=== PATIENT | female | born 1945 | race African-American/Black ===

== ENCOUNTER 2016-06-11 10:50 | Emergency (ER) | payer MEDICARE, OTHER ==
[~2016-06-11] VITALS: Ht 167.6 cm; Wt 80.0 kg
[~2016-06-11 10:50] MED LIST: AMLO2.5T78 PO; BENA1TAB12 PO; CIPR500T4 PO; HYDR-1049 PO; HYDR-902 PO; LEVO25TA59 PO; OMEP20CA16 PO; ONDA4TAB14 PO; TRAM100T8 PO
[2016-06-11 10:54] VITALS: Ht 167.6 cm; Wt 80.0 kg
[2016-06-11] MEDS ORDERED: FAMOTIDINE 20 MG INJ IV STA (11:05)
[2016-06-11] MEDS ORDERED: SOD CHLORIDE 0.9% 1,000 ML IV STA (11:05)
[2016-06-11] MEDS ORDERED: ONDANSETRON 4 MG INJ IV STA (11:05)
--- NOTE | 2016-06-11 11:09 | ERA ---
ER Documentation Chief Complaint Date/Time DATE: 06/11/16 TIME: 11:07 Chief Complaint FLANK PAIN WITH FLU LIKE SYMPTOMS HPI Patient is a 70-year-old female who presents with gradual onset, constant, moderate, dull upper abdominal pain since last night. Pain is in the epigastrium and radiates to the bilateral flanks. Patient reports having 5 episodes of chocolate colored emesis last night and 2 episodes of brown soft stool this morning. Patient denies fever, dark stools, dysuria, chest pain, dyspnea, cough. ROS All systems reviewed and are negative except as per history of present illness. Medications Home Meds Active Scripts Ondansetron Hcl* (Zofran*) 4 Mg Tablet, 4 MG PO Q8 Y for NAUSEA, #14 TAB Prov:REVA DAVIS MD 06/11/16 Dicyclomine Hcl* (Bentyl*) 10 Mg Capsule, 10 MG PO QID Y for PAIN, #10 CAP Prov:REVA DAVIS MD 06/11/16 Famotidine* (Pepcid*) 20 Mg Tablet, 20 MG PO BID for 7 Days, TAB Prov:REVA DAVIS MD 06/11/16 Ondansetron (Ondansetron Odt) 4 Mg Tab.rapdis, 4 MG PO Q6H Y for NAUSEA AND/OR VOMITING, #10 TAB Prov:MAURICE CAMERON 11/09/15 Hydrocodone/Acetaminophen (Bath 10-325 Tablet) 1 Each Tablet, 1 TAB PO Q6H Y for PAIN, #20 TAB Prov:MAURICE CAMERON 11/09/15 Ciprofloxacin Hcl* (Ciprofloxacin Hcl*) 500 Mg Tablet, 500 MG PO BID for 5 Days , TAB Prov:MAURICE CAMERON 11/09/15 Reported Medications Tramadol Hcl* (Ultram* ER) 100 Mg Tab.sr.24h, 100 MG PO Y 12/10/12 Hydrocodone/Ibuprofen (Vicoprofen 200-7.5 MG) 1 Each Tablet, 1 EACH PO 12/10/12 Omeprazole* (Omeprazole*) 20 Mg Capsule.dr, 20 MG PO DAILY 12/10/12 Levothyroxine Sodium* (Synthroid*) 25 Mcg Tablet, 25 MCG PO DAILY 12/10/12 Amlodipine Besylate* (Amlodipine Besylate*) 2.5 Mg Tablet, 2.5 MG PO DAILY 12/10/12 Benazepril-Hydrochlorothiazide (Benazepril-Hydrochlorothiazide) 1 Each Tablet, 1 EACH PO DAILY 12/10/12 Allergies Allergies: Coded Allergies: No Known Drug Allergies (Verified Allergy, 12/10/12) PMhx/Soc Past medical history: Diabetes, hypertension Past surgical history: Cholecystectomy, back, right knee. Social history: Smokes cigarettes, no alcohol or illicit drugs. History of Surgery: Yes (Cholecystectomy,Lumbar Spine Surg) Anesthesia Reaction: No Hx Neurological Disorder: No Hx Respiratory Disorders: Yes (COPD) Hx Cardiac Disorders: Yes (HTN) Hx Psychiatric Problems: No Hx Miscellaneous Medical Probl: Yes (Hep A&C;Hypothyroidism,GERD) Hx Alcohol Use: No Hx Substance Use: No Hx Tobacco Use: Yes Smoking Status: Current some day smoker FmHx Family History: No coronary disease, No diabetes Physical Exam Vitals Vital Signs Date Time Temp Pulse Resp B/P Pulse Ox O2 Delivery O2 Flow Rate FiO2 06/11/16 13:49 99.0 75 18 109/71 97 Room Air 06/11/16 11:08 101.6 06/11/16 10:54 99.3 93 18 135/72 100 Physical Exam Const: Alert, no acute distress Head: Atraumatic Eyes: Normal Conjunctiva, no pallor, no icterus ENT: Normal External Ears, Nose and Mouth. Mucous membranes moist Neck: Full range of motion..~ No meningismus. Resp: Clear to auscultation bilaterally, trace right basilar rales Cardio: Regular rate and rhythm, no murmurs Abd: Soft, nondistended, epigastric tenderness, no guarding or rebound Skin: No petechiae or rashes Back: No midline or flank tenderness Ext: No cyanosis, or edema Neur: Awake and alert, cranial nerves II through XII intact bilaterally, strength and sensation intact in 4 extremities. Psych: Normal Mood and Affect Result Diagram: 06/11/16 1130 06/11/16 1130 Results 24 hrs Laboratory Tests Test 06/11/16 11:30 06/11/16 12:16 White Blood Count 5.410^3/ul Red Blood Count 4.9110^6/ul Hemoglobin 13.4g/dl Hematocrit 39.8% Mean Corpuscular Volume 81.1fl Mean Corpuscular Hemoglobin 27.3pg Mean Corpuscular Hemoglobin Concent 33.7g/dl Red Cell Distribution Width 13.2% Platelet Count 23913^3/UL Mean Platelet Volume 11.2fl Neutrophils % 51.2% Lymphocytes % 40.0% Monocytes % 6.9% Eosinophils % 1.1% Basophils % 0.2% Nucleated Red Blood Cells % 0.0/100WBC Neutrophils # 2.710^3/ul Lymphocytes # 2.110^3/ul Monocytes # 0.410^3/ul Eosinophils # 0.110^3/ul Basophils # 0.010^3/ul Nucleated Red Blood Cells # 0.010^3/ul Sodium Level 140mmol/L Potassium Level 3.4mmol/L Chloride Level 104mmol/L Carbon Dioxide Level 26mmol/L Anion Gap 13 Blood Urea Nitrogen 12mg/dl Creatinine 0.48mg/dl Glucose Level 145mg/dl Lactic Acid Level 1.1mmol/L Calcium Level 9.3mg/dl Total Bilirubin 0.5mg/dl Direct Bilirubin 0.00mg/dl Indirect Bilirubin 0.5mg/dl Aspartate Amino Transf (AST/SGOT) 20IU/L Alanine Aminotransferase (ALT/SGPT) 29IU/L Alkaline Phosphatase 86IU/L Troponin I < 0.012ng/ml Total Protein 6.5g/dl Albumin 3.4g/dl Globulin 3.10g/dl Albumin/Globulin Ratio 1.09 Lipase 93U/L Urine Color LT. YELLOW Urine Clarity CLEAR Urine pH 5.5 Urine Specific Gates 1.020 Urine Ketones NEGATIVE Urine Nitrite NEGATIVE Urine Bilirubin NEGATIVE Urine Urobilinogen 0.2 E.U./ Urine Leukocyte Esterase TRACE Urine Microscopic RBC 0-2/HPF Urine Microscopic WBC 2-5/HPF Urine Epithelial Cells FEW Urine Bacteria MODERATE Urine Hemoglobin TRACE Urine Glucose NEGATIVE% Urine Total Protein NEGATIVE Current Medications Medications (Trade) Dose Ordered Sig/Nguyen Route PRN Reason Start Time Stop Time Status Last Admin Dose Admin Sodium Chloride (NS) 1,000 ml @ 1,000 mls/hr Q1H STAT IV 06/11/16 11:05 06/11/16 12:04 DC 06/11/16 11:40 Ondansetron HCl (Zofran Inj) 4 mg ONCE STAT IV 06/11/16 11:05 06/11/16 11:07 DC 06/11/16 11:39 Famotidine (Pepcid Iv) 20 mg ONCE STAT IV 06/11/16 11:05 06/11/16 11:07 DC 06/11/16 11:39 Acetaminophen (Tylenol Tab) 650 mg ONCE ONCE PO 06/11/16 11:30 06/11/16 11:31 DC 06/11/16 11:39 Iohexol 150 ml 150 ml STK-MED ONCE .ROUTE 06/11/16 12:24 06/11/16 12:25 DC Sodium Chloride (NS) 100 ml @ ud STK-MED ONCE .ROUTE 06/11/16 12:24 06/11/16 12:25 DC Procedures/MDM EKG read by me: Time 1224, rate 72 Rhythm: Normal sinus Adams: Normal Intervals: Normal ST-T waves: no ischemic changes Ectopy: No Q-waves: No Impression: No evidence of ischemia or arrhythmia MDM: Patient is a 70-year-old female who presents with 1 day of upper abdominal pain associated with vomiting, diarrhea and fever. Symptoms are suggestive of gastroenteritis. However, given the patient's abdominal tenderness on exam, CT scan was performed to exclude intra-abdominal infectious process. Patient's exam is not peritoneal, and on reassessment the patient states that pain is improved. There is no evidence of pneumonia on chest x-ray or UTI on UA. Patient was signed out to Dr. Roberts at shift change pending results of CT scan. If the patient's CT scan does not show acute pathology, I believe the patient can be discharged home with symptomatic treatment for acute gastroenteritis. There is no evidence of dehydration. Departure Diagnosis: Primary Impression: Gastroenteritis Condition: REVA Estrada MD Jun 11, 2016 11:09
[2016-06-11] MEDS ORDERED: ACETAMINOPHEN 325 MG TAB PO ONE (11:30)
[2016-06-11 11:36] LABS: ADD SCAN DIFF NO
--- NOTE | 2016-06-11 11:37 | RADRPT ---
PROCEDURE: XR Chest. CLINICAL INDICATION: The pain TECHNIQUE: Anterior chest x-ray. COMPARISON: None. FINDINGS: The lungs are clear. No pleural effusion identified. There is no evidence of pneumothorax. The cardiomediastinal silhouette is unremarkable. The soft tissues are normal. Osseous structures demonstrate mild degenerative change of bilateral shoulder joints. No free air under the hemidiaphragms. IMPRESSION: 1. No acute disease is seen in the chest. RPTAT: QQ .Hung Arriaza MD, Date Time Electronically viewed and signed by .Hung Arriaza MD, on 06/11/2016 11:37 .M/
[2016-06-11 11:39] LABS: BASOPHILS % 0.2 % (0.0-2.0); EOSINOPHILS # 0.1 10^3/ul (0.0-0.5); EOSINOPHILS % 1.1 % (0.0-7.0); HEMATOCRIT 39.8 % (37.0-47.0); HEMOGLOBIN 13.4 g/dl (12.0-16.0); LYMPHOCYTES # 2.1 10^3/ul (0.8-2.9); MEAN CORPUSCULAR HEMOGLOBIN 27.3 pg (29.0-33.0); MEAN CORPUSCULAR HGB CONC 33.7 g/dl (32.0-37.0); MEAN CORPUSCULAR VOLUME 81.1 fl (82.0-101.0); MEAN PLATELET VOLUME 11.2 fl (7.4-10.4); MONOCYTE # 0.4 10^3/ul (0.3-0.9); MONOCYTES % 6.9 % (0.0-11.0); NEUTROPHIL # 2.7 10^3/ul (1.6-7.5); NEUTROPHILS % 51.2 % (39.0-77.0); PLATELET COUNT 188 10^3/UL (140-415); RED BLOOD COUNT 4.91 10^6/ul (4.20-5.40); RED CELL DISTRIBUTION WIDTH 13.2 % (11.5-14.5); WHITE BLOOD COUNT 5.4 10^3/ul (4.8-10.8)
[2016-06-11 11:47] LABS: ALBUMIN 3.4 g/dl (3.3-4.9)
[2016-06-11 11:48] LABS: CHLORIDE 104 mmol/L (97-110); POTASSIUM 3.4 mmol/L (3.5-5.1); SODIUM 140 mmol/L (135-144)
[2016-06-11 11:50] LABS: ANION GAP 13 (8-16); ASPARTATE AMINO TRANSFERASE 20 IU/L (15-46); BILIRUBIN,INDIRECT 0.5 mg/dl (0-1.1); BILIRUBIN,TOTAL 0.5 mg/dl (0.2-1.3); CARBON DIOXIDE 26 mmol/L (21-31); CREATININE 0.48 mg/dl (0.44-1.00)
[2016-06-11 11:51] LABS: ALANINE AMINOTRANSFERASE 29 IU/L (13-69); ALBUMIN/GLOBULIN RATIO 1.09; ALKALINE PHOSPHATASE 86 IU/L (42-121); BLOOD UREA NITROGEN 12 mg/dl (7-20); CALCIUM 9.3 mg/dl (8.4-10.2); GLUCOSE 145 mg/dl (70-220); TOTAL PROTEIN 6.5 g/dl (6.1-8.1)
[2016-06-11 12:06] LABS: TROPONIN-I < 0.012 ng/ml (0.00-0.12)
[2016-06-11] MEDS ORDERED: SOD CHLORIDE 0.9% 100 ML ONE (12:24)
[2016-06-11] MEDS ORDERED: IOHEXOL 300MG/ML 150 ML BTL ONE (12:24)
[2016-06-11 13:01] LABS: URINE COLOR LT. YELLOW (YELLOW)
[2016-06-11 13:02] LABS: ADD UMIC YES; URINE BILIRUBIN (Dip) NEGATIVE (NEGATIVE); URINE BLOOD (Dip) TRACE (NEGATIVE); URINE GLUCOSE (Dip) NEGATIVE (NEGATIVE); URINE KETONES (Dip) NEGATIVE (NEGATIVE); URINE LEUKOCYTE ESTERASE (Dip) TRACE (NEGATIVE); URINE NITRITE (Dip) NEGATIVE (NEGATIVE); URINE TOTAL PROTEIN (Dip) NEGATIVE (NEGATIVE); URINE UROBILINOGEN (Dip) 0.2 E.U./ (0.1-1.0)
[2016-06-11 13:04] LABS: BACTERIA,URINE MODERATE; URINE RBCS 0-2 /HPF (0)
[2016-06-11 13:49] VITALS: TEMP 99
[2016-06-11] MEDS ORDERED: FAMO-18 PO (15:12)
[2016-06-11] MEDS ORDERED: DICY10CA60 PO (15:12)
[2016-06-11] MEDS ORDERED: ONDA4TAB8 PO (15:12)
--- NOTE | 2016-06-11 15:27 | RADRPT ---
PROCEDURE: CT Abdomen and Pelvis with contrast. CLINICAL INDICATION: Abdominal pain, left flank pain, fever TECHNIQUE: CT scan of the abdomen and pelvis with and without contrast was performed on a multidet adolfo high-resolution CT scanner. The patient was scanned following the uncomplicated intravenous a dministration of 100 cc of Omnipaque 300. Coronal and sagittal reformatted images were obtained fro m the axial source images. Images were reviewed on a high-resolution PACS workstation. The followin g dose reduction techniques were used: Automated exposure control, adjustment of the mA and/or kV ac cording to patient size and use of iterative reconstruction technique. The total exam CTDI equals 22 .5 mGy and the total exam DLP equals 1309 mGy-cm. COMPARISON: None. FINDINGS: CT abdomen: There is mild bibasilar atelectasis. The heart size is normal. No pericardial effusion identified. The liver demonstrates normal size and density. No liver mass identified. The gallbladder is surgically absent. There is no intrahepatic or extrahepatic biliary dilatation. The spleen is normal in size. No focal splenic abnormality identified. No gross abnormality of the stomach is identified. The pancreas is unremarkable. The adrenal glands appear normal. The kidneys are unremarkable. There is no evidence of renal mass, renal calculi or hydronephrosis. The aorta is of normal caliber. Aortic vascular calcifications are present. No adenopathy identified. Crescentic low density focus in the second portion of duodenum is likely free material within the ravi men of the duodenum. The bowel and mesentery are otherwise unremarkable. CT pelvis: There is demonstrates nodular contour as well as a few small calcifications within the uterus, sugge sting fibroid uterus. Urinary bladder is mostly decompressed grossly unremarkable. The pelvic sidewalls and inguinal regions are clear. The sigmoid colon and rectum are remarkable for moderate sigmoid diverticulosis. No adenopathy, free fluid or inflammatory change identified. The osseous structures are remarkable for advanced degenerative spondylosis of the spine. There is posterior fusion device at L4/L5 with satisfactory position and without evidence of hardwar e failure. No osteolytic or osteoblastic lesion is detected. IMPRESSION: 1. Moderate diverticulosis of the sigmoid colon, without inflammatory change to suggest diverticuli tis. 2. No mass, lymphadenopathy, renal calculi or focal acute inflammatory process is identified. 3. Moderate atherosclerotic calcification of the aorta. 4. 1.5 cm fat containing umbilical hernia. 5. Fibroid uterus. RPTAT: QQ .Hung Arriaza MD, MD Date Time Electronically viewed and signed by .Hung Arriaza MD, MD on 06/11/2016 15:27 ./
--- NOTE | 2016-06-11 15:34 | EN ---
Date/Time of Note Date/Time of Note DATE: 06/11/16 TIME: 15:[address] scan resulted and shows no acute pathology in the abdomen. On reassessment the patient states that she is feeling better. She has no dysuria or CVA tenderness, and UA shows only 2-5 WBCs but does have bacteria. Urine was sent for culture. I have very low suspicion for UTI given epigastric location of pain, and vomiting and diarrhea in combination, which is suggestive gastroenteritis. I have advised the patient carefully on return precautions and bland diet. The patient was noted by her nurse to be hypoxic previously, but oxygen was turned off and the patient currently has normal O2 sat. The patient never complained of shortness of breath, and it is unclear whether patient truly had hypoxia. Patient will be discharged home with comfort medications and return precautions. REVA DAVIS MD Jun 11, 2016 15:34
[2016-06-11 15:49] VITALS: BP 119/87; PULSE 78; RESP 18
== END 2016-06-11 16:13 | disposition home or self-care (01) ==
LOC: E/R 10:50
DX: K52.9 Noninfective gastroenteritis and colitis, unspecified (principal); R11.10 Vomiting, unspecified; I10 Essential (primary) hypertension; E11.9 Type 2 diabetes mellitus without complications; J44.9 Chronic obstructive pulmonary disease, unspecified; E03.9 Hypothyroidism, unspecified; F17.210 Nicotine dependence, cigarettes, uncomplicated
CPT/HCPCS: 36415; 71010; 74177; 80053; 81001; 83605; 83690; 84484; 85025; 87040; 87086; 93005; 96361; 96374; 96375; 99285; J2405; J7030; Q9967; 81003

== ENCOUNTER 2016-09-02 23:37 | Emergency (ER) | payer MEDICARE, OTHER ==
[~2016-09-02] VITALS: Ht 177.8 cm; Wt 108.0 kg
[~2016-09-02 23:37] MED LIST changes: +DICY10CA60 PO; +FAMO-96 PO; +ONDA4TAB8 PO
[2016-09-02 23:40] VITALS: Ht 177.8 cm; Wt 108.0 kg
--- NOTE | 2016-09-03 01:57 | ERD ---
ER Documentation Chief Complaint Date/Time DATE: 09/03/16 TIME: 01:54 Chief Complaint c/o right arm insect bite x 5 days. (+) pus and redness. HPI This pleasant 71-year-old female presents to emergency department today for evaluation of painful red hot right forearm. Patient reports that 4 days ago she was bit by insect, states that it was pruritic, and she had been scratching it. Patient states that now the bite is worsening, red , hot and painful DM, HTN ROS All systems reviewed and are negative except as per history of present illness. Medications Home Meds Active Scripts Ondansetron Hcl* (Zofran*) 4 Mg Tablet, 4 MG PO Q8 Y for NAUSEA, #14 TAB Prov:REVA DAVIS MD 06/11/16 Dicyclomine Hcl* (Bentyl*) 10 Mg Capsule, 10 MG PO QID Y for PAIN, #10 CAP Prov:REVA DAVIS MD 06/11/16 Famotidine* (Pepcid*) 20 Mg Tablet, 20 MG PO BID for 7 Days, TAB Prov:REVA DAVIS MD 06/11/16 Ondansetron (Ondansetron Odt) 4 Mg Tab.rapdis, 4 MG PO Q6H Y for NAUSEA AND/OR VOMITING, #10 TAB Prov:MAURICE CAMERON 11/09/15 Hydrocodone/Acetaminophen (Jeddo 10-325 Tablet) 1 Each Tablet, 1 TAB PO Q6H Y for PAIN, #20 TAB Prov:MAURICE CAMERON 11/09/15 Ciprofloxacin Hcl* (Ciprofloxacin Hcl*) 500 Mg Tablet, 500 MG PO BID for 5 Days , TAB Prov:MAURICE CAMERON 11/09/15 Reported Medications Tramadol Hcl* (Ultram* ER) 100 Mg Tab.sr.24h, 100 MG PO Y 12/10/12 Hydrocodone/Ibuprofen (Vicoprofen 200-7.5 MG) 1 Each Tablet, 1 EACH PO 12/10/12 Omeprazole* (Omeprazole*) 20 Mg Capsule.dr, 20 MG PO DAILY 12/10/12 Levothyroxine Sodium* (Synthroid*) 25 Mcg Tablet, 25 MCG PO DAILY 12/10/12 Amlodipine Besylate* (Amlodipine Besylate*) 2.5 Mg Tablet, 2.5 MG PO DAILY 12/10/12 Benazepril-Hydrochlorothiazide (Benazepril-Hydrochlorothiazide) 1 Each Tablet, 1 EACH PO DAILY 12/10/12 Allergies Allergies: Coded Allergies: No Known Drug Allergies (Verified Allergy, 12/10/12) PMhx/Soc History of Surgery: Yes (Cholecystectomy,Lumbar Spine Surg, knee) Anesthesia Reaction: No Hx Neurological Disorder: No Hx Respiratory Disorders: Yes (COPD) Hx Cardiac Disorders: Yes (HTN) Hx Psychiatric Problems: No Hx Miscellaneous Medical Probl: Yes (Hep A&C;Hypothyroidism,GERD, dm) Hx Alcohol Use: No Hx Substance Use: No Hx Tobacco Use: Yes Smoking Status: Never smoker Physical Exam Vitals Vital Signs Date Time Temp Pulse Resp B/P Pulse Ox O2 Delivery O2 Flow Rate FiO2 09/02/16 23:40 98.4 81 18 135/63 98 Vitals stable, triage notes reviewed Physical Exam Const: Well-appearing, well-nourished, well-hydrated no acute Head: Atraumatic Eyes: Normal Conjunctiva, PERRLA, EOMI ENT: Normal External Ears, Nose and Mouth. Mucous membranes moist Neck: Full range of motion..~ No meningismus. Resp: Respirations even and unlabored, no respiratory distress Cardio: Abd: Skin: Outer aspect of right forearm proximal to elbow presents with red hot erythemic plaque with surrounding erythema nonfluctuating erythema is hypersensitive, no discharge when investigated manually expressed with light palpation Back: Ext: No cyanosis, or edema Neur: Awake and alert Psych: Normal Mood and Affect Results 24 hrs Current Medications Medications (Trade) Dose Ordered Sig/Nguyen Route PRN Reason Start Time Stop Time Status Last Admin Dose Admin Acetaminophen/ Hydrocodone Bitart (Jeddo (5/325)) 1 tab ONCE ONCE PO 09/03/16 02:00 09/03/16 02:01 DC 09/03/16 02:12 Ceftriaxone Sodium (Rocephin) 1 gm ONCE ONCE IM 09/03/16 02:00 09/03/16 02:01 DC 09/03/16 02:11 Lidocaine (Xylocaine 1% (Mdv) 20 ml) 20 ml ONCE ONCE SC 09/03/16 02:30 09/03/16 02:31 DC 09/03/16 02:11 Procedures/MDM This 71-year-old female presents to emergency department today for evaluation of an infected insect bite on her right elbow. Patient reports that originally the area was paretic and she had been scratching it. Symptoms have developed over the last several days with worsening of redness warmth and pain. Low suspicion for Kt Yoel syndrome, abscess, or otitis. Patient receives 1 g of Rocephin while in emergency department, one Jeddo for pain. Plan to discharge patient home with Bactrim, Keflex, and ibuprofen. Instructed to take full course of antibiotics, return to emergency department for worsening of symptoms, increased redness, warmth, fever, nausea, vomiting. Follow-up with primary care physician after antibiotic course is complete. I feel the patient is stable for discharge at this time. I have discussed results, examination findings, the treatment plan with the patient and family present prior to discharge. Indications for emergent reevaluation, side effects of medication were also discussed. All questions were answered. Patient verbalizes understanding and agrees with plan of care. Departure Diagnosis: Primary Impression: Infected bite wound Condition: Good Patient Instructions: Insect Sting/Bite, Infected Additional Instructions: Thank you for for coming to [facility] for your care today. Please ask your nurse or provider if you have questions about your care today and do not leave until all your questions have been answered. Please use any medications given as directed and follow-up with your doctor (or the doctor you were referred to) in the next 2-3 days. If you do not have a primary care doctor you may follow up at the [facility] [place] (listed below). You may also use motrin and tylenol as needed for fever and/or pain unless instructed otherwise by your provider or nurse. Indications for more urgent follow-up have been discussed, but you may return to the Emergency Department at ANY time for any worrisome or worsening symptoms. If you have abdominal pain, please know that no test or exam you received is perfect and you should follow up within 8 hours for continued pain. If you had any imaging studies today, such as an X-Ray or CT Scan, these studies will be reviewed later by a radiologist. You will be called if there are important findings that were not identified today, so make sure the contact information you provided at registration is correct. If you received any narcotic pain control medicine today, such as Vicodin, Morphine or Dilaudid, your coordination and judgment may be affected for a number of hours. Please do not drive or operate heavy machinery, and you may want someone to assist you at home. If you were given a prescription for narcotic medication, be aware that it is very addictive- use sparingly and only if necessary. CLEM OLIVA Sep 03, 2016 01:57
[2016-09-03] MEDS ORDERED: CEFTRIAXONE 1 GM INJ IM ONE (02:00)
[2016-09-03] MEDS ORDERED: HYDROCODONE/APAP (5/325) TAB PO ONE (02:00)
[2016-09-03] MEDS ORDERED: LIDOCAINE 1% (MDV) 20 ML INJ SC ONE (02:30)
[2016-09-03] MEDS ORDERED: CEPH-443 PO (03:10)
[2016-09-03] MEDS ORDERED: IBUP400T22 PO (03:11)
[2016-09-03] MEDS ORDERED: SULF1TAB31 PO (03:11)
== END 2016-09-03 03:27 | disposition home or self-care (01) ==
LOC: FTE 23:37
DX: S50.861A Insect bite (nonvenomous) of right forearm, initial encounter (principal); J44.9 Chronic obstructive pulmonary disease, unspecified; I10 Essential (primary) hypertension; E03.9 Hypothyroidism, unspecified; E11.9 Type 2 diabetes mellitus without complications; W57.XXXA Bitten or stung by nonvenomous insect and other nonvenomous arthropods, initial encounter; Y92.9 Unspecified place or not applicable; Z87.891 Personal history of nicotine dependence
CPT/HCPCS: 96372; 99284; J0696

== ENCOUNTER 2016-11-10 20:50 | Emergency (ER) | payer MEDICARE, OTHER ==
[~2016-11-10] VITALS: Ht 162.6 cm; Wt 75.0 kg
[~2016-11-10 20:50] MED LIST changes: +CEPH-443 PO; +IBUP400T22 PO; +SULF1TAB31 PO
[2016-11-10 20:52] VITALS: Ht 162.6 cm; Wt 75.0 kg
[2016-11-10] MEDS ORDERED: SOD CHLORIDE 0.9% 1,000 ML IV STA (21:57)
[2016-11-10] MEDS ORDERED: morphine 2 MG INJ IV STA (21:57)
[2016-11-10] MEDS ORDERED: ONDANSETRON 4 MG INJ IV STA (21:57)
[2016-11-10 22:34] LABS: BASOPHIL # 0.1 10^3/ul (0.0-0.1); BASOPHILS % 0.5 % (0.0-2.0); EOSINOPHILS # 0.2 10^3/ul (0.0-0.5); EOSINOPHILS % 1.8 % (0.0-7.0); HEMATOCRIT 47.4 % (37.0-47.0); HEMOGLOBIN 15.5 g/dl (12.0-16.0); LYMPHOCYTES # 4.8 10^3/ul (0.8-2.9); MEAN CORPUSCULAR HEMOGLOBIN 26.5 pg (29.0-33.0); MEAN CORPUSCULAR HGB CONC 32.7 g/dl (32.0-37.0); MEAN CORPUSCULAR VOLUME 80.9 fl (82.0-101.0); MEAN PLATELET VOLUME 10.7 fl (7.4-10.4); MONOCYTE # 0.7 10^3/ul (0.3-0.9); NEUTROPHIL # 5.6 10^3/ul (1.6-7.5); NEUTROPHILS % 48.7 % (39.0-77.0); PLATELET COUNT 340 10^3/UL (140-415); RED BLOOD COUNT 5.86 10^6/ul (4.20-5.40); RED CELL DISTRIBUTION WIDTH 13.6 % (11.5-14.5); WHITE BLOOD COUNT 11.4 10^3/ul (4.8-10.8)
[2016-11-10 22:41] LABS: ADD UMIC NO; UR ASCORBIC ACID NEGATIVE (NEGATIVE); UR BILIRUBIN (Dip) NEGATIVE (NEGATIVE); UR BLOOD (Dip) NEGATIVE (NEGATIVE); UR CLARITY CLEAR (CLEAR); UR COLOR YELLOW (YELLOW); UR GLUCOSE (Dip) NEGATIVE (NEGATIVE); UR KETONES (Dip) NEGATIVE (NEGATIVE); UR LEUKOCYTE ESTERASE (Dip) NEGATIVE Leu/ul (NEGATIVE); UR NITRITE (Dip) NEGATIVE (NEGATIVE); UR SPECIFIC GRAVITY (Dip) 1.018 (1.003-1.030); UR TOTAL PROTEIN (Dip) NEGATIVE (NEGATIVE); UR UROBILINOGEN (Dip) NEGATIVE (NEGATIVE)
[2016-11-10 22:52] LABS: ALANINE AMINOTRANSFERASE 31 IU/L (13-69); ALBUMIN 4.2 g/dl (3.3-4.9); ALBUMIN/GLOBULIN RATIO 1.27; ALKALINE PHOSPHATASE 134 IU/L (42-121); ANION GAP 13 (8-16); ASPARTATE AMINO TRANSFERASE 20 IU/L (15-46); BILIRUBIN,INDIRECT 0.2 mg/dl (0-1.1); BILIRUBIN,TOTAL 0.2 mg/dl (0.2-1.3); BLOOD UREA NITROGEN 16 mg/dl (7-20); CARBON DIOXIDE 30 mmol/L (21-31); CHLORIDE 102 mmol/L (97-110); CREATININE 0.61 mg/dl (0.44-1.00); GLUCOSE 163 mg/dl (70-220); POTASSIUM 4.3 mmol/L (3.5-5.1); SODIUM 141 mmol/L (135-144); TOTAL PROTEIN 7.5 g/dl (6.1-8.1)
[2016-11-10] MEDS ORDERED: LIDOCAINE/MYLANTA 40 ML BTL PO ONE (23:00)
[2016-11-10 23:21] LABS: TROPONIN-I < 0.012 ng/ml (0.00-0.12)
--- NOTE | 2016-11-11 00:33 | RADRPT ---
PROCEDURE: XR Chest. CLINICAL INDICATION: Chest pain. TECHNIQUE: Single frontal view. COMPARISON: 06/11/2016. FINDINGS: The lungs are clear. The heart size is normal. There is no pleural effusion or pneumothorax. There are degenerative changes of both shoulders. IMPRESSION: 1. Degenerative changes of both shoulders. 2. Otherwise normal chest x-ray. RPTAT: QQ .Henry Guajardo MD, MD Date Time Electronically viewed and signed by .Henry Guajardo MD, MD on 11/11/2016 00:32 .R/
[2016-11-11] MEDS ORDERED: RANI150T9 PO (01:26)
[2016-11-11] MEDS ORDERED: KETOROLAC 15 MG INJ IV ONE (01:30)
[2016-11-11] MEDS ORDERED: NAPR-685 PO (01:33)
[2016-11-11] MEDS ORDERED: HYDR-906 PO (01:33)
--- NOTE | 2016-11-11 01:38 | ERD ---
ER Documentation Chief Complaint Date/Time DATE: 11/11/16 TIME: 01:33 Chief Complaint bib ambulance epigastric pain x 1 day HPI This 71-year-old female comes in complaining of epigastric pain that began earlier today. The pain is right at the bottom of her sternum, is not associated with shortness of breath or nausea, and is reproducible to palpation when she touches her lower sternum. It is described as a sharp pain. Denies any history of cardiac problems. ROS All systems reviewed and are negative except as per history of present illness. Medications Home Meds Active Scripts Naproxen* (Naproxen*) 375 Mg Tablet, 375 MG PO BID Y for PAIN, #14 TAB Prov:STEPHEN BASILIO DO 11/11/16 Hydrocodone/Acetaminophen (Brigantine 5-325 Tablet) 1 Each Tablet, 1 EACH PO Q6, #10 TAB Prov:STEPHEN BASILIO DO 11/11/16 Ranitidine Hcl* (Zantac*) 150 Mg Tablet, 150 MG PO BID Y for EPIGASTRIC PAIN, # 30 TAB Prov:STEPHEN BASILIO DO 11/11/16 Ibuprofen* (Motrin*) 400 Mg Tab, 400 MG PO Q6, #30 TAB Prov:PJ,CLEM 09/03/16 Sulfamethoxazole/Trimethoprim* (Bactrim Ds* Tablet) 1 Each Tablet, 1 TAB PO BID for 7 Days, #14 TAB Prov:PJ,CLEM 09/03/16 Cephalexin* (Keflex*) 500 Mg Capsule, 500 MG PO QID for 10 Days, CAP Prov:PJ,CLEM 09/03/16 Ondansetron Hcl* (Zofran*) 4 Mg Tablet, 4 MG PO Q8 Y for NAUSEA, #14 TAB Prov:REVA DAVIS MD 06/11/16 Dicyclomine Hcl* (Bentyl*) 10 Mg Capsule, 10 MG PO QID Y for PAIN, #10 CAP Prov:REVA DAVIS MD 06/11/16 Famotidine* (Pepcid*) 20 Mg Tablet, 20 MG PO BID for 7 Days, TAB Prov:REVA DAVIS MD 06/11/16 Ondansetron (Ondansetron Odt) 4 Mg Tab.rapdis, 4 MG PO Q6H Y for NAUSEA AND/OR VOMITING, #10 TAB Prov:MAURICE CAMERON. 11/09/15 Hydrocodone/Acetaminophen (Brigantine 10-325 Tablet) 1 Each Tablet, 1 TAB PO Q6H Y for PAIN, #20 TAB Prov:MAURICE CAMERON. 11/09/15 Ciprofloxacin Hcl* (Ciprofloxacin Hcl*) 500 Mg Tablet, 500 MG PO BID for 5 Days , TAB Prov:MAURICE CAMERON. 11/09/15 Reported Medications Tramadol Hcl* (Ultram* ER) 100 Mg Tab.sr.24h, 100 MG PO Y 12/10/12 Hydrocodone/Ibuprofen (Vicoprofen 200-7.5 MG) 1 Each Tablet, 1 EACH PO 12/10/12 Omeprazole* (Omeprazole*) 20 Mg Capsule.dr, 20 MG PO DAILY 12/10/12 Levothyroxine Sodium* (Synthroid*) 25 Mcg Tablet, 25 MCG PO DAILY 12/10/12 Amlodipine Besylate* (Amlodipine Besylate*) 2.5 Mg Tablet, 2.5 MG PO DAILY 12/10/12 Benazepril-Hydrochlorothiazide (Benazepril-Hydrochlorothiazide) 1 Each Tablet, 1 EACH PO DAILY 12/10/12 Allergies Allergies: Coded Allergies: No Known Drug Allergies (Verified Allergy, 12/10/12) PMhx/Soc History of Surgery: Yes (Cholecystectomy,Lumbar Spine Surg, knee) Anesthesia Reaction: No Hx Neurological Disorder: No Hx Respiratory Disorders: Yes (COPD) Hx Cardiac Disorders: Yes (HTN) Hx Psychiatric Problems: No Hx Miscellaneous Medical Probl: Yes (Hep A&C;Hypothyroidism,GERD, dm) Hx Alcohol Use: No Hx Substance Use: No Hx Tobacco Use: Yes Smoking Status: Smoker,current status unk Physical Exam Vitals Vital Signs Date Time Temp Pulse Resp B/P Pulse Ox O2 Delivery O2 Flow Rate FiO2 11/10/16 22:32 80 20 137/76 100 11/10/16 20:52 98.2 82 20 138/76 100 Physical Exam Const: [] No distress Head: Atraumatic Eyes: Normal Conjunctiva ENT: Normal External Ears, Nose and Mouth. Neck: Full range of motion..~ No meningismus. Resp: Clear to auscultation bilaterally Cardio: Regular rate and rhythm, no murmurs Abd: Soft, non tender, non distended. Normal bowel sounds Skin: No petechiae or rashes Back: No midline or flank tenderness Ext: No cyanosis, or edema, distal pulses intact upper extremities, reproducible exquisite tenderness to xiphoid process. Neur: Awake and alert oriented 3, no focal deficits Psych: Normal Mood and Affect Result Diagram: 11/10/16222111/10/162221 Results 24 hrs Laboratory Tests Test 11/10/16 22:15 11/10/16 22:22 Urine Color YELLOW Urine Clarity CLEAR Urine pH 5.0 Urine Specific [place] 1.018 Urine Ketones NEGATIVEmg/dL Urine Nitrite NEGATIVEmg/dL Urine Bilirubin NEGATIVEmg/dL Urine Urobilinogen NEGATIVEmg/dL Urine Leukocyte Esterase NEGATIVELeu/ul Urine Hemoglobin NEGATIVEmg/dL Urine Glucose NEGATIVEmg/dL Urine Total Protein NEGATIVEmg/dl White Blood Count 11.410^3/ul Red Blood Count 5.8610^6/ul Hemoglobin 15.5g/dl Hematocrit 47.4% Mean Corpuscular Volume 80.9fl Mean Corpuscular Hemoglobin 26.5pg Mean Corpuscular Hemoglobin Concent 32.7g/dl Red Cell Distribution Width 13.6% Platelet Count 74651^3/UL Mean Platelet Volume 10.7fl Neutrophils % 48.7% Lymphocytes % 42.0% Monocytes % 6.0% Eosinophils % 1.8% Basophils % 0.5% Nucleated Red Blood Cells % 0.0/100WBC Neutrophils # 5.610^3/ul Lymphocytes # 4.810^3/ul Monocytes # 0.710^3/ul Eosinophils # 0.210^3/ul Basophils # 0.110^3/ul Nucleated Red Blood Cells # 0.010^3/ul Sodium Level 141mmol/L Potassium Level 4.3mmol/L Chloride Level 102mmol/L Carbon Dioxide Level 30mmol/L Anion Gap 13 Blood Urea Nitrogen 16mg/dl Creatinine 0.61mg/dl Glucose Level 163mg/dl Lactic Acid Level 2.2mmol/L Calcium Level 10.0mg/dl Total Bilirubin 0.2mg/dl Direct Bilirubin 0.00mg/dl Indirect Bilirubin 0.2mg/dl Aspartate Amino Transf (AST/SGOT) 20IU/L Alanine Aminotransferase (ALT/SGPT) 31IU/L Alkaline Phosphatase 134IU/L Troponin I < 0.012ng/ml Total Protein 7.5g/dl Albumin 4.2g/dl Globulin 3.30g/dl Albumin/Globulin Ratio 1.27 Lipase 118U/L Current Medications Medications (Trade) Dose Ordered Sig/Nguyen Route PRN Reason Start Time Stop Time Status Last Admin Dose Admin Sodium Chloride (NS) 1,000 ml @ 1,000 mls/hr Q1H STAT IV 11/10/16 21:57 11/10/16 22:56 DC 11/10/16 22:31 Morphine Sulfate (morphine) 2 mg ONCE STAT IV 11/10/16 21:57 11/10/16 22:00 DC 11/10/16 22:31 Ondansetron HCl (Zofran Inj) 4 mg ONCE STAT IV 11/10/16 21:57 11/10/16 22:00 DC 11/10/16 22:31 Miscellaneous Medication (Gi Cocktail (2)) 40 ml ONCE ONCE PO 11/10/16 23:00 11/10/16 23:01 DC 11/10/16 22:49 Ketorolac Tromethamine (Toradol) 15 mg ONCE ONCE IV 11/11/16 01:30 11/11/16 01:32 DC Procedures/MDM Patient has epigastric pain which may be musculoskeletal. Complete cardiac workup was performed with no signs of ischemia and normal EKG. Because the patient's age and mild hypertension in the ER is a risk factor I did offer her admission for further cardiac testing. She declined this and stated that she wanted to go home. She had been given an aspirin as well as a GI cocktail which did decrease her pain somewhat. She was given Toradol her pain was decreased much more. Will not make her sign out AGAINST MEDICAL ADVICE that she has a negative workup but I do advise her to follow-up with her primary care doctor and obtain echocardiogram within the next week. Return precautions also given. I am discharging with Zantac, Brigantine and naproxen. Departure Diagnosis: Primary Impression: Chest pain Additional Impression: Leukocytosis, unspecified Condition: Stable Patient Instructions: Epigastric Pain (Uncertain Cause) Additional Instructions: Call your primary care doctor TOMORROW for an appointment during the next 2-3 days. Request an echocardiogram from your doctor in the next week. See the doctor sooner or return here if your condition worsens before your appointment time. STEPHEN BASILIO DO Nov 11, 2016 01:38
[2016-11-11 02:00] VITALS: BP 137/59; PULSE 67; RESP 18
[2016-11-11] MEDS ORDERED: GLIP5TAB13 PO (02:08)
[2016-11-11] MEDS ORDERED: FURO40TA4 PO (02:08)
[2016-11-11] MEDS ORDERED: PROP10DR2 BOTH EYES (02:08)
[2016-11-11] MEDS ORDERED: ASPI-535 PO (02:08)
== END 2016-11-11 02:00 | disposition home or self-care (01) ==
LOC: E/R 20:50
DX: D72.829 Elevated white blood cell count, unspecified (principal); R07.9 Chest pain, unspecified; J44.9 Chronic obstructive pulmonary disease, unspecified; I10 Essential (primary) hypertension; E03.9 Hypothyroidism, unspecified; E11.9 Type 2 diabetes mellitus without complications; Z87.891 Personal history of nicotine dependence
CPT/HCPCS: 36415; 71010; 80053; 81003; 83605; 83690; 84484; 85025; 93005; 96374; 96375; 99285; J1885; J2270; J2405; J7030

== ENCOUNTER 2017-01-08 01:58 | Emergency (ER) | payer MEDICARE, OTHER ==
[~2017-01-08] VITALS: Ht 167.6 cm; Wt 97.7 kg
[~2017-01-08 01:58] MED LIST changes: +ASPI-535 PO; -CEPH-443 PO; -CIPR500T4 PO; +FURO40TA4 PO; +GLIP5TAB13 PO; -HYDR-902 PO; +HYDR-906 PO; +NAPR-685 PO; +PROP10DR2 BOTH EYES; +RANI150T9 PO
[2017-01-08 02:00] VITALS: Ht 167.6 cm; Wt 97.7 kg
[2017-01-08] MEDS ORDERED: HYDROCODONE/APAP (5/325) TAB PO ONE (02:30)
--- NOTE | 2017-01-08 02:37 | ERD ---
ER Documentation Chief Complaint Chief Complaint sp ground ground level, back pain HPI 71-year-old female presents here to emergency department for complaints of lower back pain right shoulder pain after falling off a chair today. Patient landed on the lower back and right shoulder. Patient describes the pain as throbbing pain, 6/10 scale, not better or worse with anything. Patient did not take her medications to help with symptoms. Patient denies any numbness or tingling. Patient denies any deformity. Patient denies any incontinence. Patient did not hit the head during the injury. ROS All systems reviewed and are negative except as per history of present illness. Medications Home Meds Active Scripts Naproxen* (Naproxen*) 375 Mg Tablet, 375 MG PO BID Y for PAIN, #14 TAB Prov:STEPHEN BASILIO DO 11/11/16 Hydrocodone/Acetaminophen ([place] 5-325 Tablet) 1 Each Tablet, 1 EACH PO Q6, #10 TAB Prov:STEPHEN BASILIO DO 11/11/16 Ranitidine Hcl* (Zantac*) 150 Mg Tablet, 150 MG PO BID Y for EPIGASTRIC PAIN, # 30 TAB Prov:PRAFULSTEPHEN DO 11/11/16 Ibuprofen* (Motrin*) 400 Mg Tab, 400 MG PO Q6, #30 TAB Prov:PJ,CLME 09/03/16 Sulfamethoxazole/Trimethoprim* (Bactrim Ds* Tablet) 1 Each Tablet, 1 TAB PO BID for 7 Days, #14 TAB Prov:PJ,CLEM 09/03/16 Ondansetron Hcl* (Zofran*) 4 Mg Tablet, 4 MG PO Q8 Y for NAUSEA, #14 TAB Prov:REVA DAVIS MD 06/11/16 Dicyclomine Hcl* (Bentyl*) 10 Mg Capsule, 10 MG PO QID Y for PAIN, #10 CAP Prov:REVA DAVIS MD 06/11/16 Famotidine* (Pepcid*) 20 Mg Tablet, 20 MG PO BID for 7 Days, TAB Prov:REVA DAVIS MD 06/11/16 Ondansetron (Ondansetron Odt) 4 Mg Tab.rapdis, 4 MG PO Q6H Y for NAUSEA AND/OR VOMITING, #10 TAB Prov:MAURICE CAMERON 11/09/15 Reported Medications Propylene Glycol/Peg 400 (SYSTANE GEL EYE DROPS) 10 Ml Drops.gel, 1 DROP BOTH EYES QID Y for EYE IRRITATION, #1 BOTTLE 11/11/16 Aspirin Ec (Aspir 81) 81 Mg Tablet.dr, 81 MG PO DAILY, #30 TAB 11/11/16 Glipizide* (Glipizide*) 5 Mg Tablet, 5 MG PO DAILY, TAB 11/11/16 Furosemide* (Furosemide*) 40 Mg Tablet, 40 MG PO DAILY, TAB 11/11/16 Tramadol Hcl* (Ultram* ER) 100 Mg Tab.sr.24h, 100 MG PO Y 12/10/12 Hydrocodone/Ibuprofen (Vicoprofen 200-7.5 MG) 1 Each Tablet, 1 EACH PO 12/10/12 Omeprazole* (Omeprazole*) 20 Mg Capsule.dr, 20 MG PO DAILY 12/10/12 Levothyroxine Sodium* (Synthroid*) 25 Mcg Tablet, 25 MCG PO DAILY 12/10/12 Amlodipine Besylate* (Amlodipine Besylate*) 2.5 Mg Tablet, 2.5 MG PO DAILY 12/10/12 Benazepril-Hydrochlorothiazide (Benazepril-Hydrochlorothiazide) 1 Each Tablet, 1 EACH PO DAILY 12/10/12 Allergies Allergies: Coded Allergies: No Known Drug Allergies (Unverified Allergy, Unknown, 11/11/16) PMhx/Soc History of Surgery: Yes (Cholecystectomy,Lumbar Spine Surg, knee) Anesthesia Reaction: No Hx Neurological Disorder: No Hx Respiratory Disorders: Yes (COPD) Hx Cardiac Disorders: Yes (HTN) Hx Psychiatric Problems: No Hx Miscellaneous Medical Probl: Yes (Hep A&C;Hypothyroidism,GERD, dm) Hx Alcohol Use: Yes (SOCIALLY) Hx Substance Use: No Hx Tobacco Use: Yes Smoking Status: Current every day smoker FmHx Family History: No coronary disease, No diabetes, No other Physical Exam Vitals Vital Signs Date Time Temp Pulse Resp B/P Pulse Ox O2 Delivery O2 Flow Rate FiO2 01/08/17 02:00 96.8 94 20 169/85 99 Physical Exam GENERAL: The patient is well developed and appropriate for usual state of health, in no apparent distress. CHEST: Clear to auscultation bilaterally. There are no rales, wheezes or rhonchi. HEART: Regular rate and rhythm. No murmurs, clicks, rubs or gallops. No S3 or S4. ABDOMEN: Soft, nontender and nondistended. Good bowel sounds. No rebound or guarding. No gross peritonitis. No gross organomegaly or masses. No Sanchez sign or McBurney point tenderness. BACK: No midline or flank tenderness. Tenderness on palpation of the paraspinal aspect of the lumbar spine, tenderness on the tailbone area. EXTREMITIES: Able to do full range of motion of the right shoulder without any restriction. Equal pulses bilaterally. There is no peripheral clubbing, cyanosis or edema. No focal swelling or erythema. Full range of motion. Grossly neurovascularly intact. NEURO: Alert and oriented. Cranial nerves 2-12 intact. Motor strength in all 4 extremities with 5/5 strength. Sensation grossly intact. Normal speech and gait. SKIN: There is no apparent rash or petechia. The skin is warm and dry. HEMATOLOGIC AND LYMPHATIC: There is no evidence of excessive bruising or lymphedema. No gross cervical, axillary, or inguinal lymphadenopathy. Results 24 hrs Current Medications Medications (Trade) Dose Ordered Sig/Nguyen Route PRN Reason Start Time Stop Time Status Last Admin Dose Admin Acetaminophen/ Hydrocodone Bitart ([place] (5/325)) 1 tab ONCE ONCE PO 01/08/17 02:30 01/08/17 02:31 DC 01/08/17 02:40 Ketorolac Tromethamine (Toradol) 60 mg ONCE STAT IM 01/08/17 03:28 01/08/17 03:29 DC 01/08/17 03:36 Patient was given medication for pain here in emergency department, after treatment, patient verbalized feeling much better. Patient's pain is improved. PROCEDURE: XR right shoulder. CLINICAL INDICATION: Right shoulder pain TECHNIQUE: AP Internal and external rotation, and transscapular views of the right shoulder were performed. COMPARISON: None. FINDINGS: There are severe degenerative changes involving the acromiohumeral and acromioclavicular articulations with joint space narrowing, subchondral sclerosis and osteophytes. There is normal osseous mineralization and alignment. No acute fracture or dislocation is identified. The soft tissues are unremarkable. IMPRESSION: Osteoarthritis and findings suggesting rotator cuff tendinopathy. Physician Harinder Date Time Electronically viewed and signed by Physician Harinder on 01/08/2017 03: 15 CS/ CC: JOBY MILLER NP PROCEDURE: CT Lumbar Spine without contrast. CLINICAL INDICATION: Back pain. TECHNIQUE: CT scan of the lumbar spine was performed on a multi-detector high -resolution CT scanner. Contiguous axial images were obtained without intravenous contrast. Coronal and sagittal reformatted images were also obtained. Images were reviewed on the PACS workstation. DICOM images are available. One or more of the following dose reduction techniques were used: - Automated exposure control. - Adjustment of the mA and/or kV according to patient size. - Use of iterative reconstruction technique. Exam CTD/vol = 38.44 mGy. Total exam DLP = 1473.56 mGy-cm. COMPARISON: None. FINDINGS: The patient is status post interbody fusion at L4-L5 with posterior stabilization with bilateral rods and pedicle screws. Lumbar vertebral body heights and alignment are within normal limits. There is no acute fracture or subluxation. At T12-L1, the disk height is within normal limits. There is no central canal or neural foraminal stenosis. At L1-L2, the disk height is within normal limits. There is no central canal or neural foraminal stenosis. At L2-L3, the disk height is within normal limits. There is a mild diffuse disc bulge which combined with moderate bilateral facet and ligamentum flavum hypertrophy results in moderate central canal stenosis. There is moderate bilateral neural foraminal stenosis. At L3-L4, there is mild loss of disc height and air vacuum phenomenon present. There is a mild diffuse disc osteophyte complex which combined with moderate bilateral facet and ligamentum flavum hypertrophy results in severe central canal stenosis. There is severe bilateral neural foraminal stenosis. At L4-L5, there is interbody fusion at this level. There is moderate bilateral facet hypertrophy resulting in moderate central canal stenosis. There is severe bilateral neural foraminal stenosis At L5-S1, there is severe loss of disc height and air vacuum phenomenon. There is a mild diffuse disc osteophyte complex resulting in mild central canal stenosis. There is severe bilateral neural foraminal stenosis. There are moderate anterior marginal osteophytes at this level There is no paraspinal mass or collection. There are atherosclerotic calcifications of the abdominal aorta. There is colonic diverticulosis. There are small uterine fibroids. IMPRESSION: No acute fracture or subluxation. Status post interbody fusion at L4-L5 with posterior stabilization with bilateral rods and pedicle screws. Multilevel discogenic and facet disease as described. There is multilevel central canal and neural foraminal stenosis at L2-L3 through L5-S1. Aortic atherosclerosis. Colonic diverticulosis. Uterine fibroids. .Carlos Mcclain MD, MD Date Time Electronically viewed and signed by .Carlos Mcclain MD, on 01/08/2017 03:28 .T/ CC: JOBY MILLER ROOM CLERK Procedures/MDM Medical Decision Making: Patient's pain is most likely consistent with a back contusion, right shoulder contusion, also there is a degenerative disc disease and right shoulder arthritis, rotator cuff injury thats making it worse.. There is no suspicion for neurovascular compromise. Patient has intact sensation and circulation of the affected extremity and distal extremities. No incontinence, no suspicion for cauda equina syndrome, no saddle anesthesia, no symptoms of any acute bacterial infection, no symptoms of any perirectal abscesses, pilonidal cyst.There is low suspicion for septic arthritis. Patient does not have any fever. No symptoms of any aortic dissection or aortic aneurysm. Radiology exam not indicated at this time. Disposition: Home. Patient is given prescription for ibuprofen for mild to moderate pain, [place] for severe pain, Flexeril for muscle spasm. Patient was advised to avoid heavy lifting , apply warm compresses on affected area. Patient was advised that if symptoms are worse, numbness, tingling, high fever, unable to move joint, worsening symptoms, to return to emergency department immediately. Otherwise, patient is advised to follow up with the primary care doctor in 5-7 days for reevaluation of symptoms. Disclaimer: Inadvertent spelling and grammatical errors are likely due to EHR/ dictation software use and do not reflect on the overall quality of patient care. Also, please note that the electronic time recorded on this note does not necessarily reflect the actual time of the patient encounter. Departure Diagnosis: Primary Impression: Back contusion Encounter type: initial encounter Laterality: unspecified laterality Qualified Code: S20.229A - Contusion of back, unspecified laterality, initial encounter Additional Impression: Shoulder contusion Encounter type: initial encounter Laterality: right Qualified Code: S40.011A - Contusion of right shoulder, initial encounter Condition: Stable Patient Instructions: Back Pain (Acute Or Chronic), Shoulder Contusion Additional Instructions: Patient is given prescription for ibuprofen for mild to moderate pain, [place] for severe pain, Flexeril for muscle spasm. Patient was advised to avoid heavy lifting , apply warm compresses on affected area. Patient was advised that if symptoms are worse, numbness, tingling, high fever, unable to move joint, worsening symptoms, to return to emergency department immediately. Otherwise, patient is advised to follow up with the primary care doctor in 5-7 days for reevaluation of symptoms. JOBY MILLER NP Jan 08, 2017 02:37
--- NOTE | 2017-01-08 03:16 | RADRPT ---
PROCEDURE: XR right shoulder. CLINICAL INDICATION: Right shoulder pain TECHNIQUE: AP Internal and external rotation, and transscapular views of the right shoulder were p erformed. COMPARISON: None. FINDINGS: There are severe degenerative changes involving the acromiohumeral and acromioclavicular articulatio ns with joint space narrowing, subchondral sclerosis and osteophytes. There is normal osseous mineralization and alignment. No acute fracture or dislocation is identified . The soft tissues are unremarkable. IMPRESSION: Osteoarthritis and findings suggesting rotator cuff tendinopathy. Physician Harinder Date Time Electronically viewed and signed by Physician Harinder on 01/08/2017 03:15 CS/
[2017-01-08] MEDS ORDERED: KETOROLAC 60 MG INJ IM STA (03:28)
--- NOTE | 2017-01-08 03:28 | RADRPT ---
PROCEDURE: CT Lumbar Spine without contrast. CLINICAL INDICATION: Back pain. TECHNIQUE: CT scan of the lumbar [facility] Contiguous axial images were obtained without intravenous contrast. Coronal and sagittal refor matted images were also obtained. Images were reviewed on the PACS workstation. DICOM images are av ailable. One or more of the following dose reduction techniques were used: - Automated exposure control. - Adjustment of the mA and/or kV according to patient size. - Use of iterative reconstruction technique. Exam CTD/vol = 38.44 mGy. Total exam DLP = 1473.56 mGy-cm. COMPARISON: None. FINDINGS: The patient is status post interbody fusion at L4-L5 with posterior stabilization with bilateral ralph s and pedicle screws. Lumbar vertebral body heights and alignment are within normal limits. There i s no acute fracture or subluxation. At T12-L1, the disk height is within normal limits. There is no central canal or neural foraminal s tenosis. At L1-L2, the disk height is within normal limits. There is no central canal or neural foraminal st enosis. At L2-L3, the disk height is within normal limits. There is a mild diffuse disc bulge which combine d with moderate bilateral facet and ligamentum flavum hypertrophy results in moderate central canal stenosis. There is moderate bilateral neural foraminal stenosis. At L3-L4, there is mild loss of disc height and air vacuum phenomenon present. There is a mild diffu se disc osteophyte complex which combined with moderate bilateral facet and ligamentum flavum hypert rophy results in severe central canal stenosis. There is severe bilateral neural foraminal stenosis . At L4-L5, there is interbody fusion at this level. There is moderate bilateral facet hypertrophy re sulting in moderate central canal stenosis. There is severe bilateral neural foraminal stenosis At L5-S1, there is severe loss of disc height and air vacuum phenomenon. There is a mild diffuse dis c osteophyte complex resulting in mild central canal stenosis. There is severe bilateral neural fora rogelio stenosis. There are moderate anterior marginal osteophytes at this level There is no paraspinal mass or collection. There are atherosclerotic calcifications of the abdominal aorta. There is colonic diverticulosis. There are small uterine fibroids. IMPRESSION: No acute fracture or subluxation. Status post interbody fusion at L4-L5 with posterior stabilization with bilateral rods and pedicle s crews. Multilevel discogenic and facet disease as described. There is multilevel central canal and neural f oraminal stenosis at L2-L3 through L5-S1. Aortic atherosclerosis. Colonic diverticulosis. Uterine fibroids. .Carlos Mcclain MD, Date Time Electronically viewed and signed by .Carlos Mcclain MD, on 01/08/2017 03:28 .T/
[2017-01-08] MEDS ORDERED: CYCL-319 PO (03:43)
[2017-01-08] MEDS ORDERED: HYDR-902 PO (03:43)
[2017-01-08] MEDS ORDERED: IBUP-1542 PO (03:43)
[2017-01-08 04:10] VITALS: BP 133/86; PULSE 73; RESP 18; TEMP 98.1
== END 2017-01-08 04:11 | disposition home or self-care (01) ==
LOC: FTE 01:58
DX: S20.229A Contusion of unspecified back wall of thorax, initial encounter (principal); S40.011A Contusion of right shoulder, initial encounter; J44.9 Chronic obstructive pulmonary disease, unspecified; I10 Essential (primary) hypertension; E03.9 Hypothyroidism, unspecified; E11.9 Type 2 diabetes mellitus without complications; F17.210 Nicotine dependence, cigarettes, uncomplicated; W07.XXXA Fall from chair, initial encounter; Y92.9 Unspecified place or not applicable; Z79.82 Long term (current) use of aspirin; Z79.84 Long term (current) use of oral hypoglycemic drugs
CPT/HCPCS: 72131; 73030; 96372; 99285; J1885

== ENCOUNTER 2017-01-25 09:04 | Emergency (ER) | payer MEDICARE, OTHER ==
[~2017-01-25] VITALS: Ht 175.3 cm; Wt 105.0 kg
[~2017-01-25 09:04] MED LIST changes: +CYCL-319 PO; +HYDR-902 PO; +IBUP-1542 PO
[2017-01-25 09:11] VITALS: Ht 175.3 cm; Wt 105.0 kg
[2017-01-25] MEDS ORDERED: SOD CHLORIDE 0.9% 1,000 ML IV STA (09:29)
[2017-01-25 10:20] LABS: BASOPHILS % 0.3 % (0.0-2.0); EOSINOPHILS # 0.3 10^3/ul (0.0-0.5); EOSINOPHILS % 3.1 % (0.0-7.0); HEMATOCRIT 41.4 % (37.0-47.0); HEMOGLOBIN 13.9 g/dl (12.0-16.0); LYMPHOCYTES # 4.9 10^3/ul (0.8-2.9); LYMPHOCYTES % 55.9 % (15.0-51.0); MEAN CORPUSCULAR HEMOGLOBIN 26.7 pg (29.0-33.0); MEAN CORPUSCULAR HGB CONC 33.6 g/dl (32.0-37.0); MEAN CORPUSCULAR VOLUME 79.6 fl (82.0-101.0); MEAN PLATELET VOLUME 10.9 fl (7.4-10.4); MONOCYTE # 0.6 10^3/ul (0.3-0.9); MONOCYTES % 6.6 % (0.0-11.0); NEUTROPHIL # 2.9 10^3/ul (1.6-7.5); NEUTROPHILS % 33.3 % (39.0-77.0); PLATELET COUNT 251 10^3/UL (140-415); WHITE BLOOD COUNT 8.7 10^3/ul (4.8-10.8)
[2017-01-25 10:22] LABS: ADD UMIC YES; UR ASCORBIC ACID NEGATIVE (NEGATIVE); UR BACTERIA FEW /HPF (NONE SEEN); UR BILIRUBIN (Dip) NEGATIVE (NEGATIVE); UR BLOOD (Dip) NEGATIVE (NEGATIVE); UR CLARITY CLEAR (CLEAR); UR COLOR YELLOW (YELLOW); UR GLUCOSE (Dip) NEGATIVE (NEGATIVE); UR KETONES (Dip) NEGATIVE (NEGATIVE); UR LEUKOCYTE ESTERASE (Dip) TRACE Leu/ul (NEGATIVE); UR NITRITE (Dip) NEGATIVE (NEGATIVE); UR RBC 1 /HPF (0-5); UR SPECIFIC GRAVITY (Dip) 1.017 (1.003-1.030); UR SQUAMOUS EPITHELIAL CELL FEW /HPF (FEW); UR TOTAL PROTEIN (Dip) NEGATIVE (NEGATIVE); UR UROBILINOGEN (Dip) NEGATIVE (NEGATIVE)
[2017-01-25 10:37] LABS: ALBUMIN 3.6 g/dl (3.3-4.9); ALBUMIN/GLOBULIN RATIO 1.24; BILIRUBIN,INDIRECT 0.1 mg/dl (0-1.1); BILIRUBIN,TOTAL 0.1 mg/dl (0.2-1.3); CALCIUM 9.6 mg/dl (8.4-10.2); CREATININE 0.53 mg/dl (0.44-1.00); POTASSIUM 3.7 mmol/L (3.5-5.1); TOTAL PROTEIN 6.5 g/dl (6.1-8.1)
[2017-01-25] MEDS ORDERED: CIPR500T4 PO (10:52)
[2017-01-25] MEDS ORDERED: LOPE2CAP PO (10:52)
[2017-01-25] MEDS ORDERED: ALBUTEROL 0.083% (NEB) 2.5 MG/3 ML AMP HHN STA (10:53)
--- NOTE | 2017-01-25 10:56 | ERD ---
ER Documentation Chief Complaint Chief Complaint 2 weeks with diarrhea and not improving also sob and CWO when coughing HPI 71-year-old female comes to the emergency department with multiple complaints. She states that for the last 2 weeks, she has had nonbloody diarrhea with no nausea vomiting or abdominal pain. She also has a cough. She denies any significant sputum production or hemoptysis. She denies fevers chills or weight loss. She has been able to tolerate oral intake. She reports no shortness of breath ROS All systems reviewed and are negative except as per history of present illness. Medications Home Meds Active Scripts Loperamide Hcl* (Imodium*) 2 Mg Capsule, 2 MG PO .AFTER EA LOOSE BM Y for DIARRHEA, #10 TAB Prov:JIMMY ENGLE 01/25/17 Ciprofloxacin Hcl* (Ciprofloxacin Hcl*) 500 Mg Tablet, 500 MG PO BID for 7 Days , TAB Prov:JIMMY ENGLE 01/25/17 Cyclobenzaprine Hcl* (Cyclobenzaprine Hcl*) 10 Mg Tablet, 10 MG PO TID, #15 TAB Prov:JOBY MILLER NP 01/08/17 Hydrocodone/Acetaminophen ([place] 10-325 Tablet) 1 Each Tablet, 1 TAB PO Q6H Y for SEVERE PAIN LEVEL 7-10, #7 TAB Prov:JOBY MILLER NP 01/08/17 Ibuprofen* (Motrin*) 600 Mg Tab, 600 MG PO Q6H Y for PAIN AND OR ELEVATED TEMP, #30 TAB Prov:JOBY MILLER NP 01/08/17 Naproxen* (Naproxen*) 375 Mg Tablet, 375 MG PO BID Y for PAIN, #14 TAB Prov:STEPHEN BASILIO DO 11/11/16 Hydrocodone/Acetaminophen ([place] 5-325 Tablet) 1 Each Tablet, 1 EACH PO Q6, #10 TAB Prov:STEPHEN BASILIO DO 11/11/16 Ranitidine Hcl* (Zantac*) 150 Mg Tablet, 150 MG PO BID Y for EPIGASTRIC PAIN, # 30 TAB Prov:STEPHEN BASILIO DO 11/11/16 Ibuprofen* (Motrin*) 400 Mg Tab, 400 MG PO Q6, #30 TAB Prov:CLEM OLIVA 09/03/16 Sulfamethoxazole/Trimethoprim* (Bactrim Ds* Tablet) 1 Each Tablet, 1 TAB PO BID for 7 Days, #14 TAB Prov:PJGADIELCLEM 09/03/16 Ondansetron Hcl* (Zofran*) 4 Mg Tablet, 4 MG PO Q8 Y for NAUSEA, #14 TAB Prov:REVA DAVIS MD 06/11/16 Dicyclomine Hcl* (Bentyl*) 10 Mg Capsule, 10 MG PO QID Y for PAIN, #10 CAP Prov:REVA DAVIS MD 06/11/16 Famotidine* (Pepcid*) 20 Mg Tablet, 20 MG PO BID for 7 Days, TAB Prov:REVA DAVIS MD 06/11/16 Ondansetron (Ondansetron Odt) 4 Mg Tab.rapdis, 4 MG PO Q6H Y for NAUSEA AND/OR VOMITING, #10 TAB Prov:MAURICE CAMERON 11/09/15 Reported Medications Propylene Glycol/Peg 400 (SYSTANE GEL EYE DROPS) 10 Ml Drops.gel, 1 DROP BOTH EYES QID Y for EYE IRRITATION, #1 BOTTLE 11/11/16 Aspirin Ec (Aspir 81) 81 Mg Tablet.dr, 81 MG PO DAILY, #30 TAB 11/11/16 Glipizide* (Glipizide*) 5 Mg Tablet, 5 MG PO DAILY, TAB 11/11/16 Furosemide* (Furosemide*) 40 Mg Tablet, 40 MG PO DAILY, TAB 11/11/16 Tramadol Hcl* (Ultram* ER) 100 Mg Tab.sr.24h, 100 MG PO Y 12/10/12 Hydrocodone/Ibuprofen (Vicoprofen 200-7.5 MG) 1 Each Tablet, 1 EACH PO 12/10/12 Omeprazole* (Omeprazole*) 20 Mg Capsule.dr, 20 MG PO DAILY 12/10/12 Levothyroxine Sodium* (Synthroid*) 25 Mcg Tablet, 25 MCG PO DAILY 12/10/12 Amlodipine Besylate* (Amlodipine Besylate*) 2.5 Mg Tablet, 2.5 MG PO DAILY 12/10/12 Benazepril-Hydrochlorothiazide (Benazepril-Hydrochlorothiazide) 1 Each Tablet, 1 EACH PO DAILY 12/10/12 Allergies Allergies: Coded Allergies: No Known Drug Allergies (Unverified Allergy, Unknown, 11/11/16) PMhx/Soc History of Surgery: Yes (Cholecystectomy,Lumbar Spine Surg, knee) Anesthesia Reaction: No Hx Neurological Disorder: No Hx Respiratory Disorders: Yes (COPD) Hx Cardiac Disorders: Yes (HTN) Hx Psychiatric Problems: No Hx Miscellaneous Medical Probl: Yes (Hep A&C;Hypothyroidism,GERD, dm) Hx Alcohol Use: Yes (SOCIALLY) Hx Substance Use: No Hx Tobacco Use: Yes Smoking Status: Current every day smoker FmHx Noncontributory for chief complaint Physical Exam Vitals Vital Signs Date Time Temp Pulse Resp B/P Pulse Ox O2 Delivery O2 Flow Rate FiO2 01/25/17 09:11 98.0 77 18 188/86 97 Physical Exam GENERAL: The patient is well developed and appropriate for usual state of health in no apparent distress HEENT: Pupils equal, round, and reactive to light. EOMI. There is no scleral icterus. NECK: C-spine is soft and supple, there is no meningismus. There is no cervical lymphadenopathy. LUNGS: Clear to auscultation bilaterally. There are no rales, wheezes or rhonchi. HEART: Regular rate and rhythm, no murmurs, clicks, rubs or gallops. ABDOMEN: Soft, non-tender, non-distended. There are bowel sounds in all four quadrants. No rebound or guarding. EXTREMITIES: There is no peripheral cyanosis or edema. No focal swelling or erythema. NEURO: The patient moves all four extremities with 5/5 strength. Cranial nerves II - XII are intact. Normal gait. Alert and oriented SKIN: There is no apparent rash or petechiae. HEME/LYMPHATIC: There is no evidence of excessive bruising or lymphedema. PSYCHIATRIC: The patient does not appear anxious or depressed. Result Diagram: 01/25/1745 01/25/17 0945 Results 24 hrs Laboratory Tests Test 01/25/17 09:45 White Blood Count 8.710^3/ul Red Blood Count 5.2010^6/ul Hemoglobin 13.9g/dl Hematocrit 41.4% Mean Corpuscular Volume 79.6fl Mean Corpuscular Hemoglobin 26.7pg Mean Corpuscular Hemoglobin Concent 33.6g/dl Red Cell Distribution Width 14.0% Platelet Count 66305^3/UL Mean Platelet Volume 10.9fl Neutrophils % 33.3% Lymphocytes % 55.9% Monocytes % 6.6% Eosinophils % 3.1% Basophils % 0.3% Nucleated Red Blood Cells % 0.0/100WBC Neutrophils # 2.910^3/ul Lymphocytes # 4.910^3/ul Monocytes # 0.610^3/ul Eosinophils # 0.310^3/ul Basophils # 0.010^3/ul Nucleated Red Blood Cells # 0.010^3/ul Urine Color YELLOW Urine Clarity CLEAR Urine pH 6.0 Urine Specific [place] 1.017 Urine Ketones NEGATIVEmg/dL Urine Nitrite NEGATIVEmg/dL Urine Bilirubin NEGATIVEmg/dL Urine Urobilinogen NEGATIVEmg/dL Urine Leukocyte Esterase TRACELeu/ul Urine Microscopic RBC 1/HPF Urine Microscopic WBC 2/HPF Urine Squamous Epithelial Cells FEW/HPF Urine Bacteria FEW/HPF Urine Hemoglobin NEGATIVEmg/dL Urine Glucose NEGATIVEmg/dL Urine Total Protein NEGATIVEmg/dl Sodium Level 145mmol/L Potassium Level 3.7mmol/L Chloride Level 106mmol/L Carbon Dioxide Level 28mmol/L Anion Gap 15 Blood Urea Nitrogen 8mg/dl Creatinine 0.53mg/dl Glucose Level 163mg/dl Calcium Level 9.6mg/dl Total Bilirubin 0.1mg/dl Direct Bilirubin 0.00mg/dl Indirect Bilirubin 0.1mg/dl Aspartate Amino Transf (AST/SGOT) 22IU/L Alanine Aminotransferase (ALT/SGPT) 31IU/L Alkaline Phosphatase 128IU/L Total Protein 6.5g/dl Albumin 3.6g/dl Globulin 2.90g/dl Albumin/Globulin Ratio 1.24 Lipase 295U/L Current Medications Medications (Trade) Dose Ordered Sig/Nguyen Route PRN Reason Start Time Stop Time Status Last Admin Dose Admin Sodium Chloride (NS) 1,000 ml @ 1,000 mls/hr Q1H STAT IV 01/25/17 09:29 01/25/17 10:28 DC 01/25/17 10:13 Procedures/MDM Patient was taken to a room, seen and evaluated. Comfort measures were initiated. Diagnostic tests were ordered and reviewed. RADIOLOGY: reviewed with the radiologist REEVALUATION: Patient remained nontoxic in appearance MEDICAL DECISION MAKIN-year-old presents to the emergency department with a number of nonspecific symptoms. At this time, I see no evidence of severe pneumonia, no evidence of sepsis, no evidence of severe dehydration based on her electrolytes and clinical picture. Overall, after supportive care, I feel the patient is appropriate for outpatient care. Departure Diagnosis: Primary Impression: Diarrhea Additional Impression: Bronchitis Condition: Stable Patient Instructions: Treating Diarrhea, Bronchitis With Wheezing (Adult) Additional Instructions: See your doctor for follow-up as discussed. Take a copy of your test results, if appropriate, to this follow-up visit. See your doctor or return here if your symptoms do not improve as expected. At any time, please return to the emergency department for any change or worsening in her symptoms. JIMMY ENGLE Jan 25, 2017 10:56
[2017-01-25 12:45] VITALS: BP 159/69; PULSE 87; RESP 18; TEMP 98.5
[2017-01-25] MEDS ORDERED: IBUPROFEN 200 MG TAB PO ONE (13:00)
--- NOTE | 2017-01-25 16:51 | RADRPT ---
PROCEDURE: XR Chest. CLINICAL INDICATION: Dyspnea. TECHNIQUE: XR CHEST AP PORTABLE COMPARISON: None available. FINDINGS: The lungs are clear. No focal opacification is seen. No pneumothorax or pleural effusion is seen. Aortic arch atherosclerotic calcifications are present. Otherwise, the cardiomediastinal silhouett e is unremarkable. The osseous structures are grossly unremarkable. IMPRESSION: No evidence of acute cardiopulmonary disease. RPTAT: JJ .Maurice Chatman MD, MD Date Time Electronically viewed and signed by .Maurice Chatman MD, MD on 01/25/2017 10:17 .A/
== END 2017-01-25 13:09 | disposition home or self-care (01) ==
LOC: E/R 09:04
DX: R19.7 Diarrhea, unspecified (principal); J40 Bronchitis, not specified as acute or chronic; J44.9 Chronic obstructive pulmonary disease, unspecified; E11.9 Type 2 diabetes mellitus without complications; I10 Essential (primary) hypertension; F17.210 Nicotine dependence, cigarettes, uncomplicated; Z79.82 Long term (current) use of aspirin
CPT/HCPCS: 36415; 71010; 80053; 81001; 83690; 85025; 94640; 99284; J7030

== ENCOUNTER 2017-03-22 23:48 | Inpatient (IN) | END 2017-03-25 17:40 | disposition home or self-care (01) | DRG 638 ==

== ENCOUNTER 2017-12-25 02:36 | Observation (INO) | END 2017-12-27 12:10 | disposition home or self-care (01) ==

== ENCOUNTER 2018-02-18 16:24 | Inpatient (IN) | payer MEDICARE, OTHER ==
[~2018-02-18] VITALS: Ht 167.6 cm; Wt 115.0 kg
[~2018-02-18 16:24] MED LIST changes: +ADV25050 INH; +ALBU8.5H8 INH; -AMLO2.5T78 PO; -ASPI-535 PO; +ASPI-817 PO; -BENA1TAB12 PO; +BENA40TA56 PO; +BROVANA INH; -CYCL-319 PO; +CYCL10TA7 PO; -DICY10CA60 PO; -FAMO-96 PO; -FURO40TA4 PO; -GLIP5TAB13 PO; -HYDR-1049 PO; -HYDR-902 PO; -HYDR-906 PO; -IBUP-1542 PO; -IBUP400T22 PO; +LEVO-86 PO; -LEVO25TA59 PO; +LINA5TAB PO; +METF500T PO; +MONT10TA24 PO; -NAPR-685 PO; +NEBU-107 MC; -OMEP20CA16 PO; -ONDA4TAB14 PO; -ONDA4TAB8 PO; +PRED20TA PO; -PROP10DR2 BOTH EYES; +RANI150T5 PO; -RANI150T9 PO; -SULF1TAB31 PO; -TRAM100T8 PO
[2018-02-18 16:26] VITALS: Ht 167.6 cm; Wt 115.0 kg
[2018-02-18] MEDS ORDERED: ASPIRIN 325 MG TAB PO STA (20:32)
[2018-02-18] MEDS ORDERED: ONDANSETRON 4 MG INJ IV STA (20:32)
[2018-02-18] MEDS ORDERED: HYDROmorphONE 1 MG/ML SYG IV STA (20:32)
[2018-02-18] MEDS ORDERED: NITROGLYCERIN 2% 1 GM OINT PKT TD STA (20:32)
--- NOTE | 2018-02-18 20:38 | ERD ---
ER Documentation Chief Complaint Chief Complaint Complains of left bilateral pain HPI This is 72-year-old female with a history of hypertension, diabetes who is here because of an episode of chest pain today. The patient says her first symptoms was her right arm went numb and then she developed some left-sided chest pain and then a central chest pressure and then her left arm went numb, she became diaphoretic and clammy but was not short of breath no nausea or vomiting palpitations or syncope. She said the pain was severe and lasted about 5 minutes. She says currently she has a mild ache in her arms but no chest pain. No prior history of cardiac disease ROS All systems reviewed and are negative except as per history of present illness. Medications Home Meds Reported Medications Insulin Detemir (Levemir Flextouch) 100 Unit/1 Ml Insuln.pen, 30 UNIT SQ QHS, EA 02/18/18 Insulin Aspart* (Novolog Insulin Pen*) 100 Unit/Ml Soln, 20 UNIT SC WITH BR EAKFAST, EA 02/18/18 Amlodipine Besylate* (Norvasc*) 5 Mg Tablet, 5 MG PO DAILY, TAB 02/18/18 Salmeterol Xinaf/Fluticasone* (Advair*) 250-50 Diskus Inhaler, 1 INH INHALATION BID, #1 INHALER 02/18/18 Ranitidine Hcl* (Ranitidine Hcl*) 150 Mg Tablet, 150 MG PO Q24H, #60 TAB 02/18/18 Linagliptin (TRADJENTA) 5 Mg Tablet, 5 MG PO DAILY, TAB 02/18/18 Levothyroxine Sodium* (Levothyroxine Sodium*) 88 Mcg Tablet, 88 MCG PO BEFORE BREAKFAST, #30 TAB 02/18/18 Cyclobenzaprine Hcl* (Cyclobenzaprine Hcl*) 10 Mg Tablet, 10 MG PO TID, #90 TAB 02/18/18 Benazepril Hcl* (Benazepril Hcl*) 20 Mg Tablet, 20 MG PO DAILY, #30 TAB 02/18/18 Aspirin* (Aspirin* EC) 81 Mg Tablet.dr, 81 MG PO DAILY, TAB 02/18/18 Albuterol Sulfate* (Proair HFA*) 8.5 Gm Hfa.aer.ad, 2 PUFF INH Q4H PRN for WHEEZING AND SOB, #1 INHALER 02/18/18 Discontinued Reported Medications Aspirin* (Aspirin* EC) 81 Mg Tablet.dr, 81 MG PO DAILY, TAB 03/22/17 Cyclobenzaprine Hcl* (Cyclobenzaprine Hcl*) 10 Mg Tablet, 10 MG PO TID, #90 TAB 03/22/17 Ranitidine Hcl* (Ranitidine Hcl*) 150 Mg Tablet, 150 MG PO Q24 PRN for NEEDED, #60 TAB 03/22/17 Discontinued Scripts Nebulizer (Soothe Neb) 1 Each Each, EACH , #1 Prov:REVA WHITEHEAD MD 12/27/17 Prednisone* (Prednisone*) 20 Mg Tab, 40 MG PO DAILY for 2 Days, #2 TAB Prov:REVA WHITEHEAD MD 12/27/17 Arformoterol Tartrate* (Brovana* Neb) 2 Ml Nebu, 2 ML INH Q12H RESP THERAPY PRN for SHORTNESS OF BREATH for 28 Days, #1 BOX Prov:REVA WHITEHEAD MD 12/27/17 Albuterol Sulfate* (Proair HFA*) 8.5 Gm Hfa.aer.ad, 2 PUFF INH Q6H PRN for WHEEZING AND SOB, #1 INHALER 5 Refills Prov:REVA WHITEHEAD MD 12/27/17 Salmeterol Xinaf/Fluticasone* (Advair*) 250-50 Diskus Inhaler, 1 INH INH BID, #1 INHALER 5 Refills Prov:REVA WHITEHEAD MD 12/27/17 Benazepril Hcl* (Benazepril Hcl*) 40 Mg Tablet, 40 MG PO DAILY, #30 TAB Prov:CLINTON CHANDLER NP 03/25/17 Montelukast Sodium* (Montelukast Sodium*) 10 Mg Tablet, 10 MG PO HS, #30 TAB Prov:CLINTON CHANDLER NP 03/25/17 Levothyroxine Sodium (Levothroid) 100 Mcg Tablet, 100 MCG PO DAILY@06, #30 TAB Prov:CLINTON CHANDLER NP 03/25/17 Linagliptin (TRADJENTA) 5 Mg Tablet, 5 MG PO DAILY, #30 TAB Prov:CLINTON CHANDLER NP 03/25/17 Metformin Hcl (Glucophage) 500 Mg Tablet, 500 MG PO BID WITH MEALS, #60 TAB Prov:CLINTON CHANDLER NP 03/25/17 Allergies Allergies: Coded Allergies: No Known Drug Allergies (Unverified Allergy, Unknown, 02/18/18) PMhx/Soc History of Surgery: Yes (CHOLECYSTECTOMY;BILATERAL KNEES SURGERIES;LUMBAR SURGERY;) Anesthesia Reaction: No Hx Neurological Disorder: No Hx Respiratory Disorders: Yes (COPD;) Hx Cardiac Disorders: Yes (HTN;) Hx Psychiatric Problems: No Hx Miscellaneous Medical Probl: No Hx Alcohol Use: No (OCCASIONALLY;) Hx Substance Use: No Hx Tobacco Use: Yes (3 CIGARRETTES DAILY;) FmHx Family History: coronary disease Physical Exam Vitals Vital Signs Date Temp Pulse Resp B/P (MAP) Pulse Ox O2 O2 Flow FiO2 Time Delivery Rate 02/18/18 95 20 108/70 99 Room Air 21:22 (83) 02/18/18 97.2 102 20 141/102 96 Room Air 19:12 (115) 02/18/18 97.2 101 20 162/77 95 16:26 (105) Physical Exam Const: Well-developed, well-nourished Head: Atraumatic, normocephalic Eyes: Normal Conjunctiva, PERRLA, EOMI, normal sclera, no nystagmus ENT: Normal External Ears, Nose and Mouth, moist mucus membranes. Neck: Full range of motion. No meningismus, no lymphadenopathy. Resp: Clear to auscultation bilaterally, no wheezing, rhonchi, rales Cardio: Regular rate and rhythm, no murmurs, S1 S2 present Abd: Soft, non tender x 4, non distended. Normal bowel sounds, no guarding or rebound, no pulsitile abdominal masses or bruits Skin: No petechiae or rashes, no ecchymosis , no maculopapular rash Back: No midline or flank tenderness Ext: No cyanosis, or edema, FROM x 4, normal inspection, neurovascularly intact x 4 Neur: Awake and alert, STR 5/5 x 4, sensation intact x 4, no focal findings, cerebellum intact Psych: Normal Mood and Affect Result Diagram: 02/18/182139 Results 24 hrs Laboratory Tests Test 02/18/18 21:40 White Blood Count 6.5 10^3/ul Red Blood Count 4.80 10^6/ul Hemoglobin 11.6 g/dl Hematocrit 36.9 % Mean Corpuscular Volume 76.9 fl Mean Corpuscular Hemoglobin 24.2 pg Mean Corpuscular Hemoglobin Concent 31.4 g/dl Red Cell Distribution Width 15.5 % Platelet Count 260 10^3/UL Mean Platelet Volume 11.2 fl Immature Granulocytes % 0.300 % Neutrophils % 44.7 % Lymphocytes % 41.9 % Monocytes % 7.7 % Eosinophils % 4.9 % Basophils % 0.5 % Nucleated Red Blood Cells % 0.0 /100WBC Immature Granulocytes # 0.020 10^3/ul Neutrophils # 2.9 10^3/ul Lymphocytes # 2.7 10^3/ul Monocytes # 0.5 10^3/ul Eosinophils # 0.3 10^3/ul Basophils # 0.0 10^3/ul Nucleated Red Blood Cells # 0.0 10^3/ul Prothrombin Time 12.2 Sec Prothrombin Time Ratio 1.0 INR International Normalized Ratio 0.89 Activated Partial Thromboplast Time 29.0 Sec Current Medications Medications Dose Sig/Nguyen Start Time Status Last (Trade) Ordered Route PRN Stop Time Admin Dose Reason Admin Aspirin 325 mg ONCE STAT 02/18/18 DC 02/18/18 (Aspirin) PO 20:32 02/18/18 20:58 20:33 1 inch ONCE STAT 02/18/18 DC 02/18/18 Nitroglycerin TD 20:32 02/18/18 20:58 20:33 (Nitroglyceri n 2% Oint) 1 mg ONCE STAT 02/18/18 DC 02/18/18 Hydromorphone IV 20:32 02/18/18 21:50 HCl 20:33 (Dilaudid) Ondansetron 4 mg ONCE STAT 02/18/18 DC 02/18/18 HCl (Zofran IV 20:32 02/18/18 21:49 Inj) 20:33 Procedures/MDM EKG: Rate/Rhythm: Sinus tachycardia QRS, ST, QT: NORMAL MA, QRS, QT] Impression: Sinus tachycardia Patient: JENNIE GOODWIN : 1945 Age: 72 Sex: F MR #: [id number] DOS: 02/18/182031 Ordering MD: NAOMI GANT DO Location: E/R Room/Bed: PROCEDURE: XR Chest. CLINICAL INDICATION: Chest pain TECHNIQUE: Single portable view of the chest was obtained COMPARISON: CR CHEST 06/11/2016 FINDINGS: The trachea is midline. The cardiac silhouette is enlarged and pulmonary vascularity are within normal limits. The lungs are clear. The costophrenic angles are sharp. IMPRESSION: 1. Cardiomegaly. No evidence of acute cardiopulmonary disease. RPTAT: AAPP Physician Myla Date Time Electronically viewed and signed by Rob Colon Physician on 02/18/2018 22:11 JL/ CC: NAOMI GANT DO [id number] Cardiac Admit MDM: Patient's symptoms are concerning for cardiac cause will require inpatient workup and continuous monitoring. Further w/u for ischemia, arrhythmia, PE or dissection will be deferred to the inpatient team. Departure Diagnosis: Primary Impression: Chest pain Chest pain type: unspecified Qualified Codes: R07.9 - Chest pain, unspeci fied Condition: Stable NAOMI GANT DO Feb 18, 2018 20:38
[2018-02-18] MEDS ORDERED: ALBU8.5H8 INH (20:54)
[2018-02-18] MEDS ORDERED: CYCL10TA7 PO (20:55)
[2018-02-18] MEDS ORDERED: BENA20TA4 PO (20:55)
[2018-02-18] MEDS ORDERED: ASPI-817 PO (20:55)
[2018-02-18] MEDS ORDERED: LEVO88TA3 PO (20:56)
[2018-02-18] MEDS ORDERED: LINA5TAB PO (20:56)
[2018-02-18] MEDS ORDERED: RANI150T5 PO (20:57)
[2018-02-18] MEDS ORDERED: AMLO5TAB4 PO (20:57)
[2018-02-18] MEDS ORDERED: ADV25050 INHALATION (20:57)
[2018-02-18] MEDS ORDERED: NOVO3I SC (20:58)
[2018-02-18] MEDS ORDERED: INSU100I27 SQ (20:59)
[2018-02-18] MEDS ORDERED: ACETAMINOPHEN 325 MG TAB PO PRN ×2 (22:30→23:00)
[2018-02-18] MEDS ORDERED: ONDANSETRON 4 MG INJ IV PRN ×2 (22:30→23:00)
--- NOTE | 2018-02-18 22:40 | HP ---
Date/Time of Note Date/Time of Note DATE: 02/18/18 TIME: 22:40 Assessment/Plan VTE Prophylaxis Pharmacological prophylaxis: heparin Assessment/Plan Hospital Course This is a 72-year-old female being admitted to the telemetry floor for: 1. Chest pain: Rule out ACS versus musculoskeletal. Will trend cardiac enzymes x3, the first that was negative. EKG was nonischemic. Echo from 12/2017 shows EF of 55% with diastolic dysnfunction. Consider cardiology consultation if indicated. PRN nitro #2 neck pain radiating to the bilateral arms: Suspect muscle strain versus nerve impingement, carpal tunnel is also in the differential. Patient does have bilateral tenderness of the trapezius muscles on palpation. She also has tenderness along the cervical spine. At the current time will obtain 2 view x- ray of the cervical spine however patient likely will need advanced imaging with CT and possibly MRI given her symptoms. Tunnel is also in the differential as she does have bilateral numbness and tingling of the hands however given the involvement of the neck and back muscles I am more inclined to rule out first spinal pathology. Unable to properly assess for carpal tunnel given the patient's pain in her neck and back muscles. I will put her on Toradol as need ed as well as give her a dose of Flexeril nightly. #3 COPD: Continue home inhalers #4 hypothyroidism: We will check a TSH level., Continue levothyroxine #5 hypertension: Resume patient's home blood pressure medications of benazepril #6 morbid obesity: We will check hemoglobin A 1C, lipid panel, TSH #7 DVT GI prophylaxis: Lovenox, H2 taina Further treatment strategy will be implemented as per the clinical course Result Diagram: 02/18/18213902/18/18 2140 Results 24hrs Laboratory Tests Test 02/18/18 21:40 White Blood Count 6.5 # Red Blood Count 4.80 Hemoglobin 11.6 L Hematocrit 36.9 L Mean Corpuscular Volume 76.9 L Mean Corpuscular Hemoglobin 24.2 L Mean Corpuscular Hemoglobin Concent 31.4 L Red Cell Distribution Width 15.5 H Platelet Count 260 Mean Platelet Volume 11.2 H Immature Granulocytes % 0.300 Neutrophils % 44.7 Lymphocytes % 41.9 Monocytes % 7.7 Eosinophils % 4.9 Basophils % 0.5 Nucleated Red Blood Cells % 0.0 Immature Granulocytes # 0.020 Neutrophils # 2.9 Lymphocytes # 2.7 Monocytes # 0.5 Eosinophils # 0.3 Basophils # 0.0 Nucleated Red Blood Cells # 0.0 Prothrombin Time 12.2 Prothrombin Time Ratio 1.0 INR International Normalized Ratio 0.89 Activated Partial Thromboplast Time 29.0 Sodium Level 140 Potassium Level 4.9 Chloride Level 103 Carbon Dioxide Level 30 Anion Gap 7 Blood Urea Nitrogen 12 Creatinine 0.55 Est Glomerular Filtrat Rate mL/min > 60 Glucose Level 299 H Calcium Level 9.5 Total Bilirubin 0.0 L Direct Bilirubin 0.00 Indirect Bilirubin 0.0 Aspartate Amino Transf (AST/SGOT) 29 Alanine Aminotransferase (ALT/SGPT) 15 Alkaline Phosphatase 96 Troponin I < 0.012 Total Protein 6.4 Albumin 3.3 Globulin 3.10 Albumin/Globulin Ratio 1.06 HPI/ROS Admit Date/Time Admit Date/Time Hx of Present Illness Chief complaint: Bilateral arm pain and back pain an episode of chest pain This is 72-year-old female with a history of hypertension, diabetes who is here because of an episode of chest pain today. The patient says her first symptoms was her right arm went numb and then she developed some left-sided chest pain and then a central chest pressure and then her left arm went numb, she became diaphoretic and clammy but was not short of breath no nausea or vomiting palpitations or syncope. She said the pain was severe and lasted about 5 minut es. Reports that she has been having back pain as well as arm pain for the past month but got worse last night. She says currently she has a mild ache in her arms but no chest pain. Allergies: NKDA Medications: See ASHLEY ROS Const: As per HPI Eyes : No pain discharge or redness or change in visual acuity ENT: No pain, sore throat, congestion, congestion, dysphagia or discharge Respiratory: No shortness of breath, cough, sputum, wheezing, or pleuritic pain Cardiovascular: As per HPI GI : no change in appetite, abdominal pain, nausea, vomiting, diarrhea, constipation, or change in the color his stool Genitourinary: No dysuria, hematuria, flank pain , discharge or CVA tenderness Musculoskeletal: As per HPI Skin: No rash, bruising or hives Neuro: As per HPI Endocrine: No polyuria, polydipsia, temperature intolerance Psych: No hallucination, depression, anxiety or suicidal ideation PMH/Family/Social Past Medical History Diabetes mellitus, hypertension, hypothyroidism, COPD Medications Current Medications Ondansetron HCl (Zofran Inj) 4 mg ER BRIDGE PRN IV NAUSEA AND/OR VOMITING; Start 02/18/18 at 22:30; Stop 02/19/18 at 22:29 Acetaminophen (Tylenol Tab) 650 mg ER BRIDGE PRN PO MILD PAIN(1-3)OR ELEVATED TEMP; Start 02/18/18 at 22:30; Stop 02/19/18 at 22:29 Coded Allergies: No Known Drug Allergies (Unverified Allergy, Unknown, 02/18/18) Past Surgical History Left knee surgery, lower back surgery, right knee surgery Past Surgical Hx: other Family History Significant Family History: no pertinent family hx Social History Alcohol Use: none Smoking Status: Current every day smoker Drug Use: none Exam/Review of Systems Vital Signs Vitals Vital Signs Date Temp Pulse Resp B/P (MAP) Pulse Ox O2 O2 Flow FiO2 Time Delivery Rate 02/18/18 95 20 108/70 99 Room Air 21:22 (83) 02/18/18 97.2 19:12 Exam Exam General: Patient currently lying in bed, complaining of pain in her upper back, bilateral arms HEENT: Atraumatic, normocephalic. The pupils are equal, round and reactive. Extraocular motor are intact Neck: Supple with full range of motion. No rigidity or meningismus, tenderness palpation along the cervical spine as well as bilateral trapezius muscles Chest: Nontender Lungs: Clear to auscultation bilaterally no crackles rales or wheezing Heart: Normal S1-S2, Regular rhythm and rate. Abdomen: Soft , nontender, nondistended , bowel sounds are present. No guarding no rebound tenderness , No masses or organomegaly. 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 Lower limits of normal systolic function. Normal left ventricular cavity size. Left ventricle not well visualized. Moderate concentric left ventricular hypertrophy. Ejection fraction is visually estimated at 55 %. Tissue Doppler/Mitral Doppler indices are consistent with impaired relaxation (Stage I diastolic dysfunction). These segments of the LV are hypokinetic inferior apex segment. 2. Normal appearance of the mitral valve. Mild mitral annular calcification. Trace mitral regurgitation. 3. No significant aortic stenosis or insufficiency. Aortic cusps appear mildly calcified. 4. Normal appearance of the tricuspid valve. Unable to obtain RVSP due to minimal presence of tricuspid regurgitation. Electronically Signed By: Marcial Raya 25-Dec-2017 16:22:24 -0800 Patient Name: JENNIE GOODWIN Study Date: 25-Dec-2017 [id number] Dictated By: EKG: Rate/Rhythm: Sinus tachycardia QRS, ST, QT: NORMAL HI, QRS, QT] Impression: Sinus tachycardia PROCEDURE: XR Chest. CLINICAL INDICATION: Chest pain TECHNIQUE: Single portable view of the chest was obtained COMPARISON: CR CHEST 06/11/2016 FINDINGS: The trachea is midline. The cardiac silhouette is enlarged and pulmonary vascularity are within normal limits. The lungs are clear. The costophrenic angles are sharp. IMPRESSION: 1. Cardiomegaly. No evidence of acute cardiopulmonary disease. RPTAT: AAPP Physician Myla Date Time Electronically viewed and signed by Physician Myla on 02/18/2018 22:11 JL/ CC: NAOMI GANT DO [id number] ANUP BAKER Feb 18, 2018 22:40
[2018-02-18] MEDS: HEPARIN 5,000 UNIT/1 ML VIAL SC SCH (23:00)
[2018-02-18] MEDS ORDERED: BISACODYL (EC) 5 MG TAB PO PRN (23:00)
[2018-02-18] MEDS ORDERED: NITROGLYCERIN (SL) 0.4 MG TAB SL PRN (23:00)
[2018-02-18] MEDS ORDERED: NACL 0.9% 3 ML SYG IV SCH (23:00)
[2018-02-18] MEDS ORDERED: DOCUSATE SODIUM 100 MG CAP PO PRN (23:00)
[2018-02-19] VITALS (11 sets, daily range): BP systolic 124–159; BP diastolic 58–75; PULSE 79–95; RESP 18–20
[2018-02-19] MEDS: KETOROLAC 15 MG INJ IV PRN ×4 (00:14→22:36)
[2018-02-19] MEDS: RANITIDINE 150 MG TAB PO SCH ×2 (00:49→22:36)
[2018-02-19] MEDS ORDERED: GLUCOSE GEL 15 GRAM TUBE PO PRN ×2 (02:30)
[2018-02-19] MEDS ORDERED: GLUCAGON 1 MG INJ IM PRN (02:30)
[2018-02-19] MEDS ORDERED: GLUCOSE GEL 15 GRAM TUBE BUCCAL PRN (02:30)
[2018-02-19] MEDS ORDERED: DEXTROSE 50% 50 ML SYRINGE IV PRN ×2 (02:30)
[2018-02-19] MEDS: ACCU-CHEK XX SCH (02:31)
[2018-02-19] MEDS: morphine SULFATE/PF (2 MG/2 ML) SYG IV PRN ×2 (02:33→10:16)
[2018-02-19] MEDS: LEVOTHYROXINE 88 MCG TAB PO SCH (06:19)
[2018-02-19] MEDS: HEPARIN 5,000 UNIT/1 ML VIAL SC SCH ×3 (06:29→22:45)
[2018-02-19] MEDS: LIDOCAINE 5% PATCH TD SCH (08:19)
[2018-02-19] MEDS: BENAZEPRIL 20 MG TAB PO SCH (08:19)
[2018-02-19] MEDS: FLUTICASONE/VILANTEROL 100-25 INH SCH (08:19)
[2018-02-19] MEDS: AMLODIPINE 5 MG TAB PO SCH (08:20)
[2018-02-19] MEDS: ASPIRIN (EC) 81 MG TAB PO SCH (08:20)
[2018-02-19] MEDS: INSULIN ASPART [NOVOLOG] 3 ML PEN SC SCH ×5 (08:25→20:31)
[2018-02-19] MEDS ORDERED: CYCLOBENZAPRINE 10 MG TAB PO SCH ×2 (09:00→21:00)
[2018-02-19] MEDS ORDERED: morphine SULFATE/PF (2 MG/2 ML) SYG IV PRN (12:30)
--- NOTE | 2018-02-19 13:04 | PN ---
Date/Time of Note Date/Time of Note DATE: 02/19/18 TIME: 12:56 Assessment/Plan VTE Prophylaxis Risk score (from Ns)>0 risk: 3 SCD applied (from Ns): Yes Pharmacological prophylaxis: LMWH Lines/Catheters IV Catheter Type (from Nrsg): Saline Lock Assessment/Plan Assessment/Plan 1. Left upper back pain, muscular, soma, pain control 2. No chest pain, no further cardiac work up needed 3. COPD: stable, Continue home inhalers 4. Hypothyroidism: Continue levothyroxine 5. Hypertension, controlled 6. Morbid obesity 7. DVT GI prophylaxis: Lovenox, H2 taina Result Diagram: 02/19/18 0327 02/19/18 0327 Results 24hrs Laboratory Tests Test 02/18/18 21:40 02/19/18 01:54 02/19/18 03:27 02/19/18 08:09 White Blood Count 6.5 # 6.0 Red Blood Count 4.80 4.55 Hemoglobin 11.6 L 11.1 L Hematocrit 36.9 L 35.1 L Mean Corpuscular Volume 76.9 L 77.1 L Mean Corpuscular 24.2 L 24.4 L Hemoglobin Mean Corpuscular 31.4 L 31.6 L Hemoglobin Concent Red Cell Distribution 15.5 H 15.3 H Width Platelet Count 260 232 Mean Platelet Volume 11.2 H 10.9 H Immature Granulocytes % 0.300 0.200 Neutrophils % 44.7 31.9 L Lymphocytes % 41.9 52.5 H Monocytes % 7.7 10.2 Eosinophils % 4.9 4.7 Basophils % 0.5 0.5 Nucleated Red Blood 0.0 0.0 Cells % Immature Granulocytes # 0.020 0.010 Neutrophils # 2.9 1.9 Lymphocytes # 2.7 3.1 H Monocytes # 0.5 0.6 Eosinophils # 0.3 0.3 Basophils # 0.0 0.0 Nucleated Red Blood 0.0 0.0 Cells # Prothrombin Time 12.2 Prothrombin Time Ratio 1.0 INR International 0.89 Normalized Ratio Activated 29.0 Partial Thromboplast Time Sodium Level 140 143 Potassium Level 4.9 4.6 Chloride Level 103 103 Carbon Dioxide Level 30 32 H Anion Gap 7 8 Blood Urea Nitrogen 12 14 Creatinine 0.55 0.60 Est Glomerular Filtrat > 60 > 60 Rate mL/min Glucose Level 299 H 267 H Calcium Level 9.5 9.6 Total Bilirubin 0.0 L 0.0 L Direct Bilirubin 0.00 0.00 Indirect Bilirubin 0.0 0.0 Aspartate Amino 29 21 Transf (AST/SGOT) Alanine 15 18 Aminotransferase (ALT/SG PT) Alkaline Phosphatase 96 110 Troponin I < 0.012 < 0.012 Total Protein 6.4 5.8 L Albumin 3.3 3.1 L Globulin 3.10 2.70 Albumin/Globulin Ratio 1.06 1.14 Bedside Glucose 262 H 238 H Hemoglobin A1c 8.2 H Magnesium Level 1.5 L Iron Level 25 L Total Iron Binding 320 Capacity Percent Iron Saturation 8 L Ferritin 18.4 Creatine Kinase 51 Creatine Kinase Index 0.7 Creatinine Kinase MB 0.34 (Mass) Triglycerides Level 103 Cholesterol Level 141 LDL Cholesterol, 83 Calculated HDL Cholesterol 37 Cholesterol/HDL Ratio 3.8 Thyroid Stimulating < 0.015 L Hormone (TSH) Test 02/19/18 10:43 02/19/18 11:30 Creatine Kinase 53 Creatine Kinase Index 0.8 Creatinine Kinase MB 0.43 (Mass) Troponin I < 0.012 Bedside Glucose 112 Subjective 24 Hr Interval Summary Free Text/Dictation left upper back pain, worse on movement. no frontal chest pain. Exam/Review of Systems Vital Signs Vitals Vital Signs Date Temp Pulse Resp B/P (MAP) Pulse Ox O2 O2 Flow FiO2 Time Delivery Rate 02/19/18 97.7 84 18 144/65 94 Room Air 11:54 (91) Intake and Output 02/18/18 02/18/18 02/19/18 1515:00 23:00 07:00 IntakeIntake Total 500 ml BalanceBalance 500 ml Exam Constitutional: alert, oriented, well developed Psych: no complaints, nl mood/affect Head: normocephalic, atraumatic Eyes: nl conjunctiva, EOMI, nl lids, nl sclera, PERRL ENMT: nl external ears & nose, nl lips & teeth, nl nasal mucosa & septum Neck: supple, non-tender Respiratory: clear to auscultation, normal air movement; No congested cough, No crackles/rales, No diminished breath sounds, No intercostal retraction, No labored breathing, No respirations, No tactile fremitus, No wheezing, No other Cardiovascular: regular rate and rhythm, nl pulses; No bruits, No diastolic murmur, No edema, No gallop, No irregular rhythm, No jugular venous distention (JVD), No murmurs/extra sounds, No rub, No systolic murmur, No S3, No S4, No other Gastrointestinal: soft, nl liver, spleen, non-tender Musculoskeletal: other (left upper back pain with tenderness, no skin lesions) Extremities: normal pulses; No calf tenderness, No cyanosis, No clubbing, No edema, No pitting pedal edema, No palpable cord, No tenderness, No other 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, nl mental status, nl speech, nl strength Medications Medications Current Medications Ondansetron HCl (Zofran Inj) 4 mg ER BRIDGE PRN IV NAUSEA AND/OR VOMITING; Start 02/18/18 at 22:30; Stop 02/19/18 at 22:29 Acetaminophen (Tylenol Tab) 650 mg ER BRIDGE PRN PO MILD PAIN(1-3)OR ELEVATED TEMP; Start 02/18/18 at 22:30; Stop 02/19/18 at 22:29 Amlodipine Besylate (Norvasc) 5 mg DAILY PO Last administered on 02/19/18at 08:20; Admin Dose 5 MG; Start 02/19/18 at 09:00 Aspirin (Halfprin) 81 mg DAILY PO Last administered on 02/19/18at 08:20; Admin Dose 81 MG; Start 02/19/18 at 09:00 Benazepril HCl (Lotensin) 20 mg DAILY PO Last administered on 02/19/18at 08:19; Admin Dose 20 MG; Start 02/19/18 at 09:00 Cyclobenzaprine HCl (Flexeril) 10 mg TID PO Last administered on 02/19/18at 10:16; Admin Dose 10 MG; Start 02/19/18 at 09:00 Insulin Aspart (Novolog Insulin Pen) 20 unit WITH BREAKFAST SC Last administered on 02/19/18at 08:25; Admin Dose 20 UNIT; Start 02/19/18 at 08:00 Insulin Detemir (Levemir) 30 units QHS SC ; Start 02/19/18 at 21:00 Levothyroxine Sodium (Synthroid) 88 mcg BEFORE BREAKFAST PO Last administered on 02/19/18at 06:19; Admin Dose 88 MCG; Start 02/19/18 at 07:00 Ranitidine HCl (Zantac) 150 mg Q24H PO ; Start 02/18/18 at 23:00 Fluticasone/ Vilanterol (Breo Ellipta 100-25 Mcg Inh) 1 inh DAILY INH Last administered on 02/19/18at 08:19; Admin Dose 1 INH; Start 02/19/18 at 09:00 IV Flush (NS 3 ml) 3 ml PER PROTOCOL IV ; Start 02/18/18 at 23:00 Ondansetron HCl (Zofran Inj) 4 mg Q6H PRN IV NAUSEA AND/OR VOMITING; Start 02/18/18 at 23:00 Nitroglycerin (Nitroglycerin (Sl Tab) 0.4 Mg) 1 tab Q5M PRN SL CHEST PAIN; Start 02/18/18 at 23:00 Acetaminophen (Tylenol Tab) 650 mg Q6H PRN PO PAIN LEVEL 1-3 OR FEVER; Start 02/18/18 at 23:00 Docusate Sodium (Colace) 100 mg Q12H PRN PO CONSTIPATION; Start 02/18/18 at 23:00 Bisacodyl (Dulcolax) 5 mg DAILY PRN PO CONSTIPATION; Start 02/18/18 at 23:00 Heparin Sodium (Porcine) (Heparin (5000 Units/1ml)) 5,000 unit Q8 SC Last administered on 02/19/18at 06:29; Admin Dose 5,000 UNIT; Start 02/18/18 at 23:00 Lidocaine (Lidoderm) 1 patch DAILY TD Last administered on 02/19/18at 08:19; Admin Dose 1 PATCH; Start 02/19/18 at 09:00 Diagnostic Test (Pha) (Accu-Chek) 1 ea 02 XX Last administered on 02/19/18at 02:31; Admin Dose 1 EA; Start 02/19/18 at 02:00 Insulin Aspart (Novolog Insulin Pen) NOVOLOG *MILD* ALGORITHM WITH MEALS BEDTIME SC Last administered on 02/19/18 08:25; Admin Dose 3 UNIT; Start 02/19/18 at 08:00 Ketorolac Tromethamine (Toradol) 15 mg Q6H PRN IV PAIN Last administered on 02/19/18at 11:26; Admin Dose 15 MG; Start 02/19/18 at 00:00; Stop 02/19/18 at 23:59 Miscellaneous Information 1 ea NOTE XX ; Start 02/19/18 at 02:30 Glucose (Glutose) 15 gm Q15M PRN PO DECREASED GLUCOSE; Start 02/19/18 at 02:30 Glucose (Glutose) 22.5 gm Q15M PRN PO DECREASED GLUCOSE; Start 02/19/18 at 02:30 Dextrose (D50w Syringe) 25 ml Q15M PRN IV DECREASED GLUCOSE; Start 02/19/18 at 02:30 Dextrose (D50w Syringe) 50 ml Q15M PRN IV DECREASED GLUCOSE; Start 02/19/18 at 02:30 Glucagon (Glucagen) 1 mg Q15M PRN IM DECREASED GLUCOSE; Start 02/19/18 at 02:30 Glucose (Glutose) 15 gm Q15M PRN BUCCAL DECREASED GLUCOSE; Start 02/19/18 at 02:30 Morphine Sulfate (morphine SULFATE (PF)) 2 mg Q4 PRN IV SEVERE PAIN LEVEL 7-10; Start 02/19/18 at 12:30 MARITZA MARIE MD Feb 19, 2018 13:04
[2018-02-19] MEDS ORDERED: HYDROCODONE/APAP (5/325) TAB PO PRN (13:30)
[2018-02-19] MEDS: CARISOPRODOL 350 MG TAB PO SCH ×2 (15:40→20:22)
[2018-02-19] MEDS: HYDROmorphONE 2 MG TAB PO PRN (17:36)
[2018-02-19] MEDS: INSULIN DETEMIR [LEVEMIR] (100 UNITS/ML) SYG SC SCH (20:30)
[2018-02-20] VITALS (9 sets, daily range): BP systolic 145–171; BP diastolic 67–105; PULSE 80–103; RESP 18–20
[2018-02-20] MEDS: HYDROmorphONE 2 MG TAB PO PRN ×5 (01:22→20:39)
[2018-02-20] MEDS: ACCU-CHEK XX SCH (02:11)
[2018-02-20] MEDS ORDERED: hydrALAzine 20 MG INJ ONE (06:23)
[2018-02-20] MEDS: LEVOTHYROXINE 88 MCG TAB PO SCH (06:26)
[2018-02-20] MEDS ORDERED: hydrALAzine 20 MG INJ IV PRN (06:30)
[2018-02-20] MEDS: HEPARIN 5,000 UNIT/1 ML VIAL SC SCH ×3 (06:32→23:31)
[2018-02-20] MEDS: INSULIN ASPART [NOVOLOG] 3 ML PEN SC SCH ×5 (08:00→20:46)
[2018-02-20] MEDS: AMLODIPINE 5 MG TAB PO SCH (08:07)
[2018-02-20] MEDS: CARISOPRODOL 350 MG TAB PO SCH ×3 (08:07→20:39)
[2018-02-20] MEDS: ASPIRIN (EC) 81 MG TAB PO SCH (08:07)
[2018-02-20] MEDS: BENAZEPRIL 20 MG TAB PO SCH (08:08)
[2018-02-20] MEDS: FLUTICASONE/VILANTEROL 100-25 INH SCH (08:08)
[2018-02-20] MEDS: LIDOCAINE 5% PATCH TD SCH (09:00)
--- NOTE | 2018-02-20 16:00 | PN ---
Date/Time of Note Date/Time of Note DATE: 02/20/18 TIME: 15:42 Assessment/Plan VTE Prophylaxis Risk score (from Nsg)>0 risk: 3 SCD applied (from Nsg): Yes Pharmacological prophylaxis: LMWH Lines/Catheters IV Catheter Type (from Nrsg): Saline Lock Assessment/Plan Assessment/Plan 1. Cervical disc disease with radiculopathy, neurosurgical consultation 2. Left upper back pain, muscular, soma, pain control, improving 3. COPD: stable, Continue home inhalers 4. Hypothyroidism: Continue levothyroxine 5. Hypertension, controlled 6. Morbid obesity 7. DVT GI prophylaxis: Lovenox, H2 taina Result Diagram: 02/19/1832602/19/18326 Results 24hrs Laboratory Tests Test 02/19/18 17:34 02/19/18 20:19 02/20/18 01:29 02/20/18 07:53 Bedside Glucose 308 H 195 283 H 96 Test 02/20/18 11:11 Bedside Glucose 148 Subjective 24 Hr Interval Summary Free Text/Dictation both shoulder and lateral upper extremity pain. left upper back pain is much less Exam/Review of Systems Vital Signs Vitals Vital Signs Date Temp Pulse Resp B/P (MAP) Pulse Ox O2 O2 Flow FiO2 Time Delivery Rate 02/20/18 103 12:35 02/20/18 98.2 18 165/76 93 Room Air 11:44 (105) Intake and Output 02/19/18 02/19/18 02/20/18 1515:00 23:00 07:00 IntakeIntake Total 600 ml 550 ml BalanceBalance 600 ml 550 ml Exam Constitutional: alert, oriented, well developed, obese Psych: no complaints, nl mood/affect Head: normocephalic, atraumatic Eyes: nl conjunctiva, EOMI, nl lids ENMT: nl external ears & nose, nl lips & teeth, nl nasal mucosa & septum Neck: supple, non-tender Respiratory: clear to auscultation, normal air movement; No congested cough, No crackles/rales, No diminished breath sounds, No intercostal retraction, No labored breathing, No respirations, No tactile fremitus, No wheezing, No other Cardiovascular: regular rate and rhythm, nl pulses; No bruits, No diastolic murmur, No edema, No gallop, No irregular rhythm, No jugular venous distention (JVD), No murmurs/extra sounds, No rub, No systolic murmur, No S3, No S4, No other Gastrointestinal: soft, nl liver, spleen, non-tender Musculoskeletal: nl extremities to inspection Extremities: normal pulses; No calf tenderness, No cyanosis, No clubbing, No edema, No pitting pedal edema, No palpable cord, No tenderness, No other 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, nl mental status, nl speech, nl strength Medications Medications Current Medications Amlodipine Besylate (Norvasc) 5 mg DAILY PO Last administered on 02/20/18 08:07; Admin Dose 5 MG; Start 02/19/18 at 09:00 Aspirin (Halfprin) 81 mg DAILY PO Last administered on 02/20/18 08:07; Admin Dose 81 MG; Start 02/19/18 at 09:00 Benazepril HCl (Lotensin) 20 mg DAILY PO Last administered on 02/20/18 08:08; Admin Dose 20 MG; Start 02/19/18 at 09:00 Insulin Aspart (Novolog Insulin Pen) 20 unit WITH BREAKFAST SC Last administered on 02/19/18 08:25; Admin Dose 20 UNIT; Start 02/19/18 at 08:00 Insulin Detemir (Levemir) 30 units QHS SC Last administered on 02/19/18 20:30; Admin Dose 30 UNITS; Start 02/19/18 at 21:00 Levothyroxine Sodium (Synthroid) 88 mcg BEFORE BREAKFAST PO Last administered on 02/20/18 06:26; Admin Dose 88 MCG; Start 02/19/18 at 07:00 Ranitidine HCl (Zantac) 150 mg Q24H PO Last administered on 02/19/18 22:36; Admin Dose 150 MG; Start 02/18/18 at 23:00 Fluticasone/ Vilanterol (Breo Ellipta 100-25 Mcg Inh) 1 inh DAILY INH Last administered on 02/20/18 08:08; Admin Dose 1 INH; Start 02/19/18 at 09:00 IV Flush (NS 3 ml) 3 ml PER PROTOCOL IV ; Start 02/18/18 at 23:00 Ondansetron HCl (Zofran Inj) 4 mg Q6H PRN IV NAUSEA AND/OR VOMITING; Start 02/18/18 at 23:00 Nitroglycerin (Nitroglycerin (Sl Tab) 0.4 Mg) 1 tab Q5M PRN SL CHEST PAIN; Start 02/18/18 at 23:00 Acetaminophen (Tylenol Tab) 650 mg Q6H PRN PO PAIN LEVEL 1-3 OR FEVER; Start 02/18/18 at 23:00 Docusate Sodium (Colace) 100 mg Q12H PRN PO CONSTIPATION; Start 02/18/18 at 23:00 Bisacodyl (Dulcolax) 5 mg DAILY PRN PO CONSTIPATION; Start 02/18/18 at 23:00 Heparin Sodium (Porcine) (Heparin (5000 Units/1ml)) 5,000 unit Q8 SC Last administered on 02/20/18at 14:12; Admin Dose 5,000 UNIT; Start 02/18/18 at 23:00 Lidocaine (Lidoderm) 1 patch DAILY TD Last administered on 02/20/18at 09:00; Admin Dose 1 PATCH; Start 02/19/18 at 09:00 Diagnostic Test (Pha) (Accu-Chek) 1 ea 02 XX Last administered on 02/20/18at 02:11; Admin Dose 1 EA; Start 02/19/18 at 02:00 Insulin Aspart (Novolog Insulin Pen) NOVOLOG *MILD* ALGORITHM WITH MEALS BEDTIME SC Last administered on 02/20/18at 12:02; Admin Dose 1 UNIT; Start 02/19/18 at 08:00 Miscellaneous Information 1 ea NOTE XX ; Start 02/19/18 at 02:30 Glucose (Glutose) 15 gm Q15M PRN PO DECREASED GLUCOSE; Start 02/19/18 at 02:30 Glucose (Glutose) 22.5 gm Q15M PRN PO DECREASED GLUCOSE; Start 02/19/18 at 02:30 Dextrose (D50w Syringe) 25 ml Q15M PRN IV DECREASED GLUCOSE; Start 02/19/18 at 02:30 Dextrose (D50w Syringe) 50 ml Q15M PRN IV DECREASED GLUCOSE; Start 02/19/18 at 02:30 Glucagon (Glucagen) 1 mg Q15M PRN IM DECREASED GLUCOSE; Start 02/19/18 at 02:30 Glucose (Glutose) 15 gm Q15M PRN BUCCAL DECREASED GLUCOSE; Start 02/19/18 at 02:30 Acetaminophen/ Hydrocodone Bitart ([place] (5/325)) 1 tab Q4H PRN PO MODERATE PAIN LEVEL 4-6; Start 02/19/18 at 13:30 Carisoprodol (Soma) 350 mg TID PO Last administered on 02/20/18at 14:05; Admin Dose 350 MG; Start 02/19/18 at 14:00 Hydromorphone HCl (Dilaudid) 5 mg Q3H PRN PO SEVERE PAIN LEVEL 7-10 Last administered on 02/20/18at 11:57; Admin Dose 5 MG; Start 02/19/18 at 13:30 Hydralazine HCl (Apresoline) 10 mg Q4H PRN IV ELEVATED BLOOD PRESSURE Last administered on 02/20/18at 06:57; Admin Dose 10 MG; Start 02/20/18 at 06:30 Magnesium Sulfate 50 ml @ 25 mls/hr ONCE ONCE IVPB ; Start 02/20/18 at 16:30; Stop 02/20/18 at 18:29 MARITZA MARIE MD Feb 20, 2018 15:59
[2018-02-20] MEDS ORDERED: MAGNESIUM SULFATE 2 GM/50 ML 50 ML IVPB ONE (16:30)
[2018-02-20] MEDS: INSULIN DETEMIR [LEVEMIR] (100 UNITS/ML) SYG SC SCH (20:51)
[2018-02-20] MEDS: RANITIDINE 150 MG TAB PO SCH (23:27)
[2018-02-21] VITALS: BP 159/78; PULSE 108; PULSE 95; RESP 20
[2018-02-21] MEDS: ACCU-CHEK XX SCH (02:00)
[2018-02-21] MEDS: HYDROmorphONE 2 MG TAB PO PRN ×2 (02:29→08:11)
[2018-02-21 04:00] VITALS: BP 175/80; PULSE 82; PULSE 87; RESP 20
[2018-02-21] MEDS: LEVOTHYROXINE 88 MCG TAB PO SCH (06:27)
[2018-02-21] MEDS: HEPARIN 5,000 UNIT/1 ML VIAL SC SCH (06:32)
[2018-02-21] MEDS: INSULIN ASPART [NOVOLOG] 3 ML PEN SC SCH ×3 (07:54→12:14)
[2018-02-21 07:55] VITALS: BP 178/91; PULSE 80; RESP 18
[2018-02-21] MEDS: ASPIRIN (EC) 81 MG TAB PO SCH (08:09)
[2018-02-21] MEDS: AMLODIPINE 5 MG TAB PO SCH (08:09)
[2018-02-21] MEDS: BENAZEPRIL 20 MG TAB PO SCH (08:09)
[2018-02-21] MEDS: CARISOPRODOL 350 MG TAB PO SCH ×2 (08:09→13:00)
[2018-02-21] MEDS: LIDOCAINE 5% PATCH TD SCH (08:10)
[2018-02-21] MEDS: FLUTICASONE/VILANTEROL 100-25 INH SCH (08:11)
[2018-02-21 09:31] VITALS: PULSE 83
--- NOTE | 2018-02-21 09:46 | CONS ---
Date/Time of Note Date/Time of Note DATE: 02/21/18 TIME: 09:39 Assessment/Plan Assessment/Plan Assessment/Plan Ms. Scherer is a 72 year old female with several potential sources of pain. I am concerned that her spinal pathology is causing pain on the right, but it is difficult to pinpoint a specific level given her diffuse symptoms and her imaging. She may also have entrapment at the right carpal tunnel and the left ul sherlyn nerve (at the elbow) by exam findings. Her thoracic pain is likely caused by thoracic pathology. Given her good functional status, this workup can be continued as an outpatient and she may be discharged today. I would recommend the following be obtained as an outpatient: 1) MRI of cervical and thoracic spine 2) Continue physical therapy, but include cervical spine exercises 3) I will follow-up with her in clinic when the MRI is complete - she may benefit from an EMG/NCS exam at that time Thank you for this consultation. I look forward to seeing Ms. Scherer in my clinic in the near future Result Diagram: 02/19/18 0327 02/19/18 0327 Results 24hrs Laboratory Tests Test 02/20/18 11:11 02/20/18 17:10 02/20/18 20:46 02/21/18 02:23 Bedside Glucose 148 194 173 90 Test 02/21/18 07:38 Bedside Glucose 126 Consultation Date/Type/Reason Admit Date/Time Date of Consultation: Feb 21, 2018 Type of Consult Neurosurgery Reason for Consultation Neck pain, right arm pain, bilateral hand pain, bilateral thoracic radicular pain Requesting Provider: MARITZA MARIE MD Hx of Present Illness Ms. Scherer is a 72 year old female with a history of prior lumbar degenerative changes s/p fusion who has had over 1 month of neck pain and predominantly right arm diffuse pain that includes pain specifically in the right middle finger. She has also had less severe pain in the left 4th and 5th digits for a longer period of time. She has headache in the back of her head consistent with tension headache. She was admitted for bilateral lateral chest pain that appears consi stent with an approximately T6 pathology. This is largely under control. She denies any specific numbness or weakness in the upper extremities or any lower extremity symptoms. She had a right knee surgery 3 months ago and is seeing physical therapy. She takes ASA for general heart health. She notes neck and arm pain, and low back pain. She denies numbness, weakness, or balance difficulty. Past Medical History Medications Current Medications Amlodipine Besylate (Norvasc) 5 mg DAILY PO Last administered on 02/21/18 08:09; Admin Dose 5 MG; Start 02/19/18 at 09:00 Aspirin (Halfprin) 81 mg DAILY PO Last administered on 02/21/18 08:09; Admin Dose 81 MG; Start 02/19/18 at 09:00 Benazepril HCl (Lotensin) 20 mg DAILY PO Last administered on 02/21/18 08:09; Admin Dose 20 MG; Start 02/19/18 at 09:00 Insulin Aspart (Novolog Insulin Pen) 20 unit WITH BREAKFAST SC Last administered on 02/19/18 08:25; Admin Dose 20 UNIT; Start 02/19/18 at 08:00 Insulin Detemir (Levemir) 30 units QHS SC Last administered on 02/20/18 20:51; Admin Dose 30 UNITS; Start 02/19/18 at 21:00 Levothyroxine Sodium (Synthroid) 88 mcg BEFORE BREAKFAST PO Last administered on 02/21/18 06:27; Admin Dose 88 MCG; Start 02/19/18 at 07:00 Ranitidine HCl (Zantac) 150 mg Q24H PO Last administered on 02/20/18 23:27; Admin Dose 150 MG; Start 02/18/18 at 23:00 Fluticasone/ Vilanterol (Breo Ellipta 100-25 Mcg Inh) 1 inh DAILY INH Last administered on 02/21/18 08:11; Admin Dose 1 INH; Start 02/19/18 at 09:00 IV Flush (NS 3 ml) 3 ml PER PROTOCOL IV ; Start 02/18/18 at 23:00 Ondansetron HCl (Zofran Inj) 4 mg Q6H PRN IV NAUSEA AND/OR VOMITING Last administered on 02/21/18 04:31; Admin Dose 4 MG; Start 02/18/18 at 23:00 Nitroglycerin (Nitroglycerin (Sl Tab) 0.4 Mg) 1 tab Q5M PRN SL CHEST PAIN; Start 02/18/18 at 23:00 Acetaminophen (Tylenol Tab) 650 mg Q6H PRN PO PAIN LEVEL 1-3 OR FEVER; Start 02/18/18 at 23:00 Docusate Sodium (Colace) 100 mg Q12H PRN PO CONSTIPATION; Start 02/18/18 at 23:00 Bisacodyl (Dulcolax) 5 mg DAILY PRN PO CONSTIPATION; Start 02/18/18 at 23:00 Heparin Sodium (Porcine) (Heparin (5000 Units/1ml)) 5,000 unit Q8 SC Last administered on 02/21/18at 06:32; Admin Dose 5,000 UNIT; Start 02/18/18 at 23:00 Lidocaine (Lidoderm) 1 patch DAILY TD Last administered on 02/21/18at 08:10; Admin Dose 1 PATCH; Start 02/19/18 at 09:00 Diagnostic Test (Pha) (Accu-Chek) 1 ea 02 XX Last administered on 02/20/18at 02:11; Admin Dose 1 EA; Start 02/19/18 at 02:00 Insulin Aspart (Novolog Insulin Pen) NOVOLOG *MILD* ALGORITHM WITH MEALS BEDTIME SC Last administered on 02/20/18at 17:14; Admin Dose 2 UNIT; Start 02/19/18 at 08:00 Miscellaneous Information 1 ea NOTE XX ; Start 02/19/18 at 02:30 Glucose (Glutose) 15 gm Q15M PRN PO DECREASED GLUCOSE; Start 02/19/18 at 02:30 Glucose (Glutose) 22.5 gm Q15M PRN PO DECREASED GLUCOSE; Start 02/19/18 at 02:30 Dextrose (D50w Syringe) 25 ml Q15M PRN IV DECREASED GLUCOSE; Start 02/19/18 at 02:30 Dextrose (D50w Syringe) 50 ml Q15M PRN IV DECREASED GLUCOSE; Start 02/19/18 at 02:30 Glucagon (Glucagen) 1 mg Q15M PRN IM DECREASED GLUCOSE; Start 02/19/18 at 02:30 Glucose (Glutose) 15 gm Q15M PRN BUCCAL DECREASED GLUCOSE; Start 02/19/18 at 02:30 Acetaminophen/ Hydrocodone Bitart ([place] (5/325)) 1 tab Q4H PRN PO MODERATE PAIN LEVEL 4-6 Last administered on 02/21/18at 04:31; Admin Dose 1 TAB; Start 02/19/18 at 13:30 Carisoprodol (Soma) 350 mg TID PO Last administered on 02/21/18 08:09; Admin Dose 350 MG; Start 02/19/18 at 14:00 Hydromorphone HCl (Dilaudid) 5 mg Q3H PRN PO SEVERE PAIN LEVEL 7-10 Last administered on 02/21/18at 08:11; Admin Dose 5 MG; Start 02/19/18 at 13:30 Hydralazine HCl (Apresoline) 10 mg Q4H PRN IV ELEVATED BLOOD PRESSURE Last administered on 02/20/18at 06:57; Admin Dose 10 MG; Start 02/20/18 at 06:30 Allergies: Coded Allergies: No Known Drug Allergies (Unverified Allergy, Unknown, 02/18/18) Past Surgical History Past Surgical Hx: other Social History Alcohol Use: none Smoking Status: Current every day smoker Drug Use: none Exam/Review of Systems Vital Signs Vitals Vital Signs Date Temp Pulse Resp B/P (MAP) Pulse Ox O2 O2 Flow FiO2 Time Delivery Rate 02/21/18 98.1 80 18 178/91 93 Room Air 07:55 (120) Intake and Output 02/20/18 02/20/18 02/21/18 1515:00 23:00 07:00 IntakeIntake Total 750 ml 500 ml BalanceBalance 750 ml 500 ml Exam Ms. Scherer is full strength in the upper extremities. She has a positive Spurling sign on the right. She has no numbness or Filipe's sign. She has a Tinnel's sign at the left elbow (ulnar) and right carpal tunnel (median). She has no clonus. Medications Medications Current Medications Amlodipine Besylate (Norvasc) 5 mg DAILY PO Last administered on 02/21/18 08:09; Admin Dose 5 MG; Start 02/19/18 at 09:00 Aspirin (Halfprin) 81 mg DAILY PO Last administered on 02/21/18 08:09; Admin Dose 81 MG; Start 02/19/18 at 09:00 Benazepril HCl (Lotensin) 20 mg DAILY PO Last administered on 02/21/18 08:09; Admin Dose 20 MG; Start 02/19/18 at 09:00 Insulin Aspart (Novolog Insulin Pen) 20 unit WITH BREAKFAST SC Last administered on 02/19/18at 08:25; Admin Dose 20 UNIT; Start 02/19/18 at 08:00 Insulin Detemir (Levemir) 30 units QHS SC Last administered on 02/20/18 20:51; Admin Dose 30 UNITS; Start 02/19/18 at 21:00 Levothyroxine Sodium (Synthroid) 88 mcg BEFORE BREAKFAST PO Last administered on 02/21/18 06:27; Admin Dose 88 MCG; Start 02/19/18 at 07:00 Ranitidine HCl (Zantac) 150 mg Q24H PO Last administered on 02/20/18 23:27; A dmin Dose 150 MG; Start 02/18/18 at 23:00 Fluticasone/ Vilanterol (Breo Ellipta 100-25 Mcg Inh) 1 inh DAILY INH Last administered on 02/21/18 08:11; Admin Dose 1 INH; Start 02/19/18 at 09:00 IV Flush (NS 3 ml) 3 ml PER PROTOCOL IV ; Start 02/18/18 at 23:00 Ondansetron HCl (Zofran Inj) 4 mg Q6H PRN IV NAUSEA AND/OR VOMITING Last administered on 02/21/18 04:31; Admin Dose 4 MG; Start 02/18/18 at 23:00 Nitroglycerin (Nitroglycerin (Sl Tab) 0.4 Mg) 1 tab Q5M PRN SL CHEST PAIN; Start 02/18/18 at 23:00 Acetaminophen (Tylenol Tab) 650 mg Q6H PRN PO PAIN LEVEL 1-3 OR FEVER; Start 02/18/18 at 23:00 Docusate Sodium (Colace) 100 mg Q12H PRN PO CONSTIPATION; Start 02/18/18 at 23:00 Bisacodyl (Dulcolax) 5 mg DAILY PRN PO CONSTIPATION; Start 02/18/18 at 23:00 Heparin Sodium (Porcine) (Heparin (5000 Units/1ml)) 5,000 unit Q8 SC Last administered on 02/21/18 06:32; Admin Dose 5,000 UNIT; Start 02/18/18 at 23:00 Lidocaine (Lidoderm) 1 patch DAILY TD Last administered on 02/21/18 08:10; Admin Dose 1 PATCH; Start 02/19/18 at 09:00 Diagnostic Test (Pha) (Accu-Chek) 1 ea 02 XX Last administered on 1/9/19at 02:11; Admin Dose 1 EA; Start 02/19/18 at 02:00 Insulin Aspart (Novolog Insulin Pen) NOVOLOG *MILD* ALGORITHM WITH MEALS BEDTIME SC Last administered on 02/20/18at 17:14; Admin Dose 2 UNIT; Start 02/19/18 at 08:00 Miscellaneous Information 1 ea NOTE XX ; Start 02/19/18 at 02:30 Glucose (Glutose) 15 gm Q15M PRN PO DECREASED GLUCOSE; Start 02/19/18 at 02:30 Glucose (Glutose) 22.5 gm Q15M PRN PO DECREASED GLUCOSE; Start 02/19/18 at 02:30 Dextrose (D50w Syringe) 25 ml Q15M PRN IV DECREASED GLUCOSE; Start 02/19/18 at 02:30 Dextrose (D50w Syringe) 50 ml Q15M PRN IV DECREASED GLUCOSE; Start 02/19/18 at 02:30 Glucagon (Glucagen) 1 mg Q15M PRN IM DECREASED GLUCOSE; Start 02/19/18 at 02:30 Glucose (Glutose) 15 gm Q15M PRN BUCCAL DECREASED GLUCOSE; Start 02/19/18 at 02:30 Acetaminophen/ Hydrocodone Bitart ([place] (5/325)) 1 tab Q4H PRN PO MODERATE PAIN LEVEL 4-6 Last administered on 02/21/18at 04:31; Admin Dose 1 TAB; Start 02/19/18 at 13:30 Carisoprodol (Soma) 350 mg TID PO Last administered on 02/21/18at 08:09; Admin Dose 350 MG; Start 02/19/18 at 14:00 Hydromorphone HCl (Dilaudid) 5 mg Q3H PRN PO SEVERE PAIN LEVEL 7-10 Last administered on 02/21/18at 08:11; Admin Dose 5 MG; Start 02/19/18 at 13:30 Hydralazine HCl (Apresoline) 10 mg Q4H PRN IV ELEVATED BLOOD PRESSURE Last administered on 02/20/18at 06:57; Admin Dose 10 MG; Start 02/20/18 at 06:30 SID GRANT MD Feb 21, 2018 09:46
[2018-02-21 11:55] VITALS: BP 141/76; PULSE 94; RESP 18
[2018-02-21] MEDS ORDERED: ASC500 PO (12:04)
[2018-02-21] MEDS ORDERED: LIDO700A45 TD (12:04)
[2018-02-21] MEDS ORDERED: FER325 PO (12:04)
[2018-02-21] MEDS ORDERED: DOCU-216 PO (12:04)
[2018-02-21] MEDS ORDERED: NOVO3I SC (12:04)
[2018-02-21 12:55] VITALS: PULSE 85
[2018-02-21] MEDS ORDERED: SOD FERRIC GLUC COMPLX 125 MG in SOD CHLORIDE 0.9% 100 ML IVPB ONE (13:00)
--- NOTE | 2018-02-21 15:56 | PDOCDIS ---
Discharge Instructions CONDITION [id number] Patient Condition: [id number] Stable BRIANNE LUONG Feb 21, 2018 15:56
--- NOTE | 2018-02-21 16:58 | DS ---
DATE OF ADMISSION: 02/20/2018 DATE OF DISCHARGE: 02/21/2018 PRESENTING COMPLAINT: Bilateral arm pain and back pain as well as an episode of chest pain. ADMISSION DIAGNOSES: 1. Chest pain, rule out acute coronary syndrome. 2. Neck pain radiation to bilateral arms. 3. Chronic obstructive pulmonary disease. 4. Hypothyroidism. 5. Hypertension. 6. Morbid obesity. CONSULTS ON THE CASE: Warren Grant MD, for neurosurgery. HOSPITAL INTERVENTIONS: Please see hospital course. HOSPITAL COURSE: Full details are available in the chart for review. In summary, this patient was a dmitted for chest pain workup to telemetry floor. She ruled out with 3 negative cardiac enzymes and was determined that no further workup was required. The patient is still complaining of chest pain a nd has been complaining of left upper back pain worse on movement. Based on that, a CT scan of her c ervical spine was ordered as well as cervical spine x-rays. CT showed cervical spondylosis and degen erative enthesopathy more pronounced at C5 to C6, mild central canal stenosis at C5 to C6 and C6 to C 7, 4 mm right paracentral disk extrusion at C2 to C3 without significant central canal stenosis, mult ilevel foraminal narrowing and left thyroid nodule or mass. Based on the CT findings and concern for radiculopathy, neurosurgical consultation was obtained and as of today, the patient was in the neuro surgeon whose final recommendations were that patient will require outpatient MRI of the cervical and thoracic spine, continued physical therapy with cervical spine exercises. The plan is that after yuriy silveira has had the MRI, she may benefit from EMG/NCS exam. At time of my review, I offered the patient to do the MRI inpatient prior to being discharged, but the patient refused, requesting instead to go [facility] and have MRI done outpatient. I also discussed with her the presence of thyroid nodules, for whi ch the patient did not want to further delay her discharge and opted instead to follow up outpatient with her primary care doctor for continued workup. At this time, the patient is stable and anxious f or discharge. Due to her hypochromasia and microcytosis, iron levels were checked and patient was fo und to be iron deficient. She also had a hemoglobin A1c of 8.2 and her insulin regimen was adjusted. At this time, she is doing well and she will follow up with her primary care doctor for continued m anagement of her diabetes. She will follow up with neurosurgery for her radiculopathy and primary ca re doctor for continued workup of thyroid nodule. FINAL DIAGNOSES: 1. Chest pain. Acute coronary syndrome has been ruled out. No further cardiac workup at this time. 2. Cervical disk disease with radiculopathy, status post neurosurgical review for outpatient further workup. 3. Left thyroid nodule, question of chronic. The patient has history of hypothyroidism, on levothyr oxine: The patient has opted for further workup outpatient. 4. Hypertension with good control. 5. Diabetes type 2 with suboptimal home control. Hemoglobin A1c is 8.2 with excellent in-house cont rol. 6. Morbid obesity. 7. History of chronic obstructive pulmonary disease, stable without evidence of exacerbation. 8. Chronic back pain, likely secondary to #2. Continue on home Soma and lidocaine patch and pain ma nagement with good control. DISPOSITION: To home. ACTIVITIES: As tolerated. FOLLOWUP: With the neurosurgeon as well as the primary care doctor. DISCHARGE MEDICATIONS: For complete list of her discharge medications, please review the patient's m edication list. DISCHARGE CONDITION: Stable. DIET: Recommended diet is ADA diet. Time spent on discharge planning has been more than 1 hour. Dictated By: BRIANNE LUONG MD BA/NTS Conf#: [id number] DID#: [id number] CC: ANUP BAKER MD; WARREN GRANT MD; MARITZA MARIE MD;*EndCC*
[2018-03-19] MEDS ORDERED: ATOR40TA68 PO (11:27)
== END 2018-02-21 13:10 | disposition home or self-care (01) | DRG 313 ==
LOC: E/R 16:24 → 6WM 22:29 → OBSVTOIN 02-20 20:47
PROVIDERS: ADMIT Family Medicine; ATTEND Internal Medicine
DX: R07.9 Chest pain, unspecified (principal); Z68.41 Body mass index [BMI] 40.0-44.9, adult; M50.00 Cervical disc disorder with myelopathy, unspecified cervical region; J44.9 Chronic obstructive pulmonary disease, unspecified; E03.9 Hypothyroidism, unspecified; I10 Essential (primary) hypertension; E66.01 Morbid (severe) obesity due to excess calories; M50.10 Cervical disc disorder with radiculopathy, unspecified cervical region; E11.9 Type 2 diabetes mellitus without complications
CPT/HCPCS: 36415; 71045; 72040; 72125; 80053; 80061; 82550; 82553; 82728; 82962; 83036; 83540; 83735; 84443; 84484; 85025; 85610; 85730; 93005; 96374; 96375; 97162; G0378; J0360; J1170; J1644; J1815; J1885; J2274; J2405; J2916; J3475

== ENCOUNTER 2018-04-24 22:51 | Emergency (ER) | payer MEDICARE, OTHER ==
[~2018-04-24] VITALS: Ht 172.7 cm; Wt 106.8 kg
[~2018-04-24 22:51] MED LIST changes: -ADV25050 INH; +ADV25050 INHALATION; +AMLO5TAB4 PO; +ASC500 PO; +ATOR40TA68 PO; +BENA20TA4 PO; -BENA40TA56 PO; -BROVANA INH; +DOCU-216 PO; +FER325 PO; +INSU100I27 SQ; -LEVO-86 PO; +LEVO88TA3 PO; +LIDO700A45 TD; -METF500T PO; -MONT10TA24 PO; -NEBU-107 MC; +NOVO3I SC; -PRED20TA PO
[2018-04-24 23:04] VITALS: Ht 172.7 cm; Wt 106.8 kg
[2018-04-25] MEDS ORDERED: morphine 4 MG/ML VIAL IV STA (00:44)
[2018-04-25] MEDS ORDERED: ONDANSETRON 4 MG INJ IV STA (00:44)
[2018-04-25] MEDS ORDERED: SOD CHLORIDE 0.9% 500 ML IV STA (00:44)
[2018-04-25] MEDS ORDERED: HYDROmorphONE 0.5 MG/0.5 ML SYG IV STA (02:33)
[2018-04-25] MEDS ORDERED: CEFTRIAXONE 1 GM/50 ML (PMX) 50 ML IVPB ONE (03:00)
[2018-04-25] MEDS ORDERED: TRAM50TA2 PO (03:06)
[2018-04-25] MEDS ORDERED: SULF1TAB31 PO (03:06)
--- NOTE | 2018-04-25 03:10 | ERD ---
ER Documentation Chief Complaint Chief Complaint abdominal pain/back pain x 1 day HPI This is a 9-year-old female comes in with points of lower abdominal pain and lower back pain for the past day. She denies any fevers chills nausea or vomiting. Pain is mild to moderate in intensity with no other radiations. Patient denies urinary urgency or frequency. Denies any other current issues ROS All systems reviewed and are negative except as per history of present illness. Medications Home Meds Active Scripts Tramadol HCl (Tramadol HCl) 50 Mg Tablet, 50 MG PO Q4 PRN for PAIN, #20 TAB Prov:MAURICE CAMERON. 04/25/18 Sulfamethoxazole/Trimethoprim* (Bactrim Ds* Tablet) 1 Each Tablet, 1 TAB PO BID, #14 TAB Prov:MAURICE CAMERON. 04/25/18 Atorvastatin* (Atorvastatin*) 40 Mg Tablet, 40 MG PO QHS, #30 TAB Prov:CLINTON CHANDLER NP 03/19/18 Ascorbic Acid (Vitamin C) 500 Mg Tab, 500 MG PO DAILY, #30 TAB 2 Refills Prov:BRIANNE LUONG. 02/21/18 Ferrous Sulfate* (Ferrous Sulfate*) 325 Mg Tabec, 325 MG PO DAILY for 30 Days, #30 TAB 2 Refills Prov:BRIANNE LUONG. 02/21/18 Lidocaine (Lidocaine) 1 Each Adh..patch, 1 PATCH TD DAILY, #30 PATCH Prov:AGMARY GodinezTOMY Mahmood 02/21/18 Docusate Sodium (Dok) 100 Mg Capsule, 100 MG PO Q12H, #60 CAP 2 Refills Prov:AGBRIANNE 02/21/18 Insulin Aspart* (Novolog Insulin Pen*) 100 Unit/Ml Soln, 10 UNIT SC WITH BREAKFAST for 30 Days, #9 VIAL 2 Refills Prov:AGMARY GodinezTOMY Mahmood 02/21/18 Reported Medications Insulin Detemir (Levemir Flextouch) 100 Unit/1 Ml Insuln.pen, 30 UNIT SQ QHS, EA 02/18/18 Amlodipine Besylate* (Norvasc*) 5 Mg Tablet, 5 MG PO DAILY, TAB 02/18/18 Salmeterol Xinaf/Fluticasone* (Advair*) 250-50 Diskus Inhaler, 1 INH INHALATION BID, #1 INHALER 02/18/18 Ranitidine Hcl* (Ranitidine Hcl*) 150 Mg Tablet, 150 MG PO Q24H, #60 TAB 02/18/18 Linagliptin (TRADJENTA) 5 Mg Tablet, 5 MG PO DAILY, TAB 02/18/18 Levothyroxine Sodium* (Levothyroxine Sodium*) 88 Mcg Tablet, 88 MCG PO BEFORE BREAKFAST, #30 TAB 02/18/18 Cyclobenzaprine Hcl* (Cyclobenzaprine Hcl*) 10 Mg Tablet, 10 MG PO TID, #90 TAB 02/18/18 Benazepril Hcl* (Benazepril Hcl*) 20 Mg Tablet, 20 MG PO DAILY, #30 TAB 02/18/18 Aspirin* (Aspirin* EC) 81 Mg Tablet.dr, 81 MG PO DAILY, TAB 02/18/18 Albuterol Sulfate* (Proair HFA*) 8.5 Gm Hfa.aer.ad, 2 PUFF INH Q4H PRN for WHEEZING AND SOB, #1 INHALER 02/18/18 Allergies Allergies: Coded Allergies: No Known Drug Allergies (Unverified Allergy, Unknown, 02/18/18) PMhx/Soc History of Surgery: Yes (cholecystecomy, lumbar L5-L6, bilateral knee) Anesthesia Reaction: No Hx Neurological Disorder: Yes (neuropathy) Hx Respiratory Disorders: Yes (COPD, CHF) Hx Cardiac Disorders: Yes (HTN) Hx Psychiatric Problems: No Hx Miscellaneous Medical Probl: Yes (HTN, DM, COPD, hypothyroidism, obesity ) Hx Alcohol Use: No Hx Substance Use: No Hx Tobacco Use: Yes (2 CIGARETTES A DAY) Smoking Status: Current every day smoker Physical Exam Vitals Vital Signs Date Temp Pulse Resp B/P (MAP) Pulse Ox O2 O2 Flow FiO2 Time Delivery Rate 04/25/18 76 17 140/76 100 Room Air 02:59 (97) 04/25/18 98.0 75 18 135/77 96 Room Air 00:45 (96) 04/24/18 98.3 91 18 150/72 96 23:04 (98) Physical Exam Const: No acute distress Head: Atraumatic Eyes: Normal Conjunctiva ENT: Normal External Ears, Nose and Mouth. Neck: Full range of motion. No meningismus. Resp: Clear to auscultation bilaterally Cardio: Regular rate and rhythm, no murmurs Abd: Soft, non tender, non distended. Normal bowel sounds Skin: No petechiae or rashes Back: No midline or flank tenderness Ext: No cyanosis, or edema Neur: Awake and alert Psych: Normal Mood and Affect Result Diagram: 04/25/182 04/25/18 0112 Results 24 hrs Laboratory Tests Test 04/25/18 01:12 White Blood Count 8.5 10^3/ul Red Blood Count 5.27 10^6/ul Hemoglobin 13.3 g/dl Hematocrit 41.3 % Mean Corpuscular Volume 78.4 fl Mean Corpuscular Hemoglobin 25.2 pg Mean Corpuscular Hemoglobin Concent 32.2 g/dl Red Cell Distribution Width 16.2 % Platelet Count 277 10^3/UL Mean Platelet Volume 10.9 fl Immature Granulocytes % 0.400 % Neutrophils % 45.2 % Lymphocytes % 45.4 % Monocytes % 6.1 % Eosinophils % 2.5 % Basophils % 0.4 % Nucleated Red Blood Cells % 0.0 /100WBC Immature Granulocytes # 0.030 10^3/ul Neutrophils # 3.9 10^3/ul Lymphocytes # 3.9 10^3/ul Monocytes # 0.5 10^3/ul Eosinophils # 0.2 10^3/ul Basophils # 0.0 10^3/ul Nucleated Red Blood Cells # 0.0 10^3/ul Urine Color YELLOW Urine Clarity CLOUDY Urine pH 5.0 Urine Specific [place] 1.022 Urine Ketones NEGATIVE mg/dL Urine Nitrite NEGATIVE mg/dL Urine Bilirubin NEGATIVE mg/dL Urine Urobilinogen 1+ mg/dL Urine Leukocyte Esterase 1+ Brijesh/ul Urine Microscopic RBC 3 /HPF Urine Microscopic WBC 10 /HPF Urine Squamous Epithelial Cells MANY /HPF Urine Bacteria FEW /HPF Urine Mucus FEW /HPF Urine Hemoglobin NEGATIVE mg/dL Urine Glucose 3+ mg/dL Urine Total Protein NEGATIVE mg/dl Sodium Level 141 mmol/L Potassium Level 3.8 mmol/L Chloride Level 103 mmol/L Carbon Dioxide Level 26 mmol/L Anion Gap 12 Blood Urea Nitrogen 13 mg/dl Creatinine 0.52 mg/dl Est Glomerular Filtrat Rate mL/min > 60 mL/min Glucose Level 302 mg/dl Calcium Level 10.0 mg/dl Total Bilirubin 0.2 mg/dl Direct Bilirubin 0.00 mg/dl Indirect Bilirubin 0.2 mg/dl Aspartate Amino Transf (AST/SGOT) 22 IU/L Alanine Aminotransferase (ALT/SGPT) 20 IU/L Alkaline Phosphatase 137 IU/L Troponin I < 0.012 ng/ml Total Protein 6.6 g/dl Albumin 3.7 g/dl Globulin 2.90 g/dl Albumin/Globulin Ratio 1.27 Lipase 110 U/L Current Medications Medications Dose Sig/Nguyen Start Time Status Last (Trade) Ordered Route PRN Stop Time Admin Dose Reason Admin Sodium 500 ml @ Q1H STAT 04/25/18 DC 04/25/18 Chloride 500 mls/hr IV 00:44 01:37 04/25/18 01:43 Morphine 4 mg ONCE STAT 04/25/18 DC 04/25/18 Sulfate IV 00:44 01:37 (morphine) 04/25/18 00:45 Ondansetron 4 mg ONCE STAT 04/25/18 DC 04/25/18 HCl (Zofran IV 00:44 01:37 Inj) 04/25/18 00:45 1 mg ONCE STAT 04/25/18 DC 04/25/18 Hydromorphone IV 02:33 02:44 HCl 04/25/18 02:34 (Dilaudid) Ceftriaxone 50 ml @ ONCE ONCE 04/25/18 04/25/18 Sodium 100 mls/hr IVPB 03:00 02:45 04/25/18 03:29 Procedures/MDM Emergency department course: Patient seen and evaluated triage was placed in bed from the evaluation. Dimension is accentuated given pain medications. Given a dose of Rocephin. Serial examinations here in the department are stable. Pain resolved. Diagnostic data: EKG: Rate/Rhythm: [Normal Sinus Rhythm] QRS, ST, T-waves: [No changes consistent w/ acute ischemia] Impression: [No evidence of ischemia or arrhythmia] Chest X-ray 1V Interpreted by me: Soft Tissue: No acute abnormalities Bones: No acute abnormalities Mediastinum/Cardiac Silhouette/Lungs: [No acute abnormalities] Medical decision making: This very pleasant 9-year-old female complains of abdominal pain in the suprapubic area. Patient has evidence of UTI. Treated with Rocephin here in the ER. Will be discharged home with Bactrim and tramadol. Has been advised to follow-up in 8 hours for serial abdominal exams. Return earlier for worsening symptoms. Otherwise follow-up with PCP. Patient's gastrointestinal symptoms have stabilized while in the department. No evidence of severe dehydration, sepsis, or surgical abdomen. Extensive discussion with family and patient that occult disease cannot be ruled out. 8 hour recheck for repeat abdominal exam is planned. Departure Diagnosis: Primary Impression: Abdominal pain Abdominal location: unspecified location Qualified Codes: R10.9 - Unspecified abdominal pain Condition: Stable Patient Instructions: Abdominal Pain, Understanding Urinary Tract Infections (UTIs) MAURICE CAMERON Apr 25, 2018 03:10
[2018-04-25 03:17] VITALS: BP 132/62; PULSE 82; RESP 17
== END 2018-04-25 03:19 | disposition home or self-care (01) ==
LOC: E/R 22:51
DX: R10.30 Lower abdominal pain, unspecified (principal); J44.9 Chronic obstructive pulmonary disease, unspecified; I50.9 Heart failure, unspecified; I10 Essential (primary) hypertension; E11.9 Type 2 diabetes mellitus without complications; E03.9 Hypothyroidism, unspecified; E66.9 Obesity, unspecified; F17.210 Nicotine dependence, cigarettes, uncomplicated; Z79.4 Long term (current) use of insulin; Z79.82 Long term (current) use of aspirin
CPT/HCPCS: 36415; 71045; 74176; 80053; 81001; 83690; 84484; 85025; 96374; 96375; 99285; J0696; J1170; J2270; J2405; J7040

== ENCOUNTER 2018-05-06 21:34 | Inpatient (IN) | payer MEDICARE, OTHER ==
[~2018-05-06] VITALS: Ht 172.7 cm; Wt 107.6 kg
[~2018-05-06 21:34] MED LIST changes: +SULF1TAB31 PO; +TRAM50TA2 PO
[2018-05-07] MEDS ORDERED: HYDROmorphONE 1 MG/ML SYG IV STA (00:41)
[2018-05-07] MEDS ORDERED: ONDANSETRON 4 MG INJ IV STA (00:41)
[2018-05-07] MEDS ORDERED: SOD CHLORIDE 0.9% 1,000 ML IV STA (00:41)
[2018-05-07] MEDS ORDERED: ALPR2TAB PO (03:48)
[2018-05-07] MEDS ORDERED: HYDR-3980 PO (03:48)
[2018-05-07] MEDS ORDERED: LEVO100T8 PO (03:48)
[2018-05-07] MEDS ORDERED: ONDA8TAB83 PO (03:48)
[2018-05-07] MEDS ORDERED: OMEP40CA6 PO (03:48)
[2018-05-07] MEDS ORDERED: VARE1TAB20 PO (03:48)
[2018-05-07] MEDS ORDERED: GLIP5TAB13 PO (03:48)
[2018-05-07] MEDS ORDERED: NOVO3I SC (03:57)
[2018-05-07] MEDS ORDERED: HYDROmorphONE 0.5 MG/0.5 ML SYG IV STA (04:06)
[2018-05-07] MEDS ORDERED: DEXTROSE 5%-0.45% NACL 1,000 ML IV SCH (05:06)
--- NOTE | 2018-05-07 05:10 | ERD ---
ER Documentation Chief Complaint Chief Complaint C/O AP, VOMITING, DIARRHEA, BODY ACHES X'S 1 DAY HPI This is a very pleasant 9-year-old female with complaints of epigastric and left lower quadrant abdominal pain accompanied with 2-3 episodes of diarrhea and body aches for the past day. There was no blood noted in the diarrhea. Pain is mild to moderate in intensity with no exacerbating or alleviating factors. Denies any sick contacts. Denies any chest pain or shortness of breath. Last meal was tonight. She immediately had a flareup of the pain after eating. No other current complaints. ROS All systems reviewed and are negative except as per history of present illness. Medications Home Meds Active Scripts Tramadol HCl (Tramadol HCl) 50 Mg Tablet, 50 MG PO Q4 PRN for PAIN, #20 TAB Prov:MAURICE CAMERON 04/25/18 Atorvastatin* (Atorvastatin*) 40 Mg Tablet, 40 MG PO QHS, #30 TAB Prov:CLINTON CHANDLER NP 03/19/18 Ascorbic Acid (Vitamin C) 500 Mg Tab, 500 MG PO DAILY, #30 TAB 2 Refills Prov:BRIANNE LUONG 02/21/18 Ferrous Sulfate* (Ferrous Sulfate*) 325 Mg Tabec, 325 MG PO DAILY for 30 Days, # 30 TAB 2 Refills Prov:BRIANNE LUONG 02/21/18 Docusate Sodium (Dok) 100 Mg Capsule, 100 MG PO Q12H, #60 CAP 2 Refills Prov:BRIANNE LUONG. 02/21/18 Reported Medications Insulin Aspart* (Novolog Insulin Pen*) 100 Unit/Ml Soln, 1 UNIT SC WITH BREAKFAST DINNE for 20u QAM; 30u QPM, EA 05/07/18 Omeprazole* (Omeprazole*) 40 Mg Capsule.dr, 40 MG PO DAILY for 60 Days, #60 05/07/18 Alprazolam* (Xanax*) 2 Mg Tablet, 2 MG PO Q8H PRN for ANXIETY, TAB 05/07/18 Ondansetron Hcl* (Ondansetron Hcl*) 8 Mg Tablet, 8 MG PO DAILY for NV 05/07/18 Glipizide* (Glipizide*) 5 Mg Tablet, 5 MG PO BID for 45 Days, #90 05/07/18 Hydrocodone/Acetaminophen ([place] 10-325 Tablet) 1 Each Tablet, 1 EACH PO DAILY, TAB 05/07/18 Varenicline Tartrate (Chantix) 1 Mg Tablet, 1 MG PO DAILY for 77 Days, #77 05/07/18 Levothyroxine Sodium* (Levothyroxine Sodium*) 100 Mcg Tablet, 100 MCG PO BEFORE BREAKFAST, #30 TAB 05/07/18 Amlodipine Besylate* (Norvasc*) 5 Mg Tablet, 5 MG PO DAILY, TAB 02/18/18 Ranitidine Hcl* (Ranitidine Hcl*) 150 Mg Tablet, 150 MG PO Q24H, #60 TAB 02/18/18 Cyclobenzaprine Hcl* (Cyclobenzaprine Hcl*) 10 Mg Tablet, 10 MG PO TID, #90 TAB 02/18/18 Benazepril Hcl* (Benazepril Hcl*) 20 Mg Tablet, 20 MG PO DAILY, #30 TAB 02/18/18 Aspirin* (Aspirin* EC) 81 Mg Tablet.dr, 81 MG PO DAILY, TAB 02/18/18 Albuterol Sulfate* (Proair HFA*) 8.5 Gm Hfa.aer.ad, 2 PUFF INH Q4H PRN for WHEEZING AND SOB, #1 INHALER 02/18/18 Discontinued Reported Medications Insulin Detemir (Levemir Flextouch) 100 Unit/1 Ml Insuln.pen, 30 UNIT SQ QHS, EA 02/18/18 Salmeterol Xinaf/Fluticasone* (Advair*) 250-50 Diskus Inhaler, 1 INH INHALATION BID, #1 INHALER 02/18/18 Linagliptin (TRADJENTA) 5 Mg Tablet, 5 MG PO DAILY, TAB 02/18/18 Levothyroxine Sodium* (Levothyroxine Sodium*) 88 Mcg Tablet, 88 MCG PO BEFORE BREAKFAST, #30 TAB 02/18/18 Discontinued Scripts Sulfamethoxazole/Trimethoprim* (Bactrim Ds* Tablet) 1 Each Tablet, 1 TAB PO BID, #14 TAB Prov:MAURICE CAMERON 04/25/18 Lidocaine (Lidocaine) 1 Each Adh..patch, 1 PATCH TD DAILY, #30 PATCH Prov:BRIANNE LUONG 02/21/18 Insulin Aspart* (Novolog Insulin Pen*) 100 Unit/Ml Soln, 10 UNIT SC WITH BREAKFAST for 30 Days, #9 VIAL 2 Refills Prov:BRIANNE LUONG 02/21/18 Allergies Allergies: Uncoded Allergies: ALMONDS (Allergy, Unknown, SOB, 05/07/18) THROAT CLOSES PMhx/Soc History of Surgery: Yes (cholecystecomy, lumbar L5-L6, bilateral knee) Anesthesia Reaction: No Hx Neurological Disorder: Yes (neuropathy) Hx Respiratory Disorders: Yes (COPD, CHF) Hx Cardiac Disorders: Yes (HTN) Hx Psychiatric Problems: No Hx Miscellaneous Medical Probl: Yes (HTN, DM, COPD, hypothyroidism, obesity ) Hx Alcohol Use: No Hx Substance Use: No Hx Tobacco Use: Yes (2 CIGARETTES A DAY) Smoking Status: Current every day smoker Physical Exam Vitals Vital Signs Date Temp Pulse Resp B/P (MAP) Pulse Ox O2 O2 Flow FiO2 Time Delivery Rate 05/07/18 75 22 153/78 95 Room Air 02:32 (103) 05/06/18 97.4 97 18 168/82 95 21:40 (110) Physical Exam Const: No acute distress Head: Atraumatic Eyes: Normal Conjunctiva ENT: Normal External Ears, Nose and Mouth. Neck: Full range of motion. No meningismus. Resp: Clear to auscultation bilaterally Cardio: Regular rate and rhythm, no murmurs Abd: Soft, non tender, non distended. Normal bowel sounds Skin: No petechiae or rashes Back: No midline or flank tenderness Ext: No cyanosis, or edema Neur: Awake and alert Psych: Normal Mood and Affect Result Diagram: 05/07/18 0100 05/07/18 0100 Results 24 hrs Laboratory Tests Test 05/06/18 23:46 05/07/18 01:00 Bedside Glucose 118 mg/dL White Blood Count 11.0 10^3/ul Red Blood Count 5.72 10^6/ul Hemoglobin 14.6 g/dl Hematocrit 45.2 % Mean Corpuscular Volume 79.0 fl Mean Corpuscular Hemoglobin 25.5 pg Mean Corpuscular Hemoglobin Concent 32.3 g/dl Red Cell Distribution Width 15.9 % Platelet Count 259 10^3/UL Mean Platelet Volume 11.1 fl Immature Granulocytes % 0.500 % Neutrophils % 50.3 % Lymphocytes % 41.7 % Monocytes % 5.0 % Eosinophils % 2.0 % Basophils % 0.5 % Nucleated Red Blood Cells % 0.0 /100WBC Immature Granulocytes # 0.060 10^3/ul Neutrophils # 5.5 10^3/ul Lymphocytes # 4.6 10^3/ul Monocytes # 0.6 10^3/ul Eosinophils # 0.2 10^3/ul Basophils # 0.1 10^3/ul Nucleated Red Blood Cells # 0.0 10^3/ul Urine Color YELLOW Urine Clarity SLIGHTLY CLOUDY Urine pH 5.0 Urine Specific [place] 1.019 Urine Ketones NEGATIVE mg/dL Urine Nitrite NEGATIVE mg/dL Urine Bilirubin NEGATIVE mg/dL Urine Urobilinogen NEGATIVE mg/dL Urine Leukocyte Esterase NEGATIVE Brijesh/ul Urine Microscopic RBC 2 /HPF Urine Microscopic WBC 5 /HPF Urine Squamous Epithelial Cells FEW /HPF Urine Bacteria FEW /HPF Urine Hemoglobin NEGATIVE mg/dL Urine Glucose NEGATIVE mg/dL Urine Total Protein NEGATIVE mg/dl Sodium Level 138 mmol/L Potassium Level 4.0 mmol/L Chloride Level 96 mmol/L Carbon Dioxide Level 29 mmol/L Anion Gap 13 Blood Urea Nitrogen 11 mg/dl Creatinine 0.54 mg/dl Est Glomerular Filtrat Rate mL/min > 60 mL/min Glucose Level 166 mg/dl Calcium Level 10.8 mg/dl Total Bilirubin 0.2 mg/dl Direct Bilirubin 0.00 mg/dl Indirect Bilirubin 0.2 mg/dl Aspartate Amino Transf (AST/SGOT) 26 IU/L Alanine Aminotransferase (ALT/SGPT) 23 IU/L Alkaline Phosphatase 132 IU/L Total Protein 7.3 g/dl Albumin 4.1 g/dl Globulin 3.20 g/dl Albumin/Globulin Ratio 1.28 Lipase 122 U/L Current Medications Medications Dose Sig/Nguyen Start Time Status Last (Trade) Ordered Route PRN Stop Time Admin Dose Reason Admin Sodium 1,000 ml @ Q1H STAT 05/07/18 DC 05/07/18 Chloride 1,000 mls/hr IV 00:41 01:11 05/07/18 01:40 1 mg ONCE STAT 05/07/18 DC 05/07/18 Hydromorphone IV 00:41 01:11 HCl 05/07/18 00:43 (Dilaudid) Ondansetron 4 mg ONCE STAT 05/07/18 DC 05/07/18 HCl (Zofran IV 00:41 01:11 Inj) 05/07/18 00:43 1 mg ONCE STAT 05/07/18 DC 05/07/18 Hydromorphone IV 04:06 04:28 HCl 05/07/18 04:07 (Dilaudid) Piperacillin 100 ml @ ONCE ONCE 05/07/18 Sod/ 200 mls/hr IVPB 05:30 Tazobactam 05/07/18 05:59 Sod 100 ml @ ONCE ONCE 05/07/18 Metronidazole 100 mls/hr IVPB 05:30 05/07/18 06:29 Procedures/MDM Emergency department course: Patient seen and evaluated triage was placed in bed from evaluation of blood work done. Start antibiotics. A stat chest x-ray. A stat CT scan. Diagnostic data Chest X-ray 1V Interpreted by me: Soft Tissue: No acute abnormalities Bones: No acute abnormalities Mediastinum/Cardiac Silhouette/Lungs: [No acute abnormalities] Medical decision m[age]-year-old female with evidence of acute diverticulitis. Ureter continued. Despite optimal pain control therapy here in the emergency department, I feel the patient is to be admitted for further evaluation and management. Patient will be admitted to the hospitalist group. Departure Diagnosis: Primary Impression: Diverticulitis Condition: Serious MAURICE CAMERON May 07, 2018 05:10
[2018-05-07] MEDS ORDERED: ALBUTEROL/IPRATROPIUM (NEB) 3 ML AMP HHN PRN (05:30)
[2018-05-07] MEDS ORDERED: metroNIDAZOLE 500 MG/NS (PMX) 100 ML IVPB ONE (05:30)
[2018-05-07] MEDS ORDERED: PIPER-TAZO 3.375 GM IV (PMX) 100 ML IVPB ONE (05:30)
[2018-05-07] MEDS ORDERED: NACL 0.9% 3 ML SYG IV SCH (05:30)
[2018-05-07] MEDS: PIPER-TAZO 3.375 GM IV (PMX) 100 ML IVPB SCH ×3 (05:31→17:19)
[2018-05-07 07:55] VITALS: BP 127/60; PULSE 94; RESP 16
[2018-05-07 07:59] VITALS: Ht 172.7 cm; Wt 107.6 kg
[2018-05-07] MEDS: FAMOTIDINE 20 MG INJ IV SCH ×2 (08:12→20:51)
[2018-05-07] MEDS: morphine 2 MG INJ IV PRN ×4 (08:12→21:36)
--- NOTE | 2018-05-07 09:40 | HP ---
Date/Time of Note Date/Time of Note DATE: 05/07/18 TIME: 09:28 Assessment/Plan VTE Prophylaxis Risk score (from Ns)>0 risk: 3 SCD applied (from Nsg): Yes Pharmacological prophylaxis: heparin Lines/Catheters IV Catheter Type (from Nrs): Saline Lock Assessment/Plan Assessment/Plan 72-year-old female with a history of hypertension, diabetes, dyslipidemia, hypothyroidism, TIA, COPD presents with abdominal pain and loose stool, likely secondary to acute diverticulitis PLAN -will keep n.p.o. for now with IV fluid. Patient actually asking to eat saying abdominal pain is getting better - IV antibiotic - C. difficile and stool culture - resume home medications with adjustment as needed when no longer n.p.o. Result Diagram: 05/07/18 0100 05/07/18 0100 Results 24hrs Laboratory Tests Test 05/06/18 23:46 05/07/18 01:00 05/07/18 06:51 Bedside Glucose 118 235 H White Blood Count 11.0 #H Red Blood Count 5.72 H Hemoglobin 14.6 Hematocrit 45.2 Mean Corpuscular Volume 79.0 L Mean Corpuscular Hemoglobin 25.5 L Mean Corpuscular 32.3 Hemoglobin Concent Red Cell Distribution Width 15.9 H Platelet Count 259 Mean Platelet Volume 11.1 H Immature Granulocytes % 0.500 H Neutrophils % 50.3 Lymphocytes % 41.7 Monocytes % 5.0 Eosinophils % 2.0 Basophils % 0.5 Nucleated Red Blood Cells % 0.0 Immature Granulocytes # 0.060 H Neutrophils # 5.5 Lymphocytes # 4.6 H Monocytes # 0.6 Eosinophils # 0.2 Basophils # 0.1 Nucleated Red Blood Cells # 0.0 Urine Color YELLOW Urine Clarity SLIGHTLY CLOUDY A Urine pH 5.0 Urine Specific [place] 1.019 Urine Ketones NEGATIVE Urine Nitrite NEGATIVE Urine Bilirubin NEGATIVE Urine Urobilinogen NEGATIVE Urine Leukocyte Esterase NEGATIVE Urine Microscopic RBC 2 Urine Microscopic WBC 5 Urine Squamous FEW Epithelial Cells Urine Bacteria FEW A Urine Hemoglobin NEGATIVE Urine Glucose NEGATIVE Urine Total Protein NEGATIVE Sodium Level 138 Potassium Level 4.0 Chloride Level 96 L Carbon Dioxide Level 29 Anion Gap 13 Blood Urea Nitrogen 11 Creatinine 0.54 Est Glomerular Filtrat > 60 Rate mL/min Glucose Level 166 Calcium Level 10.8 H Total Bilirubin 0.2 Direct Bilirubin 0.00 Indirect Bilirubin 0.2 Aspartate Amino 26 Transf (AST/SGOT) Alanine 23 Aminotransferase (ALT/SGPT) Alkaline Phosphatase 132 H Total Protein 7.3 Albumin 4.1 Globulin 3.20 Albumin/Globulin Ratio 1.28 Lipase 122 HPI/ROS Admit Date/Time Admit Date/Time May 07, 2018 at 05:03 Hx of Present Illness This is a 72-year-old female with a history of hypertension, diabetes, dyslipidemia, hypothyroidism, TIA COPD who presented to the ER complaining of abdominal pain. Pain is diffuse but somehow worse on the left side. She also reported some loose stool. When she presented to the ER, CTabdomen/pelvis shows finding suggestive of mild acute diverticulitis involving the distal descending colon without abscess PMH/Family/Social Past Medical History Medical History: other (see hpi) Medications Current Medications Dextrose/Sodium Chloride 1,000 ml @ 100 mls/hr Q10H IV Last administered on 05/07/18at 06:43; Admin Dose 100 MLS/HR; Start 05/07/18 at 05:06 IV Flush (NS 3 ml) 3 ml PER PROTOCOL IV ; Start 05/07/18 at 05:30 Ondansetron HCl (Zofran Inj) 4 mg Q6H PRN IV NAUSEA/VOMITING; Start 05/07/18 at 05:30 Morphine Sulfate (morphine) 2 mg Q4H PRN IV .SEVERE PAIN 7-10 Last administered on 05/07/18at 08:12; Admin Dose 2 MG; Start 05/07/18 at 05:30 Famotidine (Pepcid Iv) 20 mg Q12 IV Last administered on 05/07/18at 08:12; Admin Dose 20 MG; Start 05/07/18 at 09:00 Albuterol/ Ipratropium (Duoneb) 3 ml Q2H RESP THERAPY PRN HHN SHORTNESS OF BREATH; Start 05/07/18 at 05:30 Piperacillin Sod/ Tazobactam Sod 100 ml @ 200 mls/hr Q6 IVPB ; Start 05/07/18 at 05:31 Uncoded Allergies: ALMONDS (Allergy, Unknown, SOB, 05/07/18) THROAT CLOSES Past Surgical History Past Surgical Hx: other Family History Significant Family History: no pertinent family hx Social History Alcohol Use: other Smoking Status: Current some day smoker Drug Use: other Exam/Review of Systems Vital Signs Vitals Vital Signs Date Temp Pulse Resp B/P (MAP) Pulse Ox O2 O2 Flow FiO2 Time Delivery Rate 05/07/18 98.4 94 16 127/60 94 07:55 (82) 05/07/18 Room Air 06:31 Intake and Output 05/06/18 05/06/18 05/07/18 1515:00 23:00 07:00 IntakeIntake Total 100 ml BalanceBalance 100 ml Exam Exam Exam Constitutional: other (no acute distress) Eyes: EOMI, PERRL Neck: supple Respiratory: normal air movement Cardiovascular: nl pulses Gastrointestinal: soft Extremities: normal pulses MAURICE STEEN MD May 07, 2018 09:38
[2018-05-07] MEDS: SOD CHLORIDE 0.45% 1,000 ML IV SCH (11:33)
[2018-05-07] MEDS: INSULIN ASPART [NOVOLOG] 3 ML PEN SC SCH ×3 (11:59→20:26)
[2018-05-07] MEDS ORDERED: DEXTROSE 50% 50 ML SYRINGE IV PRN ×2 (12:00)
[2018-05-07] MEDS ORDERED: GLUCOSE GEL 15 GRAM TUBE BUCCAL PRN (12:00)
[2018-05-07] MEDS ORDERED: GLUCOSE GEL 15 GRAM TUBE PO PRN ×2 (12:00)
[2018-05-07] MEDS ORDERED: GLUCAGON 1 MG INJ IM PRN (12:00)
--- NOTE | 2018-05-07 13:47 | PN ---
Date/Time of Note Date/Time of Note DATE: 05/07/18 TIME: 13:36 Assessment/Plan VTE Prophylaxis Risk score (from Ns)>0 risk: 3 SCD applied (from Ns): Yes Pharmacological prophylaxis: heparin Lines/Catheters IV Catheter Type (from [facility]): Peripheral IV Urinary Cath still in place: No Assessment/Plan Assessment/Plan 1. Acute descending colon diverticulitis, clear liquid diet, IVF, antibiotics 2. DM, insulin with ISS 3. HTN, controlled 4. COPD, stable 5. Hypothyroidism, on synthroid 6. h/o TIA Result Diagram: 05/07/189905/07/1899 Results 24hrs Laboratory Tests Test 05/06/18 23:46 05/07/18 01:00 05/07/18 06:51 05/07/18 11:15 Bedside Glucose 118 235 H 226 H White Blood Count 11.0 #H Red Blood Count 5.72 H Hemoglobin 14.6 Hematocrit 45.2 Mean Corpuscular 79.0 L Volume Mean Corpuscular 25.5 L Hemoglobin Mean Corpuscular 32.3 Hemoglobin Concen t Red Cell 15.9 H Distribution Width Platelet Count 259 Mean Platelet 11.1 H Volume Immature 0.500 H Granulocytes % Neutrophils % 50.3 Lymphocytes % 41.7 Monocytes % 5.0 Eosinophils % 2.0 Basophils % 0.5 Nucleated Red 0.0 Blood Cells % Immature 0.060 H Granulocytes # Neutrophils # 5.5 Lymphocytes # 4.6 H Monocytes # 0.6 Eosinophils # 0.2 Basophils # 0.1 Nucleated Red 0.0 Blood Cells # Urine Color YELLOW Urine Clarity SLIGHTLY CLOUDY A Urine pH 5.0 Urine Specific 1.019 [place] Urine Ketones NEGATIVE Urine Nitrite NEGATIVE Urine Bilirubin NEGATIVE Urine NEGATIVE Urobilinogen Urine Leukocyte NEGATIVE Esterase Urine Microscopic 2 RBC Urine Microscopic 5 WBC Urine Squamous FEW Epithelial Cells Urine Bacteria FEW A Urine Hemoglobin NEGATIVE Urine Glucose NEGATIVE Urine Total NEGATIVE Protein Sodium Level 138 Potassium Level 4.0 Chloride Level 96 L Carbon Dioxide 29 Level Anion Gap 13 Blood Urea 11 Nitrogen Creatinine 0.54 Est Glomerular > 60 Filtrat Rate mL/min Glucose Level 166 Calcium Level 10.8 H Total Bilirubin 0.2 Direct Bilirubin 0.00 Indirect 0.2 Bilirubin Aspartate Amino 26 Transf (AST/SGOT) Alanine 23 Aminotransferase (ALT/SGPT) Alkaline 132 H Phosphatase Total Protein 7.3 Albumin 4.1 Globulin 3.20 Albumin/Globulin 1.28 Ratio Lipase 122 Test 05/07/18 11:57 Bedside Glucose 224 H Subjective 24 Hr Interval Summary Free Text/Dictation lower abdominal pain, 9/10. no vomiting Exam/Review of Systems Exam Vitals Vital Signs Date Temp Pulse Resp B/P (MAP) Pulse Ox O2 O2 Flow FiO2 Time Delivery Rate 05/07/18 98.4 94 16 127/60 94 07:55 (82) 05/07/18 Room Air 06:31 Intake and Output 05/06/18 05/06/18 05/07/18 1515:00 23:00 07:00 IntakeIntake Total 100 ml BalanceBalance 100 ml Constitutional: alert, oriented, well developed Head: normocephalic, atraumatic Eyes: nl conjunctiva, EOMI, nl lids ENMT: nl external ears & nose, nl lips & teeth, nl nasal mucosa & septum Neck: supple, non-tender Respiratory: clear to auscultation, normal air movement; No congested cough, No crackles/rales, No diminished breath sounds, No intercostal retraction, No labored breathing, No respirations, No tactile fremitus, No wheezing, No other Cardiovascular: regular rate and rhythm, nl pulses; No bruits, No diastolic murmur, No edema, No gallop, No irregular rhythm, No jugular venous distention (JVD), No murmurs/extra sounds, No rub, No systolic murmur, No S3, No S4, No other Gastrointestinal: soft, nl liver, spleen, other (lower abdominal tenderness) Musculoskeletal: nl extremities to inspection Extremities: normal pulses; No calf tenderness, No cyanosis, No clubbing, No edema, No pitting pedal edema, No palpable cord, No tenderness, No other 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, nl mental status, nl speech, nl strength Skin: nl turgor Results Results 24hrs Laboratory Tests Test 05/06/18 23:46 05/07/18 01:00 05/07/18 06:51 05/07/18 11:15 Bedside Glucose 118 235 H 226 H White Blood Count 11.0 #H Red Blood Count 5.72 H Hemoglobin 14.6 Hematocrit 45.2 Mean Corpuscular 79.0 L Volume Mean Corpuscular 25.5 L Hemoglobin Mean Corpuscular 32.3 Hemoglobin Concen t Red Cell 15.9 H Distribution Width Platelet Count 259 Mean Platelet 11.1 H Volume Immature 0.500 H Granulocytes % Neutrophils % 50.3 Lymphocytes % 41.7 Monocytes % 5.0 Eosinophils % 2.0 Basophils % 0.5 Nucleated Red 0.0 Blood Cells % Immature 0.060 H Granulocytes # Neutrophils # 5.5 Lymphocytes # 4.6 H Monocytes # 0.6 Eosinophils # 0.2 Basophils # 0.1 Nucleated Red 0.0 Blood Cells # Urine Color YELLOW Urine Clarity SLIGHTLY CLOUDY A Urine pH 5.0 Urine Specific 1.019 [place] Urine Ketones NEGATIVE Urine Nitrite NEGATIVE Urine Bilirubin NEGATIVE Urine NEGATIVE Urobilinogen Urine Leukocyte NEGATIVE Esterase Urine Microscopic 2 RBC Urine Microscopic 5 WBC Urine Squamous FEW Epithelial Cells Urine Bacteria FEW A Urine Hemoglobin NEGATIVE Urine Glucose NEGATIVE Urine Total NEGATIVE Protein Sodium Level 138 Potassium Level 4.0 Chloride Level 96 L Carbon Dioxide 29 Level Anion Gap 13 Blood Urea 11 Nitrogen Creatinine 0.54 Est Glomerular > 60 Filtrat Rate mL/min Glucose Level 166 Calcium Level 10.8 H Total Bilirubin 0.2 Direct Bilirubin 0.00 Indirect 0.2 Bilirubin Aspartate Amino 26 Transf (AST/SGOT) Alanine 23 Aminotransferase (ALT/SGPT) Alkaline 132 H Phosphatase Total Protein 7.3 Albumin 4.1 Globulin 3.20 Albumin/Globulin 1.28 Ratio Lipase 122 Test 05/07/18 11:57 Bedside Glucose 224 H Medications Medication Current Medications IV Flush (NS 3 ml) 3 ml PER PROTOCOL IV ; Start 05/07/18 at 05:30 Ondansetron HCl (Zofran Inj) 4 mg Q6H PRN IV NAUSEA/VOMITING; Start 05/07/18 at 05:30 Morphine Sulfate (morphine) 2 mg Q4H PRN IV .SEVERE PAIN 7-10 Last administered on 05/07/18at 12:13; Admin Dose 2 MG; Start 05/07/18 at 05:30 Famotidine (Pepcid Iv) 20 mg Q12 IV Last administered on 05/07/18at 08:12; Admin Dose 20 MG; Start 05/07/18 at 09:00 Albuterol/ Ipratropium (Duoneb) 3 ml Q2H RESP THERAPY PRN HHN SHORTNESS OF BREATH; Start 05/07/18 at 05:30 Piperacillin Sod/ Tazobactam Sod 100 ml @ 200 mls/hr Q6 IVPB Last administered on 05/07/18at 11:32; Admin Dose 200 MLS/HR; Start 05/07/18 at 05:31 Insulin Aspart (Novolog Insulin Pen) NOVOLOG *MILD* ALGORI... Q4H SC Last administered on 05/07/18at 11:59; Admin Dose 3 UNIT; Start 05/07/18 at 12:00 Sodium Chloride 1,000 ml @ 100 mls/hr Q10H IV Last administered on 05/07/18at 11:33; Admin Dose 100 MLS/HR; Start 05/07/18 at 11:30 Miscellaneous Information 1 ea NOTE XX ; Start 05/07/18 at 12:00 Glucose (Glutose) 15 gm Q15M PRN PO DECREASED GLUCOSE; Start 05/07/18 at 12:00 Glucose (Glutose) 22.5 gm Q15M PRN PO DECREASED GLUCOSE; Start 05/07/18 at 12:00 Dextrose (D50w Syringe) 25 ml Q15M PRN IV DECREASED GLUCOSE; Start 05/07/18 at 12:00 Dextrose (D50w Syringe) 50 ml Q15M PRN IV DECREASED GLUCOSE; Start 05/07/18 at 12:00 Glucagon (Glucagen) 1 mg Q15M PRN IM DECREASED GLUCOSE; Start 05/07/18 at 12:00 Glucose (Glutose) 15 gm Q15M PRN BUCCAL DECREASED GLUCOSE; Start 05/07/18 at 12:00 MARITZA MARIE MD May 07, 2018 13:46
[2018-05-07 14:29] VITALS: BP 129/63; PULSE 65; RESP 18
[2018-05-07 19:39] VITALS: BP 163/74; PULSE 75; RESP 18
[2018-05-07] MEDS: HEPARIN 5,000 UNIT/1 ML VIAL SC SCH (20:57)
[2018-05-07] MEDS ORDERED: Insulin NOVOLOG SS MILD Algorithm (SS with meals and bedtime) SC SCH (22:06)
[2018-05-08] MEDS: PIPER-TAZO 3.375 GM IV (PMX) 100 ML IVPB SCH ×4 (00:04→17:59)
[2018-05-08] MEDS: morphine 2 MG INJ IV PRN ×2 (01:43→05:49)
[2018-05-08] MEDS: ACCUCHECK AT 2AM (Patients on SS coverage) XX SCH (02:00)
[2018-05-08 02:01] VITALS: BP 142/65; PULSE 80; RESP 18
[2018-05-08] MEDS: SOD CHLORIDE 0.45% 1,000 ML IV SCH ×3 (05:21→17:24)
[2018-05-08] MEDS: LEVOTHYROXINE 100 MCG TAB PO SCH (05:21)
[2018-05-08] MEDS: Insulin NOVOLOG SS MILD Algorithm (SS with meals and bedtime) SC SCH ×4 (07:30→21:40)
[2018-05-08] MEDS ORDERED: INSULIN ASPART [NOVOLOG] 3 ML PEN SC SCH (08:00)
[2018-05-08 08:17] VITALS: BP 186/82; PULSE 66; RESP 16
[2018-05-08] MEDS: INSULIN GLARGINE [LANTus] (100 UNITS/ML) SYG SC SCH (08:33)
[2018-05-08] MEDS: HEPARIN 5,000 UNIT/1 ML VIAL SC SCH ×2 (08:34→20:49)
[2018-05-08] MEDS: FAMOTIDINE 20 MG INJ IV SCH ×2 (08:34→20:47)
[2018-05-08] MEDS ORDERED: MAGNESIUM SULFATE 4 GM/100 ML 100 ML IVPB ONE (09:30)
[2018-05-08] MEDS: HYDROmorphONE 1 MG/ML SYG IV PRN ×4 (09:43→20:48)
[2018-05-08] MEDS: BENAZEPRIL 20 MG TAB PO SCH (10:42)
--- NOTE | 2018-05-08 14:16 | PN ---
Date/Time of Note Date/Time of Note DATE: 05/08/18 TIME: 14:14 Assessment/Plan VTE Prophylaxis Risk score (from Ns)>0 risk: 3 SCD applied (from Ns): Yes Pharmacological prophylaxis: heparin Lines/Catheters IV Catheter Type (from Nrsg): Peripheral IV Urinary Cath still in place: No Assessment/Plan Assessment/Plan 1. Acute descending colon diverticulitis, advance diet, IVF, antibiotics 2. DM, insulin with ISS 3. HTN, controlled 4. COPD, stable 5. Hypothyroidism, on synthroid 6. h/o TIA 7. DVT prophylaxis: heparin Result Diagram: 05/08/184 05/08/18 0444 Results 24hrs Laboratory Tests Test 05/07/18 16:14 05/07/18 20:19 05/08/18 02:15 05/08/18 04:44 Bedside Glucose 170 201 314 H White Blood Count 5.3 # Red Blood Count 4.66 Hemoglobin 11.9 L Hematocrit 36.6 L Mean Corpuscular 78.5 L Volume Mean Corpuscular 25.5 L Hemoglobin Mean Corpuscular 32.5 Hemoglobin Concent Red Cell 15.8 H Distribution Width Platelet Count 204 # Mean Platelet Volume 10.8 H Immature 0.200 Granulocytes % Neutrophils % 24.3 L Lymphocytes % 62.5 H Monocytes % 8.3 Eosinophils % 4.3 Basophils % 0.4 Nucleated Red Blood 0.0 Cells % Immature 0.010 Granulocytes # Neutrophils # 1.3 L Lymphocytes # 3.3 H Monocytes # 0.4 Eosinophils # 0.2 Basophils # 0.0 Nucleated Red Blood 0.0 Cells # Sodium Level 142 Potassium Level 4.0 Chloride Level 104 Carbon Dioxide Level 29 Anion Gap 9 Blood Urea Nitrogen 7 Creatinine 0.47 Est Glomerular > 60 Filtrat Rate mL/min Glucose Level 200 Calcium Level 9.5 Phosphorus Level 2.9 Magnesium Level 1.4 L Total Bilirubin 0.2 Direct Bilirubin 0.00 Indirect Bilirubin 0.2 Aspartate Amino 20 Transf (AST/SGOT) Alanine 20 Aminotransferase (AL T/SGPT) Alkaline Phosphatase 89 Total Protein 5.6 #L Albumin 3.1 #L Globulin 2.50 Albumin/Globulin 1.24 Ratio Test 05/08/18 07:59 05/08/18 12:10 Bedside Glucose 134 174 Subjective 24 Hr Interval Summary Free Text/Dictation less abdominal pain, tolerates diet Exam/Review of Systems Exam Vitals Vital Signs Date Temp Pulse Resp B/P (MAP) Pulse Ox O2 O2 Flow FiO2 Time Delivery Rate 05/08/18 97.5 66 16 186/82 94 08:17 (116) 05/07/18 Room Air 06:31 Intake and Output 05/07/18 05/07/18 05/08/18 1515:00 23:00 07:00 IntakeIntake Total 600 ml 1600 ml 700 ml BalanceBalance 600 ml 1600 ml 700 ml Constitutional: alert, oriented, well developed, obese Head: normocephalic, atraumatic Eyes: nl conjunctiva, EOMI, nl lids, PERRL ENMT: nl external ears & nose, nl lips & teeth, nl nasal mucosa & septum Neck: supple, non-tender Respiratory: clear to auscultation, normal air movement; No congested cough, No crackles/rales, No diminished breath sounds, No intercostal retraction, No labored breathing, No respirations, No tactile fremitus, No wheezing, No other Cardiovascular: regular rate and rhythm, nl pulses; No bruits, No diastolic murmur, No edema, No gallop, No irregular rhythm, No jugular venous distention (JVD), No murmurs/extra sounds, No rub, No systolic murmur, No S3, No S4, No other Gastrointestinal: soft, nl liver, spleen, other (lower abdominal tenderness) Extremities: normal pulses; No calf tenderness, No cyanosis, No clubbing, No edema, No pitting pedal edema, No palpable cord, No tenderness, No other 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, nl mental status, nl speech, nl strength Results Results 24hrs Laboratory Tests Test 05/07/18 16:14 05/07/18 20:19 05/08/18 02:15 05/08/18 04:44 Bedside Glucose 170 201 314 H White Blood Count 5.3 # Red Blood Count 4.66 Hemoglobin 11.9 L Hematocrit 36.6 L Mean Corpuscular 78.5 L Volume Mean Corpuscular 25.5 L Hemoglobin Mean Corpuscular 32.5 Hemoglobin Concent Red Cell 15.8 H Distribution Width Platelet Count 204 # Mean Platelet Volume 10.8 H Immature 0.200 Granulocytes % Neutrophils % 24.3 L Lymphocytes % 62.5 H Monocytes % 8.3 Eosinophils % 4.3 Basophils % 0.4 Nucleated Red Blood 0.0 Cells % Immature 0.010 Granulocytes # Neutrophils # 1.3 L Lymphocytes # 3.3 H Monocytes # 0.4 Eosinophils # 0.2 Basophils # 0.0 Nucleated Red Blood 0.0 Cells # Sodium Level 142 Potassium Level 4.0 Chloride Level 104 Carbon Dioxide Level 29 Anion Gap 9 Blood Urea Nitrogen 7 Creatinine 0.47 Est Glomerular > 60 Filtrat Rate mL/min Glucose Level 200 Calcium Level 9.5 Phosphorus Level 2.9 Magnesium Level 1.4 L Total Bilirubin 0.2 Direct Bilirubin 0.00 Indirect Bilirubin 0.2 Aspartate Amino 20 Transf (AST/SGOT) Alanine 20 Aminotransferase (AL T/SGPT) Alkaline Phosphatase 89 Total Protein 5.6 #L Albumin 3.1 #L Globulin 2.50 Albumin/Globulin 1.24 Ratio Test 05/08/18 07:59 05/08/18 12:10 Bedside Glucose 134 174 Medications Medication Current Medications IV Flush (NS 3 ml) 3 ml PER PROTOCOL IV ; Start 05/07/18 at 05:30 Ondansetron HCl (Zofran Inj) 4 mg Q6H PRN IV NAUSEA/VOMITING; Start 05/07/18 at 05:30 Morphine Sulfate (morphine) 2 mg Q4H PRN IV .SEVERE PAIN 7-10 Last administered on 05/08/18at 05:49; Admin Dose 2 MG; Start 05/07/18 at 05:30 Famotidine (Pepcid Iv) 20 mg Q12 IV Last administered on 05/08/18at 08:34; Admin Dose 20 MG; Start 05/07/18 at 09:00 Albuterol/ Ipratropium (Duoneb) 3 ml Q2H RESP THERAPY PRN HHN SHORTNESS OF BREATH; Start 05/07/18 at 05:30 Piperacillin Sod/ Tazobactam Sod 100 ml @ 200 mls/hr Q6 IVPB Last administered on 05/08/18at 12:19; Admin Dose 200 MLS/HR; Start 05/07/18 at 05:31 Sodium Chloride 1,000 ml @ 100 mls/hr Q10H IV Last administered on 05/08/18at 05:21; Admin Dose 100 MLS/HR; Start 05/07/18 at 11:30 Miscellaneous Information 1 ea NOTE XX ; Start 05/07/18 at 12:00 Glucose (Glutose) 15 gm Q15M PRN PO DECREASED GLUCOSE; Start 05/07/18 at 12:00 Glucose (Glutose) 22.5 gm Q15M PRN PO DECREASED GLUCOSE; Start 05/07/18 at 12:00 Dextrose (D50w Syringe) 25 ml Q15M PRN IV DECREASED GLUCOSE; Start 05/07/18 at 12:00 Dextrose (D50w Syringe) 50 ml Q15M PRN IV DECREASED GLUCOSE; Start 05/07/18 at 12:00 Glucagon (Glucagen) 1 mg Q15M PRN IM DECREASED GLUCOSE; Start 05/07/18 at 12:00 Glucose (Glutose) 15 gm Q15M PRN BUCCAL DECREASED GLUCOSE; Start 05/07/18 at 12:00 Levothyroxine Sodium (Synthroid) 100 mcg DAILY@06 PO Last administered on 05/08/18at 05:21; Admin Dose 100 MCG; Start 05/08/18 at 06:00 Insulin Glargine (Lantus) 10 units DAILY@0800 SC Last administered on 05/08/18at 08:33; Admin Dose 10 UNITS; Start 05/08/18 at 08:00 Heparin Sodium (Porcine) (Heparin (5000 Units/1ml)) 5,000 unit BID SC Last a dministered on 05/08/18at 08:34; Admin Dose 5,000 UNIT; Start 05/07/18 at 21:00 Diagnostic Test (Pha) (Accu-Chek) 1 ea 02 XX ; Start 05/08/18 at 02:00 Insulin Aspart (Novolog Insulin Pen) (Adult SC Insulin - Mild Algorithm)... AC MEALS AND BEDTIME SC Last administered on 05/08/18at 12:21; Admin Dose 1 UNIT; Start 05/08/18 at 07:30 Hydromorphone HCl (Dilaudid) 1 mg Q3H PRN IV SEVERE PAIN LEVEL 7-10 Last administered on 05/08/18at 12:46; Admin Dose 1 MG; Start 05/08/18 at 08:00 Clonidine (Catapres) 0.1 mg Q6H PRN PO ELEVATED BLOOD PRESSURE Last administered on 05/08/18at 09:42; Admin Dose 0.1 MG; Start 05/08/18 at 08:30 Benazepril HCl (Lotensin) 20 mg DAILY PO Last administered on 05/08/18at 10:42; Admin Dose 20 MG; Start 05/08/18 at 09:00 Amlodipine Besylate (Norvasc) 5 mg DAILY PO ; Start 05/08/18 at 14:30; Status MARITZA SAMUELS MD May 08, 2018 14:16
[2018-05-08 14:44] VITALS: BP 155/66; PULSE 76; RESP 18
[2018-05-08] MEDS: AMLODIPINE 5 MG TAB PO SCH (15:15)
[2018-05-08 20:27] VITALS: BP 132/62; PULSE 60; RESP 20
[2018-05-08] MEDS: ONDANSETRON 4 MG INJ IV PRN (20:48)
[2018-05-09 02:17] VITALS: BP 150/70; PULSE 75; RESP 18
[2018-05-09] MEDS: HYDROmorphONE 1 MG/ML SYG IV PRN ×6 (02:18→21:02)
[2018-05-09] MEDS: ONDANSETRON 4 MG INJ IV PRN ×3 (02:18→17:40)
[2018-05-09] MEDS: PIPER-TAZO 3.375 GM IV (PMX) 100 ML IVPB SCH ×4 (02:18→17:36)
[2018-05-09] MEDS: ACCUCHECK AT 2AM (Patients on SS coverage) XX SCH (02:38)
[2018-05-09] MEDS: SOD CHLORIDE 0.45% 1,000 ML IV SCH ×2 (03:46→15:06)
[2018-05-09] MEDS: LEVOTHYROXINE 100 MCG TAB PO SCH (06:18)
[2018-05-09] MEDS: INSULIN GLARGINE [LANTus] (100 UNITS/ML) SYG SC SCH (08:18)
[2018-05-09] MEDS: Insulin NOVOLOG SS MILD Algorithm (SS with meals and bedtime) SC SCH ×4 (08:18→20:58)
[2018-05-09] MEDS: HEPARIN 5,000 UNIT/1 ML VIAL SC SCH ×2 (08:18→21:01)
[2018-05-09] MEDS: FAMOTIDINE 20 MG INJ IV SCH ×2 (08:21→21:01)
[2018-05-09] MEDS: AMLODIPINE 5 MG TAB PO SCH (08:21)
[2018-05-09] MEDS: BENAZEPRIL 20 MG TAB PO SCH (08:21)
[2018-05-09 08:25] VITALS: BP 130/68; PULSE 72; RESP 20
[2018-05-09 14:11] VITALS: BP 128/64; PULSE 70; RESP 20
--- NOTE | 2018-05-09 14:53 | PN ---
Date/Time of Note Date/Time of Note DATE: 05/09/18 TIME: 14:51 Assessment/Plan VTE Prophylaxis Risk score (from Ns)>0 risk: 3 SCD applied (from Ns): Yes Pharmacological prophylaxis: heparin Lines/Catheters IV Catheter Type (from [facility]): Peripheral IV Urinary Cath still in place: No Assessment/Plan Assessment/Plan 1. Acute descending colon diverticulitis, advance diet, IVF, antibiotics, elective colonoscopy in 6 weeks 2. DM, insulin with ISS 3. HTN, controlled 4. COPD, stable 5. Hypothyroidism, on synthroid 6. h/o TIA 7. DVT prophylaxis: heparin Result Diagram: 05/09/18 0506 05/09/18 0506 Results 24hrs Laboratory Tests Test 05/08/18 17:37 05/08/18 20:56 05/09/18 02:35 05/09/18 05:06 Bedside Glucose 194 236 H 181 White Blood Count 5.0 Red Blood Count 4.74 Hemoglobin 12.0 Hematocrit 37.4 Mean Corpuscular 78.9 L Volume Mean Corpuscular 25.3 L Hemoglobin Mean Corpuscular 32.1 Hemoglobin Concent Red Cell 15.9 H Distribution Width Platelet Count 213 Mean Platelet Volume 10.7 H Immature 0.200 Granulocytes % Neutrophils % 34.1 L Lymphocytes % 52.3 H Monocytes % 7.8 Eosinophils % 5.2 Basophils % 0.4 Nucleated Red Blood 0.0 Cells % Immature 0.010 Granulocytes # Neutrophils # 1.7 Lymphocytes # 2.6 Monocytes # 0.4 Eosinophils # 0.3 Basophils # 0.0 Nucleated Red Blood 0.0 Cells # Sodium Level 143 Potassium Level 4.2 Chloride Level 107 Carbon Dioxide Level 30 Anion Gap 6 Blood Urea Nitrogen 7 Creatinine 0.70 Est Glomerular > 60 Filtrat Rate mL/min Glucose Level 186 Calcium Level 9.6 Test 05/09/18 07:48 05/09/18 11:56 Bedside Glucose 205 168 Subjective 24 Hr Interval Summary Free Text/Dictation tolerates diet, still has lower abdominal pain, no vomiting, no fever Exam/Review of Systems Exam Vitals Vital Signs Date Temp Pulse Resp B/P (MAP) Pulse Ox O2 O2 Flow FiO2 Time Delivery Rate 05/09/18 98.2 70 20 128/64 95 Room Air 14:11 (85) Intake and Output 05/08/18 05/08/18 05/09/18 1515:00 23:00 07:00 IntakeIntake Total 820 ml 1200 ml 2050 ml BalanceBalance 820 ml 1200 ml 2050 ml Constitutional: alert, oriented, well developed, obese Head: normocephalic, atraumatic Eyes: nl conjunctiva, EOMI, nl lids ENMT: nl external ears & nose, nl lips & teeth, nl nasal mucosa & septum Neck: supple, non-tender Respiratory: clear to auscultation, normal air movement; No congested cough, No crackles/rales, No diminished breath sounds, No intercostal retraction, No labored breathing, No respirations, No tactile fremitus, No wheezing, No other Cardiovascular: regular rate and rhythm; No nl pulses, No bruits, No diastolic murmur, No edema, No gallop, No irregular rhythm, No jugular venous distention (JVD), No murmurs/extra sounds, No rub, No systolic murmur, No S3, No S4, No other Gastrointestinal: nl liver, spleen, tender (lower abdomen) Musculoskeletal: nl extremities to inspection Extremities: normal pulses; No calf tenderness, No cyanosis, No clubbing, No edema, No pitting pedal edema, No palpable cord, No tenderness, No other 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, nl mental status, nl speech, nl strength Results Results 24hrs Laboratory Tests Test 05/08/18 17:37 05/08/18 20:56 05/09/18 02:35 05/09/18 05:06 Bedside Glucose 194 236 H 181 White Blood Count 5.0 Red Blood Count 4.74 Hemoglobin 12.0 Hematocrit 37.4 Mean Corpuscular 78.9 L Volume Mean Corpuscular 25.3 L Hemoglobin Mean Corpuscular 32.1 Hemoglobin Concent Red Cell 15.9 H Distribution Width Platelet Count 213 Mean Platelet Volume 10.7 H Immature 0.200 Granulocytes % Neutrophils % 34.1 L Lymphocytes % 52.3 H Monocytes % 7.8 Eosinophils % 5.2 Basophils % 0.4 Nucleated Red Blood 0.0 Cells % Immature 0.010 Granulocytes # Neutrophils # 1.7 Lymphocytes # 2.6 Monocytes # 0.4 Eosinophils # 0.3 Basophils # 0.0 Nucleated Red Blood 0.0 Cells # Sodium Level 143 Potassium Level 4.2 Chloride Level 107 Carbon Dioxide Level 30 Anion Gap 6 Blood Urea Nitrogen 7 Creatinine 0.70 Est Glomerular > 60 Filtrat Rate mL/min Glucose Level 186 Calcium Level 9.6 Test 05/09/18 07:48 05/09/18 11:56 Bedside Glucose 205 168 Medications Medication Current Medications IV Flush (NS 3 ml) 3 ml PER PROTOCOL IV ; Start 05/07/18 at 05:30 Ondansetron HCl (Zofran Inj) 4 mg Q6H PRN IV NAUSEA/VOMITING Last administered on 05/09/18at 07:51; Admin Dose 4 MG; Start 05/07/18 at 05:30 Morphine Sulfate (morphine) 2 mg Q4H PRN IV .SEVERE PAIN 7-10 Last administered on 05/08/18at 05:49; Admin Dose 2 MG; Start 05/07/18 at 05:30 Famotidine (Pepcid Iv) 20 mg Q12 IV Last administered on 05/09/18at 08:21; Admin Dose 20 MG; Start 05/07/18 at 09:00 Albuterol/ Ipratropium (Duoneb) 3 ml Q2H RESP THERAPY PRN HHN SHORTNESS OF BREATH; Start 05/07/18 at 05:30 Piperacillin Sod/ Tazobactam Sod 100 ml @ 200 mls/hr Q6 IVPB Last administered on 05/09/18at 11:21; Admin Dose 200 MLS/HR; Start 05/07/18 at 05:31 Sodium Chloride 1,000 ml @ 100 mls/hr Q10H IV Last administered on 05/09/18at 03:46; Admin Dose 100 MLS/HR; Start 05/07/18 at 11:30 Miscellaneous Information 1 ea NOTE XX ; Start 05/07/18 at 12:00 Glucose (Glutose) 15 gm Q15M PRN PO DECREASED GLUCOSE; Start 05/07/18 at 12:00 Glucose (Glutose) 22.5 gm Q15M PRN PO DECREASED GLUCOSE; Start 05/07/18 at 12:00 Dextrose (D50w Syringe) 25 ml Q15M PRN IV DECREASED GLUCOSE; Start 05/07/18 at 12:00 Dextrose (D50w Syringe) 50 ml Q15M PRN IV DECREASED GLUCOSE; Start 05/07/18 at 12:00 Glucagon (Glucagen) 1 mg Q15M PRN IM DECREASED GLUCOSE; Start 05/07/18 at 12:00 Glucose (Glutose) 15 gm Q15M PRN BUCCAL DECREASED GLUCOSE; Start 05/07/18 at 12:00 Levothyroxine Sodium (Synthroid) 100 mcg DAILY@06 PO Last administered on 05/09/18 06:18; Admin Dose 100 MCG; Start 05/08/18 at 06:00 Insulin Glargine (Lantus) 10 units DAILY@0800 SC Last administered on 05/09/18 08:18; Admin Dose 10 UNITS; Start 05/08/18 at 08:00 Heparin Sodium (Porcine) (Heparin (5000 Units/1ml)) 5,000 unit BID SC Last administered on 05/09/18 08:18; Admin Dose 5,000 UNIT; Start 05/07/18 at 21:00 Diagnostic Test (Pha) (Accu-Chek) 1 ea 02 XX Last administered on 05/09/18 02:38; Admin Dose 1 EA; Start 05/08/18 at 02:00 Insulin Aspart (Novolog Insulin Pen) (Adult SC Insulin - Mild Algorithm)... AC MEALS AND BEDTIME SC Last administered on 05/09/18 12:00; Admin Dose 1 UNIT; Start 05/08/18 at 07:30 Hydromorphone HCl (Dilaudid) 1 mg Q3H PRN IV SEVERE PAIN LEVEL 7-10 Last administered on 05/09/18 10:53; Admin Dose 1 MG; Start 05/08/18 at 08:00 Clonidine (Catapres) 0.1 mg Q6H PRN PO ELEVATED BLOOD PRESSURE Last administered on 05/08/18 09:42; Admin Dose 0.1 MG; Start 05/08/18 at 08:30 Benazepril HCl (Lotensin) 20 mg DAILY PO Last administered on 05/09/18 08:21; Admin Dose 20 MG; Start 05/08/18 at 09:00 Amlodipine Besylate (Norvasc) 5 mg DAILY PO Last administered on 05/09/18 08:21; Admin Dose 5 MG; Start 05/08/18 at 14:30 MARITZA MARIE MD May 09, 2018 14:53
[2018-05-09 20:02] VITALS: BP 154/67; PULSE 70; RESP 18
[2018-05-10] MEDS: HYDROmorphONE 1 MG/ML SYG IV PRN ×5 (00:05→13:18)
[2018-05-10] MEDS: SOD CHLORIDE 0.45% 1,000 ML IV SCH ×3 (00:05→11:51)
[2018-05-10] MEDS: ONDANSETRON 4 MG INJ IV PRN ×3 (00:05→13:37)
[2018-05-10] MEDS: PIPER-TAZO 3.375 GM IV (PMX) 100 ML IVPB SCH ×3 (00:05→11:47)
[2018-05-10] MEDS: ACCUCHECK AT 2AM (Patients on SS coverage) XX SCH (02:00)
[2018-05-10 02:26] VITALS: BP 160/70; PULSE 86; RESP 20
[2018-05-10] MEDS: LEVOTHYROXINE 100 MCG TAB PO SCH (05:23)
[2018-05-10] MEDS: Insulin NOVOLOG SS MILD Algorithm (SS with meals and bedtime) SC SCH ×2 (07:56→11:30)
[2018-05-10] MEDS: HEPARIN 5,000 UNIT/1 ML VIAL SC SCH (07:57)
[2018-05-10] MEDS: INSULIN GLARGINE [LANTus] (100 UNITS/ML) SYG SC SCH (07:57)
[2018-05-10] MEDS: AMLODIPINE 5 MG TAB PO SCH (07:58)
[2018-05-10] MEDS: BENAZEPRIL 20 MG TAB PO SCH (07:58)
[2018-05-10 08:00] VITALS: BP 164/69; PULSE 52; RESP 18
[2018-05-10] MEDS: FAMOTIDINE 20 MG INJ IV SCH (08:00)
[2018-05-10 08:57] VITALS: BP 158/70; PULSE 52
[2018-05-10] MEDS ORDERED: ACETAMINOPHEN 325 MG TAB PO PRN (09:30)
[2018-05-10] MEDS ORDERED: METR500T PO (13:44)
[2018-05-10] MEDS ORDERED: LEVO500T48 PO (13:44)
[2018-05-10] MEDS ORDERED: HYDR-4011 PO (13:44)
--- NOTE | 2018-05-10 13:49 | DS ---
Date/Time of Note Date/Time of Note DATE: 05/10/18 TIME: 13:47 Discharge Summary Admission/Discharge Info Admit Date/Time May 08, 2018 at 14:19 Discharge Date/Time Discharge Diagnosis 1. Acute descending colon diverticulitis, stable, antibiotics, elective colon oscopy in 6 weeks 2. DM, stable 3. HTN, controlled 4. COPD, stable 5. Hypothyroidism, on synthroid 6. h/o TIA Patient Condition: Stable Hospital Course This is a 72-year-old female with a history of hypertension, diabetes, dyslipidemia, hypothyroidism, TIA COPD who presented to the ER complaining of abdominal pain. Pain is diffuse but somehow worse on the left side. She also reported some loose stool. When she presented to the ER, CTabdomen/pelvis shows finding suggestive of mild acute diverticulitis involving the distal descending colon without abscess Patient is treated with bowel resting, IVF, antibiotics and pain control, symptoms improved. Patient tolerates diet. She is instructed to follow up with PCP and get elective colonoscopy in 6 weeks. Home Meds Active Scripts Hydrocodone/Acetaminophen ([place] 5-325 Tablet) 1 Each Tablet, 1 EACH PO Q6H, #12 TAB Prov:MARITZA MARIE MD 05/10/18 Metronidazole* (Flagyl*) 500 Mg Tablet, 500 MG PO Q8 for 10 Days, TAB Prov:MARITZA MARIE MD 05/10/18 Levofloxacin* (Levaquin*) 500 Mg Tablet, 500 MG PO DAILY for 10 Days, TAB Prov:MARITZA MARIE MD 05/10/18 Tramadol HCl (Tramadol HCl) 50 Mg Tablet, 50 MG PO Q4 PRN for PAIN, #20 TAB Prov:MAURICE CAMERON 04/25/18 Atorvastatin* (Atorvastatin*) 40 Mg Tablet, 40 MG PO QHS, #30 TAB Prov:CLINTON CHANDLER NP 03/19/18 Ascorbic Acid (Vitamin C) 500 Mg Tab, 500 MG PO DAILY, #30 TAB 2 Refills Prov:BRIANNE LUONG 02/21/18 Ferrous Sulfate* (Ferrous Sulfate*) 325 Mg Tabec, 325 MG PO DAILY for 30 Days, #30 TAB 2 Refills Prov:BRIANNE LUONG 02/21/18 Docusate Sodium (Dok) 100 Mg Capsule, 100 MG PO Q12H, #60 CAP 2 Refills Prov:BRIANNE LUONG 02/21/18 Reported Medications Insulin Aspart* (Novolog Insulin Pen*) 100 Unit/Ml Soln, 1 UNIT SC WITH BREAKFAST DINNE for 20u QAM; 30u QPM, EA 05/07/18 Omeprazole* (Omeprazole*) 40 Mg Capsule.dr, 40 MG PO DAILY for 60 Days, #60 05/07/18 Alprazolam* (Xanax*) 2 Mg Tablet, 2 MG PO Q8H PRN for ANXIETY, TAB 05/07/18 Glipizide* (Glipizide*) 5 Mg Tablet, 5 MG PO BID for 45 Days, #90 05/07/18 Varenicline Tartrate (Chantix) 1 Mg Tablet, 1 MG PO DAILY for 77 Days, #77 05/07/18 Levothyroxine Sodium* (Levothyroxine Sodium*) 100 Mcg Tablet, 100 MCG PO BEFORE BREAKFAST, #30 TAB 05/07/18 Amlodipine Besylate* (Norvasc*) 5 Mg Tablet, 5 MG PO DAILY, TAB 02/18/18 Ranitidine Hcl* (Ranitidine Hcl*) 150 Mg Tablet, 150 MG PO Q24H, #60 TAB 02/18/18 Cyclobenzaprine Hcl* (Cyclobenzaprine Hcl*) 10 Mg Tablet, 10 MG PO TID, #90 TAB 02/18/18 Benazepril Hcl* (Benazepril Hcl*) 20 Mg Tablet, 20 MG PO DAILY, #30 TAB 02/18/18 Aspirin* (Aspirin* EC) 81 Mg Tablet.dr, 81 MG PO DAILY, TAB 02/18/18 Albuterol Sulfate* (Proair HFA*) 8.5 Gm Hfa.aer.ad, 2 PUFF INH Q4H PRN for WHEEZING AND SOB, #1 INHALER 02/18/18 Discontinued Reported Medications Ondansetron Hcl* (Ondansetron Hcl*) 8 Mg Tablet, 8 MG PO DAILY for NV 05/07/18 Hydrocodone/Acetaminophen ([place] 10-325 Tablet) 1 Each Tablet, 1 EACH PO DAILY, TAB 05/07/18 Insulin Detemir (Levemir Flextouch) 100 Unit/1 Ml Insuln.pen, 30 UNIT SQ QHS, EA 02/18/18 Salmeterol Xinaf/Fluticasone* (Advair*) 250-50 Diskus Inhaler, 1 INH INHALATION BID, #1 INHALER 02/18/18 Linagliptin (TRADJENTA) 5 Mg Tablet, 5 MG PO DAILY, TAB 02/18/18 Levothyroxine Sodium* (Levothyroxine Sodium*) 88 Mcg Tablet, 88 MCG PO BEFORE BREAKFAST, #30 TAB 02/18/18 Discontinued Scripts Sulfamethoxazole/Trimethoprim* (Bactrim Ds* Tablet) 1 Each Tablet, 1 TAB PO BID, #14 TAB Prov:MAURICE CAMERON 04/25/18 Lidocaine (Lidocaine) 1 Each Adh..patch, 1 PATCH TD DAILY, #30 PATCH Prov:BRIANNE LUONG 02/21/18 Insulin Aspart* (Novolog Insulin Pen*) 100 Unit/Ml Soln, 10 UNIT SC WITH BREAKFAST for 30 Days, #9 VIAL 2 Refills Prov:BRIANNE LUONG 02/21/18 Follow-up Plan PCP in one week GI for colonoscopy in 6 weeks Primary Care Provider Not On Staff Doctor Pending Labs Laboratory Tests Test 05/09/18 17:28 05/09/18 20:55 05/10/18 01:56 05/10/18 05:41 Bedside 215 316 206 Glucose mg/dL (70-220) mg/dL (70-220) mg/dL (70-220) White Blood 5.6 Count 10^3/ul (4.8-1 0.8) Red Blood 4.52 Count 10^6/ul (4.20- 5.40) Hemoglobin 11.3 g/dl (12.0-16. 0) Hematocrit 35.7 % (37.0-47.0) Mean 79.0 Corpuscular fl (82.0-101.0 Volume ) Mean 25.0 Corpuscular pg (29.0-33.0) Hemoglobin Mean 31.7 Corpuscular g/dl (32.0-37. Hemoglobin Conc 0) ent Red Cell 15.9 Distribution % (11.5-14.5) Width Platelet Count 203 10^3/UL (140-4 15) Mean Platelet 10.6 Volume fl (7.4-10.4) Immature 0.400 Granulocytes % % (0.001-0.429 ) Neutrophils % 31.9 % (39.0-77.0) Lymphocytes % 55.1 % (15.0-51.0) Monocytes % 8.0 % (0.0-11.0) Eosinophils % 4.1 % (0.0-7.0) Basophils % 0.5 % (0.0-2.0) Nucleated Red 0.0 Blood Cells % /100WBC (0.0-0 .0) Immature 0.020 Granulocytes # 10^3/ul (0.0-0 .031) Neutrophils # 1.8 10^3/ul (1.6-7 .5) Lymphocytes # 3.1 10^3/ul (0.8-2 .9) Monocytes # 0.5 10^3/ul (0.3-0 .9) Eosinophils # 0.2 10^3/ul (0.0-0 .5) Basophils # 0.0 10^3/ul (0.0-0 .1) Nucleated Red 0.0 Blood Cells # 10^3/ul (0.0-0 .0) Sodium Level 141 mmol/L (135-14 4) Potassium 3.8 Level mmol/L (3.5-5. 1) Chloride Level 108 mmol/L (97-110 ) Carbon Dioxide 27 Level mmol/L (21-31) Anion Gap 6 (5-13) Blood Urea 9 mg/dl (7-20) Nitrogen Creatinine 0.60 mg/dl (0.44-1. 00) Est Glomerular > 60 Filtrat mL/min (>60) Rate mL/min Glucose Level 224 mg/dl (70-220) Calcium Level 9.7 mg/dl (8.4-10. 2) Test 05/10/18 07:42 05/10/18 11:52 Bedside 190 129 Glucose mg/dL (70-220) mg/dL (70-220) MARITZA MARIE MD May 10, 2018 13:49
[2018-05-10 14:01] VITALS: BP 145/65; PULSE 67
== END 2018-05-10 15:56 | disposition home or self-care (01) | DRG 392 ==
LOC: E/R 21:34 → PP2 05-07 05:03 → OBSVTOIN 05-08 14:19
PROVIDERS: ADMIT Internal Medicine; ATTEND Internal Medicine
DX: K57.32 Diverticulitis of large intestine without perforation or abscess without bleeding (principal); J44.9 Chronic obstructive pulmonary disease, unspecified; E11.9 Type 2 diabetes mellitus without complications; I10 Essential (primary) hypertension; F17.210 Nicotine dependence, cigarettes, uncomplicated; E03.9 Hypothyroidism, unspecified; Z79.4 Long term (current) use of insulin; Z79.82 Long term (current) use of aspirin; Z90.49 Acquired absence of other specified parts of digestive tract; Z86.73 Personal history of transient ischemic attack (TIA), and cerebral infarction without residual deficits
CPT/HCPCS: 36415; 71045; 74176; 80048; 80053; 81001; 81003; 82962; 83690; 83735; 84100; 85025; 87045; 87086; 96374; 96375; 96376; G0378; J1170; J1644; J1815; J2270; J2405; J2543; J7030; J7042

== ENCOUNTER 2018-06-04 21:28 | Inpatient (IN) | payer MEDICARE, OTHER ==
[~2018-06-04] VITALS: Ht 172.7 cm; Wt 111.0 kg
[~2018-06-04 21:28] MED LIST changes: -ADV25050 INHALATION; +ALPR2TAB PO; +GLIP5TAB13 PO; +HYDR-4011 PO; -INSU100I27 SQ; +LEVO100T8 PO; +LEVO500T48 PO; -LEVO88TA3 PO; -LIDO700A45 TD; -LINA5TAB PO; +METR500T PO; +OMEP40CA6 PO; -SULF1TAB31 PO; +VARE1TAB20 PO
[2018-06-05] MEDS ORDERED: HYDROmorphONE 1 MG/ML SYG IV STA (01:06)
[2018-06-05] MEDS ORDERED: ONDANSETRON 4 MG INJ IV STA (01:06)
[2018-06-05] MEDS ORDERED: SOD CHLORIDE 0.9% 500 ML IV STA (01:06)
[2018-06-05] MEDS ORDERED: HYDROmorphONE 0.5 MG/0.5 ML SYG IV STA (02:57)
[2018-06-05] MEDS ORDERED: metroNIDAZOLE 500 MG/NS (PMX) 100 ML IVPB ONE (03:00)
[2018-06-05] MEDS ORDERED: CIPROFLOXACIN 400MG/D5W 200 ML IVPB ONE (03:00)
--- NOTE | 2018-06-05 03:29 | ERD ---
ER Documentation Chief Complaint Chief Complaint bilat/ lower AP x1wk, diarrhea x3d. denies dysuria. HPI This is a very pleasant 9-year-old female: Bilateral lower abdominal pain for the past week. She has had diarrhea 4-5 episodes times the past 3 days. No blood or diarrhea. No fevers no chills. No other current complaints. Patient with history of multiple recurrent episodes of diverticulitis in the past. ROS All systems reviewed and are negative except as per history of present illness. Medications Home Meds Active Scripts Hydrocodone/Acetaminophen ([place] 5-325 Tablet) 1 Each Tablet, 1 EACH PO Q6H, #12 TAB Prov:MARITZA MARIE MD 05/10/18 Metronidazole* (Flagyl*) 500 Mg Tablet, 500 MG PO Q8 for 10 Days, TAB Prov:MARITZA MARIE MD 05/10/18 Levofloxacin* (Levaquin*) 500 Mg Tablet, 500 MG PO DAILY for 10 Days, TAB Prov:MARITZA MARIE MD 05/10/18 Tramadol HCl (Tramadol HCl) 50 Mg Tablet, 50 MG PO Q4 PRN for PAIN, #20 TAB Prov:MAURICE CAMERON 04/25/18 Atorvastatin* (Atorvastatin*) 40 Mg Tablet, 40 MG PO QHS, #30 TAB Prov:CLINTON CHANDLER NP 03/19/18 Ascorbic Acid (Vitamin C) 500 Mg Tab, 500 MG PO DAILY, #30 TAB 2 Refills Prov:BRIANNE LUONG. 02/21/18 Ferrous Sulfate* (Ferrous Sulfate*) 325 Mg Tabec, 325 MG PO DAILY for 30 Days, #30 TAB 2 Refills Prov:BRIANNE LUONG 02/21/18 Docusate Sodium (Dok) 100 Mg Capsule, 100 MG PO Q12H, #60 CAP 2 Refills Prov:BRIANNE LUONG. 02/21/18 Reported Medications Insulin Aspart* (Novolog Insulin Pen*) 100 Unit/Ml Soln, 1 UNIT SC WITH BREAKFAST DINNE for 20u QAM; 30u QPM, EA 05/07/18 Omeprazole* (Omeprazole*) 40 Mg Capsule.dr, 40 MG PO DAILY for 60 Days, #60 05/07/18 Alprazolam* (Xanax*) 2 Mg Tablet, 2 MG PO Q8H PRN for ANXIETY, TAB 05/07/18 Glipizide* (Glipizide*) 5 Mg Tablet, 5 MG PO BID for 45 Days, #90 05/07/18 Varenicline Tartrate (Chantix) 1 Mg Tablet, 1 MG PO DAILY for 77 Days, #77 05/07/18 Levothyroxine Sodium* (Levothyroxine Sodium*) 100 Mcg Tablet, 100 MCG PO BEFORE BREAKFAST, #30 TAB 05/07/18 Amlodipine Besylate* (Norvasc*) 5 Mg Tablet, 5 MG PO DAILY, TAB 02/18/18 Ranitidine Hcl* (Ranitidine Hcl*) 150 Mg Tablet, 150 MG PO Q24H, #60 TAB 02/18/18 Cyclobenzaprine Hcl* (Cyclobenzaprine Hcl*) 10 Mg Tablet, 10 MG PO TID, #90 TAB 02/18/18 Benazepril Hcl* (Benazepril Hcl*) 20 Mg Tablet, 20 MG PO DAILY, #30 TAB 02/18/18 Aspirin* (Aspirin* EC) 81 Mg Tablet.dr, 81 MG PO DAILY, TAB 02/18/18 Albuterol Sulfate* (Proair HFA*) 8.5 Gm Hfa.aer.ad, 2 PUFF INH Q4H PRN for WHEEZING AND SOB, #1 INHALER 02/18/18 Allergies Allergies: Uncoded Allergies: ALMONDS (Allergy, Unknown, SOB, 05/07/18) THROAT CLOSES PMhx/Soc History of Surgery: Yes (back surgery 2014, knee surgery 2018, cholecytectomy) Anesthesia Reaction: No Hx Neurological Disorder: Yes (neuropathy) Hx Respiratory Disorders: Yes (COPD, CHF 2017) Hx Cardiac Disorders: Yes (HTN a long time ago) Hx Psychiatric Problems: No Hx Miscellaneous Medical Probl: Yes (Obesity, Hypothyroidism, Diverticulitis) Hx Alcohol Use: No Hx Substance Use: No Hx Tobacco Use: Yes Smoking Status: Current every day smoker Physical Exam Vitals Vital Signs Date Temp Pulse Resp B/P (MAP) Pulse Ox O2 O2 Flow FiO2 Time Delivery Rate 06/05/18 74 20 145/76 99 Room Air 01:40 (99) 06/04/18 97.4 87 18 157/78 96 21:41 (104) Physical Exam Const: No acute distress Head: Atraumatic Eyes: Normal Conjunctiva ENT: Normal External Ears, Nose and Mouth. Neck: Full range of motion. No meningismus. Resp: Clear to auscultation bilaterally Cardio: Regular rate and rhythm, no murmurs Abd: Soft, non tender, non distended. Normal bowel sounds Skin: No petechiae or rashes Back: No midline or flank tenderness Ext: No cyanosis, or edema Neur: Awake and alert Psych: Normal Mood and Affect Result Diagram: 06/05/18 0121 06/05/18 0120 Results 24 hrs Laboratory Tests Test 06/05/18 01:20 06/05/18 01:21 Sodium Level 142 mmol/L Potassium Level 3.6 mmol/L Chloride Level 104 mmol/L Carbon Dioxide Level 30 mmol/L Anion Gap 8 Blood Urea Nitrogen 17 mg/dl Creatinine 0.60 mg/dl Est Glomerular Filtrat Rate mL/min > 60 mL/min Glucose Level 317 mg/dl Calcium Level 9.7 mg/dl Total Bilirubin 0.1 mg/dl Direct Bilirubin 0.00 mg/dl Indirect Bilirubin 0.1 mg/dl Aspartate Amino Transf (AST/SGOT) 24 IU/L Alanine Aminotransferase (ALT/SGPT) 22 IU/L Alkaline Phosphatase 116 IU/L Total Protein 6.3 g/dl Albumin 3.6 g/dl Globulin 2.70 g/dl Albumin/Globulin Ratio 1.33 Lipase 138 U/L White Blood Count 9.6 10^3/ul Red Blood Count 5.24 10^6/ul Hemoglobin 13.5 g/dl Hematocrit 41.7 % Mean Corpuscular Volume 79.6 fl Mean Corpuscular Hemoglobin 25.8 pg Mean Corpuscular Hemoglobin Concent 32.4 g/dl Red Cell Distribution Width 15.2 % Platelet Count 227 10^3/UL Mean Platelet Volume 11.0 fl Immature Granulocytes % 0.300 % Neutrophils % 50.8 % Lymphocytes % 41.0 % Monocytes % 4.6 % Eosinophils % 2.9 % Basophils % 0.4 % Nucleated Red Blood Cells % 0.0 /100WBC Immature Granulocytes # 0.030 10^3/ul Neutrophils # 4.8 10^3/ul Lymphocytes # 3.9 10^3/ul Monocytes # 0.4 10^3/ul Eosinophils # 0.3 10^3/ul Basophils # 0.0 10^3/ul Nucleated Red Blood Cells # 0.0 10^3/ul Urine Color YELLOW Urine Clarity SLIGHTLY CLOUDY Urine pH 6.0 Urine Specific [place] 1.024 Urine Ketones NEGATIVE mg/dL Urine Nitrite NEGATIVE mg/dL Urine Bilirubin NEGATIVE mg/dL Urine Urobilinogen NEGATIVE mg/dL Urine Leukocyte Esterase TRACE Brijesh/ul Urine Microscopic RBC 0 /HPF Urine Microscopic WBC 7 /HPF Urine Squamous Epithelial Cells MODERATE /HPF Urine Bacteria FEW /HPF Urine Hemoglobin NEGATIVE mg/dL Urine Glucose 2+ mg/dL Urine Total Protein NEGATIVE mg/dl Current Medications Medications Dose Sig/Nguyen Start Time Status Last (Trade) Ordered Route PRN Stop Time Admin Dose Reason Admin Sodium 500 ml @ Q1H STAT 06/05/18 DC 06/05/18 Chloride 500 mls/hr IV 01:06 01:32 06/05/18 02:05 1 mg ONCE STAT 06/05/18 DC 06/05/18 Hydromorphone IV 01:06 01:33 HCl 06/05/18 01:07 (Dilaudid) Ondansetron 4 mg ONCE STAT 06/05/18 DC 06/05/18 HCl (Zofran IV 01:06 01:33 Inj) 06/05/18 01:07 1 mg ONCE STAT 06/05/18 DC 06/05/18 Hydromorphone IV 02:57 03:19 HCl 06/05/18 02:58 (Dilaudid) 200 ml @ ONCE ONCE 06/05/18 Ciprofloxacin 200 mls/hr IVPB 03:00 / Dextrose 06/05/18 03:59 100 ml @ ONCE ONCE 06/05/18 06/05/18 Metronidazole 100 mls/hr IVPB 03:00 03:19 06/05/18 03:59 Procedures/MDM Medical decision making: Patient with recurrent diverticulitis. Started on Cipro and Flagyl pending further evaluation management by hospitalist group. Hospitalist made aware. Departure Diagnosis: Primary Impression: Abdominal colic Additional Impressions: Diverticulitis Abdominal pain Abdominal location: unspecified location Qualified Codes: R10.9 - Unspecified abdominal pain Condition: Serious MAURICE CAMERONCalvin Jun 05, 2018 03:29
[2018-06-05] MEDS ORDERED: DIPHENHYDRAMINE 50 MG INJ IV ONE (04:30)
[2018-06-05 05:21] VITALS: Ht 172.7 cm; Wt 111.0 kg
[2018-06-05] MEDS ORDERED: NACL 0.9% 3 ML SYG IV SCH (05:30)
[2018-06-05] MEDS ORDERED: ALBUTEROL/IPRATROPIUM (NEB) 3 ML AMP HHN PRN (05:30)
[2018-06-05] MEDS: PIPER-TAZO 3.375 GM IV (PMX) 100 ML IVPB SCH ×3 (06:17→18:32)
[2018-06-05] MEDS: DEXTROSE 5%-0.45% NACL 1,000 ML IV SCH ×3 (06:18→18:32)
[2018-06-05] MEDS: ONDANSETRON 4 MG INJ IV PRN (06:22)
[2018-06-05] MEDS: morphine 2 MG INJ IV PRN ×2 (06:22→10:58)
--- NOTE | 2018-06-05 07:55 | HP ---
Date/Time of Note Date/Time of Note DATE: 06/05/18 TIME: 07:50 Assessment/Plan VTE Prophylaxis Pharmacological prophylaxis: heparin Lines/Catheters IV [facility] Saline Lock Assessment/Plan Assessment/Plan 72-year-old female with a history of hypertension, diabetes, dyslipidemia, hypothyroidism, TIA, COPD presents with abdominal pain and loose stool, likely secondary to acute diverticulitis 1. Recurrent diverticulitis: Patient was admitted here a month ago with similar symptoms. At that time she was diagnosed with mild diverticulitis and was treated with IV antibiotic. -CT again shows mild diverticulitis -Will keep n.p.o. and treat with Zosyn -IV fluid -C-difficile and stool culture -GI consult to see if patient can have colonoscopy at this time 2. Diabetes with hyperglycemia -Insulin while in-house 3. Hypertension: BP is in acceptable range 4. COPD: No sign of acute exacerbation 5. Dyslipidemia: Continue home med with no longer n.p.o. 6. Hypothyroidism: Continue Synthroid when no longer n.p.o. Result Diagram: 06/05/18 0121 06/05/18 0120 Results 24hrs Laboratory Tests Test 06/05/18 01:20 06/05/18 01:21 Sodium Level 142 Potassium Level 3.6 Chloride Level 104 Carbon Dioxide Level 30 Anion Gap 8 Blood Urea Nitrogen 17 Creatinine 0.60 Est Glomerular Filtrat Rate mL/min > 60 Glucose Level 317 H Calcium Level 9.7 Total Bilirubin 0.1 L Direct Bilirubin 0.00 Indirect Bilirubin 0.1 Aspartate Amino Transf (AST/SGOT) 24 Alanine Aminotransferase (ALT/SGPT) 22 Alkaline Phosphatase 116 Total Protein 6.3 Albumin 3.6 Globulin 2.70 Albumin/Globulin Ratio 1.33 Lipase 138 White Blood Count 9.6 # Red Blood Count 5.24 Hemoglobin 13.5 Hematocrit 41.7 Mean Corpuscular Volume 79.6 L Mean Corpuscular Hemoglobin 25.8 L Mean Corpuscular Hemoglobin Concent 32.4 Red Cell Distribution Width 15.2 H Platelet Count 227 Mean Platelet Volume 11.0 H Immature Granulocytes % 0.300 Neutrophils % 50.8 Lymphocytes % 41.0 Monocytes % 4.6 Eosinophils % 2.9 Basophils % 0.4 Nucleated Red Blood Cells % 0.0 Immature Granulocytes # 0.030 Neutrophils # 4.8 Lymphocytes # 3.9 H Monocytes # 0.4 Eosinophils # 0.3 Basophils # 0.0 Nucleated Red Blood Cells # 0.0 Urine Color YELLOW Urine Clarity SLIGHTLY CLOUDY A Urine pH 6.0 Urine Specific [place] 1.024 Urine Ketones NEGATIVE Urine Nitrite NEGATIVE Urine Bilirubin NEGATIVE Urine Urobilinogen NEGATIVE Urine Leukocyte Esterase TRACE A Urine Microscopic RBC 0 Urine Microscopic WBC 7 H Urine Squamous Epithelial Cells MODERATE Urine Bacteria FEW A Urine Hemoglobin NEGATIVE Urine Glucose 2+ H Urine Total Protein NEGATIVE HPI/ROS Admit Date/Time Admit Date/Time Jun 05, 2018 at 02:58 Hx of Present Illness Patient is a 72-year-old female with a history of hypertension, diabetes, dyslipidemia, hypothyroidism, TIA, COPD and recently diagnosed mild diverticulitis who presented to ER complaining of recurrent abdominal pain and loose/watery diarrhea. Patient was actually admitted by myself last month with similar complaints. At that time he was diagnosed with acute diverticulitis and was treated with antibiotic. She said a week ago she started noticing recurrenc e of abdominal pain in the for the past 3 days she was having loose and watery diarrhea which has been nonbloody. When she presented to the ER at this time, CT abdomen/pelvis was done which shows mild diverticulitis diverticulitis PMH/Family/Social Past Medical History Medical History: other (See HPI) Medications Current Medications Dextrose/Sodium Chloride 1,000 ml @ 100 mls/hr Q10H IV Last administered on 06/05/18at 06:18; Admin Dose 100 MLS/HR; Start 06/05/18 at 05:16 IV Flush (NS 3 ml) 3 ml PER PROTOCOL IV ; Start 06/05/18 at 05:30 Ondansetron HCl (Zofran Inj) 4 mg Q6H PRN IV NAUSEA/VOMITING Last administered on 06/05/18at 06:22; Admin Dose 4 MG; Start 06/05/18 at 05:30 Morphine Sulfate (morphine) 2 mg Q4H PRN IV .SEVERE PAIN 7-10 Last administered on 06/05/18at 06:22; Admin Dose 2 MG; Start 06/05/18 at 05:30 Famotidine (Pepcid Iv) 20 mg Q12 IV ; Start 06/05/18 at 09:00 Albuterol/ Ipratropium (Duoneb) 3 ml Q2H RESP THERAPY PRN HHN SHORTNESS OF BREATH; Start 06/05/18 at 05:30 Piperacillin Sod/ Tazobactam Sod 100 ml @ 200 mls/hr Q6 IVPB Last administered on 06/05/18at 06:17; Admin Dose 200 MLS/HR; Start 06/05/18 at 06:00 Uncoded Allergies: ALMONDS (Allergy, Unknown, SOB, 05/07/18) THROAT CLOSES Past Surgical History Past Surgical Hx: other Family History Significant Family History: no pertinent family hx Social History Alcohol Use: none Smoking Status: Current every day smoker Drug Use: none Exam/Review of Systems Vital Signs Vitals Vital Signs Date Temp Pulse Resp B/P (MAP) Pulse Ox O2 O2 Flow FiO2 Time Delivery Rate 06/05/18 97.8 68 15 126/87 99 Room Air 04:22 (100) Exam Constitutional: alert, oriented, well developed Head: normocephalic, atraumatic Eyes: EOMI Respiratory: clear to auscultation, normal air movement Cardiovascular: regular rate and rhythm, nl pulses Gastrointestinal: soft, tender Extremities: normal pulses MAURICE STEEN MD Jun 05, 2018 07:55
[2018-06-05 08:22] VITALS: BP 150/70; PULSE 72; RESP 18
[2018-06-05] MEDS ORDERED: DEXTROSE 50% 50 ML SYRINGE IV PRN ×2 (08:30)
[2018-06-05] MEDS ORDERED: GLUCAGON 1 MG INJ IM PRN (08:30)
[2018-06-05] MEDS ORDERED: GLUCOSE GEL 15 GRAM TUBE PO PRN ×2 (08:30)
[2018-06-05] MEDS ORDERED: GLUCOSE GEL 15 GRAM TUBE BUCCAL PRN (08:30)
[2018-06-05] MEDS: FAMOTIDINE 20 MG INJ IV SCH ×2 (08:56→20:21)
[2018-06-05] MEDS: INSULIN GLARGINE [LANTus] (100 UNITS/ML) SYG SC SCH (09:01)
[2018-06-05] MEDS: INSULIN ASPART [NOVOLOG] 3 ML PEN SC SCH ×4 (09:02→20:58)
[2018-06-05 14:14] VITALS: BP 137/61; PULSE 72; RESP 18
--- NOTE | 2018-06-05 14:28 | PN ---
Date/Time of Note Date/Time of Note DATE: 06/05/18 TIME: 14:09 Assessment/Plan VTE Prophylaxis SCD applied (from Nsg): Yes Pharmacological prophylaxis: other Lines/Catheters IV Catheter Type (from Nrsg): Saline Lock Assessment/Plan Hospital Course S: Patient still having some symptoms, also some headaches, but no fevers. Still n.p.o. O: VS- see below PE: Constitutional: alert, oriented, well developed Head: normocephalic, atraumatic Eyes: EOMI Respiratory: clear to auscultation, normal air movement Cardiovascular: regular rate and rhythm, nl pulses Gastrointestinal: soft, tender Extremities: normal pulses Assessment/Plan: 72-year-old female with a history of hypertension, diabetes, dyslipidemia, hypothyroidism, TIA, COPD presents with abdominal pain and loose stool, likely secondary to acute diverticulitis. 1. Recurrent diverticulitis: Patient was admitted here a month ago with similar symptoms. At that time she was diagnosed with mild diverticulitis and was treated with IV antibiotic-CT again shows mild diverticulitis -Will keep n.p.o. and treat with Zosyn -IV fluid -C-difficile and stool culture -We will obtain surgery consult as this is a second episode in the last month of diverticulitis letter 2. Diabetes with hyperglycemia -Insulin while in-house, follow-up A1c 3. Hypertension: BP is in acceptable range -Monitor 4. COPD: No sign of acute exacerbation 5. Dyslipidemia: Continue home med with no longer n.p.o. 6. Hypothyroidism: Continue Synthroid when no longer n.p.o. Result Diagram: 06/05/18 0121 06/05/18 0120 Results 24hrs Laboratory Tests Test 06/05/18 01:20 06/05/18 01:21 06/05/18 08:43 06/05/18 13:20 Sodium Level 142 Potassium Level 3.6 Chloride Level 104 Carbon Dioxide 30 Level Anion Gap 8 Blood Urea 17 Nitrogen Creatinine 0.60 Est Glomerular > 60 Filtrat Rate mL/min Glucose Level 317 H Calcium Level 9.7 Total Bilirubin 0.1 L Direct Bilirubin 0.00 Indirect 0.1 Bilirubin Aspartate Amino 24 Transf (AST/SGOT) Alanine 22 Aminotransferase (ALT/SGPT) Alkaline 116 Phosphatase Total Protein 6.3 Albumin 3.6 Globulin 2.70 Albumin/Globulin 1.33 Ratio Lipase 138 White Blood Count 9.6 # Red Blood Count 5.24 Hemoglobin 13.5 Hematocrit 41.7 Mean Corpuscular 79.6 L Volume Mean Corpuscular 25.8 L Hemoglobin Mean Corpuscular 32.4 Hemoglobin Concen t Red Cell 15.2 H Distribution Width Platelet Count 227 Mean Platelet 11.0 H Volume Immature 0.300 Granulocytes % Neutrophils % 50.8 Lymphocytes % 41.0 Monocytes % 4.6 Eosinophils % 2.9 Basophils % 0.4 Nucleated Red 0.0 Blood Cells % Immature 0.030 Granulocytes # Neutrophils # 4.8 Lymphocytes # 3.9 H Monocytes # 0.4 Eosinophils # 0.3 Basophils # 0.0 Nucleated Red 0.0 Blood Cells # Urine Color YELLOW Urine Clarity SLIGHTLY CLOUDY A Urine pH 6.0 Urine Specific 1.024 [place] Urine Ketones NEGATIVE Urine Nitrite NEGATIVE Urine Bilirubin NEGATIVE Urine NEGATIVE Urobilinogen Urine Leukocyte TRACE A Esterase Urine Microscopic 0 RBC Urine Microscopic 7 H WBC Urine Squamous MODERATE Epithelial Cells Urine Bacteria FEW A Urine Hemoglobin NEGATIVE Urine Glucose 2+ H Urine Total NEGATIVE Protein Bedside Glucose 164 165 Exam/Review of Systems Exam Vitals Vital Signs Date Temp Pulse Resp B/P (MAP) Pulse Ox O2 O2 Flow FiO2 Time Delivery Rate 06/05/18 98.3 72 18 150/70 92 Room Air 08:22 (96) Results Results 24hrs Laboratory Tests Test 06/05/18 01:20 06/05/18 01:21 06/05/18 08:43 06/05/18 13:20 Sodium Level 142 Potassium Level 3.6 Chloride Level 104 Carbon Dioxide 30 Level Anion Gap 8 Blood Urea 17 Nitrogen Creatinine 0.60 Est Glomerular > 60 Filtrat Rate mL/min Glucose Level 317 H Calcium Level 9.7 Total Bilirubin 0.1 L Direct Bilirubin 0.00 Indirect 0.1 Bilirubin Aspartate Amino 24 Transf (AST/SGOT) Alanine 22 Aminotransferase (ALT/SGPT) Alkaline 116 Phosphatase Total Protein 6.3 Albumin 3.6 Globulin 2.70 Albumin/Globulin 1.33 Ratio Lipase 138 White Blood Count 9.6 # Red Blood Count 5.24 Hemoglobin 13.5 Hematocrit 41.7 Mean Corpuscular 79.6 L Volume Mean Corpuscular 25.8 L Hemoglobin Mean Corpuscular 32.4 Hemoglobin Concen t Red Cell 15.2 H Distribution Width Platelet Count 227 Mean Platelet 11.0 H Volume Immature 0.300 Granulocytes % Neutrophils % 50.8 Lymphocytes % 41.0 Monocytes % 4.6 Eosinophils % 2.9 Basophils % 0.4 Nucleated Red 0.0 Blood Cells % Immature 0.030 Granulocytes # Neutrophils # 4.8 Lymphocytes # 3.9 H Monocytes # 0.4 Eosinophils # 0.3 Basophils # 0.0 Nucleated Red 0.0 Blood Cells # Urine Color YELLOW Urine Clarity SLIGHTLY CLOUDY A Urine pH 6.0 Urine Specific 1.024 [place] Urine Ketones NEGATIVE Urine Nitrite NEGATIVE Urine Bilirubin NEGATIVE Urine NEGATIVE Urobilinogen Urine Leukocyte TRACE A Esterase Urine Microscopic 0 RBC Urine Microscopic 7 H WBC Urine Squamous MODERATE Epithelial Cells Urine Bacteria FEW A Urine Hemoglobin NEGATIVE Urine Glucose 2+ H Urine Total NEGATIVE Protein Bedside Glucose 164 165 Medications Medication Current Medications Dextrose/Sodium Chloride 1,000 ml @ 100 mls/hr Q10H IV Last administered on 06/05/18 06:18; Admin Dose 100 MLS/HR; Start 06/05/18 at 05:16 IV Flush (NS 3 ml) 3 ml PER PROTOCOL IV ; Start 06/05/18 at 05:30 Ondansetron HCl (Zofran Inj) 4 mg Q6H PRN IV NAUSEA/VOMITING Last administered on 06/05/18 06:22; Admin Dose 4 MG; Start 06/05/18 at 05:30 Morphine Sulfate (morphine) 2 mg Q4H PRN IV .SEVERE PAIN 7-10 Last administered on 06/05/18at 10:58; Admin Dose 2 MG; Start 06/05/18 at 05:30 Famotidine (Pepcid Iv) 20 mg Q12 IV Last administered on 06/05/18 08:56; Admin Dose 20 MG; Start 06/05/18 at 09:00 Albuterol/ Ipratropium (Duoneb) 3 ml Q2H RESP THERAPY PRN HHN SHORTNESS OF BREATH; Start 06/05/18 at 05:30 Piperacillin Sod/ Tazobactam Sod 100 ml @ 200 mls/hr Q6 IVPB Last administered on 06/05/18 13:25; Admin Dose 200 MLS/HR; Start 06/05/18 at 06:00 Diagnostic Test (Pha) (Accu-Chek) 1 ea 02 XX ; Start 06/06/18 at 02:00 Insulin Glargine (Lantus) 17 units DAILY@0800 SC Last administered on 4/24/19at 09:01; Admin Dose 17 UNITS; Start 06/05/18 at 08:00 Insulin Aspart (Novolog Insulin Pen) NOVOLOG *MODERATE* ALGORITHM WITH MEALS BEDTIME SC Last administered on 06/05/18at 13:24; Admin Dose 2 UNIT; Start 06/05/18 at 08:00 Miscellaneous Information 1 ea NOTE XX ; Start 06/05/18 at 08:30 Glucose (Glutose) 15 gm Q15M PRN PO DECREASED GLUCOSE; Start 06/05/18 at 08:30 Glucose (Glutose) 22.5 gm Q15M PRN PO DECREASED GLUCOSE; Start 06/05/18 at 08:30 Dextrose (D50w Syringe) 25 ml Q15M PRN IV DECREASED GLUCOSE; Start 06/05/18 at 08:30 Dextrose (D50w Syringe) 50 ml Q15M PRN IV DECREASED GLUCOSE; Start 06/05/18 at 08:30 Glucagon (Glucagen) 1 mg Q15M PRN IM DECREASED GLUCOSE; Start 06/05/18 at 08:30 Glucose (Glutose) 15 gm Q15M PRN BUCCAL DECREASED GLUCOSE; Start 06/05/18 at 08:30 SHIRA REZA Jun 05, 2018 14:27
[2018-06-05] MEDS: HYDROmorphONE 0.5 MG/0.5 ML SYG IV PRN ×2 (15:17→20:21)
[2018-06-05 20:00] VITALS: BP 119/55; PULSE 60; RESP 18
[2018-06-05] MEDS: DIPHENHYDRAMINE 50 MG INJ IV PRN (22:29)
[2018-06-06] MEDS: PIPER-TAZO 3.375 GM IV (PMX) 100 ML IVPB SCH ×4 (00:11→19:41)
[2018-06-06] MEDS: DEXTROSE 5%-0.45% NACL 1,000 ML IV SCH ×3 (01:16→20:43)
[2018-06-06] MEDS: HYDROmorphONE 0.5 MG/0.5 ML SYG IV PRN ×5 (01:45→20:42)
[2018-06-06] MEDS: ACCU-CHEK XX SCH (01:46)
[2018-06-06 02:00] VITALS: BP 141/67; PULSE 54; RESP 18
[2018-06-06] MEDS: DIPHENHYDRAMINE 50 MG INJ IV PRN (05:39)
[2018-06-06] MEDS: INSULIN ASPART [NOVOLOG] 3 ML PEN SC SCH ×4 (08:00→20:19)
[2018-06-06] MEDS: FAMOTIDINE 20 MG INJ IV SCH ×2 (08:10→20:17)
[2018-06-06 08:11] VITALS: BP 154/74; PULSE 60; RESP 20
[2018-06-06] MEDS: INSULIN GLARGINE [LANTus] (100 UNITS/ML) SYG SC SCH (08:22)
--- NOTE | 2018-06-06 12:22 | PN ---
Date/Time of Note Date/Time of Note DATE: 06/06/18 TIME: 12:20 Assessment/Plan VTE Prophylaxis Risk score (from Ns)>0 risk: 3 SCD applied (from Ns): Yes Pharmacological prophylaxis: other Lines/Catheters IV Catheter Type (from Nrs): Peripheral IV Assessment/Plan Hospital Course S: Patient still with some occasional abdominal pain symptoms, still n.p.o. Waiting to be seen by surgery team. O: VS- see below PE: Constitutional: alert, oriented, well developed Head: normocephalic, atraumatic Eyes: EOMI Respiratory: clear to auscultation, normal air movement Cardiovascular: regular rate and rhythm, nl pulses Gastrointestinal: soft, mild tenderness to palpation Extremities: normal pulses Assessment/Plan: 72-year-old female with a history of hypertension, diabetes, dyslipidemia, hypothyroidism, TIA, COPD presents with abdominal pain and loose stool, likely secondary to acute diverticulitis. 1. Recurrent diverticulitis: Patient was admitted here a month ago with similar symptoms. At that time she was diagnosed with mild diverticulitis and was treated with IV antibiotic-CT again shows mild diverticulitis -Will continue to keep n.p.o. and treat with Zosyn -IV fluid -C-difficile and stool culture -Follow-up recommendations from surgery consult as this is a second episode in the last month of diverticulitis 2. Diabetes -sugars are stable -Continue insulin while in-house, follow-up A1c -still pending 3. Hypertension: BP is in acceptable range -Monitor 4. COPD: No sign of acute exacerbation -Monitor for now, duo nebs as needed 5. Dyslipidemia: Continue home med when no longer n.p.o. 6. Hypothyroidism: Continue Synthroid when no longer n.p.o. Result Diagram: 06/06/18 0449 06/06/18 0449 Results 24hrs Laboratory Tests Test 06/05/18 13:20 06/05/18 18:35 06/05/18 20:50 06/06/18 01:44 Bedside Glucose 165 218 182 109 Test 06/06/18 04:49 06/06/18 08:20 White Blood Count 7.1 # Red Blood Count 4.66 Hemoglobin 11.9 L Hematocrit 37.3 Mean Corpuscular 80.0 L Volume Mean Corpuscular 25.5 L Hemoglobin Mean Corpuscular 31.9 L Hemoglobin Concent Red Cell 15.3 H Distribution Width Platelet Count 187 Mean Platelet Volume 11.5 H Immature 0.400 Granulocytes % Neutrophils % 33.7 L Lymphocytes % 52.5 H Monocytes % 7.9 Eosinophils % 5.1 Basophils % 0.4 Nucleated Red Blood 0.0 Cells % Immature 0.030 Granulocytes # Neutrophils # 2.4 Lymphocytes # 3.7 H Monocytes # 0.6 Eosinophils # 0.4 Basophils # 0.0 Nucleated Red Blood 0.0 Cells # Sodium Level 142 Potassium Level 3.6 Chloride Level 108 Carbon Dioxide Level 29 Anion Gap 5 Blood Urea Nitrogen 12 Creatinine 0.52 Est Glomerular > 60 Filtrat Rate mL/min Glucose Level 138 # Calcium Level 9.1 Phosphorus Level 3.2 Magnesium Level 1.4 L Total Bilirubin 0.2 Direct Bilirubin 0.00 Indirect Bilirubin 0.2 Aspartate Amino 25 Transf (AST/SGOT) Alanine 20 Aminotransferase (AL T/SGPT) Alkaline Phosphatase 75 Total Protein 5.4 L Albumin 3.0 L Globulin 2.40 Albumin/Globulin 1.25 Ratio Bedside Glucose 122 Exam/Review of Systems Exam Vitals Vital Signs Date Temp Pulse Resp B/P (MAP) Pulse Ox O2 O2 Flow FiO2 Time Delivery Rate 06/06/18 98.3 60 20 154/74 94 08:11 (100) 06/05/18 Room Air 14:14 Intake and Output 06/05/18 06/05/18 06/06/18 1515:00 23:00 07:00 IntakeIntake Total 100 ml 1100 ml 200 ml BalanceBalance 100 ml 1100 ml 200 ml Results Results 24hrs Laboratory Tests Test 06/05/18 13:20 06/05/18 18:35 06/05/18 20:50 06/06/18 01:44 Bedside Glucose 165 218 182 109 Test 06/06/18 04:49 06/06/18 08:20 White Blood Count 7.1 # Red Blood Count 4.66 Hemoglobin 11.9 L Hematocrit 37.3 Mean Corpuscular 80.0 L Volume Mean Corpuscular 25.5 L Hemoglobin Mean Corpuscular 31.9 L Hemoglobin Concent Red Cell 15.3 H Distribution Width Platelet Count 187 Mean Platelet Volume 11.5 H Immature 0.400 Granulocytes % Neutrophils % 33.7 L Lymphocytes % 52.5 H Monocytes % 7.9 Eosinophils % 5.1 Basophils % 0.4 Nucleated Red Blood 0.0 Cells % Immature 0.030 Granulocytes # Neutrophils # 2.4 Lymphocytes # 3.7 H Monocytes # 0.6 Eosinophils # 0.4 Basophils # 0.0 Nucleated Red Blood 0.0 Cells # Sodium Level 142 Potassium Level 3.6 Chloride Level 108 Carbon Dioxide Level 29 Anion Gap 5 Blood Urea Nitrogen 12 Creatinine 0.52 Est Glomerular > 60 Filtrat Rate mL/min Glucose Level 138 # Calcium Level 9.1 Phosphorus Level 3.2 Magnesium Level 1.4 L Total Bilirubin 0.2 Direct Bilirubin 0.00 Indirect Bilirubin 0.2 Aspartate Amino 25 Transf (AST/SGOT) Alanine 20 Aminotransferase (AL T/SGPT) Alkaline Phosphatase 75 Total Protein 5.4 L Albumin 3.0 L Globulin 2.40 Albumin/Globulin 1.25 Ratio Bedside Glucose 122 Medications Medication Current Medications Dextrose/Sodium Chloride 1,000 ml @ 100 mls/hr Q10H IV Last administered on 06/06/18at 07:06; Admin Dose 100 MLS/HR; Start 06/05/18 at 05:16 IV Flush (NS 3 ml) 3 ml PER PROTOCOL IV ; Start 06/05/18 at 05:30 Ondansetron HCl (Zofran Inj) 4 mg Q6H PRN IV NAUSEA/VOMITING Last administered on 06/05/18at 06:22; Admin Dose 4 MG; Start 06/05/18 at 05:30 Morphine Sulfate (morphine) 2 mg Q4H PRN IV .SEVERE PAIN 7-10 Last administered on 06/05/18at 10:58; Admin Dose 2 MG; Start 06/05/18 at 05:30 Famotidine (Pepcid Iv) 20 mg Q12 IV Last administered on 06/06/18at 08:10; Admin Dose 20 MG; Start 06/05/18 at 09:00 Albuterol/ Ipratropium (Duoneb) 3 ml Q2H RESP THERAPY PRN HHN SHORTNESS OF BREATH; Start 06/05/18 at 05:30 Piperacillin Sod/ Tazobactam Sod 100 ml @ 200 mls/hr Q6 IVPB Last administered on 06/06/18at 05:39; Admin Dose 200 MLS/HR; Start 06/05/18 at 06:00 Diagnostic Test (Pha) (Accu-Chek) 1 ea 02 XX ; Start 06/06/18 at 02:00 Insulin Glargine (Lantus) 17 units DAILY@0800 SC Last administered on 06/06/18 08:22; Admin Dose 17 UNITS; Start 06/05/18 at 08:00 Insulin Aspart (Novolog Insulin Pen) NOVOLOG *MODERATE* ALGORITHM WITH MEALS BEDTIME SC Last administered on 06/05/18at 20:58; Admin Dose 1 UNIT; Start 06/05/18 at 08:00 Miscellaneous Information 1 ea NOTE XX ; Start 06/05/18 at 08:30 Glucose (Glutose) 15 gm Q15M PRN PO DECREASED GLUCOSE; Start 06/05/18 at 08:30 Glucose (Glutose) 22.5 gm Q15M PRN PO DECREASED GLUCOSE; Start 06/05/18 at 0 8:30 Dextrose (D50w Syringe) 25 ml Q15M PRN IV DECREASED GLUCOSE; Start 06/05/18 at 08:30 Dextrose (D50w Syringe) 50 ml Q15M PRN IV DECREASED GLUCOSE; Start 06/05/18 at 08:30 Glucagon (Glucagen) 1 mg Q15M PRN IM DECREASED GLUCOSE; Start 06/05/18 at 08:30 Glucose (Glutose) 15 gm Q15M PRN BUCCAL DECREASED GLUCOSE; Start 06/05/18 at 08:30 Hydromorphone HCl (Dilaudid) 0.5 mg Q4H PRN IV SEVERE PAIN LEVEL 7-10 Last administered on 06/06/18at 08:08; Admin Dose 0.5 MG; Start 06/05/18 at 15:00 Diphenhydramine HCl (Benadryl) 25 mg Q6H PRN IV ITCHING Last administered on 06/06/18at 05:39; Admin Dose 25 MG; Start 06/05/18 at 22:30; Stop 06/06/18 at 22:30 Hydralazine HCl (Apresoline) 10 mg Q6H PRN IV ELEVATED BLOOD PRESSURE; Start 06/06/18 at 12:00 Magnesium Sulfate 50 ml @ 25 mls/hr ONCE ONCE IVPB ; Start 06/06/18 at 12:30; Stop 06/06/18 at 14:29; Status SHIRA BRITO Jun 06, 2018 12:22
[2018-06-06] MEDS: ONDANSETRON 4 MG INJ IV PRN ×2 (13:10→20:47)
[2018-06-06] MEDS ORDERED: MAGNESIUM SULFATE 2 GM/50 ML 50 ML IVPB ONE (14:00)
[2018-06-06 15:03] VITALS: BP 174/70; PULSE 64; RESP 18
[2018-06-06] MEDS: hydrALAzine 20 MG INJ IV PRN (15:11)
--- NOTE | 2018-06-06 15:15 | CONS ---
Assessment/Plan Assessment/Plan Hospital Course (Demo Recall) 1. Diverticulosis with acute diverticulitis of mid to descending colon: ? Recurrent versus unresolved -GI consult -Antibiotics -We will need eventual colonoscopy and surgical resection once diverticulitis has fully resolved 2. Abdominal pain: -Pain management 3. Hiatal and umbilical hernia: Asymptomatic: -May consider surgical intervention if becomes symptomatic 4.hypertension -Highly encourage weight loss -Medical management 5. Diabetes -Glucose optimization 6. Dyslipidemia -Highly encouraged weight loss -Medical management 7. Hypothyroidism COPD -Medical management 8. Severe obesity BMI: 37 -diet and exercise optimization -encourage weight loss Thank you. Patient seen and examined in collaboration with Dr. Cresencio Saenz. Consultation Date/Type/Reason Admit Date/Time Jun 05, 2018 at 02:58 Date of Consultation: Jun 06, 2018 Type of Consult surgical Reason for Consultation abdominal pain Requesting Provider: SHIRA REZA Date/Time of Note DATE: 06/06/18 TIME: 14:56 Hx of Present Illness Tri Scherer is a 72 yo woman who is known to our service from outside hospital for wound which has since healed with past medical history of hypertension, diabetes, dyslipidemia, hypothyroidism, TIA, COPD who presents once again to the ED with complaints of abdominal pain. Abdominal pain is initially in the bi lateral lower quadrants but most pronounced in the left lower quadrant. Notably, she was recently diagnosed with diverticulitis, was hospitalized at this facility in April of this year and was sent home with antibiotic therapy. According to the patient her abdominal pain did not truly go away. She denies fevers, chills, congested cough, chest pain, palpitations, nausea, vomiting, skin changes. CT imaging of the abdomen performed on 05/07/18 shows diverticulosis of transverse, descending and sigmoid colon with acute diverticulitis of distal descending colon. Repeat imaging performed on 06/05 shows diverticulitis now involving mid to distal descending colon. Laboratory findings were unremarkable. General surgery was asked to evaluate. 12 point review of systems was performed is negative except as stated in HPI. Past Medical History As above Medical History: other (See HPI) Home Meds Active Scripts Hydrocodone/Acetaminophen ([place] 5-325 Tablet) 1 Each Tablet, 1 EACH PO Q6H, #12 TAB Prov:MARITZA MARIE MD 05/10/18 Tramadol HCl (Tramadol HCl) 50 Mg Tablet, 50 MG PO Q4 PRN for PAIN, #20 TAB Prov:MAURICE CAMERONCalvin 04/25/18 Atorvastatin* (Atorvastatin*) 40 Mg Tablet, 40 MG PO QHS, #30 TAB Prov:CLINTON CHANDLER NP 03/19/18 Ascorbic Acid (Vitamin C) 500 Mg Tab, 500 MG PO DAILY, #30 TAB 2 Refills Prov:BRIANNE LUONG . 02/21/18 Ferrous Sulfate* (Ferrous Sulfate*) 325 Mg Tabec, 325 MG PO DAILY for 30 Days, #30 TAB 2 Refills Prov:BRIANNE LUONG . 02/21/18 Docusate Sodium (Dok) 100 Mg Capsule, 100 MG PO Q12H, #60 CAP 2 Refills Prov:[facility]. 02/21/18 Reported Medications Insulin Aspart* (Novolog Insulin Pen*) 100 Unit/Ml Soln, 1 UNIT SC WITH BREAKFAST DINNE for 20u QAM; 30u QPM, EA 05/07/18 Omeprazole* (Omeprazole*) 40 Mg Capsule.dr, 40 MG PO DAILY for 60 Days, #60 05/07/18 Alprazolam* (Xanax*) 2 Mg Tablet, 2 MG PO Q8H PRN for ANXIETY, TAB 05/07/18 Glipizide* (Glipizide*) 5 Mg Tablet, 5 MG PO BID for 45 Days, #90 05/07/18 Varenicline Tartrate (Chantix) 1 Mg Tablet, 1 MG PO DAILY for 77 Days, #77 05/07/18 Levothyroxine Sodium* (Levothyroxine Sodium*) 100 Mcg Tablet, 100 MCG PO BEFORE BREAKFAST, #30 TAB 05/07/18 Amlodipine Besylate* (Norvasc*) 5 Mg Tablet, 5 MG PO DAILY, TAB 02/18/18 Ranitidine Hcl* (Ranitidine Hcl*) 150 Mg Tablet, 150 MG PO Q24H, #60 TAB 02/18/18 Cyclobenzaprine Hcl* (Cyclobenzaprine Hcl*) 10 Mg Tablet, 10 MG PO TID, #90 TAB 02/18/18 Benazepril Hcl* (Benazepril Hcl*) 20 Mg Tablet, 20 MG PO DAILY, #30 TAB 02/18/18 Aspirin* (Aspirin* EC) 81 Mg Tablet.dr, 81 MG PO DAILY, TAB 02/18/18 Albuterol Sulfate* (Proair HFA*) 8.5 Gm Hfa.aer.ad, 2 PUFF INH Q4H PRN for WHEEZING AND SOB, #1 INHALER 02/18/18 Discontinued Scripts Metronidazole* (Flagyl*) 500 Mg Tablet, 500 MG PO Q8 for 10 Days, TAB Prov:MARITZA MARIE MD 05/10/18 Levofloxacin* (Levaquin*) 500 Mg Tablet, 500 MG PO DAILY for 10 Days, TAB Prov:MARITZA MARIE MD 05/10/18 Medications Current Medications Dextrose/Sodium Chloride 1,000 ml @ 100 mls/hr Q10H IV Last administered on 06/06/18at 07:06; Admin Dose 100 MLS/HR; Start 06/05/18 at 05:16 IV Flush (NS 3 ml) 3 ml PER PROTOCOL IV ; Start 06/05/18 at 05:30 Ondansetron HCl (Zofran Inj) 4 mg Q6H PRN IV NAUSEA/VOMITING Last administered on 06/06/18at 13:10; Admin Dose 4 MG; Start 06/05/18 at 05:30 Morphine Sulfate (morphine) 2 mg Q4H PRN IV .SEVERE PAIN 7-10 Last administered on 06/05/18at 10:58; Admin Dose 2 MG; Start 06/05/18 at 05:30 Famotidine (Pepcid Iv) 20 mg Q12 IV Last administered on 06/06/18at 08:10; Admin Dose 20 MG; Start 06/05/18 at 09:00 Albuterol/ Ipratropium (Duoneb) 3 ml Q2H RESP THERAPY PRN HHN SHORTNESS OF BREATH; Start 06/05/18 at 05:30 Piperacillin Sod/ Tazobactam Sod 100 ml @ 200 mls/hr Q6 IVPB Last administered on 06/06/18at 12:25; Admin Dose 200 MLS/HR; Start 06/05/18 at 06:00 Diagnostic Test (Pha) (Accu-Chek) 1 ea 02 XX ; Start 06/06/18 at 02:00 Insulin Glargine (Lantus) 17 units DAILY@0800 SC Last administered on 06/06/18at 08:22; Admin Dose 17 UNITS; Start 06/05/18 at 08:00 Insulin Aspart (Novolog Insulin Pen) NOVOLOG *MODERATE* ALGORITHM WITH MEALS BEDTIME SC Last administered on 06/06/18at 12:31; Admin Dose 2 UNIT; Start 06/05/18 at 08:00 Miscellaneous Information 1 ea NOTE XX ; Start 06/05/18 at 08:30 Glucose (Glutose) 15 gm Q15M PRN PO DECREASED GLUCOSE; Start 06/05/18 at 08:30 Glucose (Glutose) 22.5 gm Q15M PRN PO DECREASED GLUCOSE; Start 06/05/18 at 08:30 Dextrose (D50w Syringe) 25 ml Q15M PRN IV DECREASED GLUCOSE; Start 06/05/18 at 08:30 Dextrose (D50w Syringe) 50 ml Q15M PRN IV DECREASED GLUCOSE; Start 06/05/18 at 08:30 Glucagon (Glucagen) 1 mg Q15M PRN IM DECREASED GLUCOSE; Start 06/05/18 at 08:30 Glucose (Glutose) 15 gm Q15M PRN BUCCAL DECREASED GLUCOSE; Start 06/05/18 at 08:30 Hydromorphone HCl (Dilaudid) 0.5 mg Q4H PRN IV SEVERE PAIN LEVEL 7-10 Last administered on 06/06/18at 12:25; Admin Dose 0.5 MG; Start 06/05/18 at 15:00 Diphenhydramine HCl (Benadryl) 25 mg Q6H PRN IV ITCHING Last administered on 06/06/18at 05:39; Admin Dose 25 MG; Start 06/05/18 at 22:30; Stop 06/06/18 at 22:30 Hydralazine HCl (Apresoline) 10 mg Q6H PRN IV ELEVATED BLOOD PRESSURE; Start 06/06/18 at 12:00 Magnesium Sulfate 50 ml @ 25 mls/hr ONCE ONCE IVPB ; Start 06/06/18 at 14:00; Stop 06/06/18 at 15:59 Allergies: Uncoded Allergies: ALMONDS (Allergy, Unknown, SOB, 05/07/18) THROAT CLOSES Past Surgical History Wound debridement Open cholecystectomy Past Surgical Hx: other Social History Alcohol Use: none Smoking Status: Current every day smoker Drug Use: none Exam/Review of Systems Exam Vitals Vital Signs Date Temp Pulse Resp B/P (MAP) Pulse Ox O2 O2 Flow FiO2 Time Delivery Rate 06/06/18 98.3 60 20 154/74 94 08:11 (100) 06/05/18 Room Air 14:14 Intake and Output 06/05/18 06/05/18 06/06/18 1414:59 22:59 06:59 IntakeIntake Total 100 ml 1100 ml 200 ml BalanceBalance 100 ml 1100 ml 200 ml Constitutional: alert, oriented, well developed Psych: nl mood/affect, anxiety (Minimal) Head: normocephalic, atraumatic Eyes: nl conjunctiva, EOMI, nl lids, nl sclera ENMT: nl external ears & nose, nl lips & teeth, mucosa pink and moist Neck: supple, non-tender; No jvd Respiratory: normal air movement; No congested cough Cardiovascular: regular rate and rhythm Gastrointestinal: soft, surgical scars, tender (Bilateral lower quadrants); No distended Genitourinary - Female: nl external genitalia Musculoskeletal: nl extremities to inspection, nl gait and stance Extremities: normal pulses Neurological: nl mental status, nl speech, nl strength Skin: No rash or lesions Lymph: nl lymph nodes Results Result Diagram: 06/06/1844806/06/18448 Results 24hrs Laboratory Tests Test 06/05/18 18:35 06/05/18 20:50 06/06/18 01:44 06/06/18 04:49 Bedside Glucose 218 182 109 White Blood Count 7.1 # Red Blood Count 4.66 Hemoglobin 11.9 L Hematocrit 37.3 Mean Corpuscular 80.0 L Volume Mean Corpuscular 25.5 L Hemoglobin Mean Corpuscular 31.9 L Hemoglobin Concent Red Cell 15.3 H Distribution Width Platelet Count 187 Mean Platelet Volume 11.5 H Immature 0.400 Granulocytes % Neutrophils % 33.7 L Lymphocytes % 52.5 H Monocytes % 7.9 Eosinophils % 5.1 Basophils % 0.4 Nucleated Red Blood 0.0 Cells % Immature 0.030 Granulocytes # Neutrophils # 2.4 Lymphocytes # 3.7 H Monocytes # 0.6 Eosinophils # 0.4 Basophils # 0.0 Nucleated Red Blood 0.0 Cells # Sodium Level 142 Potassium Level 3.6 Chloride Level 108 Carbon Dioxide Level 29 Anion Gap 5 Blood Urea Nitrogen 12 Creatinine 0.52 Est Glomerular > 60 Filtrat Rate mL/min Glucose Level 138 # Hemoglobin A1c 8.6 H Calcium Level 9.1 Phosphorus Level 3.2 Magnesium Level 1.4 L Total Bilirubin 0.2 Direct Bilirubin 0.00 Indirect Bilirubin 0.2 Aspartate Amino 25 Transf (AST/SGOT) Alanine 20 Aminotransferase (AL T/SGPT) Alkaline Phosphatase 75 Total Protein 5.4 L Albumin 3.0 L Globulin 2.40 Albumin/Globulin 1.25 Ratio Test 06/06/18 08:20 06/06/18 12:27 Bedside Glucose 122 144 Medications Medication Current Medications Dextrose/Sodium Chloride 1,000 ml @ 100 mls/hr Q10H IV Last administered on 06/06/18at 07:06; Admin Dose 100 MLS/HR; Start 06/05/18 at 05:16 IV Flush (NS 3 ml) 3 ml PER PROTOCOL IV ; Start 06/05/18 at 05:30 Ondansetron HCl (Zofran Inj) 4 mg Q6H PRN IV NAUSEA/VOMITING Last administered on 06/06/18at 13:10; Admin Dose 4 MG; Start 06/05/18 at 05:30 Morphine Sulfate (morphine) 2 mg Q4H PRN IV .SEVERE PAIN 7-10 Last administered on 06/05/18at 10:58; Admin Dose 2 MG; Start 06/05/18 at 05:30 Famotidine (Pepcid Iv) 20 mg Q12 IV Last administered on 06/06/18at 08:10; Admin Dose 20 MG; Start 06/05/18 at 09:00 Albuterol/ Ipratropium (Duoneb) 3 ml Q2H RESP THERAPY PRN HHN SHORTNESS OF BREATH; Start 06/05/18 at 05:30 Piperacillin Sod/ Tazobactam Sod 100 ml @ 200 mls/hr Q6 IVPB Last administered on 06/06/18at 12:25; Admin Dose 200 MLS/HR; Start 06/05/18 at 06:00 Diagnostic Test (Pha) (Accu-Chek) 1 ea 02 XX ; Start 06/06/18 at 02:00 Insulin Glargine (Lantus) 17 units DAILY@0800 SC Last administered on 06/06/18at 08:22; Admin Dose 17 UNITS; Start 06/05/18 at 08:00 Insulin Aspart (Novolog Insulin Pen) NOVOLOG *MODERATE* ALGORITHM WITH MEALS BEDTIME SC Last administered on 06/06/18at 12:31; Admin Dose 2 UNIT; Start 06/05/18 at 08:00 Miscellaneous Information 1 ea NOTE XX ; Start 06/05/18 at 08:30 Glucose (Glutose) 15 gm Q15M PRN PO DECREASED GLUCOSE; Start 06/05/18 at 08:30 Glucose (Glutose) 22.5 gm Q15M PRN PO DECREASED GLUCOSE; Start 06/05/18 at 08:30 Dextrose (D50w Syringe) 25 ml Q15M PRN IV DECREASED GLUCOSE; Start 06/05/18 at 08:30 Dextrose (D50w Syringe) 50 ml Q15M PRN IV DECREASED GLUCOSE; Start 06/05/18 at 08:30 Glucagon (Glucagen) 1 mg Q15M PRN IM DECREASED GLUCOSE; Start 06/05/18 at 08:30 Glucose (Glutose) 15 gm Q15M PRN BUCCAL DECREASED GLUCOSE; Start 06/05/18 at 08:30 Hydromorphone HCl (Dilaudid) 0.5 mg Q4H PRN IV SEVERE PAIN LEVEL 7-10 Last administered on 06/06/18at 12:25; Admin Dose 0.5 MG; Start 06/05/18 at 15:00 Diphenhydramine HCl (Benadryl) 25 mg Q6H PRN IV ITCHING Last administered on 06/06/18at 05:39; Admin Dose 25 MG; Start 06/05/18 at 22:30; Stop 06/06/18 at 22:30 Hydralazine HCl (Apresoline) 10 mg Q6H PRN IV ELEVATED BLOOD PRESSURE; Start 06/06/18 at 12:00 Magnesium Sulfate 50 ml @ 25 mls/hr ONCE ONCE IVPB ; Start 06/06/18 at 14:00; Stop 06/06/18 at 15:59 BIN LEVINE NP Jun 06, 2018 15:13
[2018-06-06] MEDS: morphine 2 MG INJ IV PRN (15:24)
[2018-06-06 19:40] VITALS: BP 137/66; PULSE 64; RESP 16
--- NOTE | 2018-06-06 20:58 | CONS ---
DATE OF ADMISSION: 06/06/2018 DATE OF CONSULTATION: Dear Dr. Rios: Thank you for asking me to see Mrs. Scherer in GI consultation. The patient apparently was admitted be cause of diverticulitis. At this time, I examined the patient. PLAN: I would recommend to continue the antibiotics. She probably needs an EGD because of the upper gastrointestinal symptoms. I will dictate a full note later on. Dictated By: IVETTE YODER/NTS Conf#: [id number] DID#: [id number] CC: MAURICE STEEN MD;*EndCC*
[2018-06-06] MEDS ORDERED: ACETAMINOPHEN 325 MG TAB PO PRN (23:00)
[2018-06-07] VITALS (10 sets, daily range): BP systolic 146–184; BP diastolic 69–86; PULSE 55–73; RESP 17–18
[2018-06-07] MEDS: PIPER-TAZO 3.375 GM IV (PMX) 100 ML IVPB SCH ×5 (00:08→23:39)
[2018-06-07] MEDS: HYDROmorphONE 0.5 MG/0.5 ML SYG IV PRN ×6 (00:51→21:44)
[2018-06-07] MEDS: ACCU-CHEK XX SCH (02:00)
[2018-06-07] MEDS: DEXTROSE 5%-0.45% NACL 1,000 ML IV SCH ×3 (06:37→20:50)
[2018-06-07] MEDS: INSULIN ASPART [NOVOLOG] 3 ML PEN SC SCH ×4 (08:00→20:41)
[2018-06-07] MEDS: FAMOTIDINE 20 MG INJ IV SCH ×2 (08:08→20:40)
[2018-06-07] MEDS: INSULIN GLARGINE [LANTus] (100 UNITS/ML) SYG SC SCH (08:10)
[2018-06-07] MEDS: ONDANSETRON 4 MG INJ IV PRN ×2 (08:55→21:43)
--- NOTE | 2018-06-07 11:28 | PN ---
Date/Time of Note Date/Time of Note DATE: 06/07/18 TIME: 11:27 Assessment/Plan Lines/Catheters IV Catheter Type (from [facility]): Saline Lock Higgins in Place (from [facility]): No Assessment/Plan Chief Complaint/Hosp Course 1. Diverticulosis with acute diverticulitis of mid to descending colon: ? Recurrent versus unresolved -GI consult noted and appreciated, possible egd -Antibiotics -We will need eventual colonoscopy and surgical resection once diverticulitis has fully resolved 2. Abdominal pain: -Pain management 3. Hiatal and umbilical hernia: Asymptomatic: -May consider surgical intervention if becomes symptomatic 4.hypertension -Highly encourage weight loss -Medical management 5. Diabetes -Glucose optimization 6. Dyslipidemia -Highly encouraged weight loss -Medical management 7. Hypothyroidism COPD -Medical management 8. Severe obesity BMI: 37 -diet and exercise optimization -encourage weight loss Thank you. Patient seen and examined in collaboration with Dr. Cresencio Saenz. Subjective 24 Hr Interval Summary Seen by gi specialist. No fevers, chills, sob, congested cough, cp, palpitations, jordan, dizziness, n/v/d/dysuria. Exam/Review of Systems Vital Signs Vitals Exam Free Text/Dictation Constitutional: alert, oriented, well developed Psych: nl mood/affect, anxiety (Minimal) Head: normocephalic, atraumatic Eyes: nl conjunctiva, EOMI, nl lids, nl sclera ENMT: nl external ears & nose, nl lips & teeth, mucosa pink and moist Neck: supple, non-tender; No jvd Respiratory: normal air movement; No congested cough Cardiovascular: regular rate and rhythm Gastrointestinal: soft, surgical scars, tender (Bilateral lower quadrants); No distended Genitourinary - Female: nl external genitalia Musculoskeletal: nl extremities to inspection, nl gait and stance Extremities: normal pulses Neurological: nl mental status, nl speech, nl strength Skin: No rash or lesions Lymph: nl lymph nodes BIN LEVINE NP Jun 07, 2018 11:28
[2018-06-07] MEDS: SENNA TAB PO SCH ×2 (12:30→20:40)
[2018-06-07] MEDS: DOCUSATE SODIUM 100 MG CAP PO SCH ×2 (12:30→20:40)
--- NOTE | 2018-06-07 12:33 | PN ---
Date/Time of Note Date/Time of Note DATE: 06/07/18 TIME: 12:27 Assessment/Plan VTE Prophylaxis Risk score (from Nsg)>0 risk: 4 SCD applied (from Nsg): Yes Pharmacological prophylaxis: other Lines/Catheters IV Catheter Type (from [facility]rs[facility]): Peripheral IV Urinary Cath still in place: No Assessment/Plan Hospital Course S: Patient seen by GI and surgery teams. Still with some occasional pain on soft diet. No fevers. O: VS- see below PE: Constitutional: alert, oriented, well developed Head: normocephalic, atraumatic Eyes: EOMI Respiratory: clear to auscultation, normal air movement Cardiovascular: regular rate and rhythm, nl pulses Gastrointestinal: soft, mild tenderness to palpation Extremities: normal pulses Assessment/Plan: 72-year-old female with a history of hypertension, diabetes, dyslipidemia, hypothyroidism, TIA, COPD presents with abdominal pain and loose stool, likely secondary to acute diverticulitis. 1. Recurrent diverticulitis: Patient was admitted here a month ago with similar symptoms. At that time she was diagnosed with mild diverticulitis and was treated with IV antibiotic-CT again shows mild diverticulitis -Will continue current diet as ordered by surgery team, continue Zosyn -IV fluid -C-difficile and stool culture -Follow-up GI and surgery recommendations, per their notes patient may benefit from EGD in the next 1 to 2 days. Patient may eventually need resection as well once her current diverticulitis has resolved, likely as an outpatient. 2. Diabetes -sugars are stable -A1c equals 8.6 -Continue insulin while in-house 3. Hypertension: BP is in acceptable range -Monitor 4. COPD: No sign of acute exacerbation -Monitor for now, duo nebs as needed 5. Dyslipidemia: Continue home med today 6. Hypothyroidism: Continue Synthroid today Result Diagram: 06/07/18 0438 06/07/18 0438 Results 24hrs Laboratory Tests Test 06/06/18 17:35 06/06/18 20:19 06/07/18 04:38 06/07/18 08:08 Bedside Glucose 205 138 139 White Blood Count 6.2 Red Blood Count 4.40 Hemoglobin 11.4 L Hematocrit 35.3 L Mean Corpuscular 80.2 L Volume Mean Corpuscular 25.9 L Hemoglobin Mean Corpuscular 32.3 Hemoglobin Concent Red Cell 15.0 H Distribution Width Platelet Count 182 Mean Platelet Volume 11.1 H Immature 0.300 Granulocytes % Neutrophils % 35.7 L Lymphocytes % 51.7 H Monocytes % 7.4 Eosinophils % 4.7 Basophils % 0.2 Nucleated Red Blood 0.0 Cells % Immature 0.020 Granulocytes # Neutrophils # 2.2 Lymphocytes # 3.2 H Monocytes # 0.5 Eosinophils # 0.3 Basophils # 0.0 Nucleated Red Blood 0.0 Cells # Sodium Level 142 Potassium Level 4.0 Chloride Level 109 Carbon Dioxide Level 28 Anion Gap 5 Blood Urea Nitrogen 11 Creatinine 0.59 Est Glomerular > 60 Filtrat Rate mL/min Glucose Level 180 Calcium Level 9.5 Phosphorus Level 3.7 Magnesium Level 1.8 Exam/Review of Systems Exam Vitals Vital Signs Date Temp Pulse Resp B/P (MAP) Pulse Ox O2 O2 Flow FiO2 Time Delivery Rate 06/07/18 97.7 56 18 146/69 94 Room Air 07:38 (94) Intake and Output 06/06/18 06/06/18 06/07/18 1515:00 23:00 07:00 IntakeIntake Total 1100 ml 1490 ml 950 ml BalanceBalance 1100 ml 1490 ml 950 ml Results Results 24hrs Laboratory Tests Test 06/06/18 17:35 06/06/18 20:19 06/07/18 04:38 06/07/18 08:08 Bedside Glucose 205 138 139 White Blood Count 6.2 Red Blood Count 4.40 Hemoglobin 11.4 L Hematocrit 35.3 L Mean Corpuscular 80.2 L Volume Mean Corpuscular 25.9 L Hemoglobin Mean Corpuscular 32.3 Hemoglobin Concent Red Cell 15.0 H Distribution Width Platelet Count 182 Mean Platelet Volume 11.1 H Immature 0.300 Granulocytes % Neutrophils % 35.7 L Lymphocytes % 51.7 H Monocytes % 7.4 Eosinophils % 4.7 Basophils % 0.2 Nucleated Red Blood 0.0 Cells % Immature 0.020 Granulocytes # Neutrophils # 2.2 Lymphocytes # 3.2 H Monocytes # 0.5 Eosinophils # 0.3 Basophils # 0.0 Nucleated Red Blood 0.0 Cells # Sodium Level 142 Potassium Level 4.0 Chloride Level 109 Carbon Dioxide Level 28 Anion Gap 5 Blood Urea Nitrogen 11 Creatinine 0.59 Est Glomerular > 60 Filtrat Rate mL/min Glucose Level 180 Calcium Level 9.5 Phosphorus Level 3.7 Magnesium Level 1.8 Medications Medication Current Medications Dextrose/Sodium Chloride 1,000 ml @ 100 mls/hr Q10H IV Last administered on 06/07/18at 08:08; Admin Dose 100 MLS/HR; Start 06/05/18 at 05:16 IV Flush (NS 3 ml) 3 ml PER PROTOCOL IV ; Start 06/05/18 at 05:30 Ondansetron HCl (Zofran Inj) 4 mg Q6H PRN IV NAUSEA/VOMITING Last administered on 06/07/18at 08:55; Admin Dose 4 MG; Start 06/05/18 at 05:30 Morphine Sulfate (morphine) 2 mg Q4H PRN IV .SEVERE PAIN 7-10 Last administered on 06/06/18at 15:24; Admin Dose 2 MG; Start 06/05/18 at 05:30 Famotidine (Pepcid Iv) 20 mg Q12 IV Last administered on 06/07/18at 08:08; Admin Dose 20 MG; Start 06/05/18 at 09:00 Albuterol/ Ipratropium (Duoneb) 3 ml Q2H RESP THERAPY PRN HHN SHORTNESS OF BREATH; Start 06/05/18 at 05:30 Piperacillin Sod/ Tazobactam Sod 100 ml @ 200 mls/hr Q6 IVPB Last administered on 06/07/18at 05:30; Admin Dose 200 MLS/HR; Start 06/05/18 at 06:00 Diagnostic Test (Pha) (Accu-Chek) 1 ea 02 XX ; Start 06/06/18 at 02:00 Insulin Glargine (Lantus) 17 units DAILY@0800 SC Last administered on 06/07/18at 08:10; Admin Dose 17 UNITS; Start 06/05/18 at 08:00 Insulin Aspart (Novolog Insulin Pen) NOVOLOG *MODERATE* ALGORITHM WITH MEALS BEDTIME SC Last administered on 06/06/18at 17:38; Admin Dose 4 UNIT; Start 06/05/18 at 08:00 Miscellaneous Information 1 ea NOTE XX ; Start 06/05/18 at 08:30 Glucose (Glutose) 15 gm Q15M PRN PO DECREASED GLUCOSE; Start 06/05/18 at 08:30 Glucose (Glutose) 22.5 gm Q15M PRN PO DECREASED GLUCOSE; Start 06/05/18 at 08:30 Dextrose (D50w Syringe) 25 ml Q15M PRN IV DECREASED GLUCOSE; Start 06/05/18 at 08:30 Dextrose (D50w Syringe) 50 ml Q15M PRN IV DECREASED GLUCOSE; Start 06/05/18 at 08:30 Glucagon (Glucagen) 1 mg Q15M PRN IM DECREASED GLUCOSE; Start 06/05/18 at 08:30 Glucose (Glutose) 15 gm Q15M PRN BUCCAL DECREASED GLUCOSE; Start 06/05/18 at 08:30 Hydromorphone HCl (Dilaudid) 0.5 mg Q4H PRN IV SEVERE PAIN LEVEL 7-10 Last administered on 06/07/18at 08:50; Admin Dose 0.5 MG; Start 06/05/18 at 15:00 Hydralazine HCl (Apresoline) 10 mg Q6H PRN IV ELEVATED BLOOD PRESSURE Last adm inistered on 06/06/18at 15:11; Admin Dose 10 MG; Start 06/06/18 at 12:00 Acetaminophen (Tylenol Tab) 650 mg Q6H PRN PO MILD PAIN(1-3)OR ELEVATED TEMP Last administered on 06/06/18at 22:50; Admin Dose 650 MG; Start 06/06/18 at 23:00 Docusate Sodium (Colace) 100 mg BID PO ; Start 06/07/18 at 12:30 Senna (Senokot) 1 tab BID PO ; Start 06/07/18 at 12:30 SHIRA REZA Jun 07, 2018 12:33
[2018-06-07] MEDS ORDERED: ALBUTEROL HFA 8 GM INHALER INH PRN (13:00)
[2018-06-07] MEDS ORDERED: ALPRAZOLAM 1 MG TAB PO PRN (13:00)
[2018-06-07] MEDS ORDERED: NON-FORMULARY/PATIENT OWN MED (Varenicline Tartrate (Chantix) 1 MG) PO SCH (13:00)
[2018-06-07] MEDS: RANITIDINE 150 MG TAB PO SCH ×2 (13:00→14:23)
[2018-06-07] MEDS ORDERED: LEVOTHYROXINE 100 MCG TAB PO SCH (13:00)
--- NOTE | 2018-06-07 13:09 | PN ---
Date/Time of Note Date/Time of Note DATE: 06/07/18 TIME: 13:08 Assessment/Plan Lines/Catheters IV Catheter Type (from [facility]): Peripheral IV Higgins in Place (from [facility]): No Assessment/Plan Chief Complaint/Hosp Course 1. Diverticulosis with acute diverticulitis of mid to descending colon: ? Recurrent versus unresolved -GI consult noted and appreciated, possible egd -Antibiotics -will need eventual colonoscopy and possible surgical resection (if patient amenable) once diverticulitis has fully resolved> explained in detail to patient 2. Abdominal pain: -Pain management 3. Hiatal and umbilical hernia: Asymptomatic: -May consider surgical intervention if becomes symptomatic 4.hypertension -Highly encourage weight loss -Medical management 5. Diabetes -Glucose optimization 6. Dyslipidemia -Highly encouraged weight loss -Medical management 7. Hypothyroidism COPD -Medical management 8. Severe obesity BMI: 37 -diet and exercise optimization -encourage weight loss Thank you. Patient seen and examined in collaboration with Dr. Cresencio Saenz. Subjective 24 Hr Interval Summary Intermittent abdominal pain however improved. No fevers, chills, sob, congested cough, cp, palpitations, jordan, dizziness, nausea, vomiting, diarrhea, dysuria. + Bowel function Exam/Review of Systems Vital Signs Vitals Vital Signs Date Temp Pulse Resp B/P (MAP) Pulse Ox O2 O2 Flow FiO2 Time Delivery Rate 06/07/18 97.7 56 18 146/69 94 Room Air 07:38 (94) Intake and Output 06/06/18 06/06/18 06/07/18 1515:00 23:00 07:00 IntakeIntake Total 1100 ml 1490 ml 950 ml BalanceBalance 1100 ml 1490 ml 950 ml Exam Free Text/Dictation Constitutional: alert, oriented, well developed Psych: nl mood/affect, anxiety (Minimal) Head: normocephalic, atraumatic Eyes: nl conjunctiva, EOMI, nl lids, nl sclera ENMT: nl external ears & nose, nl lips & teeth, mucosa pink and moist Neck: supple, non-tender; No jvd Respiratory: normal air movement; No congested cough Cardiovascular: regular rate and rhythm Gastrointestinal: soft, surgical scars, tender (Bilateral lower quadrants); No distended Genitourinary - Female: nl external genitalia Musculoskeletal: nl extremities to inspection, nl gait and stance Extremities: normal pulses Neurological: nl mental status, nl speech, nl strength Skin: No rash or lesions Lymph: nl lymph nodes Results Result Diagram: 06/07/18 0438 06/07/18 0438 BIN LEVINE NP Jun 07, 2018 13:09
[2018-06-07] MEDS: FERROUS SULFATE (EC) 325 MG TAB PO SCH (13:18)
[2018-06-07] MEDS: hydrALAzine 20 MG INJ IV PRN ×2 (14:22→20:42)
[2018-06-07] MEDS: morphine 2 MG INJ IV PRN (16:36)
--- NOTE | 2018-06-07 19:14 | CONS ---
DATE OF ADMISSION: 06/06/2018 DATE OF CONSULTATION: TYPE OF CONSULTATION: Gastroenterology. HISTORY OF PRESENT ILLNESS: The patient was seen by me on 06/06/2018 at the request of Dr. Debbie hairston rding the left lower quadrant pain. Apparently, she has been experiencing left lower quadrant pain f or the past several days. In fact, she was treated for diverticulitis a month ago in this hospital. She did not have any colonoscopy recently. No nausea, no vomiting, no GI bleeding, no fever. PAST MEDICAL HISTORY: Diverticulitis. REVIEW OF SYSTEMS: Positive for diabetes, hypertension, COPD, dyslipidemia, hypothyroidism. PAST SURGICAL HISTORY: Please review the history and physical. CURRENT MEDICATIONS: Include: 1. Zofran. 2. Morphine. 3. Pepcid. 4. DuoNeb. 5. Piperacillin and tazobactam. PHYSICAL EXAMINATION: GENERAL: The patient is a 72-year-old female who at this time, quite alert, well built. VITAL SIGNS: Afebrile. CARDIOVASCULAR: Normal heart sounds. RESPIRATORY: Normal breath sounds. ABDOMEN: Shows soft abdomen with left lower quadrant tenderness is noted. LABORATORY WORKUP: Yesterday, WBC 7100, hemoglobin 11.9, platelet 187,000. , creatinine 0.59, BUN is 11. DIAGNOSTIC DATA: CAT scan of the abdomen shows minimal diverticulitis of the descending colon. CLINICAL IMPRESSION: Diverticulitis, which is recurrent, not completely responding to antibiotic the rapy. There is no evidence of abscess or perforation of diverticulitis area. PLAN: I would recommend continued antibiotic therapy. She probably needs a colonoscopy in the near future. Once again, doctor, thank you for this consultation. Dictated By: IVETTE YODER/NTS Conf#: [id number] DID#: [id number] CC: PACO MIRANDA MD; MAURICE STEEN MD; SHIRA REZA;*End*
[2018-06-07] MEDS: traMADol 50 MG TAB PO PRN (20:40)
[2018-06-07] MEDS: ATORVASTATIN 40 MG TAB PO SCH (20:40)
[2018-06-08] MEDS: HYDROmorphONE 0.5 MG/0.5 ML SYG IV PRN ×4 (01:42→20:07)
[2018-06-08] MEDS: ACCU-CHEK XX SCH (01:42)
[2018-06-08 01:43] VITALS: BP 177/94; PULSE 71
[2018-06-08] MEDS: hydrALAzine 20 MG INJ IV PRN (02:56)
[2018-06-08] MEDS ORDERED: ALPRAZOLAM 0.5 MG TAB PO PRN (04:30)
[2018-06-08] MEDS: PIPER-TAZO 3.375 GM IV (PMX) 100 ML IVPB SCH ×3 (05:42→17:48)
[2018-06-08 07:44] VITALS: BP 147/78; PULSE 82; RESP 18
[2018-06-08] MEDS: INSULIN ASPART [NOVOLOG] 3 ML PEN SC SCH ×4 (08:24→21:00)
[2018-06-08] MEDS: INSULIN GLARGINE [LANTus] (100 UNITS/ML) SYG SC SCH (08:25)
[2018-06-08] MEDS: FERROUS SULFATE (EC) 325 MG TAB PO SCH (08:25)
[2018-06-08] MEDS: LEVOTHYROXINE 100 MCG TAB PO SCH (08:25)
[2018-06-08] MEDS: ASPIRIN (EC) 81 MG TAB PO SCH (08:26)
[2018-06-08] MEDS: FAMOTIDINE 20 MG INJ IV SCH ×2 (08:26→20:07)
[2018-06-08] MEDS: ASCORBIC ACID 500 MG TAB PO SCH (08:26)
[2018-06-08] MEDS: AMLODIPINE 5 MG TAB PO SCH (08:26)
[2018-06-08] MEDS: SENNA TAB PO SCH ×2 (08:27→20:07)
[2018-06-08] MEDS: DOCUSATE SODIUM 100 MG CAP PO SCH (08:27)
[2018-06-08] MEDS: morphine 2 MG INJ IV PRN (11:26)
[2018-06-08] MEDS: DEXTROSE 5%-0.45% NACL 1,000 ML IV SCH (11:26)
[2018-06-08] MEDS: ONDANSETRON 4 MG INJ IV PRN (11:33)
[2018-06-08] MEDS: traMADol 50 MG TAB PO PRN ×2 (11:37→23:08)
[2018-06-08] MEDS: RANITIDINE 150 MG TAB PO SCH (13:26)
[2018-06-08] MEDS ORDERED: BENAZEPRIL 20 MG TAB PO SCH (13:30)
[2018-06-08] MEDS ORDERED: CYCLOBENZAPRINE 10 MG TAB PO SCH (13:30)
[2018-06-08] MEDS: BENAZEPRIL 10 MG TAB PO SCH (13:40)
[2018-06-08] MEDS ORDERED: DOCUSATE SODIUM 100 MG CAP PO PRN (15:00)
[2018-06-08] MEDS ORDERED: CYCLOBENZAPRINE 10 MG TAB PO PRN (15:00)
--- NOTE | 2018-06-08 15:00 | PN ---
Date/Time of Note Date/Time of Note DATE: 06/08/18 TIME: 14:55 Assessment/Plan VTE Prophylaxis Risk score (from Nsg)>0 risk: 4 SCD applied (from Nsg): Yes Pharmacological prophylaxis: other Lines/Catheters IV Catheter Type (from Nrsg): Peripheral IV Urinary Cath still in place: No Assessment/Plan Hospital Course S: Patient had some pain symptoms earlier today but presently is quite sleepy after getting muscle relaxant and pain control medications a couple of hours ago. Tolerating diet per nursing staff. Did complain of possible diarrhea symptoms earlier today. O: VS- see below PE: Constitutional: alert, oriented, well developed Head: normocephalic, atraumatic Eyes: EOMI Respiratory: clear to auscultation, normal air movement Cardiovascular: regular rate and rhythm, nl pulses Gastrointestinal: soft, mild tenderness to palpation Extremities: normal pulses Assessment/Plan: 72-year-old female with a history of hypertension, diabetes, dyslipidemia, hypothyroidism, TIA, COPD presents with abdominal pain and loose stool, likely secondary to acute diverticulitis. 1. Recurrent diverticulitis: Present diverticulitis is improving with current treatment. Patient was admitted here a month ago with similar symptoms. At that time she was diagnosed with mild diverticulitis and was treated with IV antibiotic-CT again shows mild diverticulitis. -Will continue current diet as ordered by surgery team, continue Zosyn -We will cut back on the rate of IV fluid, follow GI recommendations. -Follow-up results of C-difficile and stool culture -these are still pending. -Follow-up GI and surgery recommendations, per their notes patient may benefit from EGD in the next 1 to 2 days. Patient will likely need colonoscopy once her diverticulitis has resolved, and may eventually also need colon rese ction as well once her current diverticulitis has resolved, likely as an outpatient. -Given patient's lethargy symptoms, possibly secondary to narcotic use, will cut back the frequency of the Dilaudid and make the muscle relaxants which was started earlier today as a as needed medication. Also will discontinue the morphine and add ibuprofen as needed headache. 2. Diabetes -sugars are stable -A1c equals 8.6 -Continue insulin while in-house 3. Hypertension: BP is in acceptable range -Monitor 4. COPD: No sign of acute exacerbation -Monitor for now, duo nebs as needed 5. Dyslipidemia: Continue home med 6. Hypothyroidism: Continue Synthroid Result Diagram: 06/08/18 1321 06/08/18 1321 Results 24hrs Laboratory Tests Test 06/07/18 17:38 06/07/18 20:38 06/08/18 08:02 06/08/18 13:21 Bedside Glucose 229 H 88 171 White Blood Count 7.5 # Red Blood Count 4.83 Hemoglobin 12.4 Hematocrit 38.1 Mean Corpuscular 78.9 L Volume Mean Corpuscular 25.7 L Hemoglobin Mean Corpuscular 32.5 Hemoglobin Concent Red Cell 15.2 H Distribution Width Platelet Count 207 Mean Platelet Volume 10.9 H Immature 0.400 Granulocytes % Neutrophils % 51.8 Lymphocytes % 34.4 Monocytes % 9.3 Eosinophils % 3.7 Basophils % 0.4 Nucleated Red Blood 0.0 Cells % Immature 0.030 Granulocytes # Neutrophils # 3.9 Lymphocytes # 2.6 Monocytes # 0.7 Eosinophils # 0.3 Basophils # 0.0 Nucleated Red Blood 0.0 Cells # Sodium Level 141 Potassium Level 3.7 Chloride Level 108 Carbon Dioxide Level 26 Anion Gap 7 Blood Urea Nitrogen 5 L Creatinine 0.46 Est Glomerular > 60 Filtrat Rate mL/min Glucose Level 125 # Calcium Level 10.1 Test 06/08/18 13:25 Bedside Glucose 134 Exam/Review of Systems Exam Vitals Vital Signs Date Temp Pulse Resp B/P (MAP) Pulse Ox O2 O2 Flow FiO2 Time Delivery Rate 06/08/18 98.8 82 18 147/78 94 07:44 (101) 06/07/18 Room Air 14:11 Intake and Output 06/07/18 06/07/18 06/08/18 1515:00 23:00 07:00 IntakeIntake Total 1070 ml 1580 ml 1500 ml BalanceBalance 1070 ml 1580 ml 1500 ml Results Results 24hrs Laboratory Tests Test 06/07/18 17:38 06/07/18 20:38 06/08/18 08:02 06/08/18 13:21 Bedside Glucose 229 H 88 171 White Blood Count 7.5 # Red Blood Count 4.83 Hemoglobin 12.4 Hematocrit 38.1 Mean Corpuscular 78.9 L Volume Mean Corpuscular 25.7 L Hemoglobin Mean Corpuscular 32.5 Hemoglobin Concent Red Cell 15.2 H Distribution Width Platelet Count 207 Mean Platelet Volume 10.9 H Immature 0.400 Granulocytes % Neutrophils % 51.8 Lymphocytes % 34.4 Monocytes % 9.3 Eosinophils % 3.7 Basophils % 0.4 Nucleated Red Blood 0.0 Cells % Immature 0.030 Granulocytes # Neutrophils # 3.9 Lymphocytes # 2.6 Monocytes # 0.7 Eosinophils # 0.3 Basophils # 0.0 Nucleated Red Blood 0.0 Cells # Sodium Level 141 Potassium Level 3.7 Chloride Level 108 Carbon Dioxide Level 26 Anion Gap 7 Blood Urea Nitrogen 5 L Creatinine 0.46 Est Glomerular > 60 Filtrat Rate mL/min Glucose Level 125 # Calcium Level 10.1 Test 06/08/18 13:25 Bedside Glucose 134 Medications Medication Current Medications Dextrose/Sodium Chloride 1,000 ml @ 100 mls/hr Q10H IV Last administered on 06/08/18at 11:26; Admin Dose 100 MLS/HR; Start 06/05/18 at 05:16 IV Flush (NS 3 ml) 3 ml PER PROTOCOL IV ; Start 06/05/18 at 05:30 Ondansetron HCl (Zofran Inj) 4 mg Q6H PRN IV NAUSEA/VOMITING Last administered on 06/08/18at 11:33; Admin Dose 4 MG; Start 06/05/18 at 05:30 Famotidine (Pepcid Iv) 20 mg Q12 IV Last administered on 06/08/18at 08:26; Admin Dose 20 MG; Start 06/05/18 at 09:00 Albuterol/ Ipratropium (Duoneb) 3 ml Q2H RESP THERAPY PRN HHN SHORTNESS OF BREATH; Start 06/05/18 at 05:30 Piperacillin Sod/ Tazobactam Sod 100 ml @ 200 mls/hr Q6 IVPB Last administered on 06/08/18at 11:32; Admin Dose 200 MLS/HR; Start 06/05/18 at 06:00 Diagnostic Test (Pha) (Accu-Chek) 1 ea 02 XX ; Start 06/06/18 at 02:00 Insulin Glargine (Lantus) 17 units DAILY@0800 SC Last administered on 06/08/18at 08:25; Admin Dose 17 UNITS; Start 06/05/18 at 08:00 Insulin Aspart (Novolog Insulin Pen) NOVOLOG *MODERATE* ALGORITHM WITH MEALS BEDTIME SC Last administered on 06/08/18 08:24; Admin Dose 2 UNIT; Start 06/05/18 at 08:00 Miscellaneous Information 1 ea NOTE XX ; Start 06/05/18 at 08:30 Glucose (Glutose) 15 gm Q15M PRN PO DECREASED GLUCOSE; Start 06/05/18 at 08:30 Glucose (Glutose) 22.5 gm Q15M PRN PO DECREASED GLUCOSE; Start 06/05/18 at 08:30 Dextrose (D50w Syringe) 25 ml Q15M PRN IV DECREASED GLUCOSE; Start 06/05/18 at 08:30 Dextrose (D50w Syringe) 50 ml Q15M PRN IV DECREASED GLUCOSE; Start 06/05/18 at 08:30 Glucagon (Glucagen) 1 mg Q15M PRN IM DECREASED GLUCOSE; Start 06/05/18 at 08:30 Glucose (Glutose) 15 gm Q15M PRN BUCCAL DECREASED GLUCOSE; Start 06/05/18 at 08:30 Hydromorphone HCl (Dilaudid) 0.5 mg Q4H PRN IV SEVERE PAIN LEVEL 7-10 Last administered on 06/08/18at 13:22; Admin Dose 0.5 MG; Start 06/05/18 at 15:00 Hydralazine HCl (Apresoline) 10 mg Q6H PRN IV ELEVATED BLOOD PRESSURE Last administered on 06/08/18at 02:56; Admin Dose 10 MG; Start 06/06/18 at 12:00 Acetaminophen (Tylenol Tab) 650 mg Q6H PRN PO MILD PAIN(1-3)OR ELEVATED TEMP Last administered on 06/06/18at 22:50; Admin Dose 650 MG; Start 06/06/18 at 23:00 Senna (Senokot) 1 tab BID PO ; Start 06/07/18 at 12:30 Albuterol (Ventolin Hfa) 2 puff Q4H PRN INH WHEEZING AND SOB; Start 06/07/18 at 13:00 Alprazolam (Xanax) 2 mg Q8H PRN PO ANXIETY Last administered on 06/08/18at 13:26; Admin Dose 2 MG; Start 06/07/18 at 13:00 Amlodipine Besylate (Norvasc) 5 mg DAILY PO Last administered on 06/08/18at 08:26; Admin Dose 5 MG; Start 06/08/18 at 09:00 Ascorbic Acid (Vitamin C) 500 mg DAILY PO Last administered on 06/08/18 08:26; Admin Dose 500 MG; Start 06/08/18 at 09:00 Aspirin (Halfprin) 81 mg DAILY PO Last administered on 06/08/18 08:26; Admin Dose 81 MG; Start 06/08/18 at 09:00 Atorvastatin Calcium (Lipitor) 40 mg QHS PO Last administered on 06/07/18 20:40; Admin Dose 40 MG; Start 06/07/18 at 21:00 Ferrous Sulfate (Ferrous Sulfate (Ec)) 325 mg DAILY PO Last administered on 06/08/18 08:25; Admin Dose 325 MG; Start 06/07/18 at 13:00 Ranitidine HCl (Zantac) 150 mg Q24H PO Last administered on 06/08/18 13:26; Admin Dose 150 MG; Start 06/07/18 at 13:00 Tramadol HCl (Ultram) 50 mg Q4 PRN PO PAIN Last administered on 06/08/18 11:37; Admin Dose 50 MG; Start 06/07/18 at 13:00 Miscellaneous Information 1 mg DAILY PO ; Start 06/07/18 at 13:00; Status UNV Levothyroxine Sodium (Synthroid) 100 mcg DAILY@0700 PO Last administered on 06/08/18 08:25; Admin Dose 100 MCG; Start 06/08/18 at 07:00 Cyclobenzaprine HCl (Flexeril) 10 mg TID PO Last administered on 06/08/18 13:40; Admin Dose 10 MG; Start 06/08/18 at 13:30 Benazepril HCl (Lotensin) 20 mg DAILY PO Last administered on 06/08/18 13:40; Admin Dose 20 MG; Start 06/08/18 at 14:30 Docusate Sodium (Colace) 100 mg BID PRN PO CONSTIPATION; Start 06/08/18 at 15:00; Status UNV Ibuprofen (Motrin) 600 mg Q6H PRN PO HEADACHE; Start 06/08/18 at 15:00; Status UNV SHIRA REZA Jun 08, 2018 15:00
[2018-06-08 15:20] VITALS: BP 148/76; PULSE 86; RESP 18
[2018-06-08 19:50] VITALS: BP 145/85; PULSE 72; RESP 18
[2018-06-08] MEDS: ATORVASTATIN 40 MG TAB PO SCH (20:07)
[2018-06-09] MEDS: PIPER-TAZO 3.375 GM IV (PMX) 100 ML IVPB SCH ×4 (00:06→18:10)
--- NOTE | 2018-06-09 01:19 | PN ---
Date/Time of Note Date/Time of Note DATE: 06/08/18 TIME: 23:13 Assessment/Plan Lines/Catheters IV Catheter Type (from [facility]): Peripheral IV Hig[facility] in Place (from [facility]): No Assessment/Plan Chief Complaint/Hosp Course 1. Diverticulosis with acute diverticulitis of mid to descending colon: ? Recurrent versus unresolved -GI input appreciated, possible egd and eventual colonoscopy -Eventual colonoscopy and possible surgical resection (if patient amenable) once diverticulitis has fully resolved -Abx 2. Abdominal pain: -Pain management 3. Hiatal and umbilical hernia: Asymptomatic: -May consider surgical intervention if becomes symptomatic -Encourage weight loss and optimization 4. Hypertension -Highly encourage weight loss -Diet and exercise 5. Diabetes -Nutrition, exercise, weight, med optimization 6. Dyslipidemia -Nutrition, exercise, weight, med optimization 7. Hypothyroidism COPD -Medical management 8. Severe obesity BMI: 37 -diet and exercise optimization -encourage weight loss Thank you, Late entry 06/08 Subjective 24 Hr Interval Summary Bowel functions. Intermittent abdominal pain however improved. No fevers, chills, sob, congested cough, cp, palpitations, jordan, dizziness, nausea, vomiting, dysuria. Exam/Review of Systems Vital Signs Vitals Vital Signs Date Temp Pulse Resp B/P (MAP) Pulse Ox O2 O2 Flow FiO2 Time Delivery Rate 06/08/18 98.0 72 18 145/85 94 19:50 (105) 06/07/18 Room Air 14:11 Intake and Output 06/08/18 06/08/18 06/09/18 1414:59 22:59 06:59 IntakeIntake Total 1540 ml 600 ml OutputOutput Total 600 ml BalanceBalance 1540 ml 0 ml Exam Free Text/Dictation Constitutional: alert, oriented, well developed Psych: nl mood/affect, anxiety (Minimal) Head: normocephalic, atraumatic Eyes: nl conjunctiva, EOMI, nl lids, nl sclera ENMT: nl external ears & nose, nl lips & teeth, mucosa pink and moist Neck: supple, non-tender; No jvd Respiratory: normal air movement; No congested cough Cardiovascular: regular rate and rhythm Gastrointestinal: soft, surgical scars, tender (Bilateral lower quadrants); No distended Genitourinary - Female: nl external genitalia Musculoskeletal: nl extremities to inspection, nl gait and stance Extremities: normal pulses Neurological: nl mental status, nl speech, nl strength Skin: No rash or lesions Lymph: nl lymph nodes Results Result Diagram: 06/08/18 1321 06/08/18 1321 ADRIÁN REYNA MD Jun 09, 2018 01:19
[2018-06-09 02:00] VITALS: BP 130/65; PULSE 67; RESP 18
[2018-06-09] MEDS: ACCU-CHEK XX SCH (02:00)
[2018-06-09] MEDS: HYDROmorphONE 0.5 MG/0.5 ML SYG IV PRN ×3 (04:55→21:03)
[2018-06-09] MEDS: LEVOTHYROXINE 100 MCG TAB PO SCH (06:05)
[2018-06-09] MEDS: DEXTROSE 5%-0.45% NACL 1,000 ML IV SCH ×2 (07:37→18:17)
[2018-06-09] MEDS: INSULIN ASPART [NOVOLOG] 3 ML PEN SC SCH ×4 (08:00→20:59)
[2018-06-09 08:21] VITALS: BP 168/77; PULSE 68; RESP 18
[2018-06-09] MEDS: FERROUS SULFATE (EC) 325 MG TAB PO SCH (08:42)
[2018-06-09] MEDS: IBUPROFEN 600 MG TAB PO PRN ×2 (08:42→19:07)
[2018-06-09] MEDS: BENAZEPRIL 10 MG TAB PO SCH (08:44)
[2018-06-09] MEDS: AMLODIPINE 5 MG TAB PO SCH (08:45)
[2018-06-09] MEDS: ASPIRIN (EC) 81 MG TAB PO SCH (08:45)
[2018-06-09] MEDS: SENNA TAB PO SCH ×2 (08:45→21:00)
[2018-06-09] MEDS: ASCORBIC ACID 500 MG TAB PO SCH (08:45)
[2018-06-09] MEDS: FAMOTIDINE 20 MG INJ IV SCH ×2 (09:43→21:01)
[2018-06-09] MEDS: INSULIN GLARGINE [LANTus] (100 UNITS/ML) SYG SC SCH (09:52)
--- NOTE | 2018-06-09 12:48 | PN ---
Date/Time of Note Date/Time of Note DATE: 06/09/18 TIME: 12:44 Assessment/Plan VTE Prophylaxis Risk score (from Nsg)>0 risk: 3 SCD applied (from Nsg): Yes Pharmacological prophylaxis: other Lines/Catheters IV Catheter Type (from Nrsg): Peripheral IV Urinary Cath still in place: No Assessment/Plan Hospital Course S: Patient has been tolerating liquid diet for the last few days now. Did have some abdominal pain this morning, relieved with pain medicines. Patient more awake and alert after adjustments were made to her muscle relaxants and opiate medications frequency yesterday. Seen by surgery team yesterday. Per discussed with GI team yesterday, no plans for colonoscopy while as an inpatient, but likely would occur in a week or so as an outpatient, this was explained to the patient and family today at the bedside today as well. O: VS- see below PE: Constitutional: alert, oriented, well developed Head: normocephalic, atraumatic Eyes: EOMI Respiratory: clear to auscultation, normal air movement Cardiovascular: regular rate and rhythm, nl pulses Gastrointestinal: soft, mild tenderness to palpation Extremities: normal pulses Assessment/Plan: 72-year-old female with a history of hypertension, diabetes, dyslipidemia, hypothyroidism, TIA, COPD presents with abdominal pain and loose stool, likely secondary to acute diverticulitis. 1. Recurrent diverticulitis: Present diverticulitis is improving with current treatment. Patient was admitted here a month ago with similar symptoms. At [facility] time she was diagnosed with mild diverticulitis and was treated with IV antibiotic-CT again shows mild diverticulitis. -Will continue current diet as ordered by surgery team, continue Zosyn antibiotic for now - follow GI recommendations-again, likely for colonoscopy as an outpatient when her diverticulitis is fully healed. They are also considering EGD as well. -Follow-up results of C-difficile and stool culture -these are still pending. -Per surgery recommendations, depending on what EGD and colonoscopy show, patient may eventually also need colon resection as well once her current div erticulitis has resolved, likely as an outpatient. 2. Diabetes -sugars are stable -A1c equals 8.6 -Continue insulin while in-house 3. Hypertension: BP is in acceptable range -Monitor 4. COPD: No sign of acute exacerbation -Monitor for now, duo nebs as needed 5. Dyslipidemia: Continue home med 6. Hypothyroidism: Continue Synthroid Dispo: Likely home in 1 to 2 days after her diverticulitis is fully resolved, she is tolerating advancement of diet per surgery recommendations when they order it, and GI decides whether to perform EGD as an inpatient or not. Again colonoscopy likely would be performed as an outpatient in the next week or so once her diverticulitis is fully resolved. Result Diagram: 06/09/18 0502 06/09/18 0501 Results 24hrs Laboratory Tests Test 06/08/18 13:21 06/08/18 13:25 06/08/18 17:47 06/08/18 21:35 White Blood Count 7.5 # Red Blood Count 4.83 Hemoglobin 12.4 Hematocrit 38.1 Mean Corpuscular 78.9 L Volume Mean Corpuscular 25.7 L Hemoglobin Mean Corpuscular 32.5 Hemoglobin Concent Red Cell 15.2 H Distribution Width Platelet Count 207 Mean Platelet Volume 10.9 H Immature 0.400 Granulocytes % Neutrophils % 51.8 Lymphocytes % 34.4 Monocytes % 9.3 Eosinophils % 3.7 Basophils % 0.4 Nucleated Red Blood 0.0 Cells % Immature 0.030 Granulocytes # Neutrophils # 3.9 Lymphocytes # 2.6 Monocytes # 0.7 Eosinophils # 0.3 Basophils # 0.0 Nucleated Red Blood 0.0 Cells # Sodium Level 141 Potassium Level 3.7 Chloride Level 108 Carbon Dioxide Level 26 Anion Gap 7 Blood Urea Nitrogen 5 L Creatinine 0.46 Est Glomerular > 60 Filtrat Rate mL/min Glucose Level 125 # Calcium Level 10.1 Bedside Glucose 134 140 165 Test 06/09/18 05:01 06/09/18 05:02 06/09/18 08:26 Sodium Level 142 Potassium Level 3.9 Chloride Level 107 Carbon Dioxide Level 29 Anion Gap 6 Blood Urea Nitrogen 5 L Creatinine 0.53 Est Glomerular > 60 Filtrat Rate mL/min Glucose Level 138 Calcium Level 9.8 Phosphorus Level 4.2 Magnesium Level 1.4 L Total Bilirubin 0.3 Direct Bilirubin 0.00 Indirect Bilirubin 0.3 Aspartate Amino 19 Transf (AST/SGOT) Alanine 20 Aminotransferase (AL T/SGPT) Alkaline Phosphatase 88 Total Protein 5.7 L Albumin 3.1 L Globulin 2.60 Albumin/Globulin 1.19 Ratio White Blood Count 7.3 Red Blood Count 4.76 Hemoglobin 12.1 Hematocrit 37.8 Mean Corpuscular 79.4 L Volume Mean Corpuscular 25.4 L Hemoglobin Mean Corpuscular 32.0 Hemoglobin Concent Red Cell 15.4 H Distribution Width Platelet Count 210 Mean Platelet Volume 11.2 H Immature 0.400 Granulocytes % Neutrophils % 39.6 Lymphocytes % 48.7 Monocytes % 6.6 Eosinophils % 4.3 Basophils % 0.4 Nucleated Red Blood 0.0 Cells % Immature 0.030 Granulocytes # Neutrophils # 2.9 Lymphocytes # 3.5 H Monocytes # 0.5 Eosinophils # 0.3 Basophils # 0.0 Nucleated Red Blood 0.0 Cells # Bedside Glucose 124 Exam/Review of Systems Exam Vitals Vital Signs Date Temp Pulse Resp B/P (MAP) Pulse Ox O2 O2 Flow FiO2 Time Delivery Rate 06/09/18 98.7 68 18 168/77 90 08:21 (107) 06/07/18 Room Air 14:11 Intake and Output 06/08/18 06/08/18 06/09/18 1515:00 23:00 07:00 IntakeIntake Total 1540 ml 600 ml 400 ml OutputOutput Total 600 ml BalanceBalance 1540 ml 0 ml 400 ml Results Results 24hrs Laboratory Tests Test 06/08/18 13:21 06/08/18 13:25 06/08/18 17:47 06/08/18 21:35 White Blood Count 7.5 # Red Blood Count 4.83 Hemoglobin 12.4 Hematocrit 38.1 Mean Corpuscular 78.9 L Volume Mean Corpuscular 25.7 L Hemoglobin Mean Corpuscular 32.5 Hemoglobin Concent Red Cell 15.2 H Distribution Width Platelet Count 207 Mean Platelet Volume 10.9 H Immature 0.400 Granulocytes % Neutrophils % 51.8 Lymphocytes % 34.4 Monocytes % 9.3 Eosinophils % 3.7 Basophils % 0.4 Nucleated Red Blood 0.0 Cells % Immature 0.030 Granulocytes # Neutrophils # 3.9 Lymphocytes # 2.6 Monocytes # 0.7 Eosinophils # 0.3 Basophils # 0.0 Nucleated Red Blood 0.0 Cells # Sodium Level 141 Potassium Level 3.7 Chloride Level 108 Carbon Dioxide Level 26 Anion Gap 7 Blood Urea Nitrogen 5 L Creatinine 0.46 Est Glomerular > 60 Filtrat Rate mL/min Glucose Level 125 # Calcium Level 10.1 Bedside Glucose 134 140 165 Test 06/09/18 05:01 06/09/18 05:02 06/09/18 08:26 Sodium Level 142 Potassium Level 3.9 Chloride Level 107 Carbon Dioxide Level 29 Anion Gap 6 Blood Urea Nitrogen 5 L Creatinine 0.53 Est Glomerular > 60 Filtrat Rate mL/min Glucose Level 138 Calcium Level 9.8 Phosphorus Level 4.2 Magnesium Level 1.4 L Total Bilirubin 0.3 Direct Bilirubin 0.00 Indirect Bilirubin 0.3 Aspartate Amino 19 Transf (AST/SGOT) Alanine 20 Aminotransferase (AL T/SGPT) Alkaline Phosphatase 88 Total Protein 5.7 L Albumin 3.1 L Globulin 2.60 Albumin/Globulin 1.19 Ratio White Blood Count 7.3 Red Blood Count 4.76 Hemoglobin 12.1 Hematocrit 37.8 Mean Corpuscular 79.4 L Volume Mean Corpuscular 25.4 L Hemoglobin Mean Corpuscular 32.0 Hemoglobin Concent Red Cell 15.4 H Distribution Width Platelet Count 210 Mean Platelet Volume 11.2 H Immature 0.400 Granulocytes % Neutrophils % 39.6 Lymphocytes % 48.7 Monocytes % 6.6 Eosinophils % 4.3 Basophils % 0.4 Nucleated Red Blood 0.0 Cells % Immature 0.030 Granulocytes # Neutrophils # 2.9 Lymphocytes # 3.5 H Monocytes # 0.5 Eosinophils # 0.3 Basophils # 0.0 Nucleated Red Blood 0.0 Cells # Bedside Glucose 124 Medications Medication Current Medications Dextrose/Sodium Chloride 1,000 ml @ 50 mls/hr Q20H IV Last administered on 06/08/18at 11:26; Admin Dose 100 MLS/HR; Start 06/05/18 at 05:16 IV Flush (NS 3 ml) 3 ml PER PROTOCOL IV ; Start 06/05/18 at 05:30 Ondansetron HCl (Zofran Inj) 4 mg Q6H PRN IV NAUSEA/VOMITING Last administered on 06/08/18at 11:33; Admin Dose 4 MG; Start 06/05/18 at 05:30 Famotidine (Pepcid Iv) 20 mg Q12 IV Last administered on 06/09/18at 09:43; Admin Dose 20 MG; Start 06/05/18 at 09:00 Albuterol/ Ipratropium (Duoneb) 3 ml Q2H RESP THERAPY PRN HHN SHORTNESS OF BREATH; Start 06/05/18 at 05:30 Piperacillin Sod/ Tazobactam Sod 100 ml @ 200 mls/hr Q6 IVPB Last administered on 06/09/18at 06:04; Admin Dose 200 MLS/HR; Start 06/05/18 at 06:00 Diagnostic Test (Pha) (Accu-Chek) 1 ea 02 XX ; Start 06/06/18 at 02:00 Insulin Glargine (Lantus) 17 units DAILY@0800 SC Last administered on 06/09/18at 09:52; Admin Dose 17 UNITS; Start 06/05/18 at 08:00 Insulin Aspart (Novolog Insulin Pen) NOVOLOG *MODERATE* ALGORITHM WITH MEALS BEDTIME SC Last administered on 06/08/18at 08:24; Admin Dose 2 UNIT; Start 06/05/18 at 08:00 Miscellaneous Information 1 ea NOTE XX ; Start 06/05/18 at 08:30 Glucose (Glutose) 15 gm Q15M PRN PO DECREASED GLUCOSE; Start 06/05/18 at 08:30 Glucose (Glutose) 22.5 gm Q15M PRN PO DECREASED GLUCOSE; Start 06/05/18 at 08:30 Dextrose (D50w Syringe) 25 ml Q15M PRN IV DECREASED GLUCOSE; Start 06/05/18 at 08:30 Dextrose (D50w Syringe) 50 ml Q15M PRN IV DECREASED GLUCOSE; Start 06/05/18 at 08:30 Glucagon (Glucagen) 1 mg Q15M PRN IM DECREASED GLUCOSE; Start 06/05/18 at 08:30 Glucose (Glutose) 15 gm Q15M PRN BUCCAL DECREASED GLUCOSE; Start 06/05/18 at 08:30 Hydralazine HCl (Apresoline) 10 mg Q6H PRN IV ELEVATED BLOOD PRESSURE Last administered on 06/08/18at 02:56; Admin Dose 10 MG; Start 06/06/18 at 12:00 Acetaminophen (Tylenol Tab) 650 mg Q6H PRN PO MILD PAIN(1-3)OR ELEVATED TEMP Last administered on 06/06/18at 22:50; Admin Dose 650 MG; Start 06/06/18 at 23:00 Senna (Senokot) 1 tab BID PO Last administered on 06/08/18at 20:07; Admin Dose 1 TAB; Start 06/07/18 at 12:30 Albuterol (Ventolin Hfa) 2 puff Q4H PRN INH WHEEZING AND SOB; Start 06/07/18 at 13:00 Alprazolam (Xanax) 2 mg Q8H PRN PO ANXIETY Last administered on 06/08/18 13:26; Admin Dose 2 MG; Start 06/07/18 at 13:00 Amlodipine Besylate (Norvasc) 5 mg DAILY PO Last administered on 06/09/18 08:45; Admin Dose 5 MG; Start 06/08/18 at 09:00 Ascorbic Acid (Vitamin C) 500 mg DAILY PO Last administered on 06/09/18 08:45; Admin Dose 500 MG; Start 06/08/18 at 09:00 Aspirin (Halfprin) 81 mg DAILY PO Last administered on 06/09/18 08:45; Admin Dose 81 MG; Start 06/08/18 at 09:00 Atorvastatin Calcium (Lipitor) 40 mg QHS PO Last administered on 06/08/18 20:07; Admin Dose 40 MG; Start 06/07/18 at 21:00 Ferrous Sulfate (Ferrous Sulfate (Ec)) 325 mg DAILY PO Last administered on 08:42; Admin Dose 325 MG; Start 06/07/18 at 13:00 Ranitidine HCl (Zantac) 150 mg Q24H PO Last administered on 06/08/18 13:26; Admin Dose 150 MG; Start 06/07/18 at 13:00 Miscellaneous Information 1 mg DAILY PO ; Start 06/07/18 at 13:00; Status UNV Levothyroxine Sodium (Synthroid) 100 mcg DAILY@0700 PO Last administered on 06/09/18 06:05; Admin Dose 100 MCG; Start 06/08/18 at 07:00 Benazepril HCl (Lotensin) 20 mg DAILY PO Last administered on 06/09/18 08:44; Admin Dose 20 MG; Start 06/08/18 at 14:30 Docusate Sodium (Colace) 100 mg BID PRN PO CONSTIPATION; Start 06/08/18 at 15:00 Ibuprofen (Motrin) 600 mg Q6H PRN PO HEADACHE Last administered on 06/09/18 08:42; Admin Dose 600 MG; Start 06/08/18 at 15:00 Cyclobenzaprine HCl (Flexeril) 10 mg Q8 PRN PO MUSCLE SPASM; Start 06/08/18 at 15:00 Hydromorphone HCl (Dilaudid) 0.5 mg Q8H PRN IV SEVERE PAIN LEVEL 7-10 Last administered on 06/09/18at 04:55; Admin Dose 0.5 MG; Start 06/08/18 at 15:00 Tramadol HCl (Ultram) 50 mg Q8H PRN PO PAIN Last administered on 06/08/18at 23:08; Admin Dose 50 MG; Start 06/08/18 at 15:00 Magnesium Sulfate 3 gm/Dextrose 106 ml @ 35.333 mls/ hr ONCE ONCE IVPB ; Start 06/09/18 at 12:30; Stop 06/09/18 at 15:29; Status UNV SHIRA REZA Jun 09, 2018 12:48
[2018-06-09] MEDS ORDERED: MAGNESIUM SULFATE 3 GM in DEXTROSE 5% 100 ML IVPB ONE (13:15)
[2018-06-09 14:20] VITALS: BP 160/76; PULSE 54; RESP 18
--- NOTE | 2018-06-09 17:01 | CONS ---
Assessment/Plan Assessment/Plan Assessment/Plan (Daily) -Diverticulitis, which is recurrent, not completely responding to antibiotic therapy. - continued antibiotic therapy - needs a colonoscopy in the near future. -There is no evidence of abscess or perforation of diverticulitis area. - diabetes - management per PMD - hypertension - management per PMD - COPD - management per PMD - dyslipidemia - management per PMD - hypothyroidism. - management per PMD Patient is seen in collaboration with Dr Gerber. Dw STAFF/PATIENT Consultation Date/Type/Reason Admit Date/Time Jun 06, 2018 at 08:17 Initial Consult Date 06/06/18 Requesting Provider: SHIRA REZA Date/Time of Note DATE: 06/09/18 TIME: 16:52 24 HR Interval Summary Free Text/Dictation - c/o left lower abdomen pain - Denies nausea, no vomiting, no GI bleeding, no fever- reported - All Qs answered No new events reported last night per staff. Detailed Summary Cardiovascular: no complaints Gastrointestinal: pain Musculoskeletal: swelling Skin: no complaints Neurologic: no complaints Endocrine: no complaints Lymphatic: no complaints Psychological: no complaints Exam/Review of Systems Exam Vitals Vital Signs Date Temp Pulse Resp B/P (MAP) Pulse Ox O2 O2 Flow FiO2 Time Delivery Rate 06/09/18 98.2 54 18 160/76 92 14:20 (104) 06/07/18 Room Air 14:11 Intake and Output 06/08/18 06/08/18 06/09/18 1515:00 23:00 07:00 IntakeIntake Total 1540 ml 600 ml 400 ml OutputOutput Total 600 ml BalanceBalance 1540 ml 0 ml 400 ml Constitutional: alert, oriented, well developed, obese Psych: nl mood/affect Eyes: nl lids, nl sclera ENMT: nl external ears & nose Neck: non-tender Respiratory: clear to auscultation Cardiovascular: nl pulses, other (s1s2) Gastrointestinal: soft, tender ( left lower quadrant tenderness) Extremities: edema Neurological: nl mental status, nl speech Skin: nl turgor Lymph: nontender Results Result Diagram: 06/09/18 0502 06/09/18 0501 Results 24hrs Laboratory Tests Test 06/08/18 17:47 06/08/18 21:35 06/09/18 05:01 06/09/18 05:02 Bedside Glucose 140 165 Sodium Level 142 Potassium Level 3.9 Chloride Level 107 Carbon Dioxide Level 29 Anion Gap 6 Blood Urea Nitrogen 5 L Creatinine 0.53 Est Glomerular > 60 Filtrat Rate mL/min Glucose Level 138 Calcium Level 9.8 Phosphorus Level 4.2 Magnesium Level 1.4 L Total Bilirubin 0.3 Direct Bilirubin 0.00 Indirect Bilirubin 0.3 Aspartate Amino 19 Transf (AST/SGOT) Alanine 20 Aminotransferase (AL T/SGPT) Alkaline Phosphatase 88 Total Protein 5.7 L Albumin 3.1 L Globulin 2.60 Albumin/Globulin 1.19 Ratio White Blood Count 7.3 Red Blood Count 4.76 Hemoglobin 12.1 Hematocrit 37.8 Mean Corpuscular 79.4 L Volume Mean Corpuscular 25.4 L Hemoglobin Mean Corpuscular 32.0 Hemoglobin Concent Red Cell 15.4 H Distribution Width Platelet Count 210 Mean Platelet Volume 11.2 H Immature 0.400 Granulocytes % Neutrophils % 39.6 Lymphocytes % 48.7 Monocytes % 6.6 Eosinophils % 4.3 Basophils % 0.4 Nucleated Red Blood 0.0 Cells % Immature 0.030 Granulocytes # Neutrophils # 2.9 Lymphocytes # 3.5 H Monocytes # 0.5 Eosinophils # 0.3 Basophils # 0.0 Nucleated Red Blood 0.0 Cells # Test 06/09/18 08:26 06/09/18 13:06 Bedside Glucose 124 149 Medications Medication Current Medications Dextrose/Sodium Chloride 1,000 ml @ 50 mls/hr Q20H IV Last administered on 06/08/18at 11:26; Admin Dose 100 MLS/HR; Start 06/05/18 at 05:16 IV Flush (NS 3 ml) 3 ml PER PROTOCOL IV ; Start 06/05/18 at 05:30 Ondansetron HCl (Zofran Inj) 4 mg Q6H PRN IV NAUSEA/VOMITING Last administered on 06/08/18at 11:33; Admin Dose 4 MG; Start 06/05/18 at 05:30 Famotidine (Pepcid Iv) 20 mg Q12 IV Last administered on 06/09/18at 09:43; Admin Dose 20 MG; Start 06/05/18 at 09:00 Albuterol/ Ipratropium (Duoneb) 3 ml Q2H RESP THERAPY PRN HHN SHORTNESS OF BREATH; Start 06/05/18 at 05:30 Piperacillin Sod/ Tazobactam Sod 100 ml @ 200 mls/hr Q6 IVPB Last administered on 06/09/18at 13:07; Admin Dose 200 MLS/HR; Start 06/05/18 at 06:00 Diagnostic Test (Pha) (Accu-Chek) 1 ea 02 XX ; Start 06/06/18 at 02:00 Insulin Glargine (Lantus) 17 units DAILY@0800 SC Last administered on 06/09/18at 09:52; Admin Dose 17 UNITS; Start 06/05/18 at 08:00 Insulin Aspart (Novolog Insulin Pen) NOVOLOG *MODERATE* ALGORITHM WITH MEALS BEDTIME SC Last administered on 06/09/18at 14:28; Admin Dose 2 UNIT; Start 06/05/18 at 08:00 Miscellaneous Information 1 ea NOTE XX ; Start 06/05/18 at 08:30 Glucose (Glutose) 15 gm Q15M PRN PO DECREASED GLUCOSE; Start 06/05/18 at 08:30 Glucose (Glutose) 22.5 gm Q15M PRN PO DECREASED GLUCOSE; Start 06/05/18 at 08:30 Dextrose (D50w Syringe) 25 ml Q15M PRN IV DECREASED GLUCOSE; Start 06/05/18 at 08:30 Dextrose (D50w Syringe) 50 ml Q15M PRN IV DECREASED GLUCOSE; Start 06/05/18 at 08:30 Glucagon (Glucagen) 1 mg Q15M PRN IM DECREASED GLUCOSE; Start 06/05/18 at 08:30 Glucose (Glutose) 15 gm Q15M PRN BUCCAL DECREASED GLUCOSE; Start 06/05/18 at 08:30 Hydralazine HCl (Apresoline) 10 mg Q6H PRN IV ELEVATED BLOOD PRESSURE Last administered on 06/08/18at 02:56; Admin Dose 10 MG; Start 06/06/18 at 12:00 Acetaminophen (Tylenol Tab) 650 mg Q6H PRN PO MILD PAIN(1-3)OR ELEVATED TEMP Last administered on 06/06/18at 22:50; Admin Dose 650 MG; Start 06/06/18 at 23:00 Senna (Senokot) 1 tab BID PO Last administered on 06/08/18at 20:07; Admin Dose 1 TAB; Start 06/07/18 at 12:30 Albuterol (Ventolin Hfa) 2 puff Q4H PRN INH WHEEZING AND SOB; Start 06/07/18 at 13:00 Alprazolam (Xanax) 2 mg Q8H PRN PO ANXIETY Last administered on 06/08/18 13:26; Admin Dose 2 MG; Start 06/07/18 at 13:00 Amlodipine Besylate (Norvasc) 5 mg DAILY PO Last administered on 06/09/18 08:45; Admin Dose 5 MG; Start 06/08/18 at 09:00 Ascorbic Acid (Vitamin C) 500 mg DAILY PO Last administered on 06/09/18 08:45; Admin Dose 500 MG; Start 06/08/18 at 09:00 Aspirin (Halfprin) 81 mg DAILY PO Last administered on 06/09/18 08:45; Admin Dose 81 MG; Start 06/08/18 at 09:00 Atorvastatin Calcium (Lipitor) 40 mg QHS PO Last administered on 06/08/18 20:07; Admin Dose 40 MG; Start 06/07/18 at 21:00 Ferrous Sulfate (Ferrous Sulfate (Ec)) 325 mg DAILY PO Last administered on 06/09/18 08:42; Admin Dose 325 MG; Start 06/07/18 at 13:00 Miscellaneous Information 1 mg DAILY PO ; Start 06/07/18 at 13:00; Status UNV Levothyroxine Sodium (Synthroid) 100 mcg DAILY@0700 PO Last administered on 06/09/18 06:05; Admin Dose 100 MCG; Start 06/08/18 at 07:00 Benazepril HCl (Lotensin) 20 mg DAILY PO Last administered on 06/09/18 08:44; Admin Dose 20 MG; Start 06/08/18 at 14:30 Docusate Sodium (Colace) 100 mg BID PRN PO CONSTIPATION; Start 06/08/18 at 15:00 Ibuprofen (Motrin) 600 mg Q6H PRN PO HEADACHE Last administered on 06/09/18 08:42; Admin Dose 600 MG; Start 06/08/18 at 15:00 Cyclobenzaprine HCl (Flexeril) 10 mg Q8 PRN PO MUSCLE SPASM; Start 06/08/18 at 15:00 Hydromorphone HCl (Dilaudid) 0.5 mg Q8H PRN IV SEVERE PAIN LEVEL 7-10 Last administered on 4/28/19at 13:07; Admin Dose 0.5 MG; Start 06/08/18 at 15:00 Tramadol HCl (Ultram) 50 mg Q8H PRN PO PAIN Last administered on 06/08/18at 23:08; Admin Dose 50 MG; Start 06/08/18 at 15:00 FRANCIS MYLES Jun 09, 2018 17:01
[2018-06-09 20:20] VITALS: BP 141/73; PULSE 55; RESP 18
[2018-06-09] MEDS: ATORVASTATIN 40 MG TAB PO SCH (21:00)
[2018-06-10] MEDS: PIPER-TAZO 3.375 GM IV (PMX) 100 ML IVPB SCH ×3 (00:05→12:39)
--- NOTE | 2018-06-10 01:13 | PN ---
Date/Time of Note Date/Time of Note DATE: 06/09/18 TIME: 23:11 Assessment/Plan Lines/Catheters IV Catheter Type (from [facility]): Peripheral IV Higgins in Place (from [facility]): No Assessment/Plan Chief Complaint/Hosp Course 1. Diverticulosis with acute diverticulitis of mid to descending colon: ? Recurrent versus unresolved -GI input appreciated, possible egd and eventual colonoscopy -Eventual colonoscopy and possible surgical resection (if patient amenable) once diverticulitis has fully resolved -Abx 2. Abdominal pain: -Pain management 3. Hiatal and umbilical hernia: Asymptomatic: -May consider surgical intervention if becomes symptomatic -Encourage weight loss and optimization 4. Hypertension -Highly encourage weight loss -Diet and exercise 5. Diabetes -Nutrition, exercise, weight, med optimization 6. Dyslipidemia -Nutrition, exercise, weight, med optimization 7. Hypothyroidism COPD -Medical management 8. Severe obesity BMI: 37 -diet and exercise optimization -encourage weight loss Thank you, Late entry 06/09 Subjective 24 Hr Interval Summary Bowel functions. Liquids. Intermittent abdominal pain however improved. No fevers, chills, sob, congested cough, cp, palpitations, jordan, dizziness, nausea, vomiting, dysuria. Exam/Review of Systems Vital Signs Vitals Vital Signs Date Temp Pulse Resp B/P (MAP) Pulse Ox O2 O2 Flow FiO2 Time Delivery Rate 06/09/18 97.7 55 18 141/73 96 20:20 (95) 06/07/18 Room Air 14:11 Intake and Output 06/09/18 06/09/18 06/10/18 1414:59 22:59 06:59 IntakeIntake Total 2610 ml 1086 ml BalanceBalance 2610 ml 1086 ml Exam Free Text/Dictation Constitutional: alert, oriented, well developed Psych: nl mood/affect, anxiety (Minimal) Head: normocephalic, atraumatic Eyes: nl conjunctiva, EOMI, nl lids, nl sclera ENMT: nl external ears & nose, nl lips & teeth, mucosa pink and moist Neck: supple, non-tender; No jvd Respiratory: normal air movement; No congested cough Cardiovascular: regular rate and rhythm Gastrointestinal: soft, surgical scars, tender (Bilateral lower quadrants); No distended Genitourinary - Female: nl external genitalia Musculoskeletal: nl extremities to inspection, nl gait and stance Extremities: normal pulses Neurological: nl mental status, nl speech, nl strength Skin: No rash or lesions Lymph: nl lymph nodes Results Result Diagram: 06/09/18 0502 06/09/18 0501 ADRIÁN REYNA MD Jun 10, 2018 01:13
[2018-06-10] MEDS: ACCU-CHEK XX SCH (02:00)
[2018-06-10 02:40] VITALS: BP 153/70; PULSE 55; RESP 20
[2018-06-10] MEDS: DEXTROSE 5%-0.45% NACL 1,000 ML IV SCH (03:37)
[2018-06-10] MEDS: HYDROmorphONE 0.5 MG/0.5 ML SYG IV PRN (05:06)
[2018-06-10] MEDS: ONDANSETRON 4 MG INJ IV PRN (05:14)
--- NOTE | 2018-06-10 07:05 | PN ---
DATE: 06/08/2018 HISTORY: The patient was admitted with a left lower quadrant pain, having a second episode of divert iculitis in the past 1 month or so. On physical exam, left lower quadrant is minimally tender. Laboratory workup: WBC 7500 and hemoglobin 12.4. The liver panel is normal. CAT scan of the abdomen showed evidence of a mild diverticulitis. CLINICAL IMPRESSION: The patient has evidence of a mild diverticulitis. Although it is kind of recu rrent in the past few months, I do not believe at this time that she indeed has any surgical indicati on for further resection. PLAN: At this time, I would recommend continued antibiotic therapy and eventually, in a month or so, we need to do a colonoscopy. At this time, we will continue antibiotic therapy. Dictated By: IVETTE YODER/NTS Conf#: [id number] DID#: [id number] CC: MAURICE STEEN MD;*EndCC*
[2018-06-10 07:51] VITALS: BP 166/70; PULSE 63; RESP 17
[2018-06-10] MEDS: INSULIN ASPART [NOVOLOG] 3 ML PEN SC SCH ×2 (08:00→12:52)
[2018-06-10] MEDS: ASCORBIC ACID 500 MG TAB PO SCH (08:36)
[2018-06-10] MEDS: LEVOTHYROXINE 100 MCG TAB PO SCH (08:36)
[2018-06-10] MEDS: ASPIRIN (EC) 81 MG TAB PO SCH (08:37)
[2018-06-10] MEDS: AMLODIPINE 5 MG TAB PO SCH (08:37)
[2018-06-10] MEDS: FERROUS SULFATE (EC) 325 MG TAB PO SCH (08:37)
[2018-06-10] MEDS: BENAZEPRIL 10 MG TAB PO SCH (08:37)
[2018-06-10] MEDS: SENNA TAB PO SCH (08:38)
[2018-06-10] MEDS: INSULIN GLARGINE [LANTus] (100 UNITS/ML) SYG SC SCH (08:41)
[2018-06-10] MEDS: IBUPROFEN 600 MG TAB PO PRN (08:42)
[2018-06-10] MEDS: FAMOTIDINE 20 MG INJ IV SCH (08:42)
[2018-06-10] MEDS ORDERED: DEXTROSE 5% 1,000 ML IV SCH (10:00)
--- NOTE | 2018-06-10 11:03 | PN ---
Date/Time of Note Date/Time of Note DATE: 06/10/18 TIME: 11:01 Assessment/Plan Lines/Catheters IV Catheter Type (from [facility]): Peripheral IV Higgins in Place (from [facility]): No Assessment/Plan Chief Complaint/Hosp Course 1. Diverticulosis with acute diverticulitis of mid to descending colon: ? Recurrent versus unresolved -GI input appreciated, possible egd and eventual colonoscopy -Eventual colonoscopy and possible surgical resection (if patient amenable) once diverticulitis has fully resolved -Abx -Regular diet -D/C planning ok from surgical standpoint 2. Abdominal pain: -Pain management 3. Hiatal and umbilical hernia: Asymptomatic: -May consider surgical intervention if becomes symptomatic -Encourage weight loss and optimization 4. Hypertension -Highly encourage weight loss -Diet and exercise 5. Diabetes -Nutrition, exercise, weight, med optimization 6. Dyslipidemia -Nutrition, exercise, weight, med optimization 7. Hypothyroidism COPD -Medical management 8. Severe obesity BMI: 37 -diet and exercise optimization -encourage weight loss Thank you, Subjective 24 Hr Interval Summary Multiple liquid bowel functions. On Liquid diet. No current abdominal pain. No fevers, chills, sob, congested cough, cp, palpitations, jordan, dizziness, nausea, vomiting, dysuria. Exam/Review of Systems Vital Signs Vitals Vital Signs Date Temp Pulse Resp B/P (MAP) Pulse Ox O2 O2 Flow FiO2 Time Delivery Rate 06/10/18 98.4 63 17 166/70 93 Room Air 07:51 (102) Intake and Output 06/09/18 06/09/18 06/10/18 1515:00 23:00 07:00 IntakeIntake Total 2610 ml 1086 ml 1500 ml BalanceBalance 2610 ml 1086 ml 1500 ml Exam Free Text/Dictation Constitutional: alert, oriented, well developed Psych: nl mood/affect, anxiety (Minimal) Head: normocephalic, atraumatic Eyes: nl conjunctiva, EOMI, nl lids, nl sclera ENMT: nl external ears & nose, nl lips & teeth, mucosa pink and moist Neck: supple, non-tender; No jvd Respiratory: normal air movement; No congested cough Cardiovascular: regular rate and rhythm Gastrointestinal: soft, surgical scars, NT, obese No distended Genitourinary - Female: nl external genitalia Musculoskeletal: nl extremities to inspection, nl gait and stance Extremities: normal pulses Neurological: nl mental status, nl speech, nl strength Skin: No rash or lesions Lymph: nl lymph nodes Results Result Diagram: 06/10/18 0443 06/10/18 0443 ADRIÁN REYNA MD Jun 10, 2018 11:03
[2018-06-10] MEDS ORDERED: METR-122 PO (12:23)
[2018-06-10] MEDS ORDERED: CIPR500T4 PO (12:23)
[2018-06-10] MEDS: traMADol 50 MG TAB PO PRN (14:02)
[2018-06-10 14:30] VITALS: BP 166/76; PULSE 65; RESP 17
--- NOTE | 2018-06-10 15:43 | PDOCDIS ---
Discharge Instructions DIAGNOSIS Discharge Diagnosis Acute diverticulitis CONDITION [id number] Patient Condition: [id number] Good HOME CARE INSTRUCTIONS: [id number] Diet Instructions: [id number] Regular ACTIVITY: [id number] Activity Restrictions: [id number] No Restrictions FOLLOW UP/APPOINTMENTS Follow-up Plan 1. Continue taking antibiotics as prescribed. 2. Continue all other medications as prescribed. 3. See your primary care doctor in 1-2 weeks. 4. Make an appointment with Dr. Rose or other candle wrapper for colonoscopy in 4-6 weeks. SHARRON RON MD Jun 10, 2018 15:40
--- NOTE | 2018-06-10 19:45 | DS ---
Date/Time of Note Date/Time of Note DATE: 06/10/18 TIME: 19:38 Discharge Summary Admission/Discharge Info Admit Date/Time Jun 06, 2018 at 08:17 Discharge Date/Time Jun 10, 2018 at 16:34 Discharge Diagnosis Acute diverticulitis Patient Condition: Good Consults Dr. Gerber, gastroenterology Dr. Saenz, general surgery Hx of Present Illness Patient is a 72-year-old female with a history of hypertension, diabetes, dyslipidemia, hypothyroidism, TIA, COPD and recently diagnosed mild diverticulitis who presented to ER complaining of recurrent abdominal pain and loose/watery diarrhea. Patient was actually admitted by myself last month with similar complaints. At that time he was diagnosed with acute diverticulitis and was treated with antibiotic. She said a week ago she started noticing recurrence of abdominal pain in the for the past 3 days she was having loose and watery diarrhea which has been nonbloody. When she presented to the ER at this time, CT abdomen/pelvis was done which shows mild diverticulitis Hospital Course The patient was started on IV Zosyn for diverticulitis. She did have diarrhea which resolved. Started on diet which progressively advanced to regular uneventfully. She will be discharged on cipro+flagyl; should follow up with Dr. Gerber in about a month for colonoscopy after symptoms have completely resolved. Home Meds Active Scripts Ciprofloxacin Hcl* (Ciprofloxacin Hcl*) 500 Mg Tablet, 500 MG PO BID for 9 Days, #18 TAB Prov:SHARRON RON MD 06/10/18 Metronidazole* (Metronidazole*) 500 Mg Tablet, 500 MG PO Q8 for 9 Days, #27 TAB Prov:SHARRON RON MD 06/10/18 Hydrocodone/Acetaminophen ([place] 5-325 Tablet) 1 Each Tablet, 1 EACH PO Q6H, #12 TAB Prov:MARITZA MARIE MD 05/10/18 Tramadol HCl (Tramadol HCl) 50 Mg Tablet, 50 MG PO Q4 PRN for PAIN, #20 TAB Prov:MAURICE CAMERON 04/25/18 Atorvastatin* (Atorvastatin*) 40 Mg Tablet, 40 MG PO QHS, #30 TAB Prov:CLINTON CHANDLER NP 03/19/18 Ascorbic Acid (Vitamin C) 500 Mg Tab, 500 MG PO DAILY, #30 TAB 2 Refills Prov:BRIANNE LUONG 02/21/18 Ferrous Sulfate* (Ferrous Sulfate*) 325 Mg Tabec, 325 MG PO DAILY for 30 Days, #30 TAB 2 Refills Prov:BRIANNE LUONG. 02/21/18 Docusate Sodium (Dok) 100 Mg Capsule, 100 MG PO Q12H, #60 CAP 2 Refills Prov:BRIANNE LUONG. 02/21/18 Reported Medications Insulin Aspart* (Novolog Insulin Pen*) 100 Unit/Ml Soln, 1 UNIT SC WITH BREAKFAST DINNE for 20u QAM; 30u QPM, EA 05/07/18 Omeprazole* (Omeprazole*) 40 Mg Capsule.dr, 40 MG PO DAILY for 60 Days, #60 05/07/18 Alprazolam* (Xanax*) 2 Mg Tablet, 2 MG PO Q8H PRN for ANXIETY, TAB 05/07/18 Glipizide* (Glipizide*) 5 Mg Tablet, 5 MG PO BID for 45 Days, #90 05/07/18 Varenicline Tartrate (Chantix) 1 Mg Tablet, 1 MG PO DAILY for 77 Days, #77 05/07/18 Levothyroxine Sodium* (Levothyroxine Sodium*) 100 Mcg Tablet, 100 MCG PO BEFORE BREAKFAST, #30 TAB 05/07/18 Amlodipine Besylate* (Norvasc*) 5 Mg Tablet, 5 MG PO DAILY, TAB 02/18/18 Ranitidine Hcl* (Ranitidine Hcl*) 150 Mg Tablet, 150 MG PO Q24H, #60 TAB 02/18/18 Cyclobenzaprine Hcl* (Cyclobenzaprine Hcl*) 10 Mg Tablet, 10 MG PO TID, #90 TAB 02/18/18 Benazepril Hcl* (Benazepril Hcl*) 20 Mg Tablet, 20 MG PO DAILY, #30 TAB 02/18/18 Aspirin* (Aspirin* EC) 81 Mg Tablet.dr, 81 MG PO DAILY, TAB 02/18/18 Albuterol Sulfate* (Proair HFA*) 8.5 Gm Hfa.aer.ad, 2 PUFF INH Q4H PRN for WHEEZING AND SOB, #1 INHALER 02/18/18 Discontinued Scripts Metronidazole* (Flagyl*) 500 Mg Tablet, 500 MG PO Q8 for 10 Days, TAB Prov:MARITZA MARIE MD 05/10/18 Levofloxacin* (Levaquin*) 500 Mg Tablet, 500 MG PO DAILY for 10 Days, TAB Prov:MARITZA MARIE MD 05/10/18 Follow-up Plan 1. Continue taking antibiotics as prescribed. 2. Continue all other medications as prescribed. 3. See your primary care doctor in 1-2 weeks. 4. Make an appointment with Dr. Rose or other information engineer for colonoscopy in 4-6 weeks. Primary Care Provider Not On Staff Doctor Time spent on discharge: > 30 minutes Pending Labs Laboratory Tests Test 06/09/18 20:59 06/10/18 04:43 06/10/18 08:20 06/10/18 12:43 Bedside 134 122 142 Glucose mg/dL (70-220) mg/dL (70-220) mg/dL (70-220) White Blood 6.9 Count 10^3/ul (4.8-1 0.8) Red Blood 4.74 Count 10^6/ul (4.20- 5.40) Hemoglobin 12.3 g/dl (12.0-16. 0) Hematocrit 37.1 % (37.0-47.0) Mean 78.3 Corpuscular fl (82.0-101.0 Volume ) Mean 25.9 Corpuscular pg (29.0-33.0) Hemoglobin Mean 33.2 Corpuscular g/dl (32.0-37. Hemoglobin Conc 0) ent Red Cell 15.1 Distribution % (11.5-14.5) Width Platelet Count 190 10^3/UL (140-4 15) Mean Platelet 11.1 Volume fl (7.4-10.4) Immature 0.300 Granulocytes % % (0.001-0.429 ) Neutrophils % 34.6 % (39.0-77.0) Lymphocytes % 50.7 % (15.0-51.0) Monocytes % 7.0 % (0.0-11.0) Eosinophils % 7.0 % (0.0-7.0) Basophils % 0.4 % (0.0-2.0) Nucleated Red 0.0 Blood Cells % /100WBC (0.0-0 .0) Immature 0.020 Granulocytes # 10^3/ul (0.0-0 .031) Neutrophils # 2.4 10^3/ul (1.6-7 .5) Lymphocytes # 3.5 10^3/ul (0.8-2 .9) Monocytes # 0.5 10^3/ul (0.3-0 .9) Eosinophils # 0.5 10^3/ul (0.0-0 .5) Basophils # 0.0 10^3/ul (0.0-0 .1) Nucleated Red 0.0 Blood Cells # 10^3/ul (0.0-0 .0) Sodium Level 144 mmol/L (135-14 4) Potassium 4.1 Level mmol/L (3.5-5. 1) Chloride Level 110 mmol/L (97-110 ) Carbon Dioxide 28 Level mmol/L (21-31) Anion Gap 6 (5-13) Blood Urea 6 mg/dl (7-20) Nitrogen Creatinine 0.52 mg/dl (0.44-1. 00) Est Glomerular > 60 Filtrat mL/min (>60) Rate mL/min Glucose Level 101 mg/dl (70-220) Calcium Level 10.2 mg/dl (8.4-10. 2) Phosphorus 4.2 Level mg/dl (2.5-4.9 ) Magnesium 1.7 Level mg/dl (1.7-2.5 ) SHARRON RON MD Jun 10, 2018 19:45
== END 2018-06-10 16:34 | disposition still patient (30) | DRG 392 ==
LOC: E/R 21:28 → 2NE 06-05 02:58 → INTOOBSV 06-05 02:58 → OBSVTOIN 06-06 08:17
PROVIDERS: ADMIT Internal Medicine; ATTEND Internal Medicine
DX: K57.32 Diverticulitis of large intestine without perforation or abscess without bleeding (principal); I10 Essential (primary) hypertension; J44.9 Chronic obstructive pulmonary disease, unspecified; E78.5 Hyperlipidemia, unspecified; E03.9 Hypothyroidism, unspecified; F17.200 Nicotine dependence, unspecified, uncomplicated; E11.65 Type 2 diabetes mellitus with hyperglycemia; E66.01 Morbid (severe) obesity due to excess calories; Z68.37 Body mass index [BMI] 37.0-37.9, adult; K44.9 Diaphragmatic hernia without obstruction or gangrene; K42.9 Umbilical hernia without obstruction or gangrene; Z86.73 Personal history of transient ischemic attack (TIA), and cerebral infarction without residual deficits
CPT/HCPCS: 36415; 74176; 80048; 80053; 81001; 82962; 83036; 83690; 83735; 84100; 85025; 87045; 87081; 87177; 96374; 96375; 97161; 99217; G0378; J0360; J0744; J1170; J1200; J1815; J2270; J2405; J2543; J3475; J7040; J7042; J7070

== ENCOUNTER 2018-07-05 05:25 | Inpatient (IN) | payer MEDICARE, OTHER ==
[~2018-07-05] VITALS: Ht 172.7 cm; Wt 104.5 kg
[~2018-07-05 05:25] MED LIST changes: +CIPR500T4 PO; -LEVO500T48 PO; +METR-122 PO; -METR500T PO
[2018-07-05] MEDS ORDERED: SOD CHLORIDE 0.9% 500 ML IV STA (05:35)
[2018-07-05] MEDS ORDERED: HYDROmorphONE 0.5 MG/0.5 ML SYG IV STA ×2 (06:12→07:22)
--- NOTE | 2018-07-05 08:05 | ERD ---
ER Documentation Chief Complaint Chief Complaint BIB RA C/O NEAR SYNCOPE DURING BOWEL MOVEMENT WHILE AT HOME HPI 72-year-old female presents to the emergency department by paramedics after syncopal episode. Patient states that she was in her usual state of health with nonspecific visceral abdominal pain that started today. She does have a history of diverticulitis and was worried that this felt like her previous diverticulitis. However, she reported no fevers, vomiting, blood in her stool. After multiple bowel movements, she was having another bowel movement this morning where she felt lightheaded and ultimately passed out. The paramedics were then called. I have reviewed the patient accounting representative pre-hospital care. Pre-hospital vital signs were reviewed. Pre-hospital diagnostic tests were reviewed. Upon arrival, patient is currently without cardiac or neurologic complaints. She denies chest pain, shortness of breath, she reports no focal weakness, numbness, headache. She has reported visual, nonspecific, mostly lower quadrant abdominal pain. She is currently reporting the pain is moderate. ROS All systems reviewed and are negative except as per history of present illness. Medications Home Meds Active Scripts Ciprofloxacin Hcl* (Ciprofloxacin Hcl*) 500 Mg Tablet, 500 MG PO BID for 9 Days, #18 TAB Prov:SHARRON RON MD 06/10/18 Metronidazole* (Metronidazole*) 500 Mg Tablet, 500 MG PO Q8 for 9 Days, #27 TAB Prov:SHARRON RON MD 06/10/18 Hydrocodone/Acetaminophen ([place] 5-325 Tablet) 1 Each Tablet, 1 EACH PO Q6H, #12 TAB Prov:MARITZA MARIE MD 05/10/18 Tramadol HCl (Tramadol HCl) 50 Mg Tablet, 50 MG PO Q4 PRN for PAIN, #20 TAB Prov:MAURICE CAMERON 04/25/18 Atorvastatin* (Atorvastatin*) 40 Mg Tablet, 40 MG PO QHS, #30 TAB Prov:CLINTON CHANDLER NP 03/19/18 Ascorbic Acid (Vitamin C) 500 Mg Tab, 500 MG PO DAILY, #30 TAB 2 Refills Prov:BRIANNE LUONG 02/21/18 Ferrous Sulfate* (Ferrous Sulfate*) 325 Mg Tabec, 325 MG PO DAILY for 30 Days, #30 TAB 2 Refills Prov:BRIANNE LUONG 02/21/18 Docusate Sodium (Dok) 100 Mg Capsule, 100 MG PO Q12H, #60 CAP 2 Refills Prov:BRIANNE LUONG. 02/21/18 Reported Medications Insulin Aspart* (Novolog Insulin Pen*) 100 Unit/Ml Soln, 1 UNIT SC WITH BREAKFAST DINNE for 20u QAM; 30u QPM, EA 05/07/18 Omeprazole* (Omeprazole*) 40 Mg Capsule.dr, 40 MG PO DAILY for 60 Days, #60 05/07/18 Alprazolam* (Xanax*) 2 Mg Tablet, 2 MG PO Q8H PRN for ANXIETY, TAB 05/07/18 Glipizide* (Glipizide*) 5 Mg Tablet, 5 MG PO BID for 45 Days, #90 05/07/18 Varenicline Tartrate (Chantix) 1 Mg Tablet, 1 MG PO DAILY for 77 Days, #77 05/07/18 Levothyroxine Sodium* (Levothyroxine Sodium*) 100 Mcg Tablet, 100 MCG PO BEFORE BREAKFAST, #30 TAB 05/07/18 Amlodipine Besylate* (Norvasc*) 5 Mg Tablet, 5 MG PO DAILY, TAB 02/18/18 Ranitidine Hcl* (Ranitidine Hcl*) 150 Mg Tablet, 150 MG PO Q24H, #60 TAB 02/18/18 Cyclobenzaprine Hcl* (Cyclobenzaprine Hcl*) 10 Mg Tablet, 10 MG PO TID, #90 TAB 02/18/18 Benazepril Hcl* (Benazepril Hcl*) 20 Mg Tablet, 20 MG PO DAILY, #30 TAB 02/18/18 Aspirin* (Aspirin* EC) 81 Mg Tablet.dr, 81 MG PO DAILY, TAB 02/18/18 Albuterol Sulfate* (Proair HFA*) 8.5 Gm Hfa.aer.ad, 2 PUFF INH Q4H PRN for WHEEZING AND SOB, #1 INHALER 02/18/18 Allergies Allergies: Coded Allergies: almond (Verified Allergy, Unknown, SOB, 07/05/18) PMhx/Soc History of Surgery: Yes (back sx,knee sx,cholecystectomy) Anesthesia Reaction: No Hx Neurological Disorder: Yes (neuropathy) Hx Respiratory Disorders: Yes (copd) Hx Cardiac Disorders: Yes (htn,chf) Hx Psychiatric Problems: Yes (depression) Hx Miscellaneous Medical Probl: No Hx Alcohol Use: No Hx Substance Use: No Hx Tobacco Use: Yes Smoking Status: Current every day smoker Physical Exam Vitals Vital Signs Date Temp Pulse Resp B/P (MAP) Pulse Ox O2 O2 Flow FiO2 Time Delivery Rate 07/05/18 97.6 72 12 120/65 98 05:31 (83) Physical Exam GENERAL: The patient is well developed and appropriate for usual state of health in no apparent distress HEENT: Pupils equal, round, and reactive to light. EOMI. There is no scleral icterus. NECK: C-spine is soft and supple, there is no meningismus. There is no cervical lymphadenopathy. LUNGS: Clear to auscultation bilaterally. There are no rales, wheezes or rhonchi. HEART: Regular rate and rhythm, no murmurs, clicks, rubs or gallops. ABDOMEN: Soft, non-tender, non-distended. There are bowel sounds in all four quadrants. No rebound or guarding. EXTREMITIES: There is no peripheral cyanosis or edema. No focal swelling or erythema. NEURO: The patient moves all four extremities with 5/5 strength. Cranial nerves II - XII are intact. Normal gait. Alert and oriented SKIN: There is no apparent rash or petechiae. HEME/LYMPHATIC: There is no evidence of excessive bruising or lymphedema. PSYCHIATRIC: The patient does not appear anxious or depressed. Result Diagram: 07/05/18 0548 07/05/18 0548 Results 24 hrs Laboratory Tests Test 07/05/18 05:28 07/05/18 05:48 Bedside Glucose 193 mg/dL White Blood Count 14.7 10^3/ul Red Blood Count 4.98 10^6/ul Hemoglobin 13.0 g/dl Hematocrit 40.6 % Mean Corpuscular Volume 81.5 fl Mean Corpuscular Hemoglobin 26.1 pg Mean Corpuscular Hemoglobin Concent 32.0 g/dl Red Cell Distribution Width 15.7 % Platelet Count 202 10^3/UL Mean Platelet Volume 11.1 fl Immature Granulocytes % 0.700 % Neutrophils % 59.0 % Lymphocytes % 32.7 % Monocytes % 6.0 % Eosinophils % 1.3 % Basophils % 0.3 % Nucleated Red Blood Cells % 0.0 /100WBC Immature Granulocytes # 0.100 10^3/ul Neutrophils # 8.7 10^3/ul Lymphocytes # 4.8 10^3/ul Monocytes # 0.9 10^3/ul Eosinophils # 0.2 10^3/ul Basophils # 0.0 10^3/ul Nucleated Red Blood Cells # 0.0 10^3/ul Sodium Level 138 mmol/L Potassium Level 3.9 mmol/L Chloride Level 104 mmol/L Carbon Dioxide Level 27 mmol/L Anion Gap 7 Blood Urea Nitrogen 20 mg/dl Creatinine 0.69 mg/dl Est Glomerular Filtrat Rate mL/min > 60 mL/min Glucose Level 197 mg/dl Calcium Level 9.5 mg/dl Total Bilirubin 0.3 mg/dl Direct Bilirubin 0.00 mg/dl Indirect Bilirubin 0.3 mg/dl Aspartate Amino Transf (AST/SGOT) 18 IU/L Alanine Aminotransferase (ALT/SGPT) 22 IU/L Alkaline Phosphatase 68 IU/L Troponin I < 0.012 ng/ml Total Protein 4.3 g/dl Albumin 2.2 g/dl Lipase 96 U/L Current Medications Medications Dose Sig/Nguyen Start Time Status Last (Trade) Ordered Route PRN Stop Time Admin Dose Reason Admin Sodium 500 ml @ Q1H STAT 07/05/18 DC 07/05/18 Chloride 500 mls/hr IV 05:35 05:51 07/05/18 06:34 0.5 mg ONCE STAT 07/05/18 DC 07/05/18 Hydromorphone IV 06:12 06:15 HCl 07/05/18 06:13 (Dilaudid) 0.5 mg ONCE STAT 07/05/18 DC 07/05/18 Hydromorphone IV 07:22 07:31 HCl 07/05/18 07:23 (Dilaudid) Procedures/MDM Patient was taken to a room, seen and evaluated. Comfort measures were initiated. Diagnostic tests were ordered and reviewed. 3 LEAD RHYTHM STRIP: Normal sinus rhythm without ectopy EK lead EKG reviewed by myself: Normal Sinus Rhythm Left axis deviation No ST elevation, depression, or T wave inversion, nonspecific ST and T wave changes Impression: Nonspecific EKG RADIOLOGY: Reviewed with the radiologist CONSULTATION: Hospitalist was notified for admission REEVALUATION: 804: Diagnostic tests were appreciated. Patient remained hemodynamically stable. Patient required ongoing pain management for her abdominal pain. Decision was made to admit for observation. MEDICAL DECISION MAKIN-year-old female presents to the emergency department after syncopal episode in the setting of abdominal pain. From the abdominal pain standpoint, she does not seem to have recurrent diverticulitis based on her examination and CT scan. A urinalysis is pending to check for pyelonephritis/urinary tract infection. There is no further evidence of appendicitis or other high-risk other intra-abdominal concerns. Her syncope seems to be related to her pain as well as likely her polypharmacy. Her EKG and troponin are reassuring. She will be admitted to the hospital for diagnostic observation. Departure Diagnosis: Primary Impression: Syncope Condition: JIMMY Napoles July 05, 2018 08:05
[2018-07-05] MEDS ORDERED: ONDANSETRON 4 MG INJ IV PRN (08:30)
[2018-07-05] MEDS ORDERED: ACETAMINOPHEN 325 MG TAB PO PRN ×2 (08:30→10:30)
[2018-07-05] MEDS: DOCUSATE SODIUM 100 MG CAP PO SCH ×3 (09:30→20:34)
--- NOTE | 2018-07-05 10:14 | HP ---
Date/Time of Note Date/Time of Note DATE: 07/05/18 TIME: 09:58 Assessment/Plan VTE Prophylaxis SCD applied (from Nsg): Yes Pharmacological prophylaxis: NA/contraindicated Pharm contraindication: low risk/ambulating Lines/Catheters IV Catheter Type (from Nrsg): Peripheral IV Assessment/Plan Hospital Course SUBJECTIVE: pt with 10 out of 10 left flank area pain/lower abdominal/suprapubic areas. OBJECTIVE: Vital signs-see below PHYSICAL EXAM: Constitutional: Obese AA female,not in acute distress. HEENT: Head atraumatic and normocephalic. Eyes: Extraocular muscles intact. Anicteric sclerae. Pupils equal bilaterally, reactive to light. NECK: Supple without lymph node. CHEST: Clear and good breath sounds equally. No wheezing. No rhonchi. HEART: S1, S2. Regular rate and rhythm. ABDOMEN: Tender left flank/lower abdominal/suprapubic area with no rebound tenderness . Bowel sounds were present. EXTREMITIES: No cyanosis, clubbing or edema. NEUROLOGIC: Alert and oriented x3. No focal deficit. No sensory deficit. PSYCHOSOCIAL: No signs of depression. INTEGUMENTARY: No open wounds. ASSESSMENT AND PLAN:72 yo F w/htn,dm2,hld,diverticulosis/diverticulitis here w/ lower abd /flank pain/mild dysuria/dizziness/lightheadedness... Abdominal/flank pain, most likely pyelonephritis/urinary tract infection -Levaquin IV 750 mg -Urine cultures/blood cultures to follow -IV Toradol for pain management Dizziness/lightheadedness -Patient did not lose her consciousness. -Brain CT/Carotid us/Trops/TTE if not one in 6 mos to r/o acute cardiogenic/neurovascular causes -ASA prophylaxis DM2 -Basal/bolus HTN -resume antihypertensives Diverticulosis without diverticulitis -Recommend colonoscopy-as outpt Dyslipidemia -resume statin -Lifestyle optimization Hypothyroidism -resume Synthroid COPD -stable -PRN G[place]ON -Smoking cessation Nicotine use -cessation advised Severe obesity BMI: 37 -diet and exercise optimization -encourage weight loss DVT ppx:SCDs The management depend on hospital course. Approximately 60 m spent on this history and physical. Patient is seen in collaboration with Dr. Steve. Result Diagram: 07/05/1854707/05/18547 Results 24hrs Laboratory Tests Test 07/05/18 05:28 07/05/18 05:48 07/05/18 08:19 Bedside Glucose 193 White Blood Count 14.7 #H Red Blood Count 4.98 Hemoglobin 13.0 Hematocrit 40.6 Mean Corpuscular Volume 81.5 L Mean Corpuscular Hemoglobin 26.1 L Mean Corpuscular Hemoglobin Concent 32.0 Red Cell Distribution Width 15.7 H Platelet Count 202 Mean Platelet Volume 11.1 H Immature Granulocytes % 0.700 H Neutrophils % 59.0 Lymphocytes % 32.7 Monocytes % 6.0 Eosinophils % 1.3 Basophils % 0.3 Nucleated Red Blood Cells % 0.0 Immature Granulocytes # 0.100 H Neutrophils # 8.7 H Lymphocytes # 4.8 H Monocytes # 0.9 Eosinophils # 0.2 Basophils # 0.0 Nucleated Red Blood Cells # 0.0 Sodium Level 138 Potassium Level 3.9 Chloride Level 104 Carbon Dioxide Level 27 Anion Gap 7 Blood Urea Nitrogen 20 Creatinine 0.69 Est Glomerular Filtrat Rate mL/min > 60 Glucose Level 197 Calcium Level 9.5 Total Bilirubin 0.3 Direct Bilirubin 0.00 Indirect Bilirubin 0.3 Aspartate Amino Transf (AST/SGOT) 18 Alanine Aminotransferase (ALT/SGPT) 22 Alkaline Phosphatase 68 Troponin I < 0.012 Total Protein 4.3 L Albumin 2.2 L Lipase 96 Urine Color YELLOW Urine Clarity CLEAR Urine pH 6.0 Urine Specific [place] 1.015 Urine Ketones NEGATIVE Urine Nitrite NEGATIVE Urine Bilirubin NEGATIVE Urine Urobilinogen NEGATIVE Urine Leukocyte Esterase TRACE A Urine Microscopic RBC 1 Urine Microscopic WBC 2 Urine Squamous Epithelial Cells FEW Urine Hemoglobin NEGATIVE Urine Glucose NEGATIVE Urine Total Protein NEGATIVE HPI/ROS Admit Date/Time Admit Date/Time Hx of Present Illness This is a 72-year-old -[place] female with a history of hypertension, type 2 diabetes, dyslipidemia, hypothyroidism, TIA, COPD, smoker, recent history of diverticulosis/diverticulitis, resented to the emergency room with worsening lower abdominal pain with flank pain, and dysuria x1 week duration got worse this morning. She denied hematuria, urinary incontinence, frequency. She also had mild dizziness without loss of consciousness. She also had mild headache. She denied fever or chills. Patient denied nausea, vomiting, diarrhea, constipation, upper or lower GI bleed episode. She denied chest pain, palpitati on, shortness of breath, numbness, tingling or other constitutional symptoms. Apparently, patient was discharged at [facility] on June 06, 2018 after treatment for acute diverticulitis and was sent on Cipro and Flagyl at that time. Patient then started this pain again last week for which her primary care physician asked to continue Cipro and Flagyl assuming this is a recurrent diverticulitis. In the emergency room her CT abdomen and pelvis with evidence of colonic diverti culosis without CT evidence of diverticulitis/intestinal obstruction/appendicitis. There is evidence of dilatation of right renal collecting system with perinephric fat stranding without evidence of a stone. Patient's UA did show trace leukocyte Estrace. Patient's white count elevated 14,700. Signs stable, afebrile. In ER patient was given Dilaudid for pain control and normal saline bolus. ROS A 12 point review of system was assessed and is negative other than what is mentioned in the HPI. PMH/Family/Social Past Medical History See HPI Medications Current Medications Ondansetron HCl (Zofran Inj) 4 mg ER BRIDGE PRN IV NAUSEA/VOMITING; Start 07/05/18 at 08:30; Stop 07/06/18 at 08:29 Acetaminophen (Tylenol Tab) 650 mg ER BRIDGE PRN PO .MILD PAIN 1-3 OR TEMP; Start 07/05/18 at 08:30; Stop 07/06/18 at 08:29 Amlodipine Besylate (Norvasc) 5 mg DAILY PO ; Start 07/06/18 at 09:00; Status UNV Ascorbic Acid (Vitamin C) 500 mg DAILY PO ; Start 07/06/18 at 09:00; Status UNV Aspirin (Halfprin) 81 mg DAILY PO ; Start 07/06/18 at 09:00 Atorvastatin Calcium (Lipitor) 40 mg QHS PO ; Start 07/05/18 at 21:00; Status UNV Benazepril HCl (Lotensin) 20 mg DAILY PO ; Start 07/06/18 at 09:00; Status UNV Cyclobenzaprine HCl (Flexeril) 10 mg TID PO ; Start 07/05/18 at 13:00 Docusate Sodium (Colace) 100 mg Q12H PO ; Start 07/05/18 at 09:30 Ferrous Sulfate (Ferrous Sulfate (Ec)) 325 mg DAILY PO ; Start 07/06/18 at 09:00; Status UNV Levothyroxine Sodium (Synthroid) 100 mcg BEFORE BREAKFAST PO ; Start 07/06/18 at 07:00; Status UNV Ranitidine HCl (Zantac) 150 mg Q24H PO ; Start 07/05/18 at 09:30; Status UNV Coded Allergies: almond (Verified Allergy, Unknown, SOB, 07/05/18) Past Surgical History See HPI Past Surgical Hx: other Family History Significant Family History: no pertinent family hx Social History Current every day smoker. Smoking Status: Current every day smoker Exam/Review of Systems Vital Signs Vitals Vital Signs Date Temp Pulse Resp B/P (MAP) Pulse Ox O2 O2 Flow FiO2 Time Delivery Rate 07/05/18 86 18 136/82 93 Room Air 08:28 (100) 07/05/18 97.6 05:31 ALEX ACOSTA NP July 05, 2018 10:14
[2018-07-05] MEDS: KETOROLAC 15 MG INJ IV PRN (10:24)
[2018-07-05] MEDS ORDERED: morphine 2 MG INJ IV PRN (10:30)
[2018-07-05] MEDS ORDERED: NACL 0.9% 3 ML SYG IV SCH (10:30)
[2018-07-05] MEDS ORDERED: DOCUSATE SODIUM 100 MG CAP PO PRN (10:30)
[2018-07-05] MEDS ORDERED: GLUCOSE GEL 15 GRAM TUBE BUCCAL PRN (11:00)
[2018-07-05] MEDS ORDERED: GLUCOSE GEL 15 GRAM TUBE PO PRN ×2 (11:00)
[2018-07-05] MEDS ORDERED: DEXTROSE 50% 50 ML SYRINGE IV PRN ×2 (11:00)
[2018-07-05] MEDS ORDERED: GLUCAGON 1 MG INJ IM PRN (11:00)
[2018-07-05] MEDS: ASCORBIC ACID 500 MG TAB PO SCH (11:19)
[2018-07-05] MEDS: LEVOTHYROXINE 100 MCG TAB PO SCH (11:19)
[2018-07-05] MEDS: RANITIDINE 150 MG TAB PO SCH (11:19)
[2018-07-05] MEDS: BENAZEPRIL 20 MG TAB PO SCH (11:20)
[2018-07-05] MEDS: FERROUS SULFATE (EC) 325 MG TAB PO SCH (11:20)
[2018-07-05] MEDS: AMLODIPINE 5 MG TAB PO SCH (11:21)
[2018-07-05] MEDS: SOD CHLORIDE 0.9% 1,000 ML IV SCH ×2 (11:27→23:34)
[2018-07-05] MEDS: LEVOFLOXACIN 750MG/D5W (PMX) 150 ML IVPB SCH (11:27)
[2018-07-05] MEDS: ASPIRIN 81 MG TAB PO SCH (11:29)
[2018-07-05] MEDS: CYCLOBENZAPRINE 10 MG TAB PO SCH ×2 (12:42→20:27)
[2018-07-05] MEDS: INSULIN ASPART [NOVOLOG] 3 ML PEN SC SCH ×3 (12:45→23:23)
[2018-07-05] MEDS ORDERED: NICOTINE (14 MG/24 HR) PATCH TRANSDERM ONE (15:30)
[2018-07-05] MEDS: HYDROmorphONE 1 MG/ML SYG IV PRN ×2 (17:05→21:32)
--- NOTE | 2018-07-05 18:44 | RADRPT ---
Echocardiogram Report Patient Name: JENNIE GOODWINPatient ID: [id number] : 1945 (72y 10m)Study Date: 07/05/2018 12:06:44 PM Gender: FAccession #: [id number] Tech: Timoteo Tony RDCS Location: [facility] Ref.Physician: ALEX ACOSTA Height(Cm): BSA: Weight(Kg): Quality: AdequateOrder Physician: ALEX ACOSTA Account #: Procedures: Echocardiographic Report: Transthoracic echocardiogram with complete 2D, M-Mode, and doppler examination. Indications: Evaluate Left Ventricular function. Measurements: 2D/M Mode Doppler Measurement Value Normal Range Measurement Value Normal Range LVIDd 2D 3.9 [ 3.8 - 5.2 ] cm AV Peak Corey 1.4 [ 100.0 - 170.0 ] cm/sec LVIDs 2D 2.3 [ 2.2 - 3.5 ] cm AV Peak PG 8.0 [ 2.0 - 9.0 ] mmHg LVPWd 2D 1.2 [ 0.6 - 0.9 ] cm LVOT Peak Corey 1.1 [ 70.0 - 110.0 ] cm/sec IVSd 2D 1.1 [ 0.6 - 0.9 ] cm LVOT Peak PG 5.0 [ 2.0 - 6.0 ] mmHg AoR Diam 2D 3.2 [ 2.3 - 3.1 ] cm MV E Peak Corey 0.7 [ 60.0 - 130.0 ] cm/sec EDV 2D 65.1 [ 46.0 - 106.0 ] ml MV A Peak Corey 0.9 [ 100.0 - 120.0 ] cm/sec ESV 2D 19.1 [ 14.0 - 42.0 ] ml MV E/A 0.8 [ 0.8 - 1.5 ] ratio EF 2D 70.7 [ 54.0 - 74.0 ] percent MV Decel Time 299 [ 104 - 258 ] msec LA Dimen 2D 2.3 [ 2.7 - 3.8 ] cm Lat E` Corey 0.1 [ 10.0 - 15.0 ] cm/sec Lateral E/E` 9.1 [ 1.0 - 2.0 ] ratio MV E/A 0.8 [ 0.8 - 1.5 ] ratio Findings: Left Ventricle: Normal left ventricular systolic function. Normal left ventricular cavity size. Mild concentric left ventricular hypertrophy. Ejection fraction is visually estimated at 60 %. Tissue Doppler/Mitral Doppler indices are consistent with impaired relaxation (Stage I diastolic dysfunction). Right Ventricle: Normal right ventricular size. Normal right ventricular systolic function. Left Atrium: The left atrium is normal in size. Right Atrium: The right atrium is normal in size. Mitral Valve: Mitral valve leaflets appear mildly thickened. Mild mitral annular calcification. Trace mitral regurgitation. Aortic Valve: No significant aortic stenosis or insufficiency. Aortic cusps appear mildly calcified. Tricuspid Valve: Normal appearance of the tricuspid valve. Unable to obtain RVSP due to minimal presence of tricuspid regurgitation. Pulmonic Valve: Normal pulmonic valve appearance. Pericardium: Normal pericardium with no significant pericardial effusion. Aorta: Normal aortic root. IVC: Normal size and normal respiratory collapse consistent with normal right atrial pressure. Conclusions: Normal left ventricular systolic function. Normal left ventricular cavity size. Mild concentric left ventricular hypertrophy. Ejection fraction is visually estimated at 60 %. Tissue Doppler/Mitral Doppler indices are consistent with impaired relaxation (Stage I diastolic dysfunction). Mitral valve leaflets appear mildly thickened. Mild mitral annular calcification. Trace mitral regurgitation. Normal appearance of the tricuspid valve. Unable to obtain RVSP due to minimal presence of tricuspid regurgitation. Electronically Signed By: Paulo Mason 2018-07-05 18:43:18 PDT
[2018-07-05 19:02] VITALS: PULSE 71
[2018-07-05 19:18] VITALS: Ht 172.7 cm; Wt 104.5 kg
[2018-07-05 19:44] VITALS: BP 128/62; PULSE 71; RESP 20
[2018-07-05 20:00] VITALS: PULSE 71
[2018-07-05] MEDS: ATORVASTATIN 40 MG TAB PO SCH (20:27)
[2018-07-05] MEDS: ONDANSETRON 4 MG INJ IV PRN (21:35)
[2018-07-05] MEDS: INSULIN GLARGINE [LANTus] (100 UNITS/ML) SYG SC SCH (23:24)
[2018-07-06] VITALS (9 sets, daily range): BP systolic 119–141; BP diastolic 57–85; PULSE 62–87; RESP 16–18
[2018-07-06] MEDS: KETOROLAC 15 MG INJ IV PRN ×2 (00:25→06:09)
[2018-07-06] MEDS: HYDROmorphONE 1 MG/ML SYG IV PRN ×6 (01:21→21:25)
[2018-07-06] MEDS: ACCU-CHEK XX SCH (01:24)
[2018-07-06] MEDS: SOD CHLORIDE 0.9% 1,000 ML IV SCH ×2 (04:10→21:30)
[2018-07-06] MEDS: ONDANSETRON 4 MG INJ IV PRN ×4 (04:37→23:57)
[2018-07-06] MEDS: LEVOTHYROXINE 100 MCG TAB PO SCH (06:09)
[2018-07-06] MEDS: RANITIDINE 150 MG TAB PO SCH (08:11)
[2018-07-06] MEDS: NICOTINE (14 MG/24 HR) PATCH TRANSDERM SCH (08:11)
[2018-07-06] MEDS: AMLODIPINE 5 MG TAB PO SCH (08:12)
[2018-07-06] MEDS: ASPIRIN (EC) 81 MG TAB PO SCH (08:12)
[2018-07-06] MEDS: CYCLOBENZAPRINE 10 MG TAB PO SCH ×3 (08:12→20:24)
[2018-07-06] MEDS: ASCORBIC ACID 500 MG TAB PO SCH (08:12)
[2018-07-06] MEDS: FERROUS SULFATE (EC) 325 MG TAB PO SCH (08:12)
[2018-07-06] MEDS: BENAZEPRIL 20 MG TAB PO SCH (08:13)
[2018-07-06] MEDS: ASPIRIN 81 MG TAB PO SCH (08:19)
[2018-07-06] MEDS: INSULIN ASPART [NOVOLOG] 3 ML PEN SC SCH ×4 (08:19→20:45)
[2018-07-06] MEDS: DOCUSATE SODIUM 100 MG CAP PO SCH ×2 (09:08→20:35)
[2018-07-06] MEDS: LEVOFLOXACIN 750MG/D5W (PMX) 150 ML IVPB SCH (10:47)
[2018-07-06] MEDS ORDERED: MAGNESIUM SULFATE 2 GM/50 ML 50 ML IVPB ONE (12:00)
--- NOTE | 2018-07-06 12:12 | PN ---
Date/Time of Note Date/Time of Note DATE: 07/06/18 TIME: 12:09 Assessment/Plan VTE Prophylaxis Risk score (from Ns)>0 risk: 6 SCD applied (from Ns): No SCD contraindicated: other Pharmacological prophylaxis: LMWH Lines/Catheters IV Catheter Type (from [facility]): Peripheral IV Urinary Cath still in place: No Assessment/Plan Hospital Course SUBJECTIVE: Complains of abdominal pain. Complains of diarrhea. OBJECTIVE: Physical Exam General: Obese, 72 year-old female lying in bed in no apparent distress. HEENT: Normocephalic, atraumatic. Eyes: Anicteric sclerae, conjunctivae clear. ENT: Nasal septum midline, oral mucosa moist. Neck supple. Respiratory: Bilaterally diminished breath sounds. No use of accessory muscles of respiration. No adventitious breath sounds. Cardiovascular: S1, S2 heard. Regular rate and rhythm. Abdomen: Soft and nondistended. Minimal tenderness in the suprapubic area. Bowel sounds positive in all 4 quadrants. Genitourinary: Deferred. Extremities: No cyanosis, no clubbing. Bilateral lower extremity edema. Neurologic: Cranial nerves II through XII grossly intact. The patient is awake, alert, and oriented. Skin: Normal skin turgor. No skin rashes. Labs & Vitals per chart ASSESSMENT & PLAN 72-year-old female with comorbidities including COPD, hypothyroidism, diabetes mellitus type 2, hypertension, chronic bilateral lower extremity edema, and diverticulitis who presented with significant lower abdominal pain, mild dysuria, dizziness/lightheadedness. 1. Acute abdominal pain. -CT showing mild dilation of the right renal collecting system and suggestion of minimal perinephric fat stranding. -Continue antimicrobials. -Pending urine cultures. 2. Dizziness/lightheadedness. -Most probably from vasovagal response since the event happened while she was sitting on a toilet seat and having a bowel movement. -Brain CT scan negative. -2D echocardiogram showing ejection fraction of 60%. 3. Diverticulosis without CT evidence of diverticulitis. -Diverticular diet. -Needs outpatient colonoscopy. 4. COPD. -Continue PRN GASTON. -No evidence of any exacerbation. 5. Essential hypertension. -Continue antihypertensives. 6. Dyslipidemia. -Continue statins. 7. Diabetes mellitus. -Hemoglobin A1c 8.4. -Continue sliding scale insulin along with basal insulin. 8. Hypothyroidism. -Continue Synthroid. 9. Chronic B/L LE edema. 10. Nicotine use. -Continue nicotine patch. 11. Morbid obesity. -BMI of 35. -Weight reduction advised. 12. Fluids, electrolytes, and nutrition. -Carbohydrate controlled diet. 13. DVT prophylaxis. -Subcutaneous Lovenox. 14. Plan. -Continue Pain control. -Continue antimicrobials. -Send stool studies. -Obtain gastroenterology consult. The patient was seen in collaboration with Dr. Rios Result Diagram: 07/06/18 0540 07/06/18 0540 Results 24hrs Laboratory Tests Test 07/05/18 12:41 07/05/18 17:13 07/05/18 19:30 07/05/18 23:09 Bedside Glucose 297 H 226 H 199 Creatine Kinase 45 Creatine Kinase 1.8 Index Creatinine Kinase MB 0.81 (Mass) Troponin I < 0.012 Test 07/06/18 01:23 07/06/18 05:40 07/06/18 07:46 Bedside Glucose 215 208 White Blood Count 7.7 # Red Blood Count 4.36 Hemoglobin 11.5 L Hematocrit 36.3 L Mean Corpuscular 83.3 Volume Mean Corpuscular 26.4 L Hemoglobin Mean Corpuscular 31.7 L Hemoglobin Concent Red Cell 16.0 H Distribution Width Platelet Count 178 Mean Platelet Volume 11.4 H Immature 0.800 H Granulocytes % Neutrophils % 35.2 L Lymphocytes % 54.3 H Monocytes % 7.0 Eosinophils % 2.3 Basophils % 0.4 Nucleated Red Blood 0.0 Cells % Immature 0.060 H Granulocytes # Neutrophils # 2.7 Lymphocytes # 4.2 H Monocytes # 0.5 Eosinophils # 0.2 Basophils # 0.0 Nucleated Red Blood 0.0 Cells # Sodium Level 141 Potassium Level 4.5 Chloride Level 105 Carbon Dioxide Level 30 Anion Gap 6 Blood Urea Nitrogen 21 H Creatinine 0.82 Est Glomerular > 60 Filtrat Rate mL/min Glucose Level 233 H Hemoglobin A1c 8.4 H Calcium Level 9.3 Phosphorus Level 4.2 Magnesium Level 1.5 L Total Bilirubin 0.5 Direct Bilirubin 0.00 Indirect Bilirubin 0.5 Aspartate Amino 16 Transf (AST/SGOT) Alanine 13 Aminotransferase (AL T/SGPT) Alkaline Phosphatase 83 Total Protein 5.5 #L Albumin 3.1 L Globulin 2.40 Albumin/Globulin 1.29 Ratio Triglycerides Level 149 Cholesterol Level 136 LDL Cholesterol, 67 Calculated HDL Cholesterol 39 Cholesterol/HDL 3.4 Ratio Exam/Review of Systems Exam Vitals Vital Signs Date Temp Pulse Resp B/P (MAP) Pulse Ox O2 O2 Flow FiO2 Time Delivery Rate 07/06/18 98.3 65 18 123/85 97 Room Air 11:22 (98) Intake and Output 07/05/18 07/05/18 07/06/18 1515:00 23:00 07:00 IntakeIntake Total 2100 ml OutputOutput Total 4 ml BalanceBalance 2096 ml Results Results 24hrs Laboratory Tests Test 07/05/18 12:41 07/05/18 17:13 07/05/18 19:30 07/05/18 23:09 Bedside Glucose 297 H 226 H 199 Creatine Kinase 45 Creatine Kinase 1.8 Index Creatinine Kinase MB 0.81 (Mass) Troponin I < 0.012 Test 07/06/18 01:23 07/06/18 05:40 07/06/18 07:46 Bedside Glucose 215 208 White Blood Count 7.7 # Red Blood Count 4.36 Hemoglobin 11.5 L Hematocrit 36.3 L Mean Corpuscular 83.3 Volume Mean Corpuscular 26.4 L Hemoglobin Mean Corpuscular 31.7 L Hemoglobin Concent Red Cell 16.0 H Distribution Width Platelet Count 178 Mean Platelet Volume 11.4 H Immature 0.800 H Granulocytes % Neutrophils % 35.2 L Lymphocytes % 54.3 H Monocytes % 7.0 Eosinophils % 2.3 Basophils % 0.4 Nucleated Red Blood 0.0 Cells % Immature 0.060 H Granulocytes # Neutrophils # 2.7 Lymphocytes # 4.2 H Monocytes # 0.5 Eosinophils # 0.2 Basophils # 0.0 Nucleated Red Blood 0.0 Cells # Sodium Level 141 Potassium Level 4.5 Chloride Level 105 Carbon Dioxide Level 30 Anion Gap 6 Blood Urea Nitrogen 21 H Creatinine 0.82 Est Glomerular > 60 Filtrat Rate mL/min Glucose Level 233 H Hemoglobin A1c 8.4 H Calcium Level 9.3 Phosphorus Level 4.2 Magnesium Level 1.5 L Total Bilirubin 0.5 Direct Bilirubin 0.00 Indirect Bilirubin 0.5 Aspartate Amino 16 Transf (AST/SGOT) Alanine 13 Aminotransferase (AL T/SGPT) Alkaline Phosphatase 83 Total Protein 5.5 #L Albumin 3.1 L Globulin 2.40 Albumin/Globulin 1.29 Ratio Triglycerides Level 149 Cholesterol Level 136 LDL Cholesterol, 67 Calculated HDL Cholesterol 39 Cholesterol/HDL 3.4 Ratio Medications Medication Current Medications Amlodipine Besylate (Norvasc) 5 mg DAILY PO Last administered on 07/06/18 08:12; Admin Dose 5 MG; Start 07/05/18 at 10:30 Ascorbic Acid (Vitamin C) 500 mg DAILY PO Last administered on 07/06/18 08:12; Admin Dose 500 MG; Start 07/05/18 at 10:30 Aspirin (Halfprin) 81 mg DAILY PO Last administered on 07/06/18 08:12; Admin Dose 81 MG; Start 07/06/18 at 09:00 Atorvastatin Calcium (Lipitor) 40 mg QHS PO Last administered on 07/05/18 20:27; Admin Dose 40 MG; Start 07/05/18 at 21:00 Benazepril HCl (Lotensin) 20 mg DAILY PO Last administered on 07/06/18 08:13; Admin Dose 20 MG; Start 07/05/18 at 10:30 Cyclobenzaprine HCl (Flexeril) 10 mg TID PO Last administered on 07/06/18 08:12; Admin Dose 10 MG; Start 07/05/18 at 13:00 Docusate Sodium (Colace) 100 mg Q12H PO ; Start 07/05/18 at 09:30 Ferrous Sulfate (Ferrous Sulfate (Ec)) 325 mg DAILY PO Last administered on 07/06/18 08:12; Admin Dose 325 MG; Start 07/05/18 at 10:30 Levothyroxine Sodium (Synthroid) 100 mcg BEFORE BREAKFAST PO Last administered on 07/06/18 06:09; Admin Dose 100 MCG; Start 07/05/18 at 10:30 Ranitidine HCl (Zantac) 150 mg DAILY PO Last administered on 07/06/18 08:11; Admin Dose 150 MG; Start 07/05/18 at 10:30 Levofloxacin/ Dextrose 150 ml @ 100 mls/hr Q24H IVPB Last administered on 07/06/18 10:47; Admin Dose 100 MLS/HR; Start 07/05/18 at 10:30 Sodium Chloride 1,000 ml @ 75 mls/hr [id number] IV Last administered on 07/06/18 04:10; Admin Dose 75 MLS/HR; Start 07/05/18 at 10:14 IV Flush (NS 3 ml) 3 ml PER PROTOCOL IV ; Start 07/05/18 at 10:30 Ondansetron HCl (Zofran Inj) 4 mg Q6H PRN IV NAUSEA/VOMITING Last administered on 07/06/18at 10:47; Admin Dose 4 MG; Start 07/05/18 at 10:30 Acetaminophen (Tylenol Tab) 650 mg Q6H PRN PO .PAIN 1-3 OR TEMP; Start 07/05/18 at 10:30 Docusate Sodium (Colace) 100 mg Q12H PRN PO .CONSTIPATION; Start 07/05/18 at 10:30 Diagnostic Test (Pha) (Accu-Chek) 1 ea 02 XX Last administered on 07/06/18at 0 1:24; Admin Dose 1 EA; Start 07/06/18 at 02:00 Insulin Glargine (Lantus) 16 units DAILY@2000 SC Last administered on 07/05/18at 23:24; Admin Dose 16 UNITS; Start 07/05/18 at 20:00 Insulin Aspart (Novolog Insulin Pen) NOVOLOG *MILD* ALGORITHM WITH MEALS BEDTIME SC Last administered on 07/06/18at 08:19; Admin Dose 2 UNIT; Start 07/05/18 at 12:00 Aspirin (Aspirin) 81 mg DAILY PO Last administered on 07/05/18at 11:29; Admin Dose 81 MG; Start 07/05/18 at 10:30 Miscellaneous Information 1 ea NOTE XX ; Start 07/05/18 at 11:00 Glucose (Glutose) 15 gm Q15M PRN PO DECREASED GLUCOSE; Start 07/05/18 at 11:00 Glucose (Glutose) 22.5 gm Q15M PRN PO DECREASED GLUCOSE; Start 07/05/18 at 11:00 Dextrose (D50w Syringe) 25 ml Q15M PRN IV DECREASED GLUCOSE; Start 07/05/18 at 11:00 Dextrose (D50w Syringe) 50 ml Q15M PRN IV DECREASED GLUCOSE; Start 07/05/18 at 11:00 Glucagon (Glucagen) 1 mg Q15M PRN IM DECREASED GLUCOSE; Start 07/05/18 at 11:00 Glucose (Glutose) 15 gm Q15M PRN BUCCAL DECREASED GLUCOSE; Start 07/05/18 at 11:00 Hydromorphone HCl (Dilaudid) 1 mg Q4H PRN IV SEVERE PAIN LEVEL 7-10 Last a dministered on 07/06/18at 09:05; Admin Dose 1 MG; Start 07/05/18 at 13:00 Nicotine (Nicoderm 14 Mg/ 24hr) 1 patch DAILY TRANSDERM Last administered on 07/06/18at 08:11; Admin Dose 1 PATCH; Start 07/06/18 at 09:00 Magnesium Sulfate 50 ml @ 25 mls/hr ONCE ONCE IVPB ; Start 07/06/18 at 12:00; Stop 07/06/18 at 13:59 Diphenhydramine HCl (Benadryl) 25 mg Q6H PRN PO ITCHING; Start 07/06/18 at 12:00; Status UNV CLINTON CHANDLER NP July 06, 2018 12:12
[2018-07-06] MEDS: DIPHENHYDRAMINE 25 MG CAP PO PRN ×2 (12:19→19:34)
[2018-07-06] MEDS: ATORVASTATIN 40 MG TAB PO SCH (20:24)
[2018-07-06] MEDS: INSULIN GLARGINE [LANTus] (100 UNITS/ML) SYG SC SCH (20:45)
[2018-07-07] VITALS (9 sets, daily range): BP systolic 114–193; BP diastolic 55–86; PULSE 68–79; RESP 17–20
[2018-07-07] MEDS: DIPHENHYDRAMINE 25 MG CAP PO PRN ×3 (01:22→20:21)
[2018-07-07] MEDS: HYDROmorphONE 1 MG/ML SYG IV PRN ×6 (01:23→23:46)
[2018-07-07] MEDS: ACCU-CHEK XX SCH (01:50)
[2018-07-07] MEDS ORDERED: morphine 4 MG/ML VIAL IV ONE (04:05)
[2018-07-07] MEDS ORDERED: hydrALAzine 20 MG INJ IV ONE (05:00)
[2018-07-07] MEDS: ONDANSETRON 4 MG INJ IV PRN (06:01)
[2018-07-07] MEDS: LEVOTHYROXINE 100 MCG TAB PO SCH (06:01)
--- NOTE | 2018-07-07 07:52 | PN ---
Date/Time of Note Date/Time of Note DATE: 07/07/18 TIME: 07:51 Assessment/Plan VTE Prophylaxis Risk score (from Ns)>0 risk: 6 [place] [facility] [place] contraindicated: other Pharmacological prophylaxis: LMWH Lines/Catheters IV C[facility]ter Type (from [facility]): Peripheral IV Urinary Cath still in place: No Assessment/Plan Hospital Course SUBJECTIVE: Complains of abdominal pain. Diarrhea resolved. OBJECTIVE: Physical Exam General: Obese, 72 year-old female lying in bed in no apparent distress. HEENT: Normocephalic, atraumatic. Eyes: Anicteric sclerae, conjunctivae clear. ENT: Nasal septum midline, oral mucosa moist. Neck supple. Respiratory: Bilaterally diminished breath sounds. No use of accessory muscles of respiration. No adventitious breath sounds. Cardiovascular: S1, S2 heard. Regular rate and rhythm. Abdomen: Soft and nondistended. Minimal tenderness in the suprapubic area. Bowel sounds positive in all 4 quadrants. Genitourinary: Deferred. Extremities: No cyanosis, no clubbing. Bilateral lower extremity edema. Neurologic: Cranial nerves II through XII grossly intact. The patient is awake, alert, and oriented. Skin: Normal skin turgor. No skin rashes. Labs & Vitals per chart ASSESSMENT & PLAN 72-year-old female with comorbidities including COPD, hypothyroidism, diabetes mellitus type 2, hypertension, chronic bilateral lower extremity edema, and diverticulitis who presented with significant lower abdominal pain, mild dysuria, dizziness/lightheadedness. 1. Acute abdominal pain. -CT showing mild dilation of the right renal collecting system and suggestion of minimal perinephric fat stranding. -Continue antimicrobials. -Urine culture showing E. coli with colony count of 20,000 30,000 resistant to fluoroquinolones. -Switch antimicrobials to cephalosporins. 2. Dizziness/lightheadedness. -Most probably from vasovagal response since the event happened while she was sitting on a toilet seat and having a bowel movement. -Brain CT scan negative. -2D echocardiogram showing ejection fraction of 60%. 3. Diverticulosis without CT evidence of diverticulitis. -Diverticular diet. -Gastroenterology consult pending. 4. COPD. -Continue PRN GASTON. -No evidence of any exacerbation. 5. Essential hypertension. -Continue antihypertensives. 6. Dyslipidemia. -Continue statins. 7. Diabetes mellitus. -Hemoglobin A1c 8.4. -Continue sliding scale insulin along with basal insulin. 8. Hypothyroidism. -Continue Synthroid. 9. Chronic B/L LE edema. 10. Nicotine use. -Continue nicotine patch. 11. Morbid obesity. -BMI of 35. -Weight reduction advised. 12. Fluids, electrolytes, and nutrition. -Carbohydrate controlled diet. 13. DVT prophylaxis. -Subcutaneous Lovenox. 14. Plan. -Continue Pain control. -Switch antimicrobials. -Await gastroenterology consult. -Transfer the patient to [facility]. The patient was seen in collaboration with Dr. Rios Result Diagram: 07/07/18 0551 07/07/18 0551 Results 24hrs Laboratory Tests Test 07/06/18 12:16 07/06/18 17:15 07/06/18 20:23 07/07/18 01:22 Bedside Glucose 189 205 225 H 222 H Test 07/07/18 05:51 07/07/18 07:36 White Blood Count 7.7 Red Blood Count 4.44 Hemoglobin 11.8 L Hematocrit 36.6 L Mean Corpuscular 82.4 Volume Mean Corpuscular 26.6 L Hemoglobin Mean Corpuscular 32.2 Hemoglobin Concent Red Cell 15.3 H Distribution Width Platelet Count 179 Mean Platelet Volume 11.2 H Immature 0.700 H Granulocytes % Neutrophils % 38.1 L Lymphocytes % 49.8 Monocytes % 7.7 Eosinophils % 3.3 Basophils % 0.4 Nucleated Red Blood 0.0 Cells % Immature 0.050 H Granulocytes # Neutrophils # 2.9 Lymphocytes # 3.8 H Monocytes # 0.6 Eosinophils # 0.3 Basophils # 0.0 Nucleated Red Blood 0.0 Cells # Sodium Level 139 Potassium Level 4.1 Chloride Level 106 Carbon Dioxide Level 29 Anion Gap 4 L Blood Urea Nitrogen 15 Creatinine 0.55 Est Glomerular > 60 Filtrat Rate mL/min Glucose Level 166 Calcium Level 9.5 Phosphorus Level 3.0 Magnesium Level 1.5 L Total Bilirubin 0.3 Direct Bilirubin 0.00 Indirect Bilirubin 0.3 Aspartate Amino 20 Transf (AST/SGOT) Alanine 21 Aminotransferase (AL T/SGPT) Alkaline Phosphatase 109 Total Protein 6.0 L Albumin 3.2 L Globulin 2.80 Albumin/Globulin 1.14 Ratio Bedside Glucose 167 Exam/Review of Systems Exam Vitals Vital Signs Date Temp Pulse Resp B/P (MAP) Pulse Ox O2 O2 Flow FiO2 Time Delivery Rate 07/07/18 98.3 77 20 133/68 93 Room Air 07:40 (89) Intake and Output 07/06/18 07/06/18 07/07/18 1515:00 23:00 07:00 IntakeIntake Total 200 ml 850 ml 1475 ml OutputOutput Total 6 ml BalanceBalance 200 ml 844 ml 1475 ml Results Results 24hrs Laboratory Tests Test 07/06/18 12:16 07/06/18 17:15 07/06/18 20:23 07/07/18 01:22 Bedside Glucose 189 205 225 H 222 H Test 07/07/18 05:51 07/07/18 07:36 White Blood Count 7.7 Red Blood Count 4.44 Hemoglobin 11.8 L Hematocrit 36.6 L Mean Corpuscular 82.4 Volume Mean Corpuscular 26.6 L Hemoglobin Mean Corpuscular 32.2 Hemoglobin Concent Red Cell 15.3 H Distribution Width Platelet Count 179 Mean Platelet Volume 11.2 H Immature 0.700 H Granulocytes % Neutrophils % 38.1 L Lymphocytes % 49.8 Monocytes % 7.7 Eosinophils % 3.3 Basophils % 0.4 Nucleated Red Blood 0.0 Cells % Immature 0.050 H Granulocytes # Neutrophils # 2.9 Lymphocytes # 3.8 H Monocytes # 0.6 Eosinophils # 0.3 Basophils # 0.0 Nucleated Red Blood 0.0 Cells # Sodium Level 139 Potassium Level 4.1 Chloride Level 106 Carbon Dioxide Level 29 Anion Gap 4 L Blood Urea Nitrogen 15 Creatinine 0.55 Est Glomerular > 60 Filtrat Rate mL/min Glucose Level 166 Calcium Level 9.5 Phosphorus Level 3.0 Magnesium Level 1.5 L Total Bilirubin 0.3 Direct Bilirubin 0.00 Indirect Bilirubin 0.3 Aspartate Amino 20 Transf (AST/SGOT) Alanine 21 Aminotransferase (AL T/SGPT) Alkaline Phosphatase 109 Total Protein 6.0 L Albumin 3.2 L Globulin 2.80 Albumin/Globulin 1.14 Ratio Bedside Glucose 167 Medications Medication Current Medications Amlodipine Besylate (Norvasc) 5 mg DAILY PO Last administered on 07/06/18at 08:12; Admin Dose 5 MG; Start 07/05/18 at 10:30 Ascorbic Acid (Vitamin C) 500 mg DAILY PO Last administered on 07/06/18at 08:12; Admin Dose 500 MG; Start 07/05/18 at 10:30 Aspirin (Halfprin) 81 mg DAILY PO Last administered on 07/06/18 08:12; Admin Dose 81 MG; Start 07/06/18 at 09:00 Atorvastatin Calcium (Lipitor) 40 mg QHS PO Last administered on 07/06/18 20: 24; Admin Dose 40 MG; Start 07/05/18 at 21:00 Benazepril HCl (Lotensin) 20 mg DAILY PO Last administered on 07/06/18 08:13; Admin Dose 20 MG; Start 07/05/18 at 10:30 Cyclobenzaprine HCl (Flexeril) 10 mg TID PO Last administered on 07/06/18 20:24; Admin Dose 10 MG; Start 07/05/18 at 13:00 Docusate Sodium (Colace) 100 mg Q12H PO Last administered on 07/06/18 20:35; Admin Dose 100 MG; Start 07/05/18 at 09:30 Ferrous Sulfate (Ferrous Sulfate (Ec)) 325 mg DAILY PO Last administered on 07/06/18 08:12; Admin Dose 325 MG; Start 07/05/18 at 10:30 Levothyroxine Sodium (Synthroid) 100 mcg BEFORE BREAKFAST PO Last administered on 07/07/18 06:01; Admin Dose 100 MCG; Start 07/05/18 at 10:30 Ranitidine HCl (Zantac) 150 mg DAILY PO Last administered on 07/06/18 08:11; Admin Dose 150 MG; Start 07/05/18 at 10:30 Levofloxacin/ Dextrose 150 ml @ 100 mls/hr Q24H IVPB Last administered on 07/06/18 10:47; Admin Dose 100 MLS/HR; Start 07/05/18 at 10:30 Sodium Chloride 1,000 ml @ 75 mls/hr [id number] IV Last administered on 07/06/18 21:30; Admin Dose 75 MLS/HR; Start 07/05/18 at 10:14 IV Flush (NS 3 ml) 3 ml PER PROTOCOL IV ; Start 07/05/18 at 10:30 Ondansetron HCl (Zofran Inj) 4 mg Q6H PRN IV NAUSEA/VOMITING Last administered on 07/07/18 06:01; Admin Dose 4 MG; Start 07/05/18 at 10:30 Acetaminophen (Tylenol Tab) 650 mg Q6H PRN PO .PAIN 1-3 OR TEMP; Start 07/05/18 at 10:30 Docusate Sodium (Colace) 100 mg Q12H PRN PO .CONSTIPATION Last administered on 07/07/18at 01:23; Admin Dose 100 MG; Start 07/05/18 at 10:30 Diagnostic Test (Pha) (Accu-Chek) 1 ea 02 XX Last administered on 07/07/18at 01:50; Admin Dose 1 EA; Start 07/06/18 at 02:00 Insulin Glargine (Lantus) 16 units DAILY@2000 SC Last administered on 07/06/18 20:45; Admin Dose 16 UNITS; Start 07/05/18 at 20:00 Insulin Aspart (Novolog Insulin Pen) NOVOLOG *MILD* ALGORITHM WITH MEALS BEDTIME SC Last administered on 07/06/18at 20:45; Admin Dose 2 UNIT; Start 07/05/18 at 12:00 Aspirin (Aspirin) 81 mg DAILY PO Last administered on 07/05/18at 11:29; Admin Dose 81 MG; Start 07/05/18 at 10:30 Miscellaneous Information 1 ea NOTE XX ; Start 07/05/18 at 11:00 Glucose (Glutose) 15 gm Q15M PRN PO DECREASED GLUCOSE; Start 07/05/18 at 11:00 Glucose (Glutose) 22.5 gm Q15M PRN PO DECREASED GLUCOSE; Start 07/05/18 at 11:00 Dextrose (D50w Syringe) 25 ml Q15M PRN IV DECREASED GLUCOSE; Start 07/05/18 at 11:00 Dextrose (D50w Syringe) 50 ml Q15M PRN IV DECREASED GLUCOSE; Start 07/05/18 at 11:00 Glucagon (Glucagen) 1 mg Q15M PRN IM DECREASED GLUCOSE; Start 07/05/18 at 11:00 Glucose (Glutose) 15 gm Q15M PRN BUCCAL DECREASED GLUCOSE; Start 07/05/18 at 11:00 Hydromorphone HCl (Dilaudid) 1 mg Q4H PRN IV SEVERE PAIN LEVEL 7-10 Last administered on 07/07/18at 05:11; Admin Dose 1 MG; Start 07/05/18 at 13:00 Nicotine (Nicoderm 14 Mg/ 24hr) 1 patch DAILY TRANSDERM Last administered on 07/06/18at 08:11; Admin Dose 1 PATCH; Start 07/06/18 at 09:00 Diphenhydramine HCl (Benadryl) 25 mg Q6H PRN PO ITCHING Last administered on at 01:22; Admin Dose 25 MG; Start 07/06/18 at 12:00 Enoxaparin Sodium (Lovenox) 40 mg DAILY SC ; Start 07/07/18 at 09:00 CLINTON CHANDLER NP July 07, 2018 07:52
[2018-07-07] MEDS: INSULIN ASPART [NOVOLOG] 3 ML PEN SC SCH ×4 (07:53→20:18)
[2018-07-07] MEDS: RANITIDINE 150 MG TAB PO SCH (08:55)
[2018-07-07] MEDS: ASPIRIN 81 MG TAB PO SCH (08:55)
[2018-07-07] MEDS: ASCORBIC ACID 500 MG TAB PO SCH (08:55)
[2018-07-07] MEDS: FERROUS SULFATE (EC) 325 MG TAB PO SCH ×2 (08:55→09:00)
[2018-07-07] MEDS: BENAZEPRIL 20 MG TAB PO SCH (08:56)
[2018-07-07] MEDS: DOCUSATE SODIUM 100 MG CAP PO SCH ×2 (08:56→20:20)
[2018-07-07] MEDS: ASPIRIN (EC) 81 MG TAB PO SCH (08:56)
[2018-07-07] MEDS: NICOTINE (14 MG/24 HR) PATCH TRANSDERM SCH (08:57)
[2018-07-07] MEDS: CYCLOBENZAPRINE 10 MG TAB PO SCH ×3 (08:57→20:19)
[2018-07-07] MEDS: AMLODIPINE 5 MG TAB PO SCH (08:57)
[2018-07-07] MEDS: ENOXAPARIN 40 MG/0.4 ML SYG SC SCH (09:26)
[2018-07-07] MEDS: LEVOFLOXACIN 750MG/D5W (PMX) 150 ML IVPB SCH (10:16)
[2018-07-07] MEDS: CEFTRIAXONE 1 GM/50 ML (PMX) 50 ML IVPB SCH (10:33)
--- NOTE | 2018-07-07 12:58 | CONS ---
DATE OF ADMISSION: 07/07/2018 DATE OF CONSULTATION: 07/07/2018 Dear Raul Thank you for asking me to see Mrs. Tri Scherer in GI consultation. HISTORY OF PRESENT ILLNESS: The patient is a 72-year-old female, has been admitted to the hospital because of persistent abdominal pain which apparently has been going on for 2 months. She was previously treated for diverticulitis. However, in the past several days, the pain has bee n occurring more frequently with some amount of diarrhea from time to time. However, she also has be en passing chocolate-colored black stools. She does have a history of heartburn and indigestion. Malik silveira takes pantoprazole for that. Other medical problems include history of type 2 diabetes, hypothyroi dism, dyslipidemia, COPD, TIA. PAST SURGICAL HISTORY: Includes bilateral knee surgeries and back surgery and also cholecystectomy. MEDICATIONS: Currently includes: 1. Zofran. 2. Tylenol. 3. Norvasc. 4. Vitamin C. 5. Lipitor. 6. Lotensin. 7. Flexeril. 8. Colace. 9. Ferrous sulfate. 10. Synthroid. 11. Zantac. PHYSICAL EXAMINATION: GENERAL: The patient is a 72-year-old female who at this time she appears to be mil dly obese, afebrile. VITAL SIGNS: Temperature 98.3, pulse 77, blood pressure 133/68. CARDIOVASCULAR: Normal heart sounds. RESPIRATORY: Normal breath sounds. ABDOMEN: Showed unremarkable findings except some tenderness in the lower abdomen which is not signi ficant. LABORATORY WORKUP: WBC 7700, hemoglobin 11.8, potassium 4.1, AST 20, ALT 21, alkaline phosphatase 10 9. Albumin is 3.2, lipase is 96, which is normal. IMAGING STUDIES: Shows CAT scan of the abdomen revealing evidence of diverticulosis but no evidence of a diverticulitis, right-sided hydronephrosis noted as well. CLINICAL IMPRESSION: 1. The patient presenting with history of persistent abdominal pain for the past 2 weeks. It is tiffanie te possible we may be dealing with diverticulitis, although the CAT scan of the abdomen is not showin g any evidence of that. Colorectal neoplasm should be ruled out. She has history of indigestion, hea rtburn, passing black stools, rule out bleeding ulcer disease, gastritis, esophagitis. 1. History of diabetes, hypertension. PLAN: 1. At this time, recommend upper endoscopy as well as lower endoscopy. 2. Will continue antibiotics, continue proton pump inhibitor therapy. Once again, Raul, thank you for this consultation. Dictated By: IVETTE STAPLES MD NC/KULDEEP Conf#: [id number] DID#: [id number] CC: JEAN CLAUDE KENNEDY MD;*EndCC*
[2018-07-07] MEDS: LACTULOSE 30ML CUP PO SCH ×3 (14:50→20:19)
[2018-07-07] MEDS: ATORVASTATIN 40 MG TAB PO SCH (20:20)
[2018-07-07] MEDS: INSULIN GLARGINE [LANTus] (100 UNITS/ML) SYG SC SCH (20:23)
[2018-07-08] MEDS: LACTULOSE 30ML CUP PO SCH ×6 (00:05→20:43)
[2018-07-08 02:00] VITALS: BP 167/84; PULSE 71; RESP 18
[2018-07-08] MEDS: ACCU-CHEK XX SCH (02:00)
[2018-07-08] MEDS: HYDROmorphONE 1 MG/ML SYG IV PRN ×5 (04:05→21:47)
[2018-07-08] MEDS: LEVOTHYROXINE 100 MCG TAB PO SCH (06:04)
[2018-07-08] MEDS: INSULIN ASPART [NOVOLOG] 3 ML PEN SC SCH ×4 (08:00→20:42)
[2018-07-08] MEDS: ONDANSETRON 4 MG INJ IV PRN ×2 (08:06→21:53)
[2018-07-08 08:09] VITALS: BP 172/75; PULSE 66; RESP 17
[2018-07-08] MEDS: ENOXAPARIN 40 MG/0.4 ML SYG SC SCH (08:09)
[2018-07-08] MEDS: NICOTINE (14 MG/24 HR) PATCH TRANSDERM SCH (08:10)
[2018-07-08] MEDS: FERROUS SULFATE (EC) 325 MG TAB PO SCH (08:12)
[2018-07-08] MEDS: CYCLOBENZAPRINE 10 MG TAB PO SCH ×3 (08:12→20:40)
[2018-07-08] MEDS: ASCORBIC ACID 500 MG TAB PO SCH (08:13)
[2018-07-08] MEDS: RANITIDINE 150 MG TAB PO SCH (08:13)
[2018-07-08] MEDS: AMLODIPINE 5 MG TAB PO SCH (08:14)
[2018-07-08] MEDS: BENAZEPRIL 20 MG TAB PO SCH (08:14)
[2018-07-08] MEDS: ASPIRIN 81 MG TAB PO SCH (08:16)
[2018-07-08] MEDS: DOCUSATE SODIUM 100 MG CAP PO SCH ×2 (08:19→20:42)
[2018-07-08] MEDS: ASPIRIN (EC) 81 MG TAB PO SCH (08:20)
[2018-07-08] MEDS: DIPHENHYDRAMINE 25 MG CAP PO PRN (08:36)
[2018-07-08] MEDS: CEFTRIAXONE 1 GM/50 ML (PMX) 50 ML IVPB SCH (11:24)
[2018-07-08 14:12] VITALS: BP 131/64; PULSE 67; RESP 17
--- NOTE | 2018-07-08 14:59 | PN ---
Date/Time of Note Date/Time of Note DATE: 07/08/18 TIME: 14:55 Assessment/Plan VTE Prophylaxis Risk score (from Ns)>0 risk: 5 SCD applied (from [facility]): Yes Pharmacological prophylaxis: LMWH Lines/Catheters [facility] ([facility] Peripheral IV Urinary Cath still in place: No Assessment/Plan Hospital Course SUBJECTIVE: Complains of abdominal pain. Diarrhea resolved. OBJECTIVE: Physical Exam General: Obese, 72 year-old female lying in bed in no apparent distress. HEENT: Normocephalic, atraumatic. Eyes: Anicteric sclerae, conjunctivae clear. ENT: Nasal septum midline, oral mucosa moist. Neck supple. Respiratory: Bilaterally diminished breath sounds. No use of accessory muscles of respiration. No adventitious breath sounds. Cardiovascular: S1, S2 heard. Regular rate and rhythm. Abdomen: Soft and nondistended. Minimal tenderness in the suprapubic area. Bowel sounds positive in all 4 quadrants. Genitourinary: Deferred. Extremities: No cyanosis, no clubbing. Bilateral lower extremity edema. Neurologic: Cranial nerves II through XII grossly intact. The patient is awake, alert, and oriented. Skin: Normal skin turgor. No skin rashes. Labs & Vitals per chart ASSESSMENT & PLAN 72-year-old female with comorbidities including COPD, hypothyroidism, diabetes mellitus type 2, hypertension, chronic bilateral lower extremity edema, and diverticulitis who presented with significant lower abdominal pain, mild dysuria, dizziness/lightheadedness. 1. Acute abdominal pain. -CT showing mild dilation of the right renal collecting system and suggestion of minimal perinephric fat stranding. -Continue antimicrobials. -Urine culture showing E. coli with colony count of 20,000 30,000 resistant to fluoroquinolones. -Switched antimicrobials to cephalosporins. 2. Dizziness/lightheadedness. -Most probably from vasovagal response since the event happened while she was sitting on a toilet seat and having a bowel movement. -Brain CT scan negative. -2D echocardiogram showing ejection fraction of 60%. 3. Diverticulosis without CT evidence of diverticulitis. -Diverticular diet. -Gastroenterology following. 4. COPD. -Continue PRN GASTON. -No evidence of any exacerbation. 5. Essential hypertension. -Continue antihypertensives. 6. Dyslipidemia. -Continue statins. 7. Diabetes mellitus. -Hemoglobin A1c 8.4. -Continue sliding scale insulin along with basal insulin. 8. Hypothyroidism. -Continue Synthroid. 9. Chronic B/L LE edema. 10. Nicotine use. -Continue nicotine patch. 11. Morbid obesity. -BMI of 35. -Weight reduction advised. 12. Fluids, electrolytes, and nutrition. -Carbohydrate controlled diet. 13. DVT prophylaxis. -Subcutaneous Lovenox. 14. Plan. -Continue Pain control. -Await esophagogastroduodenoscopy and colonoscopy. The patient was seen in collaboration with Dr. Rios Result Diagram: 07/08/1851607/[id number]/18516 Results 24hrs Laboratory Tests Test 07/07/18 17:32 07/07/18 20:16 07/08/18 05:17 07/08/18 08:01 Bedside Glucose 244 H 158 118 White Blood Count 7.2 Red Blood Count 4.52 Hemoglobin 11.9 L Hematocrit 36.8 L Mean Corpuscular 81.4 L Volume Mean Corpuscular 26.3 L Hemoglobin Mean Corpuscular 32.3 Hemoglobin Concent Red Cell 15.7 H Distribution Width Platelet Count 216 # Mean Platelet Volume 11.5 H Immature 0.400 Granulocytes % Neutrophils % 38.0 L Lymphocytes % 49.4 Monocytes % 8.2 Eosinophils % 3.6 Basophils % 0.4 Nucleated Red Blood 0.0 Cells % Immature 0.030 Granulocytes # Neutrophils # 2.7 Lymphocytes # 3.5 H Monocytes # 0.6 Eosinophils # 0.3 Basophils # 0.0 Nucleated Red Blood 0.0 Cells # Sodium Level 140 Potassium Level 4.1 Chloride Level 106 Carbon Dioxide Level 29 Anion Gap 5 Blood Urea Nitrogen 12 Creatinine 0.52 Est Glomerular > 60 Filtrat Rate mL/min Glucose Level 100 # Calcium Level 9.6 Phosphorus Level 4.2 Magnesium Level 1.4 L Test 07/08/18 12:31 Bedside Glucose 112 Exam/Review of Systems Exam Vitals Vital Signs Date Temp Pulse Resp B/P (MAP) Pulse Ox O2 O2 Flow FiO2 Time Delivery Rate 07/08/18 98.7 66 17 172/75 94 Room Air 08:09 (107) Intake and Output 07/07/18 07/07/18 07/08/18 1414:59 22:59 06:59 IntakeIntake Total 575 ml 600 ml 480 ml BalanceBalance 575 ml 600 ml 480 ml Results Results 24hrs Laboratory Tests Test 07/07/18 17:32 07/07/18 20:16 07/08/18 05:17 07/08/18 08:01 Bedside Glucose 244 H 158 118 White Blood Count 7.2 Red Blood Count 4.52 Hemoglobin 11.9 L Hematocrit 36.8 L Mean Corpuscular 81.4 L Volume Mean Corpuscular 26.3 L Hemoglobin Mean Corpuscular 32.3 Hemoglobin Concent Red Cell 15.7 H Distribution Width Platelet Count 216 # Mean Platelet Volume 11.5 H Immature 0.400 Granulocytes % Neutrophils % 38.0 L Lymphocytes % 49.4 Monocytes % 8.2 Eosinophils % 3.6 Basophils % 0.4 Nucleated Red Blood 0.0 Cells % Immature 0.030 Granulocytes # Neutrophils # 2.7 Lymphocytes # 3.5 H Monocytes # 0.6 Eosinophils # 0.3 Basophils # 0.0 Nucleated Red Blood 0.0 Cells # Sodium Level 140 Potassium Level 4.1 Chloride Level 106 Carbon Dioxide Level 29 Anion Gap 5 Blood Urea Nitrogen 12 Creatinine 0.52 Est Glomerular > 60 Filtrat Rate mL/min Glucose Level 100 # Calcium Level 9.6 Phosphorus Level 4.2 Magnesium Level 1.4 L Test 07/08/18 12:31 Bedside Glucose 112 Medications Medication Current Medications Amlodipine Besylate (Norvasc) 5 mg DAILY PO Last administered on 07/08/18 08:14; Admin Dose 5 MG; Start 07/05/18 at 10:30 Ascorbic Acid (Vitamin C) 500 mg DAILY PO Last administered on 07/08/18 08:13; Admin Dose 500 MG; Start 07/05/18 at 10:30 Aspirin (Halfprin) 81 mg DAILY PO Last administered on 07/07/18 08:56; Admin Dose 81 MG; Start 07/06/18 at 09:00 Atorvastatin Calcium (Lipitor) 40 mg QHS PO Last administered on 07/07/18 20:20; Admin Dose 40 MG; Start 07/05/18 at 21:00 Benazepril HCl (Lotensin) 20 mg DAILY PO Last administered on 07/08/18 08:14; Admin Dose 20 MG; Start 07/05/18 at 10:30 Cyclobenzaprine HCl (Flexeril) 10 mg TID PO Last administered on 07/08/18 12:32; Admin Dose 10 MG; Start 07/05/18 at 13:00 Docusate Sodium (Colace) 100 mg Q12H PO Last administered on 07/07/18 20:20; Admin Dose 100 MG; Start 07/05/18 at 09:30 Ferrous Sulfate (Ferrous Sulfate (Ec)) 325 mg DAILY PO Last administered on 07/08/18 08:12; Admin Dose 325 MG; Start 07/05/18 at 10:30 Levothyroxine Sodium (Synthroid) 100 mcg BEFORE BREAKFAST PO Last administered on 07/08/18 06:04; Admin Dose 100 MCG; Start 07/05/18 at 10:30 Ranitidine HCl (Zantac) 150 mg DAILY PO Last administered on 07/08/18 08:13; Admin Dose 150 MG; Start 07/05/18 at 10:30 IV Flush (NS 3 ml) 3 ml PER PROTOCOL IV ; Start 07/05/18 at 10:30 Ondansetron HCl (Zofran Inj) 4 mg Q6H PRN IV NAUSEA/VOMITING Last administered on 07/08/18 08:06; Admin Dose 4 MG; Start 07/05/18 at 10:30 Acetaminophen (Tylenol Tab) 650 mg Q6H PRN PO .PAIN 1-3 OR TEMP; Start 07/05/18 at 10:30 Docusate Sodium (Colace) 100 mg Q12H PRN PO .CONSTIPATION Last administered on 07/07/18 01:23; Admin Dose 100 MG; Start 07/05/18 at 10:30 Diagnostic Test (Pha) (Accu-Chek) 1 ea 02 XX Last administered on 07/07/18 01:50; Admin Dose 1 EA; Start 07/06/18 at 02:00 Insulin Glargine (Lantus) 16 units DAILY@2000 SC Last administered on 07/07/18 20:23; Admin Dose 16 UNITS; Start 07/05/18 at 20:00 Insulin Aspart (Novolog Insulin Pen) NOVOLOG *MILD* ALGORITHM WITH MEALS BEDTIME SC Last administered on 07/07/18 17:33; Admin Dose 3 UNIT; Start 07/05/18 at 12:00 Aspirin (Aspirin) 81 mg DAILY PO Last administered on 07/08/18 08:16; Admin Dose 81 MG; Start 07/05/18 at 10:30 Miscellaneous Information 1 ea NOTE XX ; Start 07/05/18 at 11:00 Glucose (Glutose) 15 gm Q15M PRN PO DECREASED GLUCOSE; Start 07/05/18 at 11:00 Glucose (Glutose) 22.5 gm Q15M PRN PO DECREASED GLUCOSE; Start 07/05/18 at 11:00 Dextrose (D50w Syringe) 25 ml Q15M PRN IV DECREASED GLUCOSE; Start 07/05/18 at 11:00 Dextrose (D50w Syringe) 50 ml Q15M PRN IV DECREASED GLUCOSE; Start 07/05/18 at 11:00 Glucagon (Glucagen) 1 mg Q15M PRN IM DECREASED GLUCOSE; Start 07/05/18 at 11:00 Glucose (Glutose) 15 gm Q15M PRN BUCCAL DECREASED GLUCOSE; Start 07/05/18 at 11:00 Hydromorphone HCl (Dilaudid) 1 mg Q4H PRN IV SEVERE PAIN LEVEL 7-10 Last administered on 07/08/18 12:34; Admin Dose 1 MG; Start 07/05/18 at 13:00 Nicotine (Nicoderm 14 Mg/ 24hr) 1 patch DAILY TRANSDERM Last administered on 08:10; Admin Dose 1 PATCH; Start 07/06/18 at 09:00 Diphenhydramine HCl (Benadryl) 25 mg Q6H PRN PO ITCHING Last administered on 07/08/18 08:36; Admin Dose 25 MG; Start 07/06/18 at 12:00 Enoxaparin Sodium (Lovenox) 40 mg DAILY SC Last administered on 07/08/18 08:09; Admin Dose 40 MG; Start 07/07/18 at 09:00 Ceftriaxone Sodium 50 ml @ 100 mls/hr Q24H IVPB Last administered on 07/08/18 11:24; Admin Dose 100 MLS/HR; Start 07/07/18 at 10:30 Lactulose (Enulose) 20 gm Q4 PO Last administered on 07/08/18 12:35; Admin Dose 20 GM; Start 07/07/18 at 13:00 CLINTON CHANDLER NP July 08, 2018 14:58
[2018-07-08] MEDS ORDERED: MAGNESIUM SULFATE 3 GM in DEXTROSE 5% 100 ML IVPB ONE (15:00)
--- NOTE | 2018-07-08 15:28 | CONS ---
DATE OF ADMISSION: 07/07/2018 DATE OF CONSULTATION: 07/08/2018 SUBJECTIVE: The patient has abdominal pain which is much better now. She has chronic upper GI sympt oms and diverticulosis noted in the CAT scan. Pain is a little better now. PHYSICAL EXAMINATION: GENERAL: The patient is a 72-year-old female who at this time is alert, she is well built. VITAL SIGNS: Afebrile, temperature 98.7, blood pressure 172/75. CARDIOVASCULAR: Normal heart sounds. RESPIRATORY: Normal breath sounds. ABDOMEN: Shows soft abdomen. LABORATORY WORKUP: WBC count 7200, hemoglobin is 11.9. The potassium is 4.1. CLINICAL IMPRESSION: Chronic left lower quadrant pain. History of several episodes of diverticuliti s. Rule out ongoing or diverticulitis, although CAT scan of the abdomen did not show the similar maria fernanda earance. Rule out colorectal neoplasm. The patient has chronic nonspecific upper GI symptoms. Rule out gastroesophageal reflux disease, rul e out peptic ulcer disease. PLAN: At this time, will proceed with upper endoscopy as well as lower endoscopy. Dictated By: IVETTE YODER/KULDEEP Conf#: [id number] DID#: [id number] CC: JEAN CLAUDE KENNEDY MD;*EndCC*
[2018-07-08 20:34] VITALS: BP 128/88; PULSE 70; RESP 18
[2018-07-08] MEDS: INSULIN GLARGINE [LANTus] (100 UNITS/ML) SYG SC SCH (20:39)
[2018-07-08] MEDS: ATORVASTATIN 40 MG TAB PO SCH (20:40)
[2018-07-09] VITALS (14 sets, daily range): BP systolic 132–172; BP diastolic 67–88; PULSE 60–77; RESP 11–20
[2018-07-09] MEDS: LACTULOSE 30ML CUP PO SCH ×7 (01:00→22:09)
[2018-07-09] MEDS: HYDROmorphONE 1 MG/ML SYG IV PRN ×5 (01:53→23:16)
[2018-07-09] MEDS: ACCU-CHEK XX SCH (02:00)
[2018-07-09] MEDS: LEVOTHYROXINE 100 MCG TAB PO SCH (05:10)
[2018-07-09] MEDS: INSULIN ASPART [NOVOLOG] 3 ML PEN SC SCH ×4 (05:30→22:13)
--- NOTE | 2018-07-09 05:52 | PN ---
Date/Time of Note Date/Time of Note DATE: 07/09/18 TIME: 05:51 Assessment/Plan VTE Prophylaxis Risk score (from Ns)>0 risk: 2 [place]CD applied [place] [facility] No SCD contraindicated: other Pharmacological prophylaxis: LMWH Lines/Catheters IV Catheter Type (from [email or web address] Peripheral IV Urinary Cath still in place: No Assessment/Plan Hospital Course SUBJECTIVE: Complains of abdominal pain. Awaiting colonoscopy and esophagogastroduodenoscopy. OBJECTIVE: Physical Exam General: Obese, 72 year-old female lying in bed in no apparent distress. HEENT: Normocephalic, atraumatic. Eyes: Anicteric sclerae, conjunctivae clear. ENT: Nasal septum midline, oral mucosa moist. Neck supple. Respiratory: Bilaterally diminished breath sounds. No use of accessory muscles of respiration. No adventitious breath sounds. Cardiovascular: S1, S2 heard. Regular rate and rhythm. Abdomen: Soft and nondistended. Minimal tenderness in the suprapubic area. Bowel sounds positive in all 4 quadrants. Genitourinary: Deferred. Extremities: No cyanosis, no clubbing. Bilateral lower extremity edema. Neurologic: Cranial nerves II through XII grossly intact. The patient is awake, alert, and oriented. Skin: Normal skin turgor. No skin rashes. Labs & Vitals per chart ASSESSMENT & PLAN 72-year-old female with comorbidities including COPD, hypothyroidism, diabetes mellitus type 2, hypertension, chronic bilateral lower extremity edema, and diverticulitis who presented with significant lower abdominal pain, mild dysuria, dizziness/lightheadedness. 1. Acute abdominal pain. -CT showing mild dilation of the right renal collecting system and suggestion of minimal perinephric fat stranding. -Continue antimicrobials. -Urine culture showing E. coli with colony count of 20,000 30,000 resistant to fluoroquinolones. -Switched antimicrobials to cephalosporins. 2. Dizziness/lightheadedness. -Most probably from vasovagal response since the event happened while she was sitting on a toilet seat and having a bowel movement. -Brain CT scan negative. -2D echocardiogram showing ejection fraction of 60%. 3. Diverticulosis without CT evidence of diverticulitis. -Diverticular diet. -Gastroenterology following. 4. COPD. -Continue PRN GASTON. -No evidence of any exacerbation. 5. Essential hypertension. -Continue antihypertensives. 6. Dyslipidemia. -Continue statins. 7. Diabetes mellitus. -Hemoglobin A1c 8.4. -Continue sliding scale insulin along with basal insulin. 8. Hypothyroidism. -Continue Synthroid. 9. Chronic B/L LE edema. 10. Nicotine use. -Continue nicotine patch. 11. Morbid obesity. -BMI of 35. -Weight reduction advised. 12. Fluids, electrolytes, and nutrition. -Carbohydrate controlled diet. 13. DVT prophylaxis. -Subcutaneous Lovenox. 14. Plan. -Continue Pain control. -Await esophagogastroduodenoscopy and colonoscopy. The patient was seen in collaboration with Dr. Molina Result Diagram: 07/08/1851607/08/1817 Results 24hrs Laboratory Tests Test 07/08/18 08:01 07/08/18 12:31 07/08/18 17:20 07/08/18 20:37 Bedside Glucose 118 112 184 138 Test 07/09/18 05:32 Bedside Glucose 90 Exam/Review of Systems Exam Vitals Vital Signs Date Temp Pulse Resp B/P (MAP) Pulse Ox O2 O2 Flow FiO2 Time Delivery Rate 07/09/18 98.3 69 20 144/70 98 01:58 (94) 07/08/18 Room Air 20:34 Intake and Output 07/08/18 07/08/18 07/09/18 1515:00 23:00 07:00 IntakeIntake Total 50 ml BalanceBalance 50 ml Results Results 24hrs Laboratory Tests Test 07/08/18 08:01 07/08/18 12:31 07/08/18 17:20 07/08/18 20:37 Bedside Glucose 118 112 184 138 Test 07/09/18 05:32 Bedside Glucose 90 Medications Medication Current Medications Amlodipine Besylate (Norvasc) 5 mg DAILY PO Last administered on 07/08/18at 08:14; Admin Dose 5 MG; Start 07/05/18 at 10:30 Ascorbic Acid (Vitamin C) 500 mg DAILY PO Last administered on 07/08/18at 08:13; Admin Dose 500 MG; Start 07/05/18 at 10:30 Aspirin (Halfprin) 81 mg DAILY PO Last administered on 07/07/18at 08:56; Admin Dose 81 MG; Start 07/06/18 at 09:00 Atorvastatin Calcium (Lipitor) 40 mg QHS PO Last administered on 07/08/18at 20:40; Admin Dose 40 MG; Start 07/05/18 at 21:00 Benazepril HCl (Lotensin) 20 mg DAILY PO Last administered on 07/08/18 08:14; Admin Dose 20 MG; Start 07/05/18 at 10:30 Cyclobenzaprine HCl (Flexeril) 10 mg TID PO Last administered on 07/08/18 20 :40; Admin Dose 10 MG; Start 07/05/18 at 13:00 Docusate Sodium (Colace) 100 mg Q12H PO Last administered on 07/08/18 20:42; Admin Dose 100 MG; Start 07/05/18 at 09:30 Ferrous Sulfate (Ferrous Sulfate (Ec)) 325 mg DAILY PO Last administered on 07/08/18 08:12; Admin Dose 325 MG; Start 07/05/18 at 10:30 Levothyroxine Sodium (Synthroid) 100 mcg BEFORE BREAKFAST PO Last administered on 07/08/18 06:04; Admin Dose 100 MCG; Start 07/05/18 at 10:30 Ranitidine HCl (Zantac) 150 mg DAILY PO Last administered on 07/08/18 08:13; Admin Dose 150 MG; Start 07/05/18 at 10:30 IV Flush (NS 3 ml) 3 ml PER PROTOCOL IV ; Start 07/05/18 at 10:30 Ondansetron HCl (Zofran Inj) 4 mg Q6H PRN IV NAUSEA/VOMITING Last administered on 07/08/18 21:53; Admin Dose 4 MG; Start 07/05/18 at 10:30 Acetaminophen (Tylenol Tab) 650 mg Q6H PRN PO .PAIN 1-3 OR TEMP; Start 07/05/18 at 10:30 Docusate Sodium (Colace) 100 mg Q12H PRN PO .CONSTIPATION Last administered on 07/07/18 01:23; Admin Dose 100 MG; Start 07/05/18 at 10:30 Diagnostic Test (Pha) (Accu-Chek) 1 ea 02 XX Last administered on 07/07/18 01:50; Admin Dose 1 EA; Start 07/06/18 at 02:00 Insulin Glargine (Lantus) 16 units DAILY@2000 SC Last administered on 07/08/18 20:39; Admin Dose 16 UNITS; Start 07/05/18 at 20:00 Aspirin (Aspirin) 81 mg DAILY PO Last administered on 07/08/18at 08:16; Admin Dose 81 MG; Start 07/05/18 at 10:30 Miscellaneous Information 1 ea NOTE XX ; Start 07/05/18 at 11:00 Glucose (Glutose) 15 gm Q15M PRN PO DECREASED GLUCOSE; Start 07/05/18 at 11:00 Glucose (Glutose) 22.5 gm Q15M PRN PO DECREASED GLUCOSE; Start 07/05/18 at 11:00 Dextrose (D50w Syringe) 25 ml Q15M PRN IV DECREASED GLUCOSE; Start 07/05/18 at 11:00 Dextrose (D50w Syringe) 50 ml Q15M PRN IV DECREASED GLUCOSE; Start 07/05/18 at 11:00 Glucagon (Glucagen) 1 mg Q15M PRN IM DECREASED GLUCOSE; Start 07/05/18 at 11:00 Glucose (Glutose) 15 gm Q15M PRN BUCCAL DECREASED GLUCOSE; Start 07/05/18 at 11:00 Hydromorphone HCl (Dilaudid) 1 mg Q4H PRN IV SEVERE PAIN LEVEL 7-10 Last administered on 07/09/18at 01:53; Admin Dose 1 MG; Start 07/05/18 at 13:00 Nicotine (Nicoderm 14 Mg/ 24hr) 1 patch DAILY TRANSDERM Last administered on 07/08/18at 08:10; Admin Dose 1 PATCH; Start 07/06/18 at 09:00 Diphenhydramine HCl (Benadryl) 25 mg Q6H PRN PO ITCHING Last administered on 07/08/18at 08:36; Admin Dose 25 MG; Start 07/06/18 at 12:00 Enoxaparin Sodium (Lovenox) 40 mg DAILY SC Last administered on 07/08/18at 08:09; Admin Dose 40 MG; Start 07/07/18 at 09:00 Ceftriaxone Sodium 50 ml @ 100 mls/hr Q24H IVPB Last administered on 07/08/18at 11:24; Admin Dose 100 MLS/HR; Start 07/07/18 at 10:30 Lactulose (Enulose) 20 gm Q4 PO Last administered on 07/08/18at 20:43; Admin Dose 20 GM; Start 07/07/18 at 13:00 Insulin Aspart (Novolog Insulin Pen) NOVOLOG *MILD* ALGORITHM Q4 SC ; Start 07/09/18 at 05:30 CLINTON CHANDLER NP July 09, 2018 05:52
[2018-07-09] MEDS: ASCORBIC ACID 500 MG TAB PO SCH (09:00)
[2018-07-09] MEDS: FERROUS SULFATE (EC) 325 MG TAB PO SCH (09:00)
[2018-07-09] MEDS: ASPIRIN (EC) 81 MG TAB PO SCH (09:00)
[2018-07-09] MEDS: AMLODIPINE 5 MG TAB PO SCH (09:00)
[2018-07-09] MEDS: ASPIRIN 81 MG TAB PO SCH (09:00)
[2018-07-09] MEDS: RANITIDINE 150 MG TAB PO SCH (09:00)
[2018-07-09] MEDS: CYCLOBENZAPRINE 10 MG TAB PO SCH ×3 (09:00→22:15)
[2018-07-09] MEDS: BENAZEPRIL 20 MG TAB PO SCH (09:00)
[2018-07-09] MEDS: NICOTINE (14 MG/24 HR) PATCH TRANSDERM SCH (09:08)
[2018-07-09] MEDS: DOCUSATE SODIUM 100 MG CAP PO SCH ×3 (09:18→22:15)
[2018-07-09] MEDS: CEFTRIAXONE 1 GM/50 ML (PMX) 50 ML IVPB SCH (11:12)
--- NOTE | 2018-07-09 15:49 | PREAC ---
Date/Time of Note Date/Time of Note DATE: 07/09/18 TIME: 15:48 Anesthesia Eval and Record Evaluation Time Pre-Procedure Interview DATE: 07/09/18 TIME: 15:48 Age 72 Sex female NPO: 8 hrs Preoperative diagnosis Abdominal pain Planned procedure EGD, colonoscopy Past Medical History Past Medical History: Includes Cardio: HTN, Dyslipidemia Endo: Diabetes, Hypothyroid Pulm: Smoking Hx, COPD Neuro: Other (TIA) GI: Morbid obesity Surgery & Anesthesia Issues No known issue Meds Anticoagulation: No Beta Celi within 24 hr: No Reason Beta Celi not given: Pt. not on B-Celi Active Scripts Atorvastatin* (Atorvastatin*) 40 Mg Tablet, 40 MG PO QHS, #30 TAB Prov:CLINTON CHANDLER DIVE MASTER 03/19/18 Ascorbic Acid (Vitamin C) 500 Mg Tab, 500 MG PO DAILY, #30 TAB 2 Refills Prov:AGMARYATITO M. 02/21/18 Ferrous Sulfate* (Ferrous Sulfate*) 325 Mg Tabec, 325 MG PO DAILY for 30 Days, #30 TAB 2 [facility] 02/21/18 Docusate Sodium (Dok) 100 Mg Capsule, 100 MG PO Q12H, #60 CAP 2 Refills Prov:AGMARYATITO M. 02/21/18 Reported Medications Insulin Aspart* (Novolog Insulin Pen*) 100 Unit/Ml Soln, 1 UNIT SC WITH BREAKFAST DINNE for 20u QAM; 30u QPM, EA 05/07/18 Omeprazole* (Omeprazole*) 40 Mg Capsule.dr, 40 MG PO DAILY for 60 Days, #60 05/07/18 Alprazolam* (Xanax*) 2 Mg Tablet, 2 MG PO Q8H PRN for ANXIETY, TAB 05/07/18 Levothyroxine Sodium* (Levothyroxine Sodium*) 100 Mcg Tablet, 100 MCG PO BEFORE BREAKFAST, #30 TAB 05/07/18 Amlodipine Besylate* (Norvasc*) 5 Mg Tablet, 5 MG PO DAILY, TAB 02/18/18 Ranitidine Hcl* (Ranitidine Hcl*) 150 Mg Tablet, 150 MG PO Q24H, #60 TAB 02/18/18 Cyclobenzaprine Hcl* (Cyclobenzaprine Hcl*) 10 Mg Tablet, 10 MG PO TID, #90 TAB 02/18/18 Benazepril Hcl* (Benazepril Hcl*) 20 Mg Tablet, 20 MG PO DAILY, #30 TAB 02/18/18 Aspirin* (Aspirin* EC) 81 Mg Tablet.dr, 81 MG PO DAILY, TAB 02/18/18 Albuterol Sulfate* (Proair HFA*) 8.5 Gm Hfa.aer.ad, 2 PUFF INH Q4H PRN for WHEEZING AND SOB, #1 INHALER 02/18/18 Discontinued Reported Medications Glipizide* (Glipizide*) 5 Mg Tablet, 5 MG PO BID for 45 Days, #90 05/07/18 Varenicline Tartrate (Chantix) 1 Mg Tablet, 1 MG PO DAILY for 77 Days, #77 05/07/18 Discontinued Scripts Ciprofloxacin Hcl* (Ciprofloxacin Hcl*) 500 Mg Tablet, 500 MG PO BID for 9 Days, #18 TAB Prov:SHARRON RON MD 06/10/18 Metronidazole* (Metronidazole*) 500 Mg Tablet, 500 MG PO Q8 for 9 Days, #27 TAB Prov:SHARRON RON MD 06/10/18 Hydrocodone/Acetaminophen ([place] 5-325 Tablet) 1 Each Tablet, 1 EACH PO Q6H, #12 TAB Prov:MARITZA MARIE MD 05/10/18 Tramadol HCl (Tramadol HCl) 50 Mg Tablet, 50 MG PO Q4 PRN for PAIN, #20 TAB Prov:MAURICE CAMERON 04/25/18 Current Medications Amlodipine Besylate (Norvasc) 5 mg DAILY PO Last administered on 07/08/18at 08:14; Admin Dose 5 MG; Start 07/05/18 at 10:30 Ascorbic Acid (Vitamin C) 500 mg DAILY PO Last administered on 07/08/18at 08:13; Admin Dose 500 MG; Start 07/05/18 at 10:30 Aspirin (Halfprin) 81 mg DAILY PO Last administered on 07/07/18at 08:56; Admin Dose 81 MG; Start 07/06/18 at 09:00 Atorvastatin Calcium (Lipitor) 40 mg QHS PO Last administered on 07/08/18at 20:40; Admin Dose 40 MG; Start 07/05/18 at 21:00 Benazepril HCl (Lotensin) 20 mg DAILY PO Last administered on 5/27/19at 08:14; Admin Dose 20 MG; Start 07/05/18 at 10:30 Cyclobenzaprine HCl (Flexeril) 10 mg TID PO Last administered on 07/08/18 20:40; Admin Dose 10 MG; Start 07/05/18 at 13:00 Docusate Sodium (Colace) 100 mg Q12H PO Last administered on 07/08/18 20:42; Admin Dose 100 MG; Start 07/05/18 at 09:30 Ferrous Sulfate (Ferrous Sulfate (Ec)) 325 mg DAILY PO Last administered on 07/08/18 08:12; Admin Dose 325 MG; Start 07/05/18 at 10:30 Levothyroxine Sodium (Synthroid) 100 mcg BEFORE BREAKFAST PO Last administered on 07/08/18 06:04; Admin Dose 100 MCG; Start 07/05/18 at 10:30 Ranitidine HCl (Zantac) 150 mg DAILY PO Last administered on 07/08/18 08:13; Admin Dose 150 MG; Start 07/05/18 at 10:30 IV Flush (NS 3 ml) 3 ml PER PROTOCOL IV ; Start 07/05/18 at 10:30 Ondansetron HCl (Zofran Inj) 4 mg Q6H PRN IV NAUSEA/VOMITING Last administered on 07/08/18 21:53; Admin Dose 4 MG; Start 07/05/18 at 10:30 Acetaminophen (Tylenol Tab) 650 mg Q6H PRN PO .PAIN 1-3 OR TEMP; Start 07/05/18 at 10:30 Docusate Sodium (Colace) 100 mg Q12H PRN PO .CONSTIPATION Last administered on 07/07/18 01:23; Admin Dose 100 MG; Start 07/05/18 at 10:30 Diagnostic Test (Pha) (Accu-Chek) 1 ea 02 XX Last administered on 07/07/18 01:50; Admin Dose 1 EA; Start 07/06/18 at 02:00 Insulin Glargine (Lantus) 16 units DAILY@2000 SC Last administered on 07/08/18 20:39; Admin Dose 16 UNITS; Start 07/05/18 at 20:00 Aspirin (Aspirin) 81 mg DAILY PO Last administered on 07/08/18 08:16; Admin Dose 81 MG; Start 07/05/18 at 10:30 Miscellaneous Information 1 ea NOTE XX ; Start 07/05/18 at 11:00 Glucose (Glutose) 15 gm Q15M PRN PO DECREASED GLUCOSE; Start 07/05/18 at 11:00 Glucose (Glutose) 22.5 gm Q15M PRN PO DECREASED GLUCOSE; Start 07/05/18 at 11:00 Dextrose (D50w Syringe) 25 ml Q15M PRN IV DECREASED GLUCOSE; Start 07/05/18 at 11:00 Dextrose (D50w Syringe) 50 ml Q15M PRN IV DECREASED GLUCOSE; Start 07/05/18 at 11:00 Glucagon (Glucagen) 1 mg Q15M PRN IM DECREASED GLUCOSE; Start 07/05/18 at 11:00 Glucose (Glutose) 15 gm Q15M PRN BUCCAL DECREASED GLUCOSE; Start 07/05/18 at 11:00 Hydromorphone HCl (Dilaudid) 1 mg Q4H PRN IV SEVERE PAIN LEVEL 7-10 Last administered on 07/09/18at 11:29; Admin Dose 1 MG; Start 07/05/18 at 13:00 Nicotine (Nicoderm 14 Mg/ 24hr) 1 patch DAILY TRANSDERM Last administered on 07/09/18at 09:08; Admin Dose 1 PATCH; Start 07/06/18 at 09:00 Diphenhydramine HCl (Benadryl) 25 mg Q6H PRN PO ITCHING Last administered on 07/08/18at 08:36; Admin Dose 25 MG; Start 07/06/18 at 12:00 Enoxaparin Sodium (Lovenox) 40 mg DAILY SC Last administered on 07/08/18at 08:09; Admin Dose 40 MG; Start 07/07/18 at 09:00; Status Hold Ceftriaxone Sodium 50 ml @ 100 mls/hr Q24H IVPB Last administered on 07/09/18at 11:12; Admin Dose 100 MLS/HR; Start 07/07/18 at 10:30 Lactulose (Enulose) 20 gm Q4 PO Last administered on 07/08/18at 20:43; Admin Dose 20 GM; Start 07/07/18 at 13:00 Insulin Aspart (Novolog Insulin Pen) NOVOLOG *MILD* ALGORITHM Q4 SC ; Start 07/09/18 at 05:30 Meds reviewed: Yes Allergies Coded Allergies: almond (Verified Allergy, Unknown, SOB, 07/05/18) Allergies Reviewed: Yes Labs/Studies Labs Reviewed: Reviewed by anesthesiologist Result Diagram: 07/09/1824 07/09/18 0824 Laboratory Tests 07/09/18 08:24 test: N/A Pre-procedure Exam Last vitals Vital Signs Date Temp Pulse Resp B/P (MAP) Pulse Ox O2 O2 Flow FiO2 Time Delivery Rate 07/09/18 98.0 77 19 171/87 93 Room Air 15:37 (115) Airway: Adequate mouth opening Mallampati: Mallampati II Teeth: Abnormal (Full dentures) Lung: Normal Heart: Normal ASA Physical Status ASA physical status: 3 Emergency: None Planned Anesthetic General/MAC: MAC Planned Pain Management Parenteral pain med Pre-operative Attestations Prior to commencing anesthesia and surgery, the patient was re-evaluated, there was verification of: *The patient's identity *The results of appropriate recent lab work and preoperative vital signs *The above evaluation not changing prior to induction *Anesthetic plan, risk benefits, alternative and complications discussed with patient/family; questions answered; patient/family understands, accepts and wishes to proceed. LASHON KENNEDY MD July 09, 2018 15:49
[2018-07-09] MEDS ORDERED: PROPOFOL 40 ML ONE (16:05)
[2018-07-09] MEDS ORDERED: hydrALAzine 20 MG INJ IV PRN (17:00)
[2018-07-09] MEDS ORDERED: FENTAnyl 50 MCG/ML VIAL IV PRN ×3 (17:00)
[2018-07-09] MEDS ORDERED: METOCLOPRAMIDE 10 MG INJ IV PRN (17:00)
[2018-07-09] MEDS ORDERED: EPHEDrine 25 MG/5 ML SYG IV PRN (17:00)
[2018-07-09] MEDS ORDERED: MEPERIDINE 25 MG INJ IV PRN (17:00)
[2018-07-09] MEDS ORDERED: LABETALOL HCL 20MG INJ IV PRN (17:00)
[2018-07-09] MEDS ORDERED: ONDANSETRON 4 MG INJ IV PRN (17:00)
[2018-07-09] MEDS ORDERED: DIPHENHYDRAMINE 50 MG INJ IV PRN (17:00)
[2018-07-09] MEDS ORDERED: MIDAZOLAM 1 MG/ML 2 ML INJ IV PRN (17:00)
--- NOTE | 2018-07-09 19:19 | PAC ---
Date/Time of Note Date/Time of Note DATE: 07/09/18 TIME: 19:19 Post-Anesthesia Notes Post-Anesthesia Note Last documented vital signs Vital Signs Date Temp Pulse Resp B/P (MAP) Pulse Ox O2 O2 Flow FiO2 Time Delivery Rate 07/09/18 98.9 60 13 154/71 97 Room Air 17:21 (98) 07/09/18 2.0 16:55 Activity: WNL Respiratory function: WNL Cardiovascular function: WNL Mental status: Baseline Pain reasonably controlled: Yes Hydration appropriate: Yes Nausea/Vomiting absent: Yes LASHON KENNEDY MD July 09, 2018 19:19
[2018-07-09] MEDS: INSULIN GLARGINE [LANTus] (100 UNITS/ML) SYG SC SCH (22:14)
[2018-07-09] MEDS: ATORVASTATIN 40 MG TAB PO SCH (22:15)
[2018-07-09] MEDS ORDERED: LOPERAMIDE 2 MG CAP PO ONE (22:30)
[2018-07-09] MEDS: ONDANSETRON 4 MG INJ IV PRN (23:21)
[2018-07-10] MEDS: LACTULOSE 30ML CUP PO SCH ×5 (00:35→16:18)
[2018-07-10 02:00] VITALS: BP 147/74; PULSE 84; RESP 18
[2018-07-10] MEDS ORDERED: ACCU-CHEK XX SCH (02:00)
[2018-07-10] MEDS: ACCU-CHEK XX SCH (02:06)
[2018-07-10] MEDS: HYDROmorphONE 1 MG/ML SYG IV PRN ×4 (03:42→16:17)
[2018-07-10] MEDS: LEVOTHYROXINE 100 MCG TAB PO SCH (06:08)
[2018-07-10 08:00] VITALS: BP 142/75; PULSE 78; RESP 16
[2018-07-10] MEDS: INSULIN ASPART [NOVOLOG] 3 ML PEN SC SCH ×2 (08:10→12:00)
[2018-07-10] MEDS: FERROUS SULFATE (EC) 325 MG TAB PO SCH (08:11)
[2018-07-10] MEDS: RANITIDINE 150 MG TAB PO SCH (08:11)
[2018-07-10] MEDS: ASCORBIC ACID 500 MG TAB PO SCH (08:11)
[2018-07-10] MEDS: ASPIRIN 81 MG TAB PO SCH (08:11)
[2018-07-10] MEDS: CYCLOBENZAPRINE 10 MG TAB PO SCH ×2 (08:11→12:07)
[2018-07-10] MEDS: NICOTINE (14 MG/24 HR) PATCH TRANSDERM SCH (08:11)
[2018-07-10] MEDS: AMLODIPINE 5 MG TAB PO SCH (08:13)
[2018-07-10] MEDS: BENAZEPRIL 20 MG TAB PO SCH (08:13)
[2018-07-10] MEDS: ENOXAPARIN 40 MG/0.4 ML SYG SC SCH (08:27)
[2018-07-10] MEDS: ASPIRIN (EC) 81 MG TAB PO SCH (08:28)
[2018-07-10] MEDS: DOCUSATE SODIUM 100 MG CAP PO SCH (08:29)
[2018-07-10] MEDS: CEFTRIAXONE 1 GM/50 ML (PMX) 50 ML IVPB SCH (12:08)
[2018-07-10] MEDS ORDERED: MAGNESIUM CHLORIDE (SR) 64 MG TAB PO ONE (14:30)
[2018-07-10] MEDS ORDERED: OXYC5CAP17 PO (14:32)
--- NOTE | 2018-07-10 14:37 | PDOCDIS ---
Discharge Instructions CONDITION [id number] Patient Condition: [id number] Stable HOME CARE INSTRUCTIONS: [id number] Special Diet: [id number] Low carbohydrate, low-cholesterol FOLLOW UP/APPOINTMENTS Follow-up Plan Follow-up with your primary care physician in 2 weeks. OTHER ORDERS: Other Orders: 1. Resume home medications. 2. Follow a low-cholesterol, low carbohydrate, high-fiber diet. 3. Resume activities as tolerated. 4. Follow-up with your primary care physician in 2 weeks. 5. Please go to the nearest emergency room if you have any significant abdominal pain, persistent diarrhea, persistent fevers, or any other unusual signs/symptoms. CLINTON CHANDLER NP July 10, 2018 14:37
[2018-07-10 15:52] VITALS: BP 153/65; PULSE 75; RESP 16
--- NOTE | 2018-07-10 18:15 | DS ---
Date/Time of Note Date/Time of Note DATE: 07/10/18 TIME: 18:13 Discharge Summary Admission/Discharge Info Admit Date/Time July 07, 2018 at 09:26 Discharge Date/Time Discharge Diagnosis 1. Acute abdominal pain. 2. Chronic back pain. 3. Dizziness/lightheadedness. 4. Diverticulosis without CT or colonoscopic evidence of diverticulitis. 5. Gastritis. 6. COPD. 7. Essential hypertension. 8. Dyslipidemia. 9. Diabetes mellitus. Hemoglobin A1c 8.4. 10. Hypothyroidism. 11. Chronic B/L LE edema. 12. Nicotine use. 13. Morbid obesity. BMI of 35. Patient Condition: Stable Consults Armen Gerber MD, Gastroenterology. Procedures 2D Echocardiogram Conclusions: Normal left ventricular systolic function. Normal left ventricular cavity size. Mild concentric left ventricular hypertrophy. Ejection fraction is visually estimated at 60 %. Tissue Doppler/Mitral Doppler indices are consistent with impaired relaxation (Stage I diastolic dysfunction). Mitral valve leaflets appear mildly thickened. Mild mitral annular calcification. Trace mitral regurgitation. Normal appearance of the tricuspid valve. Unable to obtain RVSP due to minimal presence of tricuspid regurgitation. Colonoscopy on 07/09/2018 Impression: Diverticulosis of large intestine. EDGscopy on 07/09/2018 Impression: Gastritis Hx of Present Illness This is a 72-year-old female with comorbidities including COPD, hypothyroidism, diabetes mellitus type 2, hypertension, chronic bilateral lower extremity edema, and diverticulitis who presented with significant lower abdominal pain, mild dysuria, dizziness/lightheadedness. Hospital Course Etiology of the patient's acute onset of abdominal pain was extensively evaluated. The patient's CT scan of the abdomen and pelvis was showing mild dilatation of the right renal collecting system and suggesting minimal perinephric fat stranding. Therefore, the patient was maintained on antimicrobial therapy for any underlying right sided pyelonephritis. The patient's urine culture was showing E. coli with colony count of 20,000 to 30,000 that was resistant to fluoroquinolones. Therefore, the patient's antimicrobials were switched to cephalosporins. Nevertheless, the patient's symptomatology was not improving. Therefore, it is highly unlikely that the patient has underlying pyelonephritis. Therefore, the patient's antimicrobials were discontinued. Meanwhile, a gastroenterology consult was obtained since the patient has prior history of diverticulosis/diverticulitis and she was scheduled to get an outpatient colonoscopy. The patient also had symptoms of upper gastrointestinal problems. The patient underwent an esophagogastroduodenoscopy on 07/09/2018 that was showing gastritis and gastroenterology recommended to ebony espinozaue the patient on PPI. The patient's colonoscopy was showing, diverticulosis without evidence of any diverticulitis. The patient was recommended to stay on a high-fiber diet. The patient also reported dizziness/lightheadedness that happened on the day of admission to the emergency room. However, this event happened while the patient was having a bowel movement. Therefore, the patient's dizziness/lightheadedness could have been most probably from a vasovagal response. The patient's 2D echocardiogram was showing preserved left ventricular ejection fraction. The patient's chronic problems include COPD. The patient has been on PRN GASTON. The patient did not have any evidence of any bronchospasms. She has underlying essential hypertension and the patient was maintained on antihypertensives for the same. The patient has some mild dyslipidemia. She was continued on statins for the same. The patient has underlying diabetes mellitus type 2. The patient's hemoglobin A1c was found to be 8.4. The patient was continued on sliding scale insulin along with basal insulin along with well-controlled blood sugars throughout the hospital course. The patient has hypothyroidism. The patient was maintained on Synthroid for the same. The patient is a current nicotine user. She was maintained on a nicotine patch. The patient is morbidly obese with a BMI of 35 kg/m. The patient was advised on weight reduction. The patient has chronic back pain. The patient was maintained on analgesics for the same. Upon disc harge, the patient was given a short course of opioids. The patient had a stable hospital course. The patient is stable to be discharged home. Discharge Instructions 1. Resume home medications. 2. Follow a low-cholesterol, low carbohydrate, high-fiber diet. 3. Resume activities as tolerated. 4. Follow-up with your primary care physician in 2 weeks. 5. Please go to the nearest emergency room if you have any significant abdominal pain, persistent diarrhea, persistent fevers, or any other unusual signs/symptoms. The patient verbalized understanding of her discharge instructions. At this time I would like to thank Dr. Gerber for seeing the patient, doing the necessary procedures, and providing clinical recommendations. The patient was seen in collaboration with Dr. Molina [facility] Active Scripts Oxycodone Hcl* (IR) (Oxycodone Hcl*) 5 Mg Capsule, 5 MG PO Q4H PRN for PAIN, #10 CAP Prov:CLINTON CHANDLER REAL ESTATE INVESTMENT ANALYST 07/10/18 Atorvastatin* (Atorvastatin*) 40 Mg Tablet, 40 MG PO QHS, #30 TAB Prov:CLINTON CHANDLER REAL ESTATE INVESTMENT ANALYST 03/19/18 Ascorbic Acid (Vitamin C) 500 Mg Tab, 500 MG PO DAILY, #30 TAB 2 Refills Prov:BRIANNE LUONG . 02/21/18 Ferrous Sulfate* (Ferrous Sulfate*) 325 Mg Tabec, 325 MG PO DAILY for 30 Days, #30 TAB 2 Refills Prov:BRIANNE LUONG . 02/21/18 Docusate Sodium (Dok) 100 Mg Capsule, 100 MG PO Q12H, #60 CAP 2 Refills Prov:BRIANNE LUONG . 02/21/18 Reported Medications Insulin Aspart* (Novolog Insulin Pen*) 100 Unit/Ml Soln, 1 UNIT SC WITH BREAKFAST DINNE for 20u QAM; 30u QPM, EA 05/07/18 Omeprazole* (Omeprazole*) 40 Mg Capsule.dr, 40 MG PO DAILY for 60 Days, #60 05/07/18 Alprazolam* (Xanax*) 2 Mg Tablet, 2 MG PO Q8H PRN for ANXIETY, TAB 05/07/18 Levothyroxine Sodium* (Levothyroxine Sodium*) 100 Mcg Tablet, 100 MCG PO BEFORE BREAKFAST, #30 TAB 05/07/18 Amlodipine Besylate* (Norvasc*) 5 Mg Tablet, 5 MG PO DAILY, TAB 02/18/18 Cyclobenzaprine Hcl* (Cyclobenzaprine Hcl*) 10 Mg Tablet, 10 MG PO TID, #90 TAB 02/18/18 Benazepril Hcl* (Benazepril Hcl*) 20 Mg Tablet, 20 MG PO DAILY, #30 TAB 02/18/18 Aspirin* (Aspirin* EC) 81 Mg Tablet.dr, 81 MG PO DAILY, TAB 02/18/18 Albuterol Sulfate* (Proair HFA*) 8.5 Gm Hfa.aer.ad, 2 PUFF INH Q4H PRN for WHEEZING AND SOB, #1 INHALER 02/18/18 Discontinued Reported Medications Ranitidine Hcl* (Ranitidine Hcl*) 150 Mg Tablet, 150 MG PO Q24H, #60 TAB 02/18/18 Glipizide* (Glipizide*) 5 Mg Tablet, 5 MG PO BID for 45 Days, #90 05/07/18 Varenicline Tartrate (Chantix) 1 Mg Tablet, 1 MG PO DAILY for 77 Days, #77 05/07/18 Discontinued Scripts Ciprofloxacin Hcl* (Ciprofloxacin Hcl*) 500 Mg Tablet, 500 MG PO BID for 9 Days, #18 TAB Prov:SHARRON MOLINA MD 06/10/18 Metronidazole* (Metronidazole*) 500 Mg Tablet, 500 MG PO Q8 for 9 Days, #27 TAB Prov:SHARRON MOLINA MD 06/10/18 Hydrocodone/Acetaminophen ([place] 5-325 Tablet) 1 Each Tablet, 1 EACH PO Q6H, #12 TAB Prov:MARITZA MARIE MD 05/10/18 Tramadol HCl (Tramadol HCl) 50 Mg Tablet, 50 MG PO Q4 PRN for PAIN, #20 TAB Prov:MAURICE CAMERON 04/25/18 Follow-up Plan Follow-up with your primary care physician in 2 weeks. Primary Care Provider Not On Staff Doctor Pending Labs Laboratory Tests Test 07/09/18 22:05 07/10/18 02:06 07/10/18 04:33 07/10/18 08:08 Bedside 220 193 179 Glucose mg/dL (70-220) mg/dL (70-220) mg/dL (70-220) White Blood 7.4 Count 10^3/ul (4.8-1 0.8) Red Blood 4.48 Count 10^6/ul (4.20- 5.40) Hemoglobin 11.8 g/dl (12.0-16. 0) Hematocrit 35.9 % (37.0-47.0) Mean 80.1 Corpuscular fl (82.0-101.0 Volume ) Mean 26.3 Corpuscular pg (29.0-33.0) Hemoglobin Mean 32.9 Corpuscular g/dl (32.0-37. Hemoglobin Conc 0) ent Red Cell 15.6 Distribution % (11.5-14.5) Width Platelet Count 205 10^3/UL (140-4 15) Mean Platelet 11.5 Volume fl (7.4-10.4) Immature 0.300 Granulocytes % % (0.001-0.429 ) Neutrophils % 47.9 % (39.0-77.0) Lymphocytes % 39.7 % (15.0-51.0) Monocytes % 7.6 % (0.0-11.0) Eosinophils % 4.1 % (0.0-7.0) Basophils % 0.4 % (0.0-2.0) Nucleated Red 0.0 Blood Cells % /100WBC (0.0-0 .0) Immature 0.020 Granulocytes # 10^3/ul (0.0-0 .031) Neutrophils # 3.5 10^3/ul (1.6-7 .5) Lymphocytes # 2.9 10^3/ul (0.8-2 .9) Monocytes # 0.6 10^3/ul (0.3-0 .9) Eosinophils # 0.3 10^3/ul (0.0-0 .5) Basophils # 0.0 10^3/ul (0.0-0 .1) Nucleated Red 0.0 Blood Cells # 10^3/ul (0.0-0 .0) Sodium Level 141 mmol/L (135-14 4) Potassium 4.2 Level mmol/L (3.5-5. 1) Chloride Level 106 mmol/L (97-110 ) Carbon Dioxide 30 Level mmol/L (21-31) Anion Gap 5 (5-13) Blood Urea 11 Nitrogen mg/dl (7-20) Creatinine 0.54 mg/dl (0.44-1. 00) Est Glomerular > 60 Filtrat mL/min (>60) Rate mL/min Glucose Level 162 mg/dl (70-220) Calcium Level 9.3 mg/dl (8.4-10. 2) Phosphorus 3.8 Level mg/dl (2.5-4.9 ) Magnesium 1.6 Level mg/dl (1.7-2.5 ) Test 07/10/18 12:16 Bedside 139 Glucose mg/dL (70-220) CLINTON CHANDLER NP July 10, 2018 18:15
== END 2018-07-10 17:52 | disposition home or self-care (01) | DRG 392 ==
LOC: E/R 05:25 → TEL 08:06 → OBSVTOIN 07-07 09:26 → PP2 07-07 10:55
PROVIDERS: ADMIT Internal Medicine; ATTEND Internal Medicine
PROC: 0DJD8ZZ Inspection of Lower Intestinal Tract, Via Natural or Artificial Opening Endoscopic (ICD-10-PCS; principal; 2018-07-09 16:00)
PROC: 0DB68ZX Excision of Stomach, Via Natural or Artificial Opening Endoscopic, Diagnostic (ICD-10-PCS; 2018-07-09 16:00)
DX: R10.32 Left lower quadrant pain (principal); R55 Syncope and collapse; K57.90 Diverticulosis of intestine, part unspecified, without perforation or abscess without bleeding; R42 Dizziness and giddiness; E78.5 Hyperlipidemia, unspecified; E03.9 Hypothyroidism, unspecified; E66.01 Morbid (severe) obesity due to excess calories; Z68.35 Body mass index [BMI] 35.0-35.9, adult; F32.9 Major depressive disorder, single episode, unspecified; Z90.49 Acquired absence of other specified parts of digestive tract; E11.40 Type 2 diabetes mellitus with diabetic neuropathy, unspecified; J44.9 Chronic obstructive pulmonary disease, unspecified; K29.70 Gastritis, unspecified, without bleeding; Z72.0 Tobacco use
CPT/HCPCS: 36415; 70450; 74176; 80048; 80053; 80061; 80076; 81001; 82550; 82553; 82962; 83036; 83690; 83735; 84100; 84484; 85025; 86674; 87045; 87086; 88305; 88312; 93005; 93306; 93880; 96374; 96376; G0378; J0360; J0696; J1170; J1650; J1815; J1885; J1956; J2270; J2405; J3475; J7030; J7040

== ENCOUNTER 2018-08-28 18:02 | Emergency (ER) | payer MEDICARE, OTHER ==
[~2018-08-28] VITALS: Wt 110.0 kg
[~2018-08-28 18:02] MED LIST changes: -CIPR500T4 PO; -GLIP5TAB13 PO; -HYDR-4011 PO; -METR-122 PO; +OXYC5CAP17 PO; -RANI150T5 PO; -TRAM50TA2 PO; -VARE1TAB20 PO
--- NOTE | 2018-08-28 19:56 | ERD ---
ER Documentation Chief Complaint Chief Complaint rlq rad into back, and black stools HPI 72-year-old woman complaining of generalized, diffuse abdominal pain and cramping similar to multiple previous episodes, she was recently diagnosed with gastritis status post esophagogastroduodenoscopy and also recently started using her PPI therapy and amoxicillin antibiotic for gastritis. She states her abdominal pain is most intense to the right lower quadrant and states this is chronic as well and occurs on a daily basis. She states her stools have been dark in color but admits to using Pepto-Bismol almost daily. She denies fevers or chills, no vomiting or diarrhea, no weakness or dizziness, no complaints of chest pain or shortness of breath ROS All systems reviewed and are negative except as per history of present illness. Medications Home Meds Active Scripts Naproxen* (Naproxen*) 500 Mg Tablet, 500 MG PO BID PRN for PAIN, #60 TAB Prov:JEAN CLAUDE ANDUJAR MD 08/28/18 Oxycodone Hcl* (IR) (Oxycodone Hcl*) 5 Mg Capsule, 5 MG PO Q4H PRN for PAIN, #10 CAP Prov:CLINTON CHANDLER VOICE INSTRUCTOR 07/10/18 Atorvastatin* (Atorvastatin*) 40 Mg Tablet, 40 MG PO QHS, #30 TAB Prov:CLINTON CHANDLER NP 03/19/18 Ascorbic Acid (Vitamin C) 500 Mg Tab, 500 MG PO DAILY, #30 TAB 2 Refills Prov:BRIANNE LUONG. 02/21/18 Ferrous Sulfate* (Ferrous Sulfate*) 325 Mg Tabec, 325 MG PO DAILY for 30 Days, #30 TAB 2 Refills Prov:BRIANNE LUONG 02/21/18 Docusate Sodium (Dok) 100 Mg Capsule, 100 MG PO Q12H, #60 CAP 2 Refills Prov:BRIANNE LUONG. 02/21/18 Reported Medications Insulin Aspart* (Novolog Insulin Pen*) 100 Unit/Ml Soln, 1 UNIT SC WITH BREAKFAST DINNE for 20u QAM; 30u QPM, EA 05/07/18 Omeprazole* (Omeprazole*) 40 Mg Capsule.dr, 40 MG PO DAILY for 60 Days, #60 05/07/18 Alprazolam* (Xanax*) 2 Mg Tablet, 2 MG PO Q8H PRN for ANXIETY, TAB 3/26/19 Levothyroxine Sodium* (Levothyroxine Sodium*) 100 Mcg Tablet, 100 MCG PO BEFORE BREAKFAST, #30 TAB 05/07/18 Amlodipine Besylate* (Norvasc*) 5 Mg Tablet, 5 MG PO DAILY, TAB 02/18/18 Cyclobenzaprine Hcl* (Cyclobenzaprine Hcl*) 10 Mg Tablet, 10 MG PO TID, #90 TAB 02/18/18 Benazepril Hcl* (Benazepril Hcl*) 20 Mg Tablet, 20 MG PO DAILY, #30 TAB 02/18/18 Aspirin* (Aspirin* EC) 81 Mg Tablet.dr, 81 MG PO DAILY, TAB 02/18/18 Albuterol Sulfate* (Proair HFA*) 8.5 Gm Hfa.aer.ad, 2 PUFF INH Q4H PRN for WHEEZING AND SOB, #1 INHALER 02/18/18 Allergies Allergies: Coded Allergies: almond (Verified Allergy, Unknown, SOB, 07/05/18) PMhx/Soc Chronic back pain, chronic abdominal pain, gastritis confirmed on recent esophagogastroduodenoscopy, history of diverticulosis, COPD, hypertension, dyslipidemia, morbid obesity, diabetes mellitus, hypothyroidism, chronic peripheral edema History of Surgery: Yes (knee sx, back sx, gallbladder) Anesthesia Reaction: No Hx Neurological Disorder: Yes (syncope, neuropathy, ) Hx Respiratory Disorders: Yes (COPD) Hx Cardiac Disorders: Yes (HTN, CHF) Hx Psychiatric Problems: Yes (depression) Hx Miscellaneous Medical Probl: No Hx Alcohol Use: No Hx Substance Use: No Hx Tobacco Use: Yes Smoking Status: Current every day smoker FmHx Family History: No diabetes Physical Exam Vitals Vital Signs Date Temp Pulse Resp B/P (MAP) Pulse Ox O2 O2 Flow FiO2 Time Delivery Rate 08/28/18 97.6 68 14 123/82 97 Room Air 21:36 (96) 08/28/18 70 16 126/69 98 Room Air 20:30 (88) 08/28/18 97.5 77 20 157/85 97 18:07 (109) Physical Exam GENERAL: Well-developed, well-nourished, well-hydrated, mild discomfort, afebrileCARDIAC: Regular rate and rhythm, no murmurs rubs or gallops LUNGS: Clear bilaterally no wheezing crackles or stridor ABDOMEN: Soft nontender, no guarding, no rigidity, no rebound, no psoas sign no obturator sign. Normoactive bowel sounds SKIN: Warm and dry to touch, no abrasions, contusions, or hematomas, no lacer ations, no ecchymosis, no target lesions, and without ulcers EXTREMITIES: No clubbing cyanosis or edema, calves are bilaterally symmetrical, no Homans sign, no popliteal cord sign. Distal pulses equal and bilateral PSYCH: Normal affect without agitation or irritability Result Diagram: 08/28/18193608/28/181936 Results 24 hrs Laboratory Tests Test 08/28/18 19:22 08/28/18 19:37 Urine Color YELLOW Urine Clarity CLEAR Urine pH 6.0 Urine Specific [place] 1.012 Urine Ketones NEGATIVE mg/dL Urine Nitrite NEGATIVE mg/dL Urine Bilirubin NEGATIVE mg/dL Urine Urobilinogen NEGATIVE mg/dL Urine Leukocyte Esterase NEGATIVE Brijesh/ul Urine Microscopic RBC 9 /HPF Urine Microscopic WBC 1 /HPF Urine Hemoglobin 1+ mg/dL Urine Glucose NEGATIVE mg/dL Urine Total Protein NEGATIVE mg/dl White Blood Count 10.3 10^3/ul Red Blood Count 5.48 10^6/ul Hemoglobin 14.6 g/dl Hematocrit 45.3 % Mean Corpuscular Volume 82.7 fl Mean Corpuscular Hemoglobin 26.6 pg Mean Corpuscular Hemoglobin Concent 32.2 g/dl Red Cell Distribution Width 15.1 % Platelet Count 256 10^3/UL Mean Platelet Volume 11.0 fl Immature Granulocytes % 1.300 % Neutrophils % 40.8 % Lymphocytes % 48.2 % Monocytes % 7.7 % Eosinophils % 1.5 % Basophils % 0.5 % Nucleated Red Blood Cells % 0.0 /100WBC Immature Granulocytes # 0.130 10^3/ul Neutrophils # 4.2 10^3/ul Lymphocytes # 5.0 10^3/ul Monocytes # 0.8 10^3/ul Eosinophils # 0.2 10^3/ul Basophils # 0.1 10^3/ul Nucleated Red Blood Cells # 0.0 10^3/ul Sodium Level 143 mmol/L Potassium Level 4.6 mmol/L Chloride Level 106 mmol/L Carbon Dioxide Level 29 mmol/L Anion Gap 8 Blood Urea Nitrogen 23 mg/dl Creatinine 0.69 mg/dl Est Glomerular Filtrat Rate mL/min > 60 mL/min Glucose Level 68 mg/dl Calcium Level 9.8 mg/dl Total Bilirubin 0.4 mg/dl Direct Bilirubin 0.00 mg/dl Indirect Bilirubin 0.4 mg/dl Aspartate Amino Transf (AST/SGOT) 31 IU/L Alanine Aminotransferase (ALT/SGPT) 19 IU/L Alkaline Phosphatase 122 IU/L Total Protein 7.4 g/dl Albumin 3.9 g/dl Globulin 3.50 g/dl Albumin/Globulin Ratio 1.11 Lipase 124 U/L Current Medications Medications Dose Sig/Nguyen Start Time Status Last (Trade) Ordered Route PRN Stop Time Admin Dose Reason Admin Sodium 500 ml @ Q1H STAT 08/28/18 DC 08/28/18 Chloride 500 mls/hr IV 20:06 20:13 08/28/18 21:05 Morphine 4 mg ONCE STAT 08/28/18 DC 08/28/18 Sulfate IV 20:06 20:15 (morphine) 08/28/18 20:08 Ondansetron 4 mg ONCE STAT 08/28/18 DC 08/28/18 HCl (Zofran IV 20:06 20:15 Inj) 08/28/18 20:08 Ketorolac 15 mg ONCE STAT 08/28/18 DC 08/28/18 Tromethamine IV 21:09 21:14 (Toradol) 08/28/18 21:10 Procedures/MDM IV line was established patient was placed on monitoring analyst rhythm strip revealed a sinus rhythm at about 80 bpm with upright P and T waves. Patient was afebrile I administered 500 cc normal saline IV, morphine 4 mg IV, Zofran 4 mg IV, and then Toradol 15 mg IV. I reviewed patient's past medical records and prior imaging studies, she has had 7 CT scans of the abdomen pelvis in the past all of which have been unremarkable. She also underwent recent EGD which showed gastritis. She is currently using her antibiotic and PPI therapy for gastritis. CBC and electrolytes were unremarkable, liver function test normal, urinalysis revealed RBCs otherwise negative for infection. She has had urine RBCs in the past and denies hematuria. I repeated the patient's abdominal examination and her diffuse abdominal tenderness resolved, she had no guarding, rigidity, rebound, or McBurney's point tenderness. Given her multiple previous CT scans I recommended we defer CT imaging at this time because her exam is benign, she is afebrile, and vital signs are normal, but did tell her return in 8 to 12 hours for repeat abdominal examination and reevaluation. Differential diagnoses considered, included but not limited to acute coronary syndrome, pulmonary embolism, aortic dissection, abdominal aortic aneurysm, sepsis, stroke, meningitis, encephalitis, pneumonia, appendicitis, cholecystitis, bowel obstruction, pyelonephritis, nephrolithiasis, cystitis, as well as metabolic, hematologic, and electrolyte abnormalities. As well as abscess, cellulitis, fractures, and dislocations. Patient feels much better at this time, and vital signs are normal, symptoms have improved. I did give strict instructions to return to the ED if symptoms continue or worsen, patient will otherwise follow-up with primary care physician. Patient understood instructions and agreed to plan. Disclaimer: Inadvertent spelling and grammatical errors are likely due to EHR/dictation software use and do not reflect on the overall quality of patient care. Also, please note that the electronic time recorded on this note does not necessarily reflect the actual time of the patient encounter. Departure Diagnosis: Primary Impression: Abdominal pain Abdominal location: generalized Qualified Codes: R10.84 - Generalized abdominal pain Additional Impression: Gastritis Gastritis type: unspecified gastritis Chronicity: acute Gastritis bleeding: without bleeding Qualified Codes: K29.00 - Acute gastritis without bleeding Condition: JEAN CLAUDE Sanchez MD Aug 28, 2018 19:56
[2018-08-28] MEDS ORDERED: SOD CHLORIDE 0.9% 500 ML IV STA (20:06)
[2018-08-28] MEDS ORDERED: morphine 4 MG/ML VIAL IV STA (20:06)
[2018-08-28] MEDS ORDERED: ONDANSETRON 4 MG INJ IV STA (20:06)
[2018-08-28] MEDS ORDERED: KETOROLAC 15 MG INJ IV STA (21:09)
[2018-08-28] MEDS ORDERED: NAPR-688 PO (21:10)
[2018-08-28 21:36] VITALS: BP 123/82; PULSE 68; RESP 14
== END 2018-08-28 21:36 | disposition home or self-care (01) ==
LOC: E/R 18:02
DX: K29.00 Acute gastritis without bleeding (principal); J44.9 Chronic obstructive pulmonary disease, unspecified; I10 Essential (primary) hypertension; I50.9 Heart failure, unspecified; E11.9 Type 2 diabetes mellitus without complications; E03.9 Hypothyroidism, unspecified; E66.01 Morbid (severe) obesity due to excess calories; F17.210 Nicotine dependence, cigarettes, uncomplicated; Z79.4 Long term (current) use of insulin; Z79.82 Long term (current) use of aspirin
CPT/HCPCS: 36415; 80053; 81001; 83690; 85025; 96374; 96375; 99284; J1885; J2270; J2405; J7040